=== PATIENT | female | born 1935 | race Caucasian/White ===

== ENCOUNTER → 2016-04-08 | Outpatient (CLI) | payer OTHER ==
[~2016-04-08] MED LIST: ALLO1TAB51 PO; AMLO-110 PO; ATOR-24 PO; CHOLTAB3 PO; FERR325T51 PO; FURO20TA PO; INSDGI SC; LEVO88TA PO; LISI40TA PO; MAGN400T6 PO; METO50TA16 PO; NVLGI SC; PARO1TAB27 PO
[2016-04-08 14:38] LABS: HEMATOCRIT 33.6 % (37-47); MEAN CELL VOLUME 89.1 fL (80-100); MEAN CORPUSCULAR HEMOGLOBIN 29.4 pg (25-34); MEAN PLATELET VOLUME 10.7 fL (7.4-10.4); PLATELET COUNT 228 K/uL (130-400); RED BLOOD COUNT 3.77 M/uL (4.2-5.4); WHITE BLOOD COUNT 8.32 K/uL (4.8-10.8)
[2016-04-08 14:48] LABS: BLOOD UREA NITROGEN 29 mg/dl (7-18); BUN/CREATININE RATIO 14.4 (10-20); CALCIUM 9.1 mg/dl (8.5-10.1); CARBON DIOXIDE 30 mmol/L (21-32); CHLORIDE 105 mmol/L (98-107); GLUCOSE 77 mg/dl (70-99); PHOSPHORUS 3.4 mg/dl (2.5-4.9); POTASSIUM 3.6 mmol/L (3.5-5.1); SODIUM 143 mmol/L (136-145)
[2016-04-08 14:49] LABS: URINE APPEARANCE CLEAR (CLEAR); URINE BILIRUBIN NEG (NEG); URINE COLOR YELLOW; URINE NITRITE NEG (NEG); URINE SPECIFIC GRAVITY 1.007 (1.000-1.030); UROBILINOGEN NEG (NEG)
[2016-04-08 14:50] LABS: MANUAL MICROSCOPIC REQUIRED? NO; REVIEW REQ? NO
[2016-04-08 15:04] LABS: URINE PROTIEN/CREAT RATIO 0.3 (0-0.2); URINE TOTAL PROTEIN 23.3 mg/dl (0-11.9)
== END | disposition home or self-care (01) ==
LOC: C.LAB1850 13:16
PROVIDERS: ATTEND Internal Medicine Nephrology
DX: N25.81 Secondary hyperparathyroidism of renal origin (principal); I10 Essential (primary) hypertension; E55.9 Vitamin D deficiency, unspecified; D64.9 Anemia, unspecified; N18.3 Chronic kidney disease, stage 3 (moderate)

== ENCOUNTER → 2016-10-23 | Outpatient (CLI) | payer OTHER ==
[2016-10-23 12:19] LABS: HEMATOCRIT 34.9 % (37-47); MEAN CELL VOLUME 90.6 fL (80-100); MEAN CORPUSCULAR HEMOGLOBIN 29.6 pg (25-34); MEAN CORPUSCULAR HGB CONC 32.7 g/dl (32-36); MEAN PLATELET VOLUME 10.7 fL (7.4-10.4); PLATELET COUNT 227 K/uL (130-400); RED BLOOD COUNT 3.85 M/uL (4.2-5.4); WHITE BLOOD COUNT 8.83 K/uL (4.8-10.8)
[2016-10-23 12:23] LABS: BLOOD UREA NITROGEN 26 mg/dl (7-18); BUN/CREATININE RATIO 13.9 (10-20); CALCIUM 9.1 mg/dl (8.5-10.1); CARBON DIOXIDE 28 mmol/L (21-32); CHLORIDE 109 mmol/L (98-107); GLUCOSE 86 mg/dl (70-99); PHOSPHORUS 3.1 mg/dl (2.5-4.9); POTASSIUM 3.7 mmol/L (3.5-5.1); SODIUM 142 mmol/L (136-145)
[2016-10-23 12:27] LABS: URINE APPEARANCE CLEAR (CLEAR); URINE BILIRUBIN NEG (NEG); URINE COLOR YELLOW; URINE NITRITE NEG (NEG); URINE PH 5.5 (4.5-7.5); URINE SPECIFIC GRAVITY 1.017 (1.000-1.030); UROBILINOGEN NEG (NEG)
[2016-10-23 12:40] LABS: MANUAL MICROSCOPIC REQUIRED? NO; REVIEW REQ? NO
[2016-10-23 12:53] LABS: URINE PROTIEN/CREAT RATIO 0.3 (0-0.2); URINE TOTAL PROTEIN 40.1 mg/dl (0-11.9)
== END | disposition home or self-care (01) ==
LOC: C.LAB1850 09:40
PROVIDERS: ATTEND Internal Medicine Nephrology
DX: N18.3 Chronic kidney disease, stage 3 (moderate) (principal); N25.81 Secondary hyperparathyroidism of renal origin; D64.9 Anemia, unspecified; I12.9 Hypertensive chronic kidney disease with stage 1 through stage 4 chronic kidney disease, or unspecified chronic kidney disease; E55.9 Vitamin D deficiency, unspecified

== ENCOUNTER → 2017-04-24 | Outpatient (CLI) | payer OTHER ==
[2017-04-24 16:57] LABS: HEMATOCRIT 31.6 % (37-47); HEMOGLOBIN 10.2 g/dL (12.0-16.0); MEAN CELL VOLUME 91.1 fL (80-100); MEAN CORPUSCULAR HEMOGLOBIN 29.4 pg (25-34); MEAN CORPUSCULAR HGB CONC 32.3 g/dl (32-36); MEAN PLATELET VOLUME 10.4 fL (7.4-10.4); PLATELET COUNT 238 K/uL (130-400); RED CELL DISTRIBUTION WIDTH CV 15.4 % (11.5-14.5); RED CELL DISTRIBUTION WIDTH SD 50.5 fL (36.4-46.3); WHITE BLOOD COUNT 9.25 K/uL (4.8-10.8)
[2017-04-24 17:29] LABS: ALBUMIN 3.4 gm/dl (3.4-5.0); BLOOD UREA NITROGEN 25 mg/dl (7-18); CALCIUM 8.1 mg/dl (8.5-10.1); CARBON DIOXIDE 29 mmol/L (21-32); CREATININE 1.74 mg/dl (0.60-1.20); GLUCOSE 94 mg/dl (70-99); PHOSPHORUS 2.9 mg/dl (2.5-4.9); SODIUM 142 mmol/L (136-145)
== END | disposition home or self-care (01) ==
LOC: C.LABPBG 10:52
PROVIDERS: ATTEND Internal Medicine Nephrology
DX: N25.81 Secondary hyperparathyroidism of renal origin (principal); I10 Essential (primary) hypertension; D64.9 Anemia, unspecified; E55.9 Vitamin D deficiency, unspecified; N18.3 Chronic kidney disease, stage 3 (moderate)

== ENCOUNTER 2017-05-31 19:34 | Emergency (ER) | payer OTHER ==
[~2017-05-31] VITALS: Ht 162.6 cm; Wt 83.3 kg
[2017-05-31 19:36] VITALS: TEMP 37; Ht 162.6 cm; Wt 83.3 kg
[2017-05-31 20:18] LABS: BASO % 0.4 %; BASO ABS # 0.04 K/uL (0-0.2); EOS % 4.9 %; HEMATOCRIT 32.6 % (37-47); IG# 0.02 K/uL (0.00-0.02); LYMPH % 23.1 %; LYMPH ABS # 2.35 K/uL (1.2-3.4); MEAN CELL VOLUME 89.1 fL (80-100); MEAN CORPUSCULAR HEMOGLOBIN 30.1 pg (25-34); MEAN CORPUSCULAR HGB CONC 33.7 g/dl (32-36); MEAN PLATELET VOLUME 10.1 fL (7.4-10.4); MONO % 6.5 %; MONO ABS # 0.66 K/uL (0.11-0.59); NEUT % 64.9 %; NEUT ABS # 6.62 K/uL (1.4-6.5); PLATELET COUNT 191 K/uL (130-400); RED CELL DISTRIBUTION WIDTH SD 48.5 fL (36.4-46.3); WHITE BLOOD COUNT 10.19 K/uL (4.8-10.8)
--- NOTE | 2017-05-31 20:23 | DIAGNOSTIC IMAGING REPORT ---
HEAD WITHOUT CONTRAST (CT) CLINICAL HISTORY: 81 years-old Female presenting with LEIGH, high BP. TECHNIQUE: Multidetector CT imaging of the head was performed without the use of intravenous contrast. IV contrast: None. A dose lowering technique was used consistent with the principles of ALARA (as low as reasonably achievable). COMPARISON: 06/23/2015. CT DOSE (mGy.cm): The estimated cumulative dose is 601.98 mGy.cm. 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 Proportional ventricular and sulcal prominence, likely age-related parenchymal volume loss. Periventricular and subcortical white matter hypoattenuation, nonspecific but likely indicative of chronic small vessel ischemic change. No mass effect or midline shift. No hemorrhage or acute territorial infarct. No extra-axial fluid collection. Paranasal sinuses and mastoid air cells clear. Calvarium intact. IMPRESSION: 1. Chronic small vessel ischemic change. No acute intracranial abnormality. Electronically signed by: Alok Kong M.D. 05/31/2017 8:21 PM Dictated Date/Time: 05/31/2017 8:19 PM
[2017-05-31 20:38] LABS: CALCIUM 8.8 mg/dl (8.5-10.1); CREATININE 2.12 mg/dl (0.60-1.20)
[2017-05-31] MEDS ORDERED: NVLGI/PEN SQ (20:40)
[2017-05-31] MEDS ORDERED: INSU3INJ3 SQ (20:40)
[2017-05-31] MEDS ORDERED: CHOL100027 PO (20:40)
[2017-05-31] MEDS ORDERED: FERR1TAB62 PO (20:40)
[2017-05-31] MEDS ORDERED: ALLO100T PO (20:40)
[2017-05-31 21:47] VITALS: BP 158/82; PULSE 61; O2SAT 95
--- NOTE | 2017-05-31 21:51 | EMERGENCY ROOM VISIT NOTE ---
History Report prepared by Angel: Elise Wheat Under the Supervision of: Dr. Jose D Russell D.O. First contact with patient: 19:42 Chief Complaint: HYPERTENSION Stated Complaint: BLOOD PRESSURE RUNNING HIGH History of Present Illness The patient is an 81 year old female who presents to the Emergency Room with complaints of persistent hypertension starting earlier today. The patient has a history of hypertensive encephalopathy. She has been taking her blood pressure once a week. It has been somewhat elevated recently. Today she found that it was in the 200s so she came to the ED. She has had brief headaches over the past month. She describes the headache as a "thump" in her head and it occurs when she stands back up after bending over. Pain is a 1 out of 10 in her head. It comes and goes intermittently as stated with bending over. Located in the front of her head. She denies any change in vision, chest pain, SOB, abdominal pain, nausea, vomiting, or diarrhea. She has taken all of her medications today. She has a history of kidney disease. Source of History: patient Onset: earlier today Position: other (blood pressure) Symptom Intensity: 200s Quality: other (high) Timing: other (persistent) Associated Symptoms: + headache, No chest pain, No SOB, No nausea, No vomiting, No abdominal pain, No diarrhea Review of Systems See HPI for pertinent positives & negatives. A total of 10 systems reviewed and were otherwise negative. Past Medical & Surgical Medical Problems: (1) Anemia (2) CKD (chronic kidney disease), stage IV (3) DM type 2 (diabetes mellitus, type 2) (4) Dyslipidemia (5) Encephalopathy (6) Gout (7) HTN (hypertension) (8) Hypertensive emergency (9) Hypothyroidism (10) Urinary tract infection Surgical Problems: (1) History of carpal tunnel surgery of left wrist (2) Hx of surgical amputation of finger (3) Hx of tonsillectomy Family History FHx: cancer FHx: diabetes mellitus FHx: gallbladder disease FHx: heart disease FHx: hypertension FHx: lung disease Social History Smoking Status: Never Smoker Alcohol Use: none Drug Use: none Marital Status: Housing Status: lives with family Occupation Status: employed Current/Historical Medications Scheduled Allopurinol (Zyloprim), 100 MG PO BID Amlodipine (Norvasc), 5 MG PO QAM Atorvastatin (Lipitor), 40 MG PO QPM Cholecalciferol (Vitamin D 1000 Unit), 1,000 INTER.UNIT PO DAILY Ferrous Sulfate (Ferrous Sulfate), 325 MG PO BID Furosemide (Lasix), 20 MG PO QAM Insulin Detemir (Levemir Flextouch), 18 UNITS SQ HS Levothyroxine Sodium (Synthroid), 1 TAB PO QAM Lisinopril (Zestril), 40 MG PO QAM Magnesium Oxide (Mag-Ox), 400 MG PO BID Metoprolol Tartrate (Lopressor) (Lopressor), 50 MG PO BID Paroxetine (Paxil), 20 MG PO QAM Scheduled PRN Insulin Aspart (Novolog Flexpen), 1-15 UNITS SQ DAILY PRN for PRN Allergies Coded Allergies: Hydrocodone (Verified Allergy, Intermediate, RASH, 09/05/15) Iodinated Diagnostic Agents (Verified Allergy, Intermediate, HIVES, ) Penicillins (Verified Allergy, Intermediate, ANAPHLACTIC SHOCK, 09/05/15) Phenylephrine (Verified Allergy, Intermediate, RASH, 09/05/15) Trolamine (Verified Allergy, Intermediate, RASH, 08/28/15) Acetaminophen (Verified Allergy, Mild, BRIGHT RED RASH-PT DENIES, 08/28/15) Ketorolac (Verified Allergy, Mild, PT. DOSEN'T REMEMBER REACTION, 08/28/15) Oxycodone (Verified Allergy, Mild, BRIGHT RED RASH, 08/28/15) Tramadol (Verified Allergy, Mild, BRIGHT RED RASH, 08/28/15) Physical Exam Vital Signs Date Time Temp Pulse Resp B/P (MAP) Pulse Ox O2 Delivery O2 Flow Rate FiO2 05/31/17 21:47 61 17 158/82 95 05/31/17 20:56 61 17 165/80 95 Room Air 05/31/17 20:17 66 05/31/17 20:02 66 15 165/84 05/31/17 19:36 37.0 71 18 173/87 96 Room Air Physical Exam GENERAL: Sitting up in bed, alert, well appearing, well nourished, no distress, non-toxic EYE EXAM: normal conjunctiva. PERRL and EOM's grossly intact. OROPHARYNX: no exudate, no erythema, lips, buccal mucosa, and tongue normal and mucous membranes are moist NECK: supple, no nuchal rigidity, no adenopathy, non-tender LUNGS: Clear to auscultation. Normal chest wall mechanics HEART: no murmurs, S1 normal and S2 normal ABDOMEN: abdomen soft, non-tender, normo-active bowel sounds, no masses, no rebound or guarding. BACK: Back is symmetrical on inspection and there is no deformity, no midline tenderness, no CVA tenderness. SKIN: no rashes and no bruising UPPER EXTREMITIES: upper extremities are grossly normal. LOWER EXTREMITIES: No pitting edema. NEURO EXAM: Normal sensorium, cranial nerves II-XII grossly intact, normal speech, no gross weakness of arms, no gross weakness of legs. Medical Decision & Procedures ER Provider Diagnostic Interpretation: Radiology results as stated below per my review and the radiologist's interpretation: HEAD WITHOUT CONTRAST (CT) CLINICAL HISTORY: 81 years-old Female presenting with LEIGH, high BP. TECHNIQUE: Multidetector CT imaging of the head was performed without the use of intravenous contrast. IV contrast: None. A dose lowering technique was used consistent with the principles of ALARA (as low as reasonably achievable). COMPARISON: 06/23/2015. CT DOSE (mGy.cm): The estimated cumulative dose is 601.98 mGy.cm. FINDINGS: [employer] topogram: Unremarkable. Proportional ventricular and sulcal prominence, likely age-related parenchymal volume loss. Periventricular and subcortical white matter hypoattenuation, nonspecific but likely indicative of chronic small vessel ischemic change. No mass effect or midline shift. No hemorrhage or acute territorial infarct. No extra-axial fluid collection. Paranasal sinuses and mastoid air cells clear. Calvarium intact. IMPRESSION: 1. Chronic small vessel ischemic change. No acute intracranial abnormality. Electronically signed by: Alok Kong M.D. 05/31/2017 8:21 PM Dictated Date/Time: 05/31/2017 8:19 PM Laboratory Results 05/31/17 19:55 Red Blood Count 3.66, Mean Corpuscular Volume 89.1, Mean Corpuscular Hemoglobin 30.1, Mean Corpuscular Hemoglobin Concent 33.7, Mean Platelet Volume 10.1, Neutrophils (%) (Auto) 64.9, Lymphocytes (%) (Auto) 23.1, Monocytes (%) (Auto) 6.5, Eosinophils (%) (Auto) 4.9, Basophils (%) (Auto) 0.4, Neutrophils # (Auto) 6.62, Lymphocytes # (Auto) 2.35, Monocytes # (Auto) 0.66, Eosinophils # (Auto) 0.50, Basophils # (Auto) 0.04 05/31/17 19:55 05/31/17 20:48 Test 05/31/17 19:55 White Blood Count 10.19 K/uL (4.8-10.8) Red Blood Count 3.66 M/uL (4.2-5.4) Hemoglobin 11.0 g/dL (12.0-16.0) Hematocrit 32.6 % (37-47) Mean Corpuscular Volume 89.1 fL (80-100) Mean Corpuscular Hemoglobin 30.1 pg (25-34) Mean Corpuscular Hemoglobin Concent 33.7 g/dl (32-36) Platelet Count 191 K/uL (130-400) Mean Platelet Volume 10.1 fL (7.4-10.4) Neutrophils (%) (Auto) 64.9 % Lymphocytes (%) (Auto) 23.1 % Monocytes (%) (Auto) 6.5 % Eosinophils (%) (Auto) 4.9 % Basophils (%) (Auto) 0.4 % Neutrophils # (Auto) 6.62 K/uL (1.4-6.5) Lymphocytes # (Auto) 2.35 K/uL (1.2-3.4) Monocytes # (Auto) 0.66 K/uL (0.11-0.59) Eosinophils # (Auto) 0.50 K/uL (0-0.5) Basophils # (Auto) 0.04 K/uL (0-0.2) RDW Standard Deviation 48.5 fL (36.4-46.3) RDW Coefficient of Variation 15.0 % (11.5-14.5) Immature Granulocyte % (Auto) 0.2 % Immature Granulocyte # (Auto) 0.02 K/uL (0.00-0.02) Anion Gap 7.0 mmol/L (3-11) Est Creatinine Clear Calc Drug Dose 22.1 ml/min Estimated GFR () 24.8 Estimated GFR (Non- 21.4 BUN/Creatinine Ratio 13.5 (10-20) Calcium Level 8.8 mg/dl (8.5-10.1) Laboratory results per my review. ECG Per My Interpretation Indication: other (high blood pressure) Rate (beats per minute): 66 Rhythm: sinus rhythm Findings: RBBB, left axis deviation, no ectopy Comparison ECG Date: 25-Jun-2015 Change: no significant change ED Course ED COURSE: Vital signs were reviewed and showed hypertension. The patients medical record was reviewed The above diagnostic studies were performed and reviewed. ED treatments and interventions as stated above. 3: The patient was evaluated in room C7. A complete history and physical examination was performed. 2129: Upon reevaluation, the patient is resting comfortably. I discussed my findings with the patient and she understands and agrees with the treatment plan. Based on the patients age, coexisting illnesses, exam and lab findings the decision to treat as an outpatient was made. The patient remained stable while under my care. The patient appeared well at the time of discharge. Medical Decision Differential Diagnosis includes but is not limited to headache, tension headache , cluster headache, migraine, subarachnoid hemorrhage, meningitis, mass, central venous thrombus, concussion, trauma and epidural/subdural hemorrhage. Patient is an 81-year-old female who presents the ER for hypertension. She notes she was checking her blood pressure at home and it was in the 200s. She has no other complaints at this time with the exception of mild faint right frontal headache. CBC was unremarkable. BMP with a creatinine of 2. Baseline appears to be 1.7-1.8. EKG was unchanged. CT head was negative. Patient was completely asymptomatic. Blood pressures trended down to the 140s without intervention. She was updated at bedside. She was discharged follow-up with PCP as an outpatient. Discussed with Pt concerning signs and symptoms to watch out for. Pt was instructed to follow up with their PCP and discussed with the patient their option to return to the ED at anytime for persistent or worsening symptoms. The appropriate anticipatory guidance and out-patient management, including indications for return to the emergency department, were explained at length to the patient and understood. Medication Reconcilliation Current Medication List: was personally reviewed by me Blood Pressure Screening Patient's blood pressure: Elevated blood pressure Blood pressure disposition: Referred to PCP Impression Primary Impression: HTN (hypertension) Additional Impression: LEIGH (headache) Scribe Attestation The scribe's documentation has been prepared under my direction and personally reviewed by me in its entirety. I confirm that the note above accurately reflects all work, treatment, procedures, and medical decision making performed by me. Departure Information Dispostion Home / Self-Care Referrals Cooper Merida M.D. (PCP) Forms HOME CARE DOCUMENTATION FORM, IMPORTANT VISIT INFORMATION, WORK / SCHOOL INSTRUCTIONS Patient Instructions Headache Pain, Hypertension Control, My [facility] Additional Instructions Please follow up with your primary care doctor with in the next 24 hours. Any worsening of your symptoms, please return to the ED immediately. This includes any fevers greater than 100.4, worsening pain, chest pain, shortness breath, persistent nausea, vomiting, unable to eat or drink, or any other concerning signs or symptoms from your standpoint. You were found to have a blood pressure greater than 120 systolic over 90 diastolic. Due to the new Medicare guidelines, we are now recommending that you follow up with your primary care doctor in regards to this elevated blood pressure. Problem Qualifiers Primary Impression: HTN (hypertension) Hypertension type: unspecified Qualified Codes: I10 - Essential (primary) hypertension Additional Impression: LEIGH (headache) Headache type: unspecified Headache chronicity pattern: acute headache Intractability: not intractable Qualified Codes: R51 - Headache
== END 2017-05-31 21:48 | disposition home or self-care (01) ==
LOC: C.EDB 19:35 → C.EDC 21:48
DX: I12.9 Hypertensive chronic kidney disease with stage 1 through stage 4 chronic kidney disease, or unspecified chronic kidney disease (principal); R51 Headache; E11.22 Type 2 diabetes mellitus with diabetic chronic kidney disease; Z79.4 Long term (current) use of insulin; N18.4 Chronic kidney disease, stage 4 (severe); M10.9 Gout, unspecified; E78.5 Hyperlipidemia, unspecified; D64.9 Anemia, unspecified; E03.9 Hypothyroidism, unspecified; Z88.6 Allergy status to analgesic agent; Z91.041 Radiographic dye allergy status; Z88.0 Allergy status to penicillin; Z88.8 Allergy status to other drugs, medicaments and biological substances; Z88.5 Allergy status to narcotic agent

== ENCOUNTER → 2017-06-04 | Outpatient (CLI) | payer OTHER ==
[~2017-06-04] MED LIST changes: +ALLO100T PO; -ALLO1TAB51 PO; +CHOL100027 PO; -CHOLTAB3 PO; +FERR1TAB62 PO; -FERR325T51 PO; -INSDGI SC; +INSU3INJ3 SQ; -NVLGI SC; +NVLGI/PEN SQ
[2017-06-04 17:34] LABS: ALBUMIN 3.8 gm/dl (3.4-5.0); BLOOD UREA NITROGEN 31 mg/dl (7-18); CALCIUM 9.5 mg/dl (8.5-10.1); CARBON DIOXIDE 31 mmol/L (21-32); CREATININE 2.02 mg/dl (0.60-1.20); GLUCOSE 87 mg/dl (70-99); PHOSPHORUS 4.2 mg/dl (2.5-4.9); POTASSIUM 3.5 mmol/L (3.5-5.1); SODIUM 138 mmol/L (136-145)
== END | disposition home or self-care (01) ==
LOC: C.LABPBG 12:16
PROVIDERS: ATTEND Internal Medicine Nephrology
DX: N25.81 Secondary hyperparathyroidism of renal origin (principal); I10 Essential (primary) hypertension; E55.9 Vitamin D deficiency, unspecified; D64.9 Anemia, unspecified

== ENCOUNTER → 2017-06-25 | Outpatient (CLI) | payer OTHER ==
[2017-06-25 16:55] LABS: ALBUMIN 3.4 gm/dl (3.4-5.0); BLOOD UREA NITROGEN 62 mg/dl (7-18); CALCIUM 8.4 mg/dl (8.5-10.1); CARBON DIOXIDE 25 mmol/L (21-32); CREATININE 2.58 mg/dl (0.60-1.20); GLUCOSE 99 mg/dl (70-99); PHOSPHORUS 3.1 mg/dl (2.5-4.9); POTASSIUM 3.1 mmol/L (3.5-5.1); SODIUM 143 mmol/L (136-145)
== END | disposition home or self-care (01) ==
LOC: C.LABPBG 13:33
PROVIDERS: ATTEND Internal Medicine Nephrology
DX: E55.9 Vitamin D deficiency, unspecified (principal)

== ENCOUNTER 2020-02-24 16:03 | Inpatient (IN) ==
--- NOTE | 2020-02-24 16:20 | Emergency Department Note ---
Impression & Plan Acute on chronic diastolic CHF (congestive heart failure), Hypoxia, Acute hypokalemia ED Provider Note NAME: PATRICA SARGENT AGE: 84 SEX: F : 1935 ARRIVES VIA: Ambulance INFORMANT: Patient ED PROVIDER(S): Jose D Russell DO CHIEF COMPLAINT: shortness of breath HPI: Patient is an 84-year-old female who presents to the ER for shortness of breath. This has been getting worse for the past 2 weeks to 1 month. She does admit to a cough and runny nose over the past 2 weeks. Denies any belly pain nausea, vomiting or diarrhea. No dysuria, urgency or frequency. Patient was seen at [facility] and referred in as she was found to be hypoxic at 75% on room air. She was placed on 3 L. Brought in by EMS. ROS: See above HPI for pertinent positives & negatives. A total of 10 systems reviewed and were otherwise negative. PAST MEDICAL HISTORY:See Below PAST SURGICAL HISTORY:See Below FAMILY HISTORY:See Below SOCIAL HISTORY:See Below HOME MEDICATIONS:See Below ALLERGIES:See Below VITALS:See Below PHYSICAL EXAMINATION: GENERAL: Sitting up in bed, alert, ill-appearing, mild distress EYE EXAM: normal conjunctiva. OROPHARYNX: Mask in place NECK: supple, no nuchal rigidity, no adenopathy, non-tender LUNGS: diminished bilaterally. Normal chest wall mechanics HEART: no murmurs, S1 normal and S2 normal ABDOMEN: abdomen soft, non-tender, normo-active bowel sounds, no masses, no rebound or guarding. UPPER EXTREMITIES: upper extremities are grossly normal. LOWER EXTREMITIES: Mild pitting edema. Calves are equal bilateral NEURO EXAM: Normal sensorium, cranial nerves II-XII grossly intact, normal speech, no gross weakness of arms, no gross weakness of legs. MEDICAL DECISION MAKING: Patient is an 84-year-old female who presents the ER short of breath. She is found to be hypoxic and placed on nasal cannula. She was referred in by [facility]. She remained on 2 L throughout her entire stay in the ER. IV was established blood work was obtained. Labs show leukocytosis of 11,000. Mild anemia at 9.7 consistent with previous. INR was unremarkable. D-dimer was elevated but with the elevated creatinine at 1.9 fairly consistent with previous unable to CT [facility]. Mild hypokalemia. LFTs bilirubin were unremarkable. proBNP was slightly elevated at 9300. Lipase was normal. Covid was negative. Patient was given IV Lasix. Updated bedside. Discussed with the hospitalist admitted for further work-up. Triage Nursing notes reviewed. Prior medical records reviewed Vital Signs: reviewed and remarkable for hypoxia Differential diagnosis: Differential diagnoses includes but is not limited to pneumonia, bronchitis, COPD/Asthma exacerbation, pneumothorax, pulmonary embolism, congestive heart failure, acute coronary syndrome ER treatment provided: See below Diagnostics interpreted by me: ECG: Sinus rhythm rate of 54 PACs Left axis Right bundle branch block T wave inversion septal and anterior leads QTC 504 Cardiac Monitoring: An order was placed for continuous cardiac monitoring. The monitor shows a rate of 50 with sinus rhythm. Laboratory studies: As stated above and show below. Imaging studies: Audible AP upright 1 view of the chest shows vascular congestion left worse than right Consultation(s): Regi with the hospitalist for further evaluation ED COURSE: Procedures: none Critical Care: I have personally spent 32 minutes of critical care time in the direct management of this patient. This includes bedside care, interpretation of diagnostic studies, and testing, discussion with consultants, patient, and family members, and other required patient management activities. This 32 minutes is in excess of all separately billable procedures. Past Med/Surg History Medical History Anemia Chronic diastolic CHF (congestive heart failure) CKD (chronic kidney disease), stage IV DM type 2 (diabetes mellitus, type 2) Dyslipidemia Gout HTN (hypertension) Hypothyroidism Vitamin D deficiency Surgical History History of carpal tunnel surgery of left wrist Hx of surgical amputation of finger Hx of tonsillectomy Family History Mother Colorectal cancer Diabetes Heart disease Hypertension Social History Smoking Status: Never smoker Hx Alcohol Use: No Hx Substance Use: No Preferred Language: Tamazight Communication Ability: Effective Manager Operational Required: No Beliefs That Will Affect Care: None Current Living Situation: Alone Current Living Situation Comment: alone with 2 dogs Feels Safe at Home: Yes Safety Concerns: Feels Safe At This Time Assistive Devices Comment: partial Allergies Allergies Allergy/AdvReac Type Severity Reaction Status Date / Time hydrocodone Allergy Intermediate RASH Verified 02/24/20 18:30 Iodinated Contrast Media Allergy Intermediate HIVES Verified 02/24/20 18:30 Penicillins Allergy Intermediate ANAPHLACTIC Verified 02/24/20 18:30 SHOCK phenylephrine Allergy Intermediate Rash, Verified 02/24/20 18:30 insomnia trolamine salicylate Allergy Intermediate RASH Verified 02/24/20 18:30 acetaminophen Allergy Mild BRIGHT RED Verified 02/24/20 18:30 RASH-PT DENIES ketorolac Allergy Mild Unknown Verified 02/24/20 18:30 oxycodone Allergy Mild BRIGHT RED Verified 02/24/20 18:30 RASH tramadol Allergy Mild BRIGHT RED Verified 02/24/20 18:30 RASH prednisone AdvReac Unknown Became Verified 02/24/20 18:30 manic Home Meds Home Medications Medication Instructions Recorded Confirmed atorvastatin 40 mg tablet 40 mg PO DAILY tab 11/11/18 02/24/20 ferrous sulfate 325 mg (65 mg 325 mg PO BID #60 tab 11/11/18 02/24/20 iron) tablet insulin aspart U-100 100 unit/mL See Rx Instructions .ROUTE 11/11/18 02/24/20 subcutaneous solution .COMPLEX ml MDD 15 UNITS/DAY insulin detemir U-100 100 unit/mL 10 units SUBCUT HS ml 11/11/18 02/24/20 subcutaneous solution lisinopril 40 mg tablet 40 mg PO DAILY #90 tab 11/11/18 02/24/20 magnesium oxide 400 mg (241.3 mg 400 mg PO BID #60 tab 11/11/18 02/24/20 magnesium) tablet paroxetine HCl 20 mg tablet 20 mg PO QAM tab 11/11/18 02/24/20 levothyroxine 100 mcg capsule 100 mcg PO DAILY 01/05/19 02/24/20 metoprolol tartrate 50 mg tablet 50 mg PO BID #180 tab 03/11/19 02/24/20 allopurinol 200 mg PO QAM 02/24/20 02/24/20 amlodipine 10 mg PO QAM 02/24/20 02/24/20 cholecalciferol (vitamin D3) 20 mcg PO DAILY 02/24/20 02/24/20 [Vitamin D3] dicyclomine 10 mg PO TID PRN 02/24/20 02/24/20 furosemide 20 mg PO DAILY PRN 02/24/20 02/24/20 lactobacillus combination no.4 0 mmu cells PO DAILY 02/24/20 02/24/20 [Probiotic] Results & Data (ED) Vital Signs Vital Signs - 24 hr 02/24/20 16:17 02/24/20 16:39 02/24/20 17:01 Temperature 36.7 C Temperature Source Oral Pulse Rate 55 L 57 L 56 L Pulse Rate from SpO2 Sensor 63 56 L Pulse Rhythm Regular Pulse Strength Normal Respiratory Rate 22 21 21 Respiratory Effort / Characteristics Non-Labored Spontaneous Respiratory Depth Normal Respiratory Pattern Regular Blood Pressure 170/70 H 170/70 H 151/73 H Blood Pressure Mean 103 104 103 Blood Pressure Position Lying Pulse Oximetry 79 L 91 92 Oxygen Delivery Method Nasal Cannula Nasal Cannula Nasal Cannula Oxygen Flow Rate 0 2 2 Sepsis Recent Fever Within 48 Hours No Sepsis New/Unexplained Change in Mental Status N/A Sepsis Action Taken by Nursing No Action Required Oxygen Flow Rate - Titration 2 Pulse Oximetry Post Tiitration 95 02/24/20 17:31 02/24/20 18:01 Temperature Temperature Source Pulse Rate 59 L 57 L Pulse Rate from SpO2 Sensor 60 59 L Pulse Rhythm Pulse Strength Respiratory Rate 16 17 Respiratory Effort / Characteristics Respiratory Depth Respiratory Pattern Blood Pressure 145/74 H 147/86 H Blood Pressure Mean 104 110 Blood Pressure Position Pulse Oximetry 92 92 Oxygen Delivery Method Nasal Cannula Nasal Cannula Oxygen Flow Rate 2 2 Sepsis Recent Fever Within 48 Hours Sepsis New/Unexplained Change in Mental Status Sepsis Action Taken by Nursing Oxygen Flow Rate - Titration Pulse Oximetry Post Tiitration Laboratory Data Result diagrams: 02/24/20 16:49 02/24/20 16:49 Lab Results 02/24/20 02/24/20 02/24/20 Range/Units 16:37 16:37 16:49 WBC 11.24 H (4.8-10.8) K/uL RBC 3.36 L (4.2-5.4) M/uL Hgb 9.7 L (12.0-16.0) g/dL Hct 30.6 L (37-47) % MCV 91.1 (80-100) fL MCH 28.9 (25-34) pg MCHC 31.7 L (32-36) g/dL RDW Std Deviation 53.6 H (36.4-46.3) fL RDW Coeff of Mague 16.2 H (11.5-14.5) % Plt Count 311 (130-400) K/uL MPV 10.3 (7.4-10.4) fL Immature Gran % (Auto) 0.4 % Neut % (Auto) 83.2 % Lymph % (Auto) 9.4 % [place] % (Auto) 4.7 % Eos % (Auto) 2.0 % Baso % (Auto) 0.3 % Neut # (Auto) 9.36 H (1.4-6.5) K/uL Lymph # (Auto) 1.06 L (1.2-3.4) K/uL [place] # (Auto) 0.53 (0.11-0.59) K/uL Eos # (Auto) 0.22 (0-0.5) K/uL Baso # (Auto) 0.03 (0-0.2) K/uL Immature Gran # (Auto) 0.04 H (0.00-0.02) K/uL PT (9.0-12.0) Seconds INR (0.9-1.1) APTT (21.0-31.0) Seconds PTT Ratio D-Dimer (0-500) ug/L FEU Sodium (136-145) mmol/L Potassium (3.5-5.1) mmol/L Chloride (98-107) mmol/L Carbon Dioxide (21-32) mmol/L Anion Gap (3-11) BUN (7-18) mg/dl Creatinine (0.6-1.2) mg/dl Est Cr Clr Drug Dosing Est GFR ( Amer) Est GFR (Non-Af Amer) BUN/Creatinine Ratio (10-20) Glucose (70-99) mg/dl Calcium (8.5-10.1) mg/dl Magnesium (1.8-2.4) mg/dl Total Bilirubin (0.2-1) mg/dl AST (15-37) U/L ALT (12-78) U/L Alkaline Phosphatase (45-117) U/L Troponin I (0-0.045) ng/ml NT-Pro-B Natriuret Pep (0-1800) pg/ml Total Protein (6.4-8.2) gm/dl Albumin (3.4-5.0) gm/dl Globulin (2.5-4.0) gm/dl Albumin/Globulin Ratio (0.9-2) Lipase (73-393) U/L COVID-19 [facility] SARS-CoV-2, RNA, NAAT NEGATIVE (NEGATIVE) 02/24/20 02/24/20 02/24/20 Range/Units 16:49 16:49 16:49 WBC (4.8-10.8) K/uL RBC (4.2-5.4) M/uL Hgb (12.0-16.0) g/dL Hct (37-47) % MCV (80-100) fL MCH (25-34) pg MCHC (32-36) g/dL RDW Std Deviation (36.4-46.3) fL RDW Coeff of Mague (11.5-14.5) % Plt Count (130-400) K/uL MPV (7.4-10.4) fL Immature Gran % (Auto) % Neut % (Auto) % Lymph % (Auto) % [place] % (Auto) % Eos % (Auto) % Baso % (Auto) % Neut # (Auto) (1.4-6.5) K/uL Lymph # (Auto) (1.2-3.4) K/uL [place] # (Auto) (0.11-0.59) K/uL Eos # (Auto) (0-0.5) K/uL Baso # (Auto) (0-0.2) K/uL Immature Gran # (Auto) (0.00-0.02) K/uL PT 12.0 (9.0-12.0) Seconds INR 1.1 (0.9-1.1) APTT 24.8 (21.0-31.0) Seconds PTT Ratio 0.9 D-Dimer 1930 H* (0-500) ug/L FEU Sodium 143 (136-145) mmol/L Potassium 3.4 L (3.5-5.1) mmol/L Chloride 111 H (98-107) mmol/L Carbon Dioxide 25 (21-32) mmol/L Anion Gap 7.0 (3-11) BUN 23 H (7-18) mg/dl Creatinine 1.96 H (0.6-1.2) mg/dl Est Cr Clr Drug Dosing Not Reportable Est GFR ( Amer) 26.7 Est GFR (Non-Af Amer) 23.1 BUN/Creatinine Ratio 11.7 (10-20) Glucose 99 (70-99) mg/dl Calcium 8.5 (8.5-10.1) mg/dl Magnesium 1.3 L Cancelled (1.8-2.4) mg/dl Total Bilirubin 0.9 (0.2-1) mg/dl AST 25 (15-37) U/L ALT 17 (12-78) U/L Alkaline Phosphatase 87 (45-117) U/L Troponin I 0.044 (0-0.045) ng/ml NT-Pro-B Natriuret Pep 9314 H Cancelled (0-1800) pg/ml Total Protein 7.7 (6.4-8.2) gm/dl Albumin 3.3 L (3.4-5.0) gm/dl Globulin 4.4 H (2.5-4.0) gm/dl Albumin/Globulin Ratio 0.7 L (0.9-2) Lipase 83 (73-393) U/L COVID-19 Eval Order SARS-CoV-2, RNA, NAAT (NEGATIVE) Administered Medications Heparin Sodium (Porcine) (Heparin Sod 5,000 Unit/0.5 Ml Vial) 5,000 units SQ Q8 [facility] Stop: 03/25/20 21:59 Last Admin: 02/24/20 21:28 Dose: 5,000 units Documented by: [id number] Magnesium Sulfate/Dextrose (Magnesium Sulfate / D5w) 1 gm in 100 mls @ 50 mls/hr IV Q2H [facility] Stop: 02/25/20 00:29 Last Admin: 02/24/20 21:28 Dose: 50 mls/hr Documented by: [id number] Insulin Aspart (Insulin Aspart 100 Units/Ml 3 Ml Pen) 0 units SC ACHS [facility] Stop: 03/25/20 20:59 Last Admin: 02/24/20 21:40 Dose: Not Given Documented by: [id number] Cosigned by: [id number] Insulin Detemir (Insulin Detemir Flexpen/Flex Touch 100 Units/Ml 3ml) 10 units SC HS [facility] Stop: 03/25/20 20:59 Last Admin: 02/24/20 21:40 Dose: 10 units Documented by: [id number] Cosigned by: [id number] Metoprolol Tartrate (Metoprolol Tartrate 25 Mg Tab) 25 mg PO BID [facility] Stop: 03/25/20 20:59 Last Admin: 02/24/20 21:30 Dose: 25 mg Documented by: [id number] Discontinued Medications Furosemide (Furosemide 40 Mg/4 Ml Vial) 40 mg IV NOW STA Stop: 02/24/20 17:36 Last Admin: 02/24/20 19:38 Dose: 40 mg Documented by: [id number] Sodium Chloride (Nss 1000ml) 1,000 mls @ 999 mls/hr IV .Q1H1M [facility]HA[facility] Stop: 02/24/20 17:30 Last Admin: 02/24/20 18:04 Dose: Not Given Documented by: [id number] Magnesium Sulfate/Dextrose (Magnesium Sulfate / D5w) 1 gm in 100 mls @ 100 mls/hr IV NOW STA Stop: 02/24/20 18:35 Last Infusion: 02/24/20 20:47 Dose: 0 mls/hr Documented by: [id number] Admin: 02/24/20 19:38 Dose: 100 mls/hr Documented by: [id number] Potassium Chloride (Potassium Chloride Crtab 20 Meq Tabcr) 40 meq PO NOW STA Stop: 02/24/20 17:36 Last Admin: 02/24/20 19:38 Dose: 40 meq Documented by: [id number] Discharge Plan Visit Data Chief Complaint: Shortness of Breath/Dyspnea ED Provider: Jose D Russell Discharge Problem: Acute on chronic diastolic CHF (congestive heart failure), Hypoxia, Acute hypokalemia Patient Disposition: Admitted As Inpatient Discharge Instructions Interventions: ED Discharge Assessment Last Done: 02/24/20 19:49
[2020-02-24] MEDS ORDERED: SODIUM CHLORIDE 0.9% 1000ML 1,000 ML IV SCH (16:30)
--- NOTE | 2020-02-24 17:09 | XRay Report ---
XR chest 1V portable CLINICAL HISTORY: Atypical chest pain COMPARISON STUDY: 06/23/2015 FINDINGS: The heart is enlarged. There are trace bilateral pleural effusions. There is diffuse elevat ion of interstitium consistent with a pulmonary edema pattern. Diagnostic considerations include card iogenic pulmonary edema versus an interstitial infectious/inflammatory process.[ IMPRESSION: 1. Cardiomegaly and pulmonary edema pattern with small bilateral pleural effusions. Diagnostic consid erations include cardiogenic pulmonary edema versus interstitial infectious/inflammatory process. Cli nical and radiographic follow-up are recommended. ACT 112: Negative or not required by law. Electronically signed by: Jose De Jesus Byrd M.D. 02/24/2020 5:08 PM
[2020-02-24 17:11] LABS: Basophils # (auto) 0.03 K/uL (0-0.2); Basophils % (auto) 0.3 %; Eosinophils # (auto) 0.22 K/uL (0-0.5); Hematocrit (blood only) 30.6 % (37-47); Hemoglobin 9.7 g/dL (12.0-16.0); Immature Granulocytes # (auto) 0.04 K/uL (0.00-0.02); Immature Granulocytes % (auto) 0.4 %; Lymphocytes # (auto) 1.06 K/uL (1.2-3.4); Lymphocytes % (auto) 9.4 %; Mean Corpuscular Hemoglobin 28.9 pg (25-34); Mean Corpuscular Hgb Conc 31.7 g/dL (32-36); Mean Corpuscular Volume 91.1 fL (80-100); Mean Platelet Volume 10.3 fL (7.4-10.4); Monocytes # (auto) 0.53 K/uL (0.11-0.59); Monocytes % (auto) 4.7 %; Neutrophils # (auto) 9.36 K/uL (1.4-6.5); Neutrophils % (auto) 83.2 %; Platelet Count 311 K/uL (130-400); RDW Coefficient of Variation 16.2 % (11.5-14.5); RDW Standard Deviation 53.6 fL (36.4-46.3); Red Blood Count 3.36 M/uL (4.2-5.4); White Blood Count 11.24 K/uL (4.8-10.8)
[2020-02-24 17:23] LABS: INR 1.1 (0.9-1.1); Partial Thromboplastin Ratio 0.9; Partial Thromboplastin Time 24.8 Seconds (21.0-31.0)
[2020-02-24 17:24] LABS: D Dimer 1930 ug/L FEU (0-500)
[2020-02-24 17:29] LABS: Alanine Aminotransferase 17 U/L (12-78); Albumin Level 3.3 gm/dl (3.4-5.0); Aspartate Aminotransferase 25 U/L (15-37); BUN Creatinine Ratio 11.7 (10-20); Blood Urea Nitrogen 23 mg/dl (7-18); Calcium 8.5 mg/dl (8.5-10.1); Carbon Dioxide 25 mmol/L (21-32); Chloride 111 mmol/L (98-107); Est GFR (African American) 26.7; Est GFR (Non-African American) 23.1; Glucose 99 mg/dl (70-99); Lipase 83 U/L (73-393); Potassium 3.4 mmol/L (3.5-5.1); Sodium 143 mmol/L (136-145)
[2020-02-24 17:34] LABS: Albumin Globulin Ratio 0.7 (0.9-2); Alkaline Phosphatase 87 U/L (45-117); Bilirubin,Total 0.9 mg/dl (0.2-1); Globulin 4.4 gm/dl (2.5-4.0); Total Protein 7.7 gm/dl (6.4-8.2); Troponin I 0.044 ng/ml (0-0.045)
[2020-02-24] MEDS ORDERED: POTASSIUM CHLORIDE CRTAB 20 MEQ TABCR PO STA (17:35)
[2020-02-24] MEDS ORDERED: FUROSEMIDE 40 MG/4 ML VIAL IV STA (17:35)
[2020-02-24] MEDS ORDERED: MAGNESIUM SULFATE / D5W 1 GM/100 ML BAG IV STA (17:36)
[2020-02-24 18:03] LABS: Magnesium 1.3 mg/dl (1.8-2.4); NT Pro B Type Natriuretic Pept 9314 pg/ml (0-1800)
--- NOTE | 2020-02-24 19:34 | Ultrasound Report ---
US venous doppler LE BI CLINICAL HISTORY: Chest pain. Positive d-dimer. COMPARISON STUDY: No previous studies for comparison. FINDINGS: Real-time and color flow Doppler imaging were performed. Flow was seen within the femoral, popliteal and calf veins with no intraluminal thrombus demonstrated. The saphenous vein is patent. IMPRESSION: No evidence of lower extremity DVT. ACT 112: Negative or not required by law. Electronically signed by: Jose De Jesus Byrd M.D. 02/24/2020 7:32 PM
--- NOTE | 2020-02-24 20:03 | History & Physical Report ---
Date of Service February 24, 2020 Assessment & Plan (1) Acute on chronic diastolic CHF (congestive heart failure): (2) Acute respiratory failure with hypoxia: -Admit to telemetry -Patient presenting from home with reports of worsening shortness of breath over the past several months -In the ED, 79% on room air, currently saturating well on 2 L of oxygen via nasal cannula, CXR suggestive of CHF and proBNP 9000 -DSE 12/2018-negative for inducible ischemia, EF 60%, mild mitral regurgitation, mild tricuspid regurgitation -Had been managed on Lasix 20 mg daily however that was discontinued 01/2019 by nephrology due to worsening renal function. Has been using Lasix 20 mg daily on as-needed basis. -S/p Lasix 40 mg IV in the ED, continue with Lasix 40 mg IV daily -Strict I's and O's, daily weights, low Na+ diet -Update echo -Cardiology consult, input appreciated -Elevated D-dimer. BL LE Dopplers negative for DVT. Unable to do CTA chest due to CKD, check VQ scan. (3) Bradycardia: -EKG demonstrates rate 54, unchanged bifascicular block and PACs -Reduce metoprolol tartrate to 25 mg twice daily (from 50 mg twice daily) (4) CKD (chronic kidney disease), stage IV: -Baseline creatinine runs in the high 1's - low 2's -Creatinine 1.9 today -Monitor renal functions while aggressively diuresing -Follows with Dr. 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 -Hgb stable at 9.7 (7) HTN (hypertension): -BP controlled, continue amlodipine and lisinopril, reducing metoprolol as above (8) DVT prophylaxis: -SQ heparin History of Present Illness Chief Complaint: Shortness of breath Primary Care Provider: Tiffanie Jameson DO 84-year-old female with PMH DM type II, CKD stage IV, hypothyroidism, chronic diastolic CHF, chronic anemia, and other problems listed below who presents to the ED for evaluation of shortness of breath. Patient reports worsening shortness of breath the past several months. Reports intermittent lower extremity edema for which she has been taking Lasix 20 mg as needed. Last dose was last week. Reports she monitors her weights routinely and they have been stable. No cough or sputum production. Denies chest pain and palpitations. No lightheadedness, dizziness, diaphoresis, syncopal events. Denies abdominal pain, nausea, vomiting, diarrhea. No other recent illnesses, fevers, chills. She denies urinary symptoms. In the ED, patient was hypoxic on room air at 79%. Currently saturating well on 2 L of oxygen via nasal cannula. CXR suggest CHF, proBNP 9000. Elevated D-dimer, lower extremity Dopplers negative for DVT. Also found to have mild hypokalemia and hypomagnesemia. She was given potassium and magnesium replacements. She also received Lasix 40 mg IV. Allergies Allergy/AdvReac Type Severity Reaction Status Date / Time hydrocodone Allergy Intermediate RASH Verified 02/24/20 18:30 Iodinated Contrast Media Allergy Intermediate HIVES Verified 02/24/20 18:30 Penicillins Allergy Intermediate ANAPHLACTIC Verified 02/24/20 18:30 SHOCK phenylephrine Allergy Intermediate Rash, Verified 02/24/20 18:30 insomnia trolamine salicylate Allergy Intermediate RASH Verified 02/24/20 18:30 acetaminophen Allergy Mild BRIGHT RED Verified 02/24/20 18:30 RASH-PT DENIES ketorolac Allergy Mild Unknown Verified 02/24/20 18:30 oxycodone Allergy Mild BRIGHT RED Verified 02/24/20 18:30 RASH tramadol Allergy Mild BRIGHT RED Verified 02/24/20 18:30 RASH prednisone AdvReac Unknown Became Verified 02/24/20 18:30 manic Home Medications Medication Instructions Recorded Confirmed Type atorvastatin 40 mg tablet 40 mg PO DAILY tab 11/11/18 02/24/20 History ferrous sulfate 325 mg (65 mg 325 mg PO BID #60 tab 11/11/18 02/24/20 History iron) tablet insulin aspart U-100 100 unit/mL See Rx Instructions .ROUTE 11/11/18 02/24/20 History subcutaneous solution .COMPLEX ml MDD 15 UNITS/DAY insulin detemir U-100 100 unit/mL 10 units SUBCUT HS ml 11/11/18 02/24/20 History subcutaneous solution lisinopril 40 mg tablet 40 mg PO DAILY #90 tab 11/11/18 02/24/20 History magnesium oxide 400 mg (241.3 mg 400 mg PO BID #60 tab 11/11/18 02/24/20 History magnesium) tablet paroxetine HCl 20 mg tablet 20 mg PO QAM tab 11/11/18 02/24/20 History levothyroxine 100 mcg capsule 100 mcg PO DAILY 01/05/19 02/24/20 History metoprolol tartrate 50 mg tablet 50 mg PO BID #180 tab 03/11/19 02/24/20 History allopurinol 200 mg PO QAM 02/24/20 02/24/20 History amlodipine 10 mg PO QAM 02/24/20 02/24/20 History cholecalciferol (vitamin D3) 20 mcg PO DAILY 02/24/20 02/24/20 History [Vitamin D3] dicyclomine 10 mg PO TID PRN 02/24/20 02/24/20 History furosemide 20 mg PO DAILY PRN 02/24/20 02/24/20 History lactobacillus combination no.4 0 mmu cells PO DAILY 02/24/20 02/24/20 History [Probiotic] Past Med/Surg History Medical History Anemia Chronic diastolic CHF (congestive heart failure) CKD (chronic kidney disease), stage IV DM type 2 (diabetes mellitus, type 2) Dyslipidemia Gout HTN (hypertension) Hypothyroidism Vitamin D deficiency Surgical History History of carpal tunnel surgery of left wrist Hx of surgical amputation of finger Hx of tonsillectomy Family History Mother Colorectal cancer Diabetes Heart disease Hypertension Social History Smoking Status: Never smoker Hx Alcohol Use: No Hx Substance Use: No Preferred Language: Kyrgyz Communication Ability: Effective Adobe Maker Required: No Beliefs That Will Affect Care: None Current Living Situation: Alone Current Living Situation Comment: alone with 2 dogs Feels Safe at Home: Yes Safety Concerns: Feels Safe At This Time Assistive Devices: Denture - Upper and Oxygen - Continuous Assistive Devices Comment: partial Review of Systems Review of Systems: ROS per HPI, all other systems reviewed and negative Physical Exam Constitutional: WD/WN, vitals as above Eyes: PERRL, conjunctivae normal, anicteric sclerae ENMT: external ear and nose normal, oropharynx normal Respiratory: normal respiratory effort Auscultation: + diminished lung sounds and + crackles (Bilateral bases) Cardiovascular: Rate/Rhythm: regular rhythm and + bradycardic Vessels: normal peripheral pulses Extremities: + edema (+1-2 edema BLE) Gastrointestinal (Abdomen): normal bowel sounds, soft, nontender, no hepatosplenomegaly Musculoskeletal: no cyanosis or clubbing, extremities motor strength 5/5 Skin: no rashes, warm and dry Neurologic: PERRL, EOMI, accommodation nl, no face palsy, no dysarthria Psychiatric: A+Ox3, euthymic affect Results & Data Results & Data ([facility]) Vital Signs (Past 12 Hours) Vital Signs Temp Pulse Resp BP Pulse Ox 02/24/20 19:34 60 19 148/68 H 95 02/24/20 18:30 58 L 22 163/68 H 92 02/24/20 18:01 57 L 17 147/86 H 92 02/24/20 17:31 59 L 16 145/74 H 92 02/24/20 17:01 56 L 21 151/73 H 92 02/24/20 16:39 57 L 21 170/70 H 91 02/24/20 16:17 36.7 C 55 L 22 170/70 H 79 L Laboratory Results Short CBC 02/24/20 Range/Units 16:49 WBC 11.24 H (4.8-10.8) K/uL Hgb 9.7 L (12.0-16.0) g/dL Hct 30.6 L (37-47) % Plt Count 311 (130-400) K/uL BMP 02/24/20 16:49 Sodium 143 Potassium 3.4 L Chloride 111 H Carbon Dioxide 25 BUN 23 H Creatinine 1.96 H Glucose 99 Calcium 8.5 Cardiac Enzymes 02/24/20 Range/Units 16:49 Troponin I 0.044 (0-0.045) ng/ml Liver Function 02/24/20 Range/Units 16:49 Total Bilirubin 0.9 (0.2-1) mg/dl AST 25 (15-37) U/L ALT 17 (12-78) U/L Alkaline Phosphatase 87 (45-117) U/L Albumin 3.3 L (3.4-5.0) gm/dl Diagnostic Findings CXR IMPRESSION: 1. Cardiomegaly and pulmonary edema pattern with small bilateral pleural effusions. Diagnostic considerations include cardiogenic pulmonary edema versus interstitial infectious/inflammatory process. Clinical and radiographic follow- up are recommended. VENOUS DOPPLER BLE IMPRESSION: No evidence of lower extremity DVT. Code Status & VTE Plan Code Status Patient is a full code as per my discussion with her. VTE Prophylaxis Plan VTE Prophylaxis will be ordered: Yes Supervising Physician Co-Signing Physician Notes I saw this patient with the Nurse Practitioner, I participated in the history, physical, review of systems, and physical exam. I reviewed the medications with the patient and the Nurse Practitioner and helped reconcile the medications. I helped take a detailed family and social history as well. I formulated the assessment and plan personally with the Nurse Practitioner went over it with the patient. ROS-No Headache, No Visual Changes, No Nausea, No Vomiting, No Fever, No Chills, No Neck Pain or Stiffness, No Chest Pain, No Palpitations, + SOB, + [place], + Cough, No Sputum, No Wheezing, No Abdominal Pain, No Diarrhea, No Hematemesis, No Hemoptysis, No Unexpected Weight Loss, No Flank pain, No Melena, No Hematoch ezia, No Frequency, No Urgency, No Burning, No Hematuria, No Rashes, No Diaphoresis. Appetite is Normal, Weakness and Fatigue Physical Exam Gen-AAO x 3, NAD, Afebrile Head-NCAT, EOMI, PERRLA, Anicteric Sclera, No Posterior Pharyngeal Erythema Neck-Supple, No JVD, No Thyromegaly, No Masses, No LAD, No Bruits Lungs-B/L Rales, No Rhonchi, No Wheezing, No Crepitus Chest-No S4, +S1, +S2, No S3, No Murmurs, No Rubs, No Gallops, No Ectopy Abdomen-Soft, Bowel Sounds Present, Non Tender, Non Distended, No Hepatomegaly, No Splenomegaly, No Palpable Masses, No Rebound, No Rigidity, No Guarding Musculoskeletal-Full Range of Motion Bilaterally, No CVAT Extremities-No Cyanosis, No Clubbing, +Edema Nuero-Cranial Nerves II-XII grossly intact, Motor WNL, DTRs WNL, Strength WNL, N on Focal Psych-Normal Mood
[2020-02-24] MEDS ORDERED: DEXTROSE 50% 50 ML SYRINGE IV PRN (20:07)
[2020-02-24] MEDS ORDERED: ACETAMINOPHEN 325 MG TAB PO PRN (20:07)
[2020-02-24] MEDS ORDERED: GLUCOSE 40% GEL 15 GM TUBE PO PRN (20:07)
[2020-02-24] MEDS ORDERED: GLUCOSE 10 TABS/TUBE PO PRN (20:07)
[2020-02-24] MEDS ORDERED: GLUCAGON FOR INJ 1 MG VIAL SQ PRN (20:07)
[2020-02-24] MEDS ORDERED: INSULIN DETEMIR FLEXPEN/FLEX TOUCH 100 UNITS/ML 3ML SC SCH (21:00)
[2020-02-24] MEDS: MAGNESIUM SULFATE / D5W 1 GM/100 ML BAG IV SCH ×2 (21:28→22:28)
[2020-02-24] MEDS: HEPARIN SOD 5,000 UNIT/0.5 ML VIAL SQ SCH (21:28)
[2020-02-24] MEDS: METOPROLOL TARTRATE 25 MG TAB PO SCH (21:30)
[2020-02-24] MEDS: INSULIN ASPART 100 UNITS/ML 3 ML PEN SC SCH (21:40)
[2020-02-25] MEDS: CARBOHYDRATES FOR HYPOGLYCEMIA PO PRN ×2 (03:10→03:26)
[2020-02-25] MEDS: LEVOTHYROXINE SODIUM 100 MCG TABLET PO SCH (06:16)
[2020-02-25] MEDS: HEPARIN SOD 5,000 UNIT/0.5 ML VIAL SQ SCH ×3 (06:16→20:49)
[2020-02-25 08:12] LABS: Hematocrit (blood only) 29.6 % (37-47); Hemoglobin 9.3 g/dL (12.0-16.0); Mean Corpuscular Hemoglobin 28.9 pg (25-34); Mean Corpuscular Hgb Conc 31.4 g/dL (32-36); Mean Corpuscular Volume 91.9 fL (80-100); Mean Platelet Volume 9.1 fL (7.4-10.4); Platelet Count 256 K/uL (130-400); RDW Coefficient of Variation 16.3 % (11.5-14.5); RDW Standard Deviation 54.5 fL (36.4-46.3); Red Blood Count 3.22 M/uL (4.2-5.4); White Blood Count 8.79 K/uL (4.8-10.8)
[2020-02-25] MEDS: INSULIN ASPART 100 UNITS/ML 3 ML PEN SC SCH ×4 (08:13→20:23)
[2020-02-25 08:39] LABS: BUN Creatinine Ratio 12.3 (10-20); Calcium 8.7 mg/dl (8.5-10.1); Creatinine Clr Calc Pharmacy 22.3 ml/min; Est GFR (African American) 27.8; Magnesium 1.8 mg/dl (1.8-2.4); Potassium 3.2 mmol/L (3.5-5.1)
[2020-02-25] MEDS ORDERED: FUROSEMIDE 40 MG/4 ML VIAL IV SCH (09:00)
[2020-02-25] MEDS ORDERED: FUROSEMIDE 40 MG in SYRINGE 0 ML IV SCH (09:00)
[2020-02-25 09:31] LABS: Estimated Average Glucose 100 mg/dl; Hemoglobin A1C 5.1 % (4.5-5.6)
--- NOTE | 2020-02-25 09:32 | Hospitalist Progress Note ---
Date of Service February 25, 2020 Assessment & Plan (1) Acute on chronic diastolic CHF (congestive heart failure): (2) Acute respiratory failure with hypoxia: -Patient presenting from home with reports of worsening shortness of breath over the past several months -In the ED, 79% on room air, currently saturating well on 2 L of oxygen via nasal cannula, CXR suggestive of CHF and proBNP 9000 -DSE 12/2018-negative for inducible ischemia, EF 60%, mild mitral regurgitation, mild tricuspid regurgitation -Had been managed on Lasix 20 mg daily however that was discontinued 01/2019 by nephrology due to worsening renal function. Has been using Lasix 20 mg daily on as-needed basis. -S/p Lasix 40 mg IV in the ED, continue with Lasix 40 mg IV daily -Strict I's and O's, daily weights, low Na+ diet -Update echo -Cardiology consult, input appreciated -Elevated D-dimer. BL LE Dopplers negative for DVT. Unable to do CTA chest due to CKD, check VQ scan. (3) Bradycardia: -EKG demonstrates rate 54, unchanged bifascicular block and PACs -Reduce metoprolol tartrate to 25 mg twice daily (from 50 mg twice daily) (4) CKD (chronic kidney disease), stage IV: -Baseline creatinine runs in the high 1's - low 2's -Creatinine 1.9 today -Monitor renal functions while aggressively diuresing -Follows with Dr. 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 -Hgb stable at 9.7 (7) HTN (hypertension): -BP controlled, continue amlodipine and lisinopril, reducing metoprolol as above (8) DVT prophylaxis: -SQ heparin -Labs checked ROS-No Headache, No Visual Changes, No Nausea, No Vomiting, No Fever, No Chills, No Neck Pain or Stiffness, No Chest Pain, No Palpitations, less SOB, No CAMARGO, No Cough, No Sputum, No Wheezing, No Abdominal Pain, No Diarrhea, No Hematemesis, No Hemoptysis, No Unexpected Weight Loss, No Flank pain, No Melena, No Hematochezia, No Frequency, No Urgency, No Burning, No Hematuria, No Rashes, No Diaphoresis. Appetite is Normal Physical Exam Gen-AAO x 3, NAD, Afebrile Head-NCAT, EOMI, PERRLA, Anicteric Sclera, No Posterior Pharyngeal Erythema Neck-Supple, No JVD, No Thyromegaly, No Masses, No LAD, No Bruits Lungs-+Rales, but improved, No Rhonchi, No Wheezing, No Crepitus Chest-No S4, +S1, +S2, No S3, No Murmurs, No Rubs, No Gallops, No Ectopy Abdomen-Soft, Bowel Sounds Present, Non Tender, Non Distended, No Hepatomegaly, No Splenomegaly, No Palpable Masses, No Rebound, No Rigidity, No Guarding Musculoskeletal-Full Range of Motion Bilaterally, No CVAT Extremities-No Cyanosis, No Clubbing, No Edema Nuero-Cranial Nerves II-XII grossly intact, Motor WNL, DTRs WNL, Strength WNL, Non Focal Psych-Normal Mood Admission and Anticipated Discharge Date Admission Date: February 24, 2020 Results & Data Results & Data ([facility]) Vital Signs (Past 12 Hours) Vital Signs Temp Pulse Resp BP BP Pulse Ox 02/25/20 07:22 37.1 C 57 L 16 150/62 H 92 02/25/20 03:54 36.5 C 57 L 18 168/81 H 96 02/24/20 23:03 37.1 C 61 18 140/73 91
--- NOTE | 2020-02-25 10:37 | Nuclear Medicine Report ---
NM pul perfusion HISTORY: 84 years-old Female hypoxia acute hypoxia COMPARISON: Chest radiograph 02/24/2020 TECHNIQUE: Lung perfusion scan was obtained along the intravenous administration of 5.3 mCi technetiu m 99 MAA administered via the left M knee. Ventilation portion of the study was not conducted seconda ry to ongoing pandemic droplet protocols. FINDINGS: Chest radiograph obtained same day demonstrates cardiomegaly with pulmonary opacities and small pleur al effusions. No large segmental perfusion defects identified. IMPRESSION: Low probability for pulmonary embolus. ACT 112: Negative or not required by law. The above report was generated using voice recognition software. It may contain grammatical, syntax o r spelling errors. Electronically signed by: Logan Perez M.D. 02/25/2020 10:35 AM
--- NOTE | 2020-02-25 10:38 | Cardiology Consultation ---
Date of Consultation February 25, 2020 Assessment & Plan (1) Acute on chronic diastolic CHF (congestive heart failure): (2) CKD (chronic kidney disease), stage IV: (3) DM type 2 (diabetes mellitus, type 2): (4) Bradycardia: (5) HTN (hypertension): (6) Hypokalemia: (7) Mitral regurgitation and mitral stenosis: (8) Pulmonary hypertension: It was my pleasure to see Mrs. Kirby in consultation today. Her clinical presentation is consistent with acute on chronic diastolic heart failure as is her physical exam. She is significantly volume overloaded. She does carry history of stage IV chronic kidney disease and her diuretics were previously held by her tobacco curer. At this point, I will continue to diurese and change her Lasix to Bumex 2 mg IV twice daily. Her electrolytes are being followed and repleted by the primary team and I will also add magnesium oxide. She is relatively bradycardic on metoprolol tartrate and I believe in the long- term she will benefit from evidence-based beta-morales so, the Toprol tartrate will be held at this time and I will initiate metoprolol succinate in the a.m. 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 Strict I's and O's. Continue to monitor on telemetry. Should her renal function start to decline consideration should be given to consulting her primary tobacco curer, Dr. Merida History of Present Illness Reason for Consultation: acute diastolic heart failure Requesting Physician: Dr. Segundo Attending Physician: Michael Segundo, History of Present Illness It was my pleasure to see Mrs. Kirby in consultation today February 25, 2020. She is a very pleasant 84-year-old woman who does not routinely follow with a commercial technician. She presented to [facility] on 02/24/2020 with complaints of shortness of breath. She states that this has been going on for quite some time now likely over a year now. She states that she started noticing she was getting short of breath with exertion and this is slowly progressed over the last 12 months. She states that she initially became winded walking up the steps but now is to the point where she is unable to walk her 2 little dogs without getting winded. She also has to carry her [place] up steps but is no longer able to do this. She denies any chest pain, palpitations, lightheadedness, dizziness or syncope. She has been taking her medications as directed without issue. Upon presentation emergency department she was found to be volume overloaded and given IV Lasix. She states that she does not notice much of a difference since admission and her breathing but states that she is otherwise comfortable. Allergies Allergy/AdvReac Type Severity Reaction Status Date / Time hydrocodone Allergy Intermediate RASH Verified 02/24/20 18:30 Iodinated Contrast Media Allergy Intermediate HIVES Verified 02/24/20 18:30 Penicillins Allergy Intermediate ANAPHLACTIC Verified 02/24/20 18:30 SHOCK phenylephrine Allergy Intermediate Rash, Verified 02/24/20 18:30 insomnia trolamine salicylate Allergy Intermediate RASH Verified 02/24/20 18:30 acetaminophen Allergy Mild BRIGHT RED Verified 02/24/20 18:30 RASH-PT DENIES ketorolac Allergy Mild Unknown Verified 02/24/20 18:30 oxycodone Allergy Mild BRIGHT RED Verified 02/24/20 18:30 RASH tramadol Allergy Mild BRIGHT RED Verified 02/24/20 18:30 RASH prednisone AdvReac Unknown Became Verified 02/24/20 18:30 manic Home Medications Medication Instructions Recorded Confirmed Type atorvastatin 40 mg tablet 40 mg PO DAILY tab 11/11/18 02/24/20 History ferrous sulfate 325 mg (65 mg 325 mg PO BID #60 tab 11/11/18 02/24/20 History iron) tablet insulin aspart U-100 100 unit/mL See Rx Instructions .ROUTE 11/11/18 02/24/20 History subcutaneous solution .COMPLEX ml MDD 15 UNITS/DAY insulin detemir U-100 100 unit/mL 10 units SUBCUT HS ml 11/11/18 02/24/20 History subcutaneous solution lisinopril 40 mg tablet 40 mg PO DAILY #90 tab 11/11/18 02/24/20 History magnesium oxide 400 mg (241.3 mg 400 mg PO BID #60 tab 11/11/18 02/24/20 History magnesium) tablet paroxetine HCl 20 mg tablet 20 mg PO QAM tab 11/11/18 02/24/20 History levothyroxine 100 mcg capsule 100 mcg PO DAILY 01/05/19 02/24/20 History metoprolol tartrate 50 mg tablet 50 mg PO BID #180 tab 03/11/19 02/24/20 History allopurinol 200 mg PO QAM 02/24/20 02/24/20 History amlodipine 10 mg PO QAM 02/24/20 02/24/20 History cholecalciferol (vitamin D3) 20 mcg PO DAILY 02/24/20 02/24/20 History [Vitamin D3] dicyclomine 10 mg PO TID PRN 02/24/20 02/24/20 History furosemide 20 mg PO DAILY PRN 02/24/20 02/24/20 History lactobacillus combination no.4 0 mmu cells PO DAILY 02/24/20 02/24/20 History [Probiotic] Patient History Medical History Anemia Chronic diastolic CHF (congestive heart failure) CKD (chronic kidney disease), stage IV DM type 2 (diabetes mellitus, type 2) Dyslipidemia Gout HTN (hypertension) Hypothyroidism Vitamin D deficiency Surgical History History of carpal tunnel surgery of left wrist Hx of surgical amputation of finger Hx of tonsillectomy Family History Mother Colorectal cancer Diabetes Heart disease Hypertension Social History Smoking Status: Never smoker Hx Alcohol Use: No Hx Substance Use: No Preferred Language: Greenlandic Communication Ability: Effective 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 No acute distress. HEENT: Normocephalic, atraumatic. Pupils equal, round and reactive to light and accommodation. Extraocular muscles are intact. Anicteric sclera. Moist mucous membranes. Neck: No JVD. No bruit. Cardiovascular: Regular. Positive S-4. Normal S-1 and S-2. No S-3. 3/6 holosystolic ejection murmur, left sternal border, mid-clavicular line with radiation to the axilla. No rubs. Pulmonary: Clear to auscultation bilaterally. No rales, rhonchi, or wheezing. Abdomen: Bowel sounds x 4, soft. No rebound, guarding or tenderness. No organomegaly. Extremities: No clubbing, cyanosis or edema. +2 pedal pulses bilaterally. Skin: Warm and dry. Results & Data ([facility]) Vital Signs (Past 12 Hours) Vital Signs Temp Pulse Resp BP BP Pulse Ox 02/25/20 07:22 37.1 C 57 L 16 150/62 H 92 02/25/20 03:54 36.5 C 57 L 18 168/81 H 96 02/24/20 23:03 37.1 C 61 18 140/73 91 Laboratory Results Laboratory Results - last 24 hr 02/24/20 02/24/20 02/24/20 16:37 16:37 16:49 WBC 11.24 H RBC 3.36 L Hgb 9.7 L Hct 30.6 L MCV 91.1 MCH 28.9 MCHC 31.7 L RDW Std Deviation 53.6 H RDW Coeff of Mague 16.2 H Plt Count 311 MPV 10.3 Immature Gran % (Auto) 0.4 Neut % (Auto) 83.2 Lymph % (Auto) 9.4 [place] % (Auto) 4.7 Eos % (Auto) 2.0 Baso % (Auto) 0.3 Neut # (Auto) 9.36 H Lymph # (Auto) 1.06 L [place] # (Auto) 0.53 Eos # (Auto) 0.22 Baso # (Auto) 0.03 Immature Gran # (Auto) 0.04 H PT INR APTT PTT Ratio D-Dimer Sodium Potassium Chloride Carbon Dioxide Anion Gap BUN Creatinine Est Cr Clr Drug Dosing Est GFR ( Amer) Est GFR (Non-Af Amer) BUN/Creatinine Ratio Glucose POC Glucose Estimat Average Glucose Hemoglobin A1c Calcium Magnesium Total Bilirubin AST ALT Alkaline Phosphatase Troponin I NT-Pro-B Natriuret Pep Total Protein Albumin Globulin Albumin/Globulin Ratio Lipase COVID-19 Eval [facility] SARS-CoV-2, RNA, NAAT NEGATIVE 02/24/20 02/24/20 02/24/20 16:49 16:49 16:49 WBC RBC Hgb Hct MCV MCH MCHC RDW Std Deviation RDW Coeff of Mague Plt Count MPV Immature Gran % (Auto) Neut % (Auto) Lymph % (Auto) [place] % (Auto) Eos % (Auto) Baso % (Auto) Neut # (Auto) Lymph # (Auto) [place] # (Auto) Eos # (Auto) Baso # (Auto) Immature Gran # (Auto) PT 12.0 INR 1.1 APTT 24.8 PTT Ratio 0.9 D-Dimer 1930 H* Sodium 143 Potassium 3.4 L Chloride 111 H Carbon Dioxide 25 Anion Gap 7.0 BUN 23 H Creatinine 1.96 H Est Cr Clr Drug Dosing Not Reportable Est GFR ( Amer) 26.7 Est GFR (Non-Af Amer) 23.1 BUN/Creatinine Ratio 11.7 Glucose 99 POC Glucose Estimat Average Glucose Hemoglobin A1c Calcium 8.5 Magnesium 1.3 L Cancelled Total Bilirubin 0.9 AST 25 ALT 17 Alkaline Phosphatase 87 Troponin I 0.044 NT-Pro-B Natriuret Pep 9314 H Cancelled Total Protein 7.7 Albumin 3.3 L Globulin 4.4 H Albumin/Globulin Ratio 0.7 L Lipase 83 COVID-19 Eval Order SARS-CoV-2, RNA, NAAT 02/24/20 02/25/20 02/25/20 20:32 03:10 03:26 WBC RBC Hgb Hct MCV MCH MCHC RDW Std Deviation RDW Coeff of Mague Plt Count MPV Immature Gran % (Auto) Neut % (Auto) Lymph % (Auto) [place] % (Auto) Eos % (Auto) Baso % (Auto) Neut # (Auto) Lymph # (Auto) [place] # (Auto) Eos # (Auto) Baso # (Auto) Immature Gran # (Auto) PT INR APTT PTT Ratio D-Dimer Sodium Potassium Chloride Carbon Dioxide Anion Gap BUN Creatinine Est Cr Clr Drug Dosing Est GFR ( Amer) Est GFR (Non-Af Amer) BUN/Creatinine Ratio Glucose POC Glucose 111 H 45 L* 56 L* Estimat Average Glucose Hemoglobin A1c Calcium Magnesium Total Bilirubin AST ALT Alkaline Phosphatase Troponin I NT-Pro-B Natriuret Pep Total Protein Albumin Globulin Albumin/Globulin Ratio Lipase COVID-19 Eval Order SARS-CoV-2, RNA, NAAT 02/25/20 02/25/20 02/25/20 03:40 03:57 07:36 WBC RBC Hgb Hct MCV MCH MCHC RDW Std Deviation RDW Coeff of Mague Plt Count MPV Immature Gran % (Auto) Neut % (Auto) Lymph % (Auto) [place] % (Auto) Eos % (Auto) Baso % (Auto) Neut # (Auto) Lymph # (Auto) [place] # (Auto) Eos # (Auto) Baso # (Auto) Immature Gran # (Auto) PT INR APTT PTT Ratio D-Dimer Sodium Potassium Chloride Carbon Dioxide Anion Gap BUN Creatinine Est Cr Clr Drug Dosing Est GFR ( Amer) Est GFR (Non-Af Amer) BUN/Creatinine Ratio Glucose POC Glucose 65 L* 76 80 Estimat Average Glucose Hemoglobin A1c Calcium Magnesium Total Bilirubin AST ALT Alkaline Phosphatase Troponin I NT-Pro-B Natriuret Pep Total Protein Albumin Globulin Albumin/Globulin Ratio Lipase COVID-19 Eval Order SARS-CoV-2, RNA, NAAT 02/25/20 02/25/20 02/25/20 08:00 08:00 08:00 WBC 8.79 RBC 3.22 L Hgb 9.3 L Hct 29.6 L MCV 91.9 MCH 28.9 MCHC 31.4 L RDW Std Deviation 54.5 H RDW Coeff of Mague 16.3 H Plt Count 256 MPV 9.1 Immature Gran % (Auto) Neut % (Auto) Lymph % (Auto) [place] % (Auto) Eos % (Auto) Baso % (Auto) Neut # (Auto) Lymph # (Auto) [place] # (Auto) Eos # (Auto) Baso # (Auto) Immature Gran # (Auto) PT INR APTT PTT Ratio D-Dimer Sodium 143 Potassium 3.2 L Chloride 110 H Carbon Dioxide 25 Anion Gap 8.0 BUN 23 H Creatinine 1.90 H Est Cr Clr Drug Dosing 22.3 Est GFR ( Amer) 27.8 Est GFR (Non-Af Amer) 24.0 BUN/Creatinine Ratio 12.3 Glucose 86 POC Glucose Estimat Average Glucose 100 Hemoglobin A1c 5.1 Calcium 8.7 Magnesium 1.8 Total Bilirubin AST ALT Alkaline Phosphatase Troponin I NT-Pro-B Natriuret Pep Total Protein Albumin Globulin Albumin/Globulin Ratio Lipase COVID-19 Eval Order SARS-CoV-2, RNA, NAAT Diagnostic Findings Dobutamine stress echocardiogram from December 2018: The dobutamine stress echocardiographic examination is normal without resting left ventricular wall motion abnormalities or inducible ischemia. The stress EKG response showed no evidence of ischemia. No symptoms were noted. The LV wall thickness is mildly increased (concentric). The left ventricular systolic function is normal. Qualitative LV ejection Fraction = 60%. Mild mitral regurgitation is present. Mild tricuspid regurgitation is present. Mild aortic valve sclerosis is present. Medications Administered Current Inpatient Medications Acetaminophen (Acetaminophen 325 Mg Tab) 650 mg PO Q4H PRN PRN Reason: Pain or Fever Stop: 03/25/20 20:06 Allopurinol (Allopurinol 100 Mg Tab) 200 mg PO QAM MICHAEL Stop: 03/26/20 08:59 Amlodipine Besylate (Amlodipine Besylate 5 Mg Tab) 10 mg PO QAM MICHAEL Stop: 03/26/20 08:59 Atorvastatin Calcium (Atorvastatin 40 Mg Tab) 40 mg PO DAILY MICHAEL Stop: 03/26/20 08:59 Dextrose (Dextrose 50% 50 Ml Syringe) 25 - 50 ml IV UD PRN; Protocol PRN Reason: Hypoglycemia Protocol Stop: 03/25/20 20:06 Ferrous Sulfate (Ferrous Sulfate 325 Mg Tab) 325 mg PO BIDM MICHAEL Stop: 03/26/20 07:59 Glucagon (Glucagon For Inj 1 Mg Vial) 1 mg SQ UD PRN; Protocol PRN Reason: Hypoglycemia Protocol Stop: 03/25/20 20:06 Glucose (Glucose 10 Tabs/Tube) 4 - 8 tabs PO UD PRN; Protocol PRN Reason: Hypoglycemia Protocol Stop: 03/25/20 20:06 Glucose (Glucose 40% Gel 15 Gm Tube) 15 - 30 gm PO UD PRN; Protocol PRN Reason: Hypoglycemia Protocol Stop: 03/25/20 20:06 Heparin Sodium (Porcine) (Heparin Sod 5,000 Unit/0.5 Ml Vial) 5,000 units SQ Q8 MICHAEL Stop: 03/25/20 21:59 Last Admin: 02/25/20 06:16 Dose: 5,000 units Documented by: Furosemide 40 mg/ Syringe 4 mls @ 4 mls/min IV DAILY MICHAEL Stop: 03/26/20 08:59 Insulin Aspart (Insulin Aspart 100 Units/Ml 3 Ml Pen) 0 units SC ACHS MICHAEL Stop: 03/25/20 20:59 Last Admin: 02/25/20 08:13 Dose: Not Given Documented by: Insulin Detemir (Insulin Detemir Flexpen/Flex Touch 100 Units/Ml 3ml) 10 units SC HS [facility] Stop: 03/25/20 20:59 Last Admin: 02/24/20 21:40 Dose: 10 units Documented by: Levothyroxine Sodium (Levothyroxine Sodium 100 Mcg Tablet) 100 mcg PO DAILYBB MICHAEL Stop: 03/26/20 06:29 Last Admin: 02/25/20 06:16 Dose: 100 mcg Documented by: Lisinopril (Lisinopril 40 Mg Tab) 40 mg PO DAILY MICHAEL Stop: 03/26/20 08:59 Metoprolol Tartrate (Metoprolol Tartrate 25 Mg Tab) 25 mg PO BID MICHAEL Stop: 03/25/20 20:59 Last Admin: 02/24/20 21:30 Dose: 25 mg Documented by: Miscellaneous (Carbohydrates For Hypoglycemia ) 15 - 30 gm PO UD PRN PRN Reason: Hypoglycemia Protocol Stop: 03/25/20 20:06 Last Admin: 02/25/20 03:26 Dose: 22 gm Documented by: Paroxetine HCl (Paroxetine Hcl 20 Mg Tab) 20 mg PO QAM MICHAEL Stop: 03/26/20 08:59 Potassium Chloride (Potassium Chloride Crtab 20 Meq Tabcr) 20 meq PO TID MICHAEL Stop: 03/26/20 13:59 Vitamin D (Cholecalciferol 400 Units 10 Mcg Tab) 800 units PO DAILY [facility] Stop: 03/26/20 08:59
--- NOTE | 2020-02-25 11:05 | Electrocardiogram Report ---
Test Reason : Blood Pressure : / mmHG Vent. Rate : 054 BPM Atrial Rate : 054 BPM P-R Int : 150 ms QRS Dur : 148 ms QT Int : 532 ms P-R-T Axes : 073 -54 005 degrees QTc Int : 504 ms Sinus bradycardia with Premature supraventricular complexes Right bundle branch block Left anterior fascicular block Bifascicular block T wave abnormality, consider lateral ischemia Abnormal ECG When compared with ECG of 31-MAY-2017 19:53, Premature supraventricular complexes are now Present Confirmed by Patrick Enrique ([id number]) on 02/25/2020 11:05:35 AM Referred By: REFERRED SELF Confirmed By:Ozzie Enrique
[2020-02-25] MEDS: allopurinoL 100 MG TAB PO SCH (11:19)
[2020-02-25] MEDS: lisinopril 40 MG TAB PO SCH (11:19)
[2020-02-25] MEDS: ATORVASTATIN 40 MG TAB PO SCH (11:19)
[2020-02-25] MEDS: CHOLECALCIFEROL 400 UNITS 10 MCG TAB PO SCH (11:19)
[2020-02-25] MEDS: FERROUS SULFATE 325 MG TAB PO SCH ×2 (11:19→18:17)
[2020-02-25] MEDS: PARoxetine HCL 20 MG TAB PO SCH (11:20)
[2020-02-25] MEDS: amLODIPine BESYLATE 5 MG TAB PO SCH (11:20)
[2020-02-25] MEDS: METOPROLOL TARTRATE 25 MG TAB PO SCH (11:21)
[2020-02-25] MEDS ORDERED: SPIRONOLACTONE 12.5 MG TAB PO ONE (12:28)
[2020-02-25] MEDS: MAGNESIUM OXIDE 400 MG TAB PO SCH ×2 (14:05→20:49)
[2020-02-25] MEDS: POTASSIUM CHLORIDE CRTAB 20 MEQ TABCR PO SCH ×2 (14:06→20:49)
[2020-02-25] MEDS ORDERED: BUMETANIDE 1 MG TAB PO SCH (17:00)
[2020-02-25] MEDS: BUMETANIDE 1 MG TAB PO SCH (18:17)
[2020-02-26] MEDS: HEPARIN SOD 5,000 UNIT/0.5 ML VIAL SQ SCH ×3 (06:06→22:00)
[2020-02-26] MEDS: LEVOTHYROXINE SODIUM 100 MCG TABLET PO SCH (06:06)
[2020-02-26] MEDS: INSULIN ASPART 100 UNITS/ML 3 ML PEN SC SCH ×4 (08:24→20:31)
[2020-02-26] MEDS: allopurinoL 100 MG TAB PO SCH (08:26)
[2020-02-26] MEDS: lisinopril 40 MG TAB PO SCH (08:26)
[2020-02-26] MEDS: CHOLECALCIFEROL 400 UNITS 10 MCG TAB PO SCH (08:27)
[2020-02-26] MEDS: BUMETANIDE 1 MG TAB PO SCH ×2 (08:27→18:37)
[2020-02-26] MEDS: SPIRONOLACTONE 12.5 MG TAB PO SCH (08:27)
[2020-02-26] MEDS: POTASSIUM CHLORIDE CRTAB 20 MEQ TABCR PO SCH ×2 (08:27→18:37)
[2020-02-26] MEDS: amLODIPine BESYLATE 5 MG TAB PO SCH (08:27)
[2020-02-26] MEDS: FERROUS SULFATE 325 MG TAB PO SCH ×2 (08:27→18:37)
[2020-02-26] MEDS: MAGNESIUM OXIDE 400 MG TAB PO SCH ×2 (08:27→20:27)
[2020-02-26] MEDS: METOPROLOL SUCC 25MG EXT REL TAB PO SCH (08:27)
[2020-02-26] MEDS: ATORVASTATIN 40 MG TAB PO SCH (08:27)
[2020-02-26] MEDS: PARoxetine HCL 20 MG TAB PO SCH (08:27)
[2020-02-26 08:34] LABS: Hematocrit (blood only) 26.2 % (37-47); Hemoglobin 8.4 g/dL (12.0-16.0); Mean Corpuscular Hemoglobin 29.3 pg (25-34); Mean Corpuscular Hgb Conc 32.1 g/dL (32-36); Mean Corpuscular Volume 91.3 fL (80-100); Mean Platelet Volume 9.7 fL (7.4-10.4); Platelet Count 233 K/uL (130-400); RDW Coefficient of Variation 16.1 % (11.5-14.5); RDW Standard Deviation 53.5 fL (36.4-46.3); Red Blood Count 2.87 M/uL (4.2-5.4); White Blood Count 4.53 K/uL (4.8-10.8)
[2020-02-26 08:48] LABS: Albumin Level 2.7 gm/dl (3.4-5.0); BUN Creatinine Ratio 14.3 (10-20); Calcium 9.2 mg/dl (8.5-10.1); Creatinine Clr Calc Pharmacy 21.6 ml/min; Est GFR (African American) 26.9; Est GFR (Non-African American) 23.2; Potassium 3.5 mmol/L (3.5-5.1)
[2020-02-26 09:04] LABS: Albumin Globulin Ratio 0.7 (0.9-2); Bilirubin,Total 2.3 mg/dl (0.2-1); Total Protein 6.7 gm/dl (6.4-8.2)
--- NOTE | 2020-02-26 09:30 | Hospitalist Progress Note ---
Date of Service February 26, 2020 Assessment & Plan (1) Acute on chronic diastolic CHF (congestive heart failure): (2) Acute respiratory failure with hypoxia: -Patient presenting from home with reports of worsening shortness of breath over the past several months -In the ED, 79% on room air, currently saturating well on 2 L of oxygen via nasal cannula, CXR suggestive of CHF and proBNP 9000 -DSE 12/2018-negative for inducible ischemia, EF 60%, mild mitral regurgitation, mild tricuspid regurgitation -Had been managed on Lasix 20 mg daily however that was discontinued 01/2019 by nephrology due to worsening renal function. Has been using Lasix 20 mg daily on as-needed basis. -s/p Lasix 40 mg IV in the ED, Cards chenged her to Bumex -Strict I's and O's, daily weights, low Na+ diet -Echo noted -Cardiology on case -Elevated D-dimer. BL LE Dopplers negative for DVT. Unable to do CTA chest due to CKD, VQ Scan-Low Probability for PE (3) Bradycardia: -EKG demonstrates rate 54, unchanged bifascicular block and PACs -Metoprolol Succinate and Aldactone per Cards (4) CKD (chronic kidney disease), stage IV: -Baseline creatinine runs in the high 1's - low 2's -Monitor renal functions while aggressively diuresing -Follows with Dr. Mreida (5) DM type 2 (diabetes mellitus, type 2): -Hgb A1c 5.4 08/2019 -Lantus and NovoLog (6) Anemia: -Chronic anemia due to CKD (7) HTN (hypertension): -Continue Amlodipine and Lisinopril, Metoprolol Succinate 25 qam, Aldactone 12.5 q12 (8) DVT prophylaxis: -SQ heparin -Labs checked ROS-No Headache, No Visual Changes, No Nausea, No Vomiting, No Fever, No Chills, No Neck Pain or Stiffness, No Chest Pain, No Palpitations, less SOB, No CAMARGO, No Cough, No Sputum, No Wheezing, No Abdominal Pain, No Diarrhea, No Hematemesis, No Hemoptysis, No Unexpected Weight Loss, No Flank pain, No Melena, No Hematochezia, No Frequency, No Urgency, No Burning, No Hematuria, No Rashes, No Diaphoresis. Appetite is Normal Physical Exam Gen-AAO x 3, NAD, Afebrile Head-NCAT, EOMI, PERRLA, Anicteric Sclera, No Posterior Pharyngeal Erythema Neck-Supple, No JVD, No Thyromegaly, No Masses, No LAD, No Bruits Lungs-+Rales, but improved, No Rhonchi, No Wheezing, No Crepitus Chest-No S4, +S1, +S2, No S3, No Murmurs, No Rubs, No Gallops, No Ectopy Abdomen-Soft, Bowel Sounds Present, Non Tender, Non Distended, No Hepatomegaly, No Splenomegaly, No Palpable Masses, No Rebound, No Rigidity, No Guarding Musculoskeletal-Full Range of Motion Bilaterally, No CVAT Extremities-No Cyanosis, No Clubbing, No Edema Nuero-Cranial Nerves II-XII grossly intact, Motor WNL, DTRs WNL, Strength WNL, Non Focal Psych-Normal Mood Admission and Anticipated Discharge Date Admission Date: February 24, 2020 Results & Data Results & Data ([facility]) Vital Signs (Past 12 Hours) Vital Signs Temp Pulse Pulse Resp BP BP Pulse Ox 02/26/20 08:00 66 142/65 H 99 02/26/20 07:22 36.7 C 59 L 20 151/76 H 95 02/26/20 07:15 62 02/26/20 02:51 37.1 C 67 18 135/64 94 02/26/20 00:14 66 02/25/20 23:02 37.5 C 97 H 18 141/61 H 97
[2020-02-26] MEDS ORDERED: POTASSIUM CHLORIDE CRTAB 20 MEQ TABCR PO STA (10:29)
[2020-02-26 11:40] LABS: INR 1.1 (0.9-1.1)
[2020-02-26 11:56] LABS: Albumin Level 2.9 gm/dl (3.4-5.0); Bilirubin Direct 1.8 mg/dl (0-0.2); Bilirubin,Total 2.5 mg/dl (0.2-1)
--- NOTE | 2020-02-26 12:41 | Cardiology Progress Note ---
Date of Service February 26, 2020 Assessment & Plan (1) Acute on chronic diastolic CHF (congestive heart failure): (2) CKD (chronic kidney disease), stage IV: (3) DM type 2 (diabetes mellitus, type 2): (4) Bradycardia: (5) HTN (hypertension): (6) Hypokalemia: (7) Mitral regurgitation and mitral stenosis: (8) Pulmonary hypertension: Her clinical presentation is consistent with acute on chronic diastolic heart failure as is her physical exam. She is significantly volume overloaded. Some improvement with diuretics. I's and O's not being recorded. She does carry history of stage IV chronic kidney disease and her diuretics were previously held by her biopsychologist. We will continue to diurese with Bumex 2 mg IV twice daily along with the addition of oral spironolactone. Tolerating switch to evidence-based beta-morales without further bradycardia. Continue to follow and replete electrolytes as necessary. Strict I's and O's. Continue to monitor on telemetry. Should her renal function start to decline consideration should be given to consulting her primary biopsychologist, Dr. Merida Admission and Anticipated Discharge Date Admission Date: February 24, 2020 Subjective Patient seen and examined. Chart reviewed. States that she is feeling okay today. Notes significant diuresis overnight. Breathing somewhat improved from admission but not back to baseline. Continues to deny chest pain, palpitations or lightheadedness. Telemetry reviewed: Normal sinus rhythm with occasional PACs Review of Systems Review of Systems: All systems reviewed & are unremarkable except as noted in HPI & below Physical Exam Physical Exam: General: Awake, alert and oriented x 3. No acute distress. HEENT: Normocephalic, atraumatic. Pupils equal, round and reactive to light and accommodation. Extraocular muscles are intact. Anicteric sclera. Moist mucous membranes. Neck: No JVD. No bruit. Cardiovascular: Regular. Positive S-4. Normal S-1 and S-2. No S-3. 3/6 holosystolic ejection murmur, left sternal border, mid-clavicular line with radiation to the axilla. No rubs. Pulmonary: Clear to auscultation bilaterally. No rales, rhonchi, or wheezing. Abdomen: Bowel sounds x 4, soft. No rebound, guarding or tenderness. No organomegaly. Extremities: No clubbing, cyanosis or edema. +2 pedal pulses bilaterally. Skin: Warm and dry. Results & Data ([facility]) Vital Signs (Past 12 Hours) Vital Signs Temp Pulse Pulse Resp BP BP Pulse Ox 02/26/20 10:58 37.1 C 70 18 139/73 93 02/26/20 08:00 66 142/65 H 99 02/26/20 07:22 36.7 C 59 L 20 151/76 H 95 02/26/20 07:15 62 02/26/20 02:51 37.1 C 67 18 135/64 94
[2020-02-26 13:28] LABS: Hepatitis B Surface Antigen Neg (Neg)
[2020-02-26 13:56] LABS: Hepatitis C IgG 13Yrs+Old_Rflx Neg (Neg)
--- NOTE | 2020-02-26 13:56 | Gastrointestinal Consultation ---
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 The differential diagnosis would include acute viral hepatitis, Tylenol overdose, toxic ingestion or trauma, however, the history fits best with Congestive hepatopathy. I would recommend a RUQ US for further evaluation at this time I would recommend treatment of her diastolic heart failure, as per the primary team I would recommend continuation of supportive care History of Present Illness Reason for Consultation: Elevated LFT's Attending Physician: Michael Segundo, DO History of Present Illness Janel Kirby is an 84 yo CF with an extensive PMHx including acute on chronic heart failure and CKD, who presented to the ER on 02/23 with complaints of fatigue, SOB and dyspnea on exertion. She underwent lab testing which revealed anemia, CKD, and elevation of her BNP. An echocardiogram was performed which showed normal LVEF. She was subsequently admitted for an acute exacerbation of chronic diastolic heart failure. On initial evaluation in the ER, she was noted to have a normal liver panel, however, repeat lab studies this AM showed a predominant elevation in her AST and ALT in the 1000's. At the time I saw the patient, she denied any RUQ abdominal pain, fevers, chills, jaundice, acholic stools, dark urine or pruritus. She denies any recent sick contacts, and states that she only takes 2 extra strength Tylenol tablets per day, and no other pain medications that contain tylenol. She has never been told that she has any liver abnormalities. She does not drink alcohol. She denies any further complaints. Allergies Allergy/AdvReac Type Severity Reaction Status Date / Time hydrocodone Allergy Intermediate RASH Verified 02/24/20 18:30 Iodinated Contrast Media Allergy Intermediate HIVES Verified 02/24/20 18:30 Penicillins Allergy Intermediate ANAPHLACTIC Verified 02/24/20 18:30 SHOCK phenylephrine Allergy Intermediate Rash, Verified 02/24/20 18:30 insomnia trolamine salicylate Allergy Intermediate RASH Verified 02/24/20 18:30 acetaminophen Allergy Mild BRIGHT RED Verified 02/24/20 18:30 RASH-PT DENIES ketorolac Allergy Mild Unknown Verified 02/24/20 18:30 oxycodone Allergy Mild BRIGHT RED Verified 02/24/20 18:30 RASH tramadol Allergy Mild BRIGHT RED Verified 02/24/20 18:30 RASH prednisone AdvReac Unknown Became Verified 02/24/20 18:30 manic Home Medications Medication Instructions Recorded Confirmed Type atorvastatin 40 mg tablet 40 mg PO DAILY tab 11/11/18 02/24/20 History ferrous sulfate 325 mg (65 mg 325 mg PO BID #60 tab 11/11/18 02/24/20 History iron) tablet insulin aspart U-100 100 unit/mL See Rx Instructions .ROUTE 11/11/18 02/24/20 History subcutaneous solution .COMPLEX ml MDD 15 UNITS/DAY insulin detemir U-100 100 unit/mL 10 units SUBCUT HS ml 11/11/18 02/24/20 History subcutaneous solution lisinopril 40 mg tablet 40 mg PO DAILY #90 tab 11/11/18 02/24/20 History magnesium oxide 400 mg (241.3 mg 400 mg PO BID #60 tab 11/11/18 02/24/20 History magnesium) tablet paroxetine HCl 20 mg tablet 20 mg PO QAM tab 11/11/18 02/24/20 History levothyroxine 100 mcg capsule 100 mcg PO DAILY 01/05/19 02/24/20 History metoprolol tartrate 50 mg tablet 50 mg PO BID #180 tab 03/11/19 02/24/20 History allopurinol 200 mg PO QAM 02/24/20 02/24/20 History amlodipine 10 mg PO QAM 02/24/20 02/24/20 History cholecalciferol (vitamin D3) 20 mcg PO DAILY 02/24/20 02/24/20 History [Vitamin D3] dicyclomine 10 mg PO TID PRN 02/24/20 02/24/20 History furosemide 20 mg PO DAILY PRN 02/24/20 02/24/20 History lactobacillus combination no.4 0 mmu cells PO DAILY 02/24/20 02/24/20 History [Probiotic] Patient History Medical History Anemia Chronic diastolic CHF (congestive heart failure) CKD (chronic kidney disease), stage IV DM type 2 (diabetes mellitus, type 2) Dyslipidemia Gout HTN (hypertension) Hypothyroidism Vitamin D deficiency Surgical History History of carpal tunnel surgery of left wrist Hx of surgical amputation of finger Hx of tonsillectomy Family History Mother Colorectal cancer Diabetes Heart disease Hypertension Social History Smoking Status: Never smoker Hx Alcohol Use: No Hx Substance Use: No Preferred Language: Macanese Communication Ability: Effective Systems Administrator Required: No Beliefs That Will Affect Care: None Current Living Situation: Alone Current Living Situation Comment: alone with 2 dogs Feels Safe at Home: Yes Safety Concerns: Feels Safe At This Time Assistive Devices: Denture - Upper, Denture - Lower and Oxygen - Continuous Assistive Devices Comment: partial Review of Systems Review of Systems: All systems reviewed & are unremarkable except as noted in HPI & below Physical Exam Constitutional: WD/WN, vitals as above no acute distress Eyes: + anicteric sclerae ENMT: external ear and nose normal, oropharynx normal Neck: trachea midline, no thyromegaly Respiratory: normal respiratory effort; no respiratory distress and no labored breathing Auscultation: + diminished lung sounds (bilateral bases) Cardiovascular: RRR, no murmur, no edema Gastrointestinal (Abdomen): normal bowel sounds, soft, nontender, no hepatosplenomegaly Skin: no rashes, warm and dry Psychiatric: A+Ox3, euthymic affect Results & Data ([facility]) Vital Signs (Past 12 Hours) Vital Signs Temp Pulse Pulse Resp BP BP Pulse Ox 02/26/20 10:58 37.1 C 70 18 139/73 93 02/26/20 08:00 66 142/65 H 99 02/26/20 07:22 36.7 C 59 L 20 151/76 H 95 02/26/20 07:15 62 02/26/20 02:51 37.1 C 67 18 135/64 94 Laboratory Results 02/24/20 16:49 Troponin I 0.044 02/26/20 08:07 02/26/20 08:07 INR 1.1 (0.9-1.1) 02/26/20 11:16 PG Care Time/CCT Total # of Minutes Spent Total Time Spent with Patient: Total time spent is greater than 50% in co ordination of care (as documented) at patient's floor/unit and/or counseling patient: Coding Level of Care Code 04879 Initial Inpt Care Lvl 3 Diagnoses Acute respiratory failure with hypoxia J96.01 Acute on chronic diastolic CHF (congestive heart failure) I50.33 Transaminitis R74.01
--- NOTE | 2020-02-26 18:36 | Ultrasound Report ---
BILIARY ULTRASOUND CLINICAL HISTORY: Elevated LFTs COMPARISON STUDY: CT scan dated 06/24/2015 FINDINGS: The pancreas appears normal as visualized. There is a sludge-filled gallbladder with border line wall thickening measuring 3 mm. The technologist reports a negative sonographic Roland sign. Inc idental note is made of a right pleural effusion. No focal hepatic masses are visualized. Common bile duct is mildly dilated measuring 9 mm. There is no right-sided hydronephrosis. IMPRESSION: 1. Sludge-filled gallbladder. No shadowing calculi identified 2. Borderline gallbladder wall thickening 3. Mild common bile duct dilatation. ACT 112: Negative or not required by law. Electronically signed by: Jose De Jesus Byrd M.D. 02/26/2020 6:34 PM
[2020-02-27] MEDS: HEPARIN SOD 5,000 UNIT/0.5 ML VIAL SQ SCH ×3 (06:13→21:17)
[2020-02-27] MEDS: LEVOTHYROXINE SODIUM 100 MCG TABLET PO SCH (06:14)
[2020-02-27] MEDS: INSULIN ASPART 100 UNITS/ML 3 ML PEN SC SCH ×4 (07:36→21:08)
[2020-02-27 08:01] LABS: Hematocrit (blood only) 29.3 % (37-47); Hemoglobin 9.2 g/dL (12.0-16.0); Mean Corpuscular Hemoglobin 29.1 pg (25-34); Mean Corpuscular Hgb Conc 31.4 g/dL (32-36); Mean Corpuscular Volume 92.7 fL (80-100); Mean Platelet Volume 9.6 fL (7.4-10.4); Platelet Count 246 K/uL (130-400); RDW Coefficient of Variation 16.1 % (11.5-14.5); RDW Standard Deviation 54.2 fL (36.4-46.3); Red Blood Count 3.16 M/uL (4.2-5.4); White Blood Count 6.85 K/uL (4.8-10.8)
[2020-02-27 08:11] LABS: INR 1.2 (0.9-1.1); Prothrombin Time 12.6 Seconds (9.0-12.0)
[2020-02-27 08:35] LABS: Albumin Level 2.9 gm/dl (3.4-5.0); BUN Creatinine Ratio 14.4 (10-20); Calcium 9.6 mg/dl (8.5-10.1); Creatinine Clr Calc Pharmacy 22.4 ml/min; Est GFR (African American) 28.7; Est GFR (Non-African American) 24.7; Potassium 4.9 mmol/L (3.5-5.1)
[2020-02-27 08:38] LABS: Albumin Globulin Ratio 0.7 (0.9-2); Bilirubin,Total 1.2 mg/dl (0.2-1); Globulin 4.1 gm/dl (2.5-4.0)
[2020-02-27] MEDS: allopurinoL 100 MG TAB PO SCH (08:38)
[2020-02-27] MEDS: CHOLECALCIFEROL 400 UNITS 10 MCG TAB PO SCH (08:38)
[2020-02-27] MEDS: lisinopril 40 MG TAB PO SCH (08:38)
[2020-02-27] MEDS: amLODIPine BESYLATE 5 MG TAB PO SCH (08:39)
[2020-02-27] MEDS: FERROUS SULFATE 325 MG TAB PO SCH ×2 (08:39→17:05)
[2020-02-27] MEDS: MAGNESIUM OXIDE 400 MG TAB PO SCH ×2 (08:39→20:49)
[2020-02-27] MEDS: PARoxetine HCL 20 MG TAB PO SCH (08:39)
[2020-02-27] MEDS: SPIRONOLACTONE 12.5 MG TAB PO SCH (08:39)
[2020-02-27] MEDS: ATORVASTATIN 40 MG TAB PO SCH (08:39)
[2020-02-27] MEDS: METOPROLOL SUCC 25MG EXT REL TAB PO SCH (08:39)
[2020-02-27] MEDS: BUMETANIDE 1 MG TAB PO SCH ×2 (08:39→17:05)
--- NOTE | 2020-02-27 08:54 | Hospitalist Progress Note ---
Date of Service February 27, 2020 Assessment & Plan (1) Acute on chronic diastolic CHF (congestive heart failure): (2) Acute respiratory failure with hypoxia: -Patient presenting from home with reports of worsening shortness of breath over the past several months -In the ED, 79% on room air, currently saturating well on 2 L of oxygen via nasal cannula, CXR suggestive of CHF and proBNP 9000 -DSE 12/2018-negative for inducible ischemia, EF 60%, mild mitral regurgitation, mild tricuspid regurgitation -Had been managed on Lasix 20 mg daily however that was discontinued 01/2019 by nephrology due to worsening renal function. Has been using Lasix 20 mg daily on as-needed basis. -s/p Lasix 40 mg IV in the ED, Cards chenged her to Bumex -Strict I's and O's, daily weights, low Na+ diet -Echo noted -Cardiology on case -Elevated D-dimer. BL LE Dopplers negative for DVT. Unable to do CTA chest due to CKD, VQ Scan-Low Probability for PE (3) Bradycardia: -EKG demonstrates rate 54, unchanged bifascicular block and PACs -Metoprolol Succinate and Aldactone per Cards (4) CKD (chronic kidney disease), stage IV: -Baseline creatinine runs in the high 1's - low 2's -Monitor renal functions while aggressively diuresing -Follows with Dr. 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 (7) HTN (hypertension): -Continue Amlodipine and Lisinopril, Metoprolol Succinate 25 qam, Aldactone 12.5 q12 (8) DVT prophylaxis: -SQ heparin Elevated LFts-GI on case, likely CHF Hepatopathy, will trend LFTs -Labs checked ROS-No Headache, No Visual Changes, No Nausea, No Vomiting, No Fever, No Chills, No Neck Pain or Stiffness, No Chest Pain, No Palpitations, less SOB, No [place], No Cough, No Sputum, No Wheezing, No Abdominal Pain, No Diarrhea, No Hematemesis, No Hemoptysis, No Unexpected Weight Loss, No Flank pain, No Melena, No Hematochezia, No Frequency, No Urgency, No Burning, No Hematuria, No Rashes, No Diaphoresis. Appetite is Normal Physical Exam Gen-AAO x 3, NAD, Afebrile Head-NCAT, EOMI, PERRLA, Anicteric Sclera, No Posterior Pharyngeal Erythema Neck-Supple, No JVD, No Thyromegaly, No Masses, No LAD, No Bruits Lungs-Less Rales, improved, No Rhonchi, No Wheezing, No Crepitus Chest-No S4, +S1, +S2, No S3, No Murmurs, No Rubs, No Gallops, No Ectopy Abdomen-Soft, Bowel Sounds Present, Non Tender, Non Distended, No Hepatomegaly, No Splenomegaly, No Palpable Masses, No Rebound, No Rigidity, No Guarding Musculoskeletal-Full Range of Motion Bilaterally, No CVAT Extremities-No Cyanosis, No Clubbing, No Edema Nuero-Cranial Nerves II-XII grossly intact, Motor WNL, DTRs WNL, Strength WNL, Non Focal Psych-Normal Mood Admission and Anticipated Discharge Date Admission Date: February 24, 2020 Results & Data Results & Data ([facility]) Vital Signs (Past 12 Hours) Vital Signs Temp Pulse Pulse Resp BP Pulse Ox 02/27/20 08:11 36.8 C 57 L 18 151/70 H 98 02/27/20 06:54 63 02/27/20 03:00 36.6 C 65 18 157/79 H 95 02/26/20 23:50 68 02/26/20 23:00 36.8 C 67 18 139/68 98
[2020-02-27] MEDS: POTASSIUM CHLORIDE CRTAB 20 MEQ TABCR PO SCH (09:24)
--- NOTE | 2020-02-27 09:35 | Gastroenterology Progress Note ---
Date of Service February 27, 2020 Assessment & Plan (1) Transaminitis: (2) Abnormal ultrasound of liver: -Continue to trend LFTs -Obtain MRCP -Further recommendations pending results of testing Admission and Anticipated Discharge Date Admission Date: February 24, 2020 Supervising Physician Co-Signing Physician Notes Agree with EKTA Diop Abd: Soft, NT, ND, +BS Continue supportive care LFT's improving MRCP today Subjective Patient is an 84 yo female with abnormal LFTs. LFTs are trending down today with an AST of 833 and ALT 545. Alk phos 410, T Bili 1.2. A liver ultrasound indicated a sludge-filled gallbladder with borderline gallbladder wall thickening with a question of mild common bile duct dilatation. The patient denies abdominal pain. She reports no changes to her bowel habits beyond her baseline. She denies further complaints from a GI perspective. Review of Systems Constitutional: no fever and no chills Respiratory: no cough and no dyspnea Cardiovascular: no chest pain Gastrointestinal: no abdominal pain, no nausea, no vomiting, no change in bowel habits and no blood in stools Integumentary: no yellowing of the skin Physical Exam Constitutional: well developed Neck: normal visual inspection Respiratory: normal respiratory effort Gastrointestinal (Abdomen): Inspection/Auscultation: abdomen normal to inspection and normal bowel sounds Percussion/Palpation: abdomen soft; abdomen nontender Musculoskeletal: Head/Neck/Chest: normocephalic Skin: no rashes, warm and dry Psychiatric: A+Ox3, euthymic affect Results & Data Results & Data ([facility]) Vital Signs (Past 12 Hours) Vital Signs Temp Pulse Pulse Resp BP Pulse Ox 02/27/20 08:11 36.8 C 57 L 18 151/70 H 98 02/27/20 06:54 63 02/27/20 03:00 36.6 C 65 18 157/79 H 95 02/26/20 23:50 68 02/26/20 23:00 36.8 C 67 18 139/68 98 PG Care Time/CCT Total # of Minutes Spent Total Time Spent with Patient: Total time spent is greater than 50% in coordination of care (as documented) at patient's floor/unit and/or counseling patient: Coding Level of Care Code 17461 Subseq Hosp Care Lvl 3 Diagnoses Transaminitis R74.01 Abnormal ultrasound of liver R93.2
--- NOTE | 2020-02-27 12:31 | Magnetic Resonance Report ---
MR MRCP CLINICAL HISTORY: abnormal US, elevated LFTs COMPARISON STUDY: Biliary ultrasound dated 02/26/2020 FINDINGS: A breath-hold MRCP was performed. MIP images were acquired. There is a trace left pleural effusion and small right pleural effusion. There is a small pericardial effusion. The spleen is normal in size. There are multiple bilateral renal cysts. There is no pancreatic ductal dilatation. The common bile duct is mildly dilated measuring 8 mm. Equivocal punctate filling defects within the cystic duct, are likely artifactual. There is borderline gallbladder wall thickening. There is diffus e decreased signal within the gallbladder, consistent with the reported sludge on ultrasound. Multipl e tiny calculi could appear similar. IMPRESSION: 1. Diffuse decreased signal within the gallbladder consistent with sludge versus sand-like calculi 2. Borderline gallbladder wall thickening 3. 8 mm common bile duct 4. No ductal calculi identified. 5. No evidence of para-aortic ductal dilatation ACT 112: Negative or not required by law. Electronically signed by: Jose De Jesus Byrd M.D. 02/27/2020 12:29 PM
--- NOTE | 2020-02-27 13:38 | Cardiology Progress Note ---
Date of Service February 27, 2020 Assessment & Plan (1) Acute on chronic diastolic CHF (congestive heart failure): (2) CKD (chronic kidney disease), stage IV: (3) DM type 2 (diabetes mellitus, type 2): (4) Bradycardia: (5) HTN (hypertension): (6) Hypokalemia: (7) Mitral regurgitation and mitral stenosis: (8) Pulmonary hypertension: Her clinical presentation is consistent with acute on chronic diastolic heart failure as is her physical exam. Diuresing well with over 2 L out overnight Luckily, her renal function is slightly improved despite diuresis. I would like to ambulate her today to see how she does. We will continue IV Bumex today and reevaluate volume status clinically in the a.m. with possible DC at that time. Admission and Anticipated Discharge Date Admission Date: February 24, 2020 Subjective Patient seen and examined, chart reviewed. States that she feels well today. Notes that her breathing has improved at rest and she is not had any dyspnea with walking back and forth to the bathroom. She has been diuresing well overnight and over 2 L negative in the last 24 hours. She denies chest pain, palpitations, lightheadedness or dizziness. Telemetry reviewed: Normal sinus rhythm without arrhythmia. Review of Systems Review of Systems: All systems reviewed & are unremarkable except as noted in HPI & below Physical Exam Physical Exam: General: Awake, alert and oriented x 3. No acute distress. HEENT: Normocephalic, atraumatic. Pupils equal, round and reactive to light and accommodation. Extraocular muscles are intact. Anicteric sclera. Moist mucous membranes. Neck: No JVD. No bruit. Cardiovascular: Regular. Positive S-4. Normal S-1 and S-2. No S-3. 3/6 holosystolic ejection murmur, left sternal border, mid-clavicular line with radiation to the axilla. No rubs. Pulmonary: Clear to auscultation bilaterally. No rales, rhonchi, or wheezing. Abdomen: Bowel sounds x 4, soft. No rebound, guarding or tenderness. No organomegaly. Extremities: No clubbing, cyanosis or edema. +2 pedal pulses bilaterally. Skin: Warm and dry. Results & Data ([facility]) Vital Signs (Past 12 Hours) Vital Signs Temp Pulse Pulse Resp BP Pulse Ox 02/27/20 08:11 36.8 C 57 L 18 151/70 H 98 02/27/20 06:54 63 02/27/20 03:00 36.6 C 65 18 157/79 H 95
[2020-02-28 04:53] LABS: Hepatitis A Antibody IgM NON-REACTIVE (NON-REACTIVE); Hepatitis B Core Antibody IgM NON-REACTIVE (NON-REACTIVE)
[2020-02-28] MEDS: LEVOTHYROXINE SODIUM 100 MCG TABLET PO SCH (06:42)
[2020-02-28] MEDS: HEPARIN SOD 5,000 UNIT/0.5 ML VIAL SQ SCH (06:43)
[2020-02-28 07:18] LABS: Hematocrit (blood only) 30.3 % (37-47); Hemoglobin 9.5 g/dL (12.0-16.0); Mean Corpuscular Hemoglobin 29.2 pg (25-34); Mean Corpuscular Hgb Conc 31.4 g/dL (32-36); Mean Corpuscular Volume 93.2 fL (80-100); Mean Platelet Volume 10.4 fL (7.4-10.4); Platelet Count 269 K/uL (130-400); RDW Coefficient of Variation 16.1 % (11.5-14.5); RDW Standard Deviation 54.3 fL (36.4-46.3); Red Blood Count 3.25 M/uL (4.2-5.4); White Blood Count 8.27 K/uL (4.8-10.8)
[2020-02-28 07:55] LABS: BUN Creatinine Ratio 16.3 (10-20); Calcium 9.6 mg/dl (8.5-10.1); Creatinine Clr Calc Pharmacy 15.3 ml/min; Est GFR (African American) 18.7; Est GFR (Non-African American) 16.1; Potassium 4.3 mmol/L (3.5-5.1)
[2020-02-28 08:04] LABS: Albumin Globulin Ratio 0.7 (0.9-2); Bilirubin,Total 0.7 mg/dl (0.2-1); Globulin 4.3 gm/dl (2.5-4.0); Total Protein 7.3 gm/dl (6.4-8.2)
[2020-02-28] MEDS: INSULIN ASPART 100 UNITS/ML 3 ML PEN SC SCH ×2 (08:40→12:20)
[2020-02-28] MEDS: lisinopril 40 MG TAB PO SCH (08:45)
[2020-02-28] MEDS: allopurinoL 100 MG TAB PO SCH (08:45)
[2020-02-28] MEDS: PARoxetine HCL 20 MG TAB PO SCH (08:45)
[2020-02-28] MEDS: METOPROLOL SUCC 25MG EXT REL TAB PO SCH (08:45)
[2020-02-28] MEDS: MAGNESIUM OXIDE 400 MG TAB PO SCH (08:45)
[2020-02-28] MEDS: CHOLECALCIFEROL 400 UNITS 10 MCG TAB PO SCH (08:45)
[2020-02-28] MEDS: amLODIPine BESYLATE 5 MG TAB PO SCH (08:45)
[2020-02-28] MEDS: SPIRONOLACTONE 12.5 MG TAB PO SCH (08:46)
[2020-02-28] MEDS: BUMETANIDE 1 MG TAB PO SCH (08:46)
[2020-02-28] MEDS: ATORVASTATIN 40 MG TAB PO SCH (08:46)
[2020-02-28] MEDS: FERROUS SULFATE 325 MG TAB PO SCH (08:46)
--- NOTE | 2020-02-28 12:07 | Discharge Summary ---
Date of Service February 28, 2020 Admission HPI Per Admitting Provider 84-year-old female with PMH DM type II, CKD stage IV, hypothyroidism, chronic diastolic CHF, chronic anemia, and other problems listed below who presents to the ED for evaluation of shortness of breath. Patient reports worsening shortness of breath the past several months. Reports intermittent lower extremity edema for which she has been taking Lasix 20 mg as needed. Last dose was last week. Reports she monitors her weights routinely and they have been stable. No cough or sputum production. Denies chest pain and palpitations. No lightheadedness, dizziness, diaphoresis, syncopal events. Denies abdominal pain, nausea, vomiting, diarrhea. No other recent illnesses, fevers, chills. She denies urinary symptoms. In the ED, patient was hypoxic on room air at 79%. Currently saturating well on 2 L of oxygen via nasal cannula. CXR suggest CHF, proBNP 9000. Elevated D-dimer, lower extremity Dopplers negative for DVT. Also found to have mild hypokalemia and hypomagnesemia. She was given potassium and magnesium replacements. She also received Lasix 40 mg IV. Admission Exam Per Admitting Provider Constitutional: WD/WN, vitals as above Eyes: PERRL, conjunctivae normal, anicteric sclerae ENMT: external ear and nose normal, oropharynx normal Respiratory: normal respiratory effort Auscultation: + diminished lung sounds and + crackles (Bilateral bases) Cardiovascular: Rate/Rhythm: regular rhythm and + bradycardic Vessels: normal peripheral pulses Extremities: + edema (+1-2 edema BLE) Gastrointestinal (Abdomen): normal bowel sounds, soft, nontender, no hepatosplenomegaly Musculoskeletal: no cyanosis or clubbing, extremities motor strength 5/5 Skin: no rashes, warm and dry Neurologic: PERRL, EOMI, accommodation nl, no face palsy, no dysarthria Psychiatric: A+Ox3, euthymic affect Principal Diagnosis (1) Acute on chronic diastolic CHF (congestive heart failure): (2) Acute respiratory failure with hypoxia: (3) Bradycardia: (4) CKD (chronic kidney disease), stage IV: (5) DM type 2 (diabetes mellitus, type 2): (6) Anemia: (7) HTN (hypertension): Discharge Exam See below Discharge Data Allergies Allergy/AdvReac Type Severity Reaction Status Date / Time hydrocodone Allergy Intermediate RASH Verified 02/24/20 18:30 Iodinated Contrast Media Allergy Intermediate HIVES Verified 02/24/20 18:30 Penicillins Allergy Intermediate ANAPHLACTIC Verified 02/24/20 18:30 SHOCK phenylephrine Allergy Intermediate Rash, Verified 02/24/20 18:30 insomnia trolamine salicylate Allergy Intermediate RASH Verified 02/24/20 18:30 acetaminophen Allergy Mild BRIGHT RED Verified 02/24/20 18:30 RASH-PT DENIES ketorolac Allergy Mild Unknown Verified 02/24/20 18:30 oxycodone Allergy Mild BRIGHT RED Verified 02/24/20 18:30 RASH tramadol Allergy Mild BRIGHT RED Verified 02/24/20 18:30 RASH prednisone AdvReac Unknown Became Verified 02/24/20 18:30 manic Consultations 02/24/20 17:51 ED Decision to Admit Stat 02/24/20 20:07 Consult Cardiology Routine 02/26/20 12:06 Consult Gastroenterology Routine Ordered Studies 02/24/20 17:45 US venous doppler LE BI Stat 02/26/20 13:18 US liver Stat 02/27/20 09:53 MR MRCP Routine Current Diagnoses Anemia, unspecified (02/24/20) Type 2 diabetes mellitus without complications (02/24/20) Hypokalemia (02/24/20) Rheumatic mitral stenosis with insufficiency (02/24/20) Essential (primary) hypertension (02/24/20) Pulmonary hypertension, unspecified (02/24/20) Acute on chronic diastolic (congestive) heart failure (02/24/20) Acute respiratory failure with hypoxia (02/24/20) Chronic kidney disease, stage 4 (severe) (02/24/20) Bradycardia, unspecified (02/24/20) Elevation of levels of liver transaminase levels (02/24/20) Abnormal findings on diagnostic imaging of liver and biliary tract (02/24/20) Encounter for prophylactic measures, unspecified (02/24/20) Allergies hydrocodone Allergy (Intermediate, Verified 02/24/20 18:30) RASH Iodinated Contrast Media Allergy (Intermediate, Verified 02/24/20 18:30) HIVES Penicillins Allergy (Intermediate, Verified 02/24/20 18:30) ANAPHLACTIC SHOCK phenylephrine Allergy (Intermediate, Verified 02/24/20 18:30) Rash, insomnia trolamine salicylate Allergy (Intermediate, Verified 02/24/20 18:30) RASH acetaminophen Allergy (Mild, Verified 02/24/20 18:30) BRIGHT RED RASH-PT DENIES ketorolac Allergy (Mild, Verified 02/24/20 18:30) Unknown oxycodone Allergy (Mild, Verified 02/24/20 18:30) BRIGHT RED RASH tramadol Allergy (Mild, Verified 02/24/20 18:30) BRIGHT RED RASH prednisone Adverse Reaction (Unknown, Verified 02/24/20 18:30) Became manic Height/Weight/Isolation Height 5 ft 4 in Weight 68.3 kg Isolation Type Removed Precautions Chemistry 02/27/20 02/28/20 07:13 06:43 Sodium 140 139 Potassium 4.9 D 4.3 Chloride 104 100 Carbon Dioxide 32 34 H Anion Gap 4.0 5.0 BUN 27 H 43 H D Creatinine 1.85 H 2.64 H D Glucose 75 83 Hospital Course (1) Acute on chronic diastolic CHF (congestive heart failure): (2) Acute respiratory failure with hypoxia: -Patient presenting from home with reports of worsening shortness of breath over the past several months -In the ED, 79% on room air, currently saturating well on 2 L of oxygen via nasa l cannula, CXR suggestive of CHF and proBNP 9000 -DSE 12/2018-negative for inducible ischemia, EF 60%, mild mitral regurgitation, mild tricuspid regurgitation -Had been managed on Lasix 20 mg daily however that was discontinued 01/2019 by nephrology due to worsening renal function. Has been using Lasix 20 mg daily on as-needed basis. -s/p Lasix 40 mg IV in the ED, Cards chenged her to Bumex -Strict I's and O's, daily weights, low Na+ diet -Echo noted -Cardiology on case -Elevated D-dimer. BL LE Dopplers negative for DVT. Unable to do CTA chest due to CKD, VQ Scan-Low Probability for PE (3) Bradycardia: -EKG demonstrates rate 54, unchanged bifascicular block and PACs -Metoprolol Succinate and Aldactone (4) CKD (chronic kidney disease), stage IV: -Baseline creatinine runs in the high 1's - low 2's -Monitor renal functions while aggressively diuresing -Follows with Dr. 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 (7) HTN (hypertension): -Continue Amlodipine and Lisinopril, Metoprolol Succinate 25 qam, Aldactone 12.5 q12 (8) DVT prophylaxis: -SQ heparin Elevated LFts-GI feels CHF Hepatopathy -Labs checked ROS-No Headache, No Visual Changes, No Nausea, No Vomiting, No Fever, No Chills, No Neck Pain or Stiffness, No Chest Pain, No Palpitations, less SOB, No [place], No Cough, No Sputum, No Wheezing, No Abdominal Pain, No Diarrhea, No Hematemesis, No Hemoptysis, No Unexpected Weight Loss, No Flank pain, No Melena, No Hematochezia, No Frequency, No Urgency, No Burning, No Hematuria, No Rashes, No Diaphoresis. Appetite is Normal Physical Exam Gen-AAO x 3, NAD, Afebrile Head-NCAT, EOMI, PERRLA, Anicteric Sclera, No Posterior Pharyngeal Erythema Neck-Supple, No JVD, No Thyromegaly, No Masses, No LAD, No Bruits Lungs-Less Rales, improved, No Rhonchi, No Wheezing, No Crepitus Chest-No S4, +S1, +S2, No S3, No Murmurs, No Rubs, No Gallops, No Ectopy Abdomen-Soft, Bowel Sounds Present, Non Tender, Non Distended, No Hepatomegaly, No Splenomegaly, No Palpable Masses, No Rebound, No Rigidity, No Guarding Musculoskeletal-Full Range of Motion Bilaterally, No CVAT Extremities-No Cyanosis, No Clubbing, No Edema Nuero-Cranial Nerves II-XII grossly intact, Motor WNL, DTRs WNL, Strength WNL, Non Focal Psych-Normal Mood Total Time Total Time Spent Total Time Spent (In Minutes): 45 mins Total Time Includes: Examination of the Patient, Discharge Planning, Medication Reconciliation and Communication With Other Providers Discharge Plan Discharge Items Patient Disposition: Home - Self-Care Reason For Visit: CHF Discharge Diagnosis: (1) Acute on chronic diastolic CHF (congestive heart failure): (2) Acute respiratory failure with hypoxia: (3) Bradycardia: (4) CKD (chronic kidney disease), stage IV: (5) DM type 2 (diabetes mellitus, type 2): (6) Anemia: (7) HTN (hypertension): Condition on Discharge: Good Activity: Resume your previous activity Lifting: Gradually increase as tolerated Bathing: No limitations Sexual Activity: When tolerated Exercise/Sports: Gradually increase as tolerated Driving/Machine Use: No limitations Weightbearing: Full weightbearing Non-emergency contact: Primary Care Provider Call non-emergency contact if: you have any medication questions Follow-up/Referrals: Tiffanie Jameson DO [Outside Practitioners] - (Date & Time 03/06/2020 11:10 AM Provider Tiffanie Jameson DO Department Internal Medicine [facility] ) Diet: Carb Consistent or DM2 and Heart Healthy Addtl Attending Provider Instructions: None Pending Studies at Discharge: No Stand-Alone Forms: My [employer] Staffing, Smoking Cessation Medications and DC Order Prescriptions: New spironolactone 25 mg Tablet 12.5 mg PO DAILY Qty: 30 RF: 0 potassium chloride [Klor-Con M20] 20 mEq Tablet,Er Particles/Crystals 40 meq PO BID17 Qty: 20 RF: 0 magnesium oxide 400 mg (241.3 mg magnesium) Tablet 400 mg PO BID Qty: 20 RF: 0 bumetanide 1 mg Tablet 2 mg PO BID17 Qty: 60 RF: 0 metoprolol succinate 25 mg Tablet Extended Release 24 Hr 25 mg PO QAM Qty: 30 RF: 0 Continued ferrous sulfate 325 mg (65 mg iron) tablet 325 mg PO BID Qty: 60 RF: 0 Levemir U-100 Insulin 100 unit/mL solution 10 units subcut HS RF: 0 atorvastatin 40 mg tablet 40 mg PO DAILY RF: 0 lisinopril 40 mg tablet 40 mg PO DAILY Qty: 90 RF: 0 magnesium oxide 400 mg (241.3 mg magnesium) tablet 400 mg PO BID Qty: 60 RF: 0 Novolog U-100 Insulin aspart 100 unit/mL solution See Rx Instructions .ROUTE .COMPLEX MDD 15 UNITS/DAY RF: 0 paroxetine HCl 20 mg tablet 20 mg PO QAM RF: 0 levothyroxine 100 mcg capsule 100 mcg PO DAILY RF: 0 amlodipine 10 mg tablet 10 mg PO QAM RF: 0 allopurinol 100 mg tablet 200 mg PO QAM RF: 0 cholecalciferol (vitamin D3) [Vitamin D3] 10 mcg (400 unit) Capsule 20 mcg PO DAILY RF: 0 dicyclomine 10 mg Capsule 10 mg PO TID PRN (Reason: Abdominal Pain//Diarrhea) RF: 0 Probiotic 3 billion cell Capsule 0 mmu cells PO DAILY RF: 0 Discontinued metoprolol tartrate 50 mg tablet 50 mg PO BID Qty: 180 RF: 0 furosemide 20 mg tablet 20 mg PO DAILY PRN (Reason: Edema) RF: 0 Discharge Orders: Discharge Order (Routine); Ordered 02/28/20 Ordered By: Michael Segundo Admission Data Admit Date/Time: 02/24/20 18:04 Attending Provider: Michael Segundo Admit Provider: Michael Segundo Primary Care Provider: PCP,NO Other Providers: Michael Segundo ; Kelvin Soriano ; Dickson Wilson.
--- NOTE | 2020-02-28 12:17 | Cardiology Progress Note ---
Date of Service February 28, 2020 Assessment & Plan (1) Acute on chronic diastolic CHF (congestive heart failure): (2) CKD (chronic kidney disease), stage IV: (3) DM type 2 (diabetes mellitus, type 2): (4) Bradycardia: (5) HTN (hypertension): (6) Hypokalemia: (7) Mitral regurgitation and mitral stenosis: (8) Pulmonary hypertension: Her clinical presentation is consistent with acute on chronic diastolic heart failure as is her physical exam. Diuresing well creat bump today, likely euvolemic at this point d/c home on bumex 1mg po daily and spironolactone 12.5mg daily Also continue current doses of metoprolol succinate, lisinopril and amlodipine. bmp in 1 week and follow up with nephrology at that time f/u with me in 2 weeks, my office will call to arrange Admission and Anticipated Discharge Date Admission Date: February 24, 2020 Subjective Patient seen and examined, chart reviewed. States that she is feeling well today. Ambulated in the halls without any dyspnea yesterday and feels back to baseline. Telemetry reviewed: Sinus rhythm with frequent PACs. Review of Systems Review of Systems: All systems reviewed & are unremarkable except as noted in HPI & below Physical Exam Physical Exam: General: Awake, alert and oriented x 3. No acute distress. HEENT: Normocephalic, atraumatic. Pupils equal, round and reactive to light and accommodation. Extraocular muscles are intact. Anicteric sclera. Moist mucous membranes. Neck: No JVD. No bruit. Cardiovascular: Regular. Positive S-4. Normal S-1 and S-2. No S-3. 3/6 holosystolic ejection murmur, left sternal border, mid-clavicular line with radiation to the axilla. No rubs. Pulmonary: Clear to auscultation bilaterally. No rales, rhonchi, or wheezing. Abdomen: Bowel sounds x 4, soft. No rebound, guarding or tenderness. No organomegaly. Extremities: No clubbing, cyanosis or edema. +2 pedal pulses bilaterally. Skin: Warm and dry. Results & Data ([facility]) Vital Signs (Past 12 Hours) Vital Signs Temp Pulse Resp BP Pulse Ox Pulse Ox Pulse Ox 02/28/20 12:13 36.9 C 68 18 127/66 95 02/28/20 11:29 96 96 02/28/20 07:30 36.9 C 68 18 127/66 95 02/28/20 03:06 36.7 C 73 17 131/74 95
== END 2020-02-28 14:13 | disposition home or self-care (01) | DRG 291 ==
LOC: ED 16:03 → 2S 18:04

== ENCOUNTER 2021-03-25 09:40 | Inpatient (IN) ==
[2021-03-25] MEDS ORDERED: MoRPHine SULFATE 4 MG/ML 1 ML CARP\\VIAL IV PRN ×2 (10:17→19:42)
[2021-03-25] MEDS ORDERED: MoRPHine SULFATE 2 MG/ML CARP IV PRN (10:17)
[2021-03-25] MEDS ORDERED: ACETAMINOPHEN 1,000 MG/100 ML VIAL IV STA (10:17)
[2021-03-25] MEDS ORDERED: SODIUM CHLORIDE 0.9% 1000ML 1,000 ML IV SCH (10:30)
[2021-03-25 10:51] LABS: Basophils # (auto) 0.02 K/uL (0-0.2); Basophils % (auto) 0.2 %; Eosinophils # (auto) 0.15 K/uL (0-0.5); Eosinophils % (auto) 1.2 %; Hematocrit (blood only) 29.6 % (37-47); Hemoglobin 9.3 g/dL (12.0-16.0); Immature Granulocytes # (auto) 0.02 K/uL (0.00-0.02); Immature Granulocytes % (auto) 0.2 %; Lymphocytes # (auto) 0.95 K/uL (1.2-3.4); Lymphocytes % (auto) 7.4 %; Mean Corpuscular Hemoglobin 28.4 pg (25-34); Mean Corpuscular Hgb Conc 31.4 g/dL (32-36); Mean Corpuscular Volume 90.2 fL (80-100); Monocytes # (auto) 0.93 K/uL (0.11-0.59); Monocytes % (auto) 7.3 %; Neutrophils # (auto) 10.69 K/uL (1.4-6.5); Neutrophils % (auto) 83.7 %; Platelet Count 290 K/uL (130-400); RDW Coefficient of Variation 15.6 % (11.5-14.5); RDW Standard Deviation 51.7 fL (36.4-46.3); Red Blood Count 3.28 M/uL (4.2-5.4); White Blood Count 12.76 K/uL (4.8-10.8)
[2021-03-25 11:10] LABS: Albumin Globulin Ratio 1.1 (0.9-2); BUN Creatinine Ratio 15.9 (10-20); Bilirubin,Total 0.8 mg/dl (0.2-1.0); Calcium 9.1 mg/dl (8.5-10.1); Creatinine Clr Calc Pharmacy 20.1 ml/min; Est GFR (African American) 24.9 ml/min; Est GFR (Non-African American) 21.4 ml/min; Globulin 3.6 gm/dl (2.5-4.0); Potassium 3.1 mmol/L (3.5-5.1); Total Protein 7.6 gm/dl (6.0-8.3)
--- NOTE | 2021-03-25 11:16 | XRay Report ---
XR shoulder RT min 2V routine CLINICAL HISTORY: Status post fall with right shoulder pain. COMPARISON STUDY: No previous studies for comparison. TECHNIQUE: 3 right shoulder views FINDINGS: Bones: The bones are osteopenic. There is no evidence for an acute fracture or dislocation. There is no lytic or blastic lesion. Joints: Moderate degenerative changes are seen at the acromioclavicular joint. The glenohumeral joint is maintained. The bones are in anatomic alignment. Soft tissues: There is no focal soft tissue abnormality. There is no radiopaque foreign body. IMPRESSION: No acute osseous pathology. Osteopenia and mild osteoarthritis ACT 112: Negative or not required by law. Electronically signed by: Rashad Quevedo M.D. 03/25/2021 11:15 AM
[2021-03-25 11:18] LABS: INR 1.1 (0.9-1.1); Partial Thromboplastin Ratio 1.1; Partial Thromboplastin Time 28.8 Seconds (21.0-31.0); Prothrombin Time 10.9 Seconds (9.0-12.0)
--- NOTE | 2021-03-25 11:35 | CT Scan Report ---
HEAD CT NONCONTRAST CT DOSE: 1344.07 mGy.cm HISTORY: Right-sided head pain fall TECHNIQUE: Multiaxial CT images of the head were performed without the use of intravenous contrast. A utomated exposure control was utilized for this study. A dose lowering technique was utilized adheri ng to the principles of ALARA. Comparison: Head CT 05/31/2017. Findings: The paranasal sinuses and mastoid air cells are clear. The calvarium and skull base are int act. There is no mass, hematoma, midline shift, acute infarct. White matter hypodensity is nonspecifi c but suggestive of microvascular ischemic change. The ventricles and sulci demonstrate mild age-rela girish involutional changes. Impression: No significant change compared to the prior study. No acute intracranial abnormality. ACT 112: Negative or not required by law. Electronically signed by: Vick Kim M.D. 03/25/2021 11:34 AM
--- NOTE | 2021-03-25 11:37 | XRay Report ---
XR chest 1V not portable HISTORY: right shoulder pain fall COMPARISON: Chest 02/24/2020. FINDINGS: The cardiac silhouette remains mildly enlarged. Diffuse interstitial thickening. This may r epresent mild central pulmonary vascular congestion without overt edema. No pneumothorax. No new foca l lung consolidations to suggest pneumonia. Old, healed left-sided rib fractures. No acute fractures identified within the chest. Suspect a trace left pleural effusion, unchanged. IMPRESSION: 1. Stable cardiomegaly. 2. Mild central pulmonary vascular congestion without overt edema. ACT 112: Negative or not required by law. Electronically signed by: Vick Kim M.D. 03/25/2021 11:36 AM
--- NOTE | 2021-03-25 11:42 | XRay Report ---
XR hip RT 2V w pelvis CLINICAL HISTORY: Fall. Right hip pain. COMPARISON STUDY: None. FINDINGS: The bones are osteopenic. Subtle nondisplaced fracture at the base of the right greater tro chanter. This is better appreciated on the same day abdomen and pelvis CT. No dislocation. The pelvic bones appear intact. Mild osteoarthritis within the bilateral hips. Soft tissues are unremarkable. IMPRESSION: Subtle nondisplaced fracture at the base of the right greater trochanter. This is better appreciated on the same day abdomen and pelvis CT. ACT 112: Negative or not required by law. Electronically signed by: Vick Kim M.D. 03/25/2021 11:40 AM
--- NOTE | 2021-03-25 11:48 | CT Scan Report ---
ABDOMEN AND PELVIS CT WITHOUT CONTRAST CT DOSE: HISTORY: right back/hip pain fall TECHNIQUE: Multiaxial CT images of the abdomen and pelvis were performed without contrast. A dose lo wering technique was utilized adhering to the principles of ALARA. COMPARISON STUDY: Abdomen and pelvis CT 06/24/2015. FINDINGS: Chronic interstitial thickening noted at the lung bases. The heart is mildly enlarged. Ther e is a tiny hiatus hernia, unchanged. Nondisplaced fracture at the base the right greater trochanter. This does not appear to extend to the lesser trochanter. No additional fractures identified within t he abdomen or pelvis. Degenerative changes noted within the lumbar spine. There is mild body wall rodriguez ma. The unenhanced liver, gallbladder, spleen, adrenal glands, and pancreas unremarkable. There is a punctate stone within the left kidney. No ureteral stones. No hydronephrosis. Hypodense lesions withi n the left kidney favor cysts. No retroperitoneal lymphadenopathy or hematoma. Normal caliber abdomin al aorta. No pelvic free fluid. The bladder, uterus, bilateral adnexa are unremarkable. Suboptimal ev aluation for bowel pathology due to the lack of intravenous and oral contrast. However, there is no d efinite bowel wall thickening or obstruction. Colonic diverticulosis. No evidence for acute diverticu litis. IMPRESSION: 1. An acute nondisplaced fracture within the right greater trochanter. 2. Stable cardiomegaly. 3. Colonic diverticulosis. No evidence for acute diverticulitis. 4. Mild body wall edema. 5. Left-sided nephrolithiasis. No hydronephrosis. ACT 112: Negative or not required by law. Electronically signed by: Vick Kim M.D. 03/25/2021 11:46 AM
[2021-03-25 12:24] LABS: Appearance Urine Clear (Clear); Bacteria Urine Automated Negative (Negative); Bilirubin Urine Negative (Negative); Blood Urine Negative (Negative); Color Urine Yellow; Glucose Urine UA Negative (Negative); Ketones Urine Negative (Negative); Leukocyte Esterase Urine Negative (Negative); Nitrite Urine Negative (Negative); Protein Urine 2+ (Negative); RBC Urine Automated 0-4 /hpf (0-4); Specific Gravity Urine 1.016 (1.000-1.030); Urobilinogen Urine Negative (Negative)
--- NOTE | 2021-03-25 12:50 | History & Physical Report ---
Date of Service March 25, 2021 Assessment & Plan (1) Fracture of greater trochanter of right femur: Plan: - Admit to med surg with tele - Will consult orthopedics, Dr. Malloy for possible surgical intervention -X-ray of hip and abdomen pelvis reviewed showing right greater trochanter fracture, nondisplaced. Likely needs MRI for further assessment-discussed with orthopedics -Continue n.p.o. unless no surgery indicated then will allow with diet -Hypokalemic with potassium of 3.1, replace with p.o. meds -We will give IV Bumex 1 mg now, Garcia catheter in place, appears to be slightly hypervolemic in legs, takes p.o. Bumex 1 mg 2-3 times per week with weight gain with diastolic heart failure -We will consult cardiology for optimization in anticipation of surgical procedure -PT/OT -Fall precautions -Pain control on board, bowel regimen, last BM was yesterday (2) HTN (hypertension): Plan: -BP well controlled, missed morning medications, monitor (3) Chronic diastolic CHF (congestive heart failure): Plan: - Cardiology consulted as above - Last echo was one year ago showing valvular dysfunction, murmur on exam, cxr with mild pulm edema (4) Pulmonary hypertension: Plan: - As above (5) DM type 2 (diabetes mellitus, type 2): Plan: - ISS with accuchecks achs - Cont levemir, reduce dose in half to 5 U HS while npo - she takes at home when her nighttime glucose is > 150, so some nights does not use this at baseline. - Last A1C = 5.3 in August 2020, will repeat with am labs (6) Hypokalemia: Plan: - Replace with PO, 3.1 on admission, follow with am labs, monitor with iv diuretic administration (7) CKD (chronic kidney disease), stage IV: Plan: - Creatinine is currently at baseline, 2.02 on admission, appears to have baseline of 2.1 - IV bumex daily for now with slight hypervolemia, monitor (8) Hypothyroidism: Plan: -Continue levothyroxine (9) Vitamin D deficiency: Plan: -Continue vitamin D supplementation DVT PPx: - teds, scds, no chemical anticoagulation in anticipation of possible surgical procedure CODE: Full code Dispo: From home, likely to remain in the hospital x 1-2 days CM to assist with dc planning, lives at home alone, may need SNF vs acute rehab stay History of Present Illness Chief Complaint: Fall and hip pain Primary Care Provider: Tiffanie Jameson DO This is an 85-year-old female with PMHx of HTN, diastolic CHF, CKD stage III, anemia, DM type II, hypothyroidism, who presents after sustaining a fall last evening where she slipped on ice. She denies hitting her head or loss of consciousness, but states that she did not want to come to the hospital last night because she had dogs at home to take care of. She talked with her brother and her [id number] on the phone last night and reported that her pain was minimal so stayed home and did not feel she needed checked on. She called her brother again this morning who then came over to check on her, and brought her to the ER. Currently she reports her pain is minimal, and only hurts whenever she moves the leg. Pt tolerated a dose of morphine IV in the ER. We discussed her previous allergy to morphine of rash and she reports that she received this medication so long ago, she can neither deny or confirm it. Patient tolerated morphine without any difficulty in the ER so we will continue it for pain management. The patient did hit her right shoulder last evening during the fall, which is slightly sore however not bruised and no open lacerations. She was wearing a large heavy winter coat which padded her fall. She was able to push herself up to use the toilet and to get on her couch. Otherwise she moved around by crawling on all fours in her home. Patient has not eaten anything today and did not take her morning medications as she slept on a recliner on the bottom floor of her split-level home, and medications were in her kitchen which she could not get to. Pt lives at home by herself and has been independent. Denies any other acute complaints. She is found to have an acute nondisplaced right greater trochanter fracture. Potassium is low at 3.1. She appears to be slightly hyerpervolemic, but takes Bumex 1 mg PO at home maybe 2-3 times per week for weight gain with CHF. She hasn't taken it in at least 3 days. Allergies Allergy/AdvReac Type Severity Reaction Status Date / Time hydrocodone Allergy Intermediate RASH Verified 03/25/21 11:42 Iodinated Contrast Media Allergy Intermediate HIVES Verified 03/25/21 11:42 Penicillins Allergy Intermediate ANAPHLACTIC Verified 03/25/21 11:42 SHOCK phenylephrine Allergy Intermediate Rash, Verified 03/25/21 11:42 insomnia trolamine salicylate Allergy Intermediate RASH Verified 03/25/21 11:42 acetaminophen Allergy Mild BRIGHT RED Verified 03/25/21 11:42 RASH-PT DENIES ketorolac Allergy Mild Unknown Verified 03/25/21 11:42 oxycodone Allergy Mild BRIGHT RED Verified 03/25/21 11:42 RASH tramadol Allergy Mild BRIGHT RED Verified 03/25/21 11:42 RASH prednisone AdvReac Unknown Became Verified 03/25/21 11:42 manic Home Medications Medication Instructions Recorded Confirmed Type atorvastatin 40 mg tablet 40 mg PO DAILY tab 11/11/18 03/25/21 History insulin detemir U-100 100 unit/mL 10 units SUBCUT HS ml 11/11/18 03/25/21 History subcutaneous solution lisinopril 40 mg tablet 40 mg PO DAILY #90 tab 11/11/18 03/25/21 History paroxetine HCl 20 mg tablet 20 mg PO QAM tab 11/11/18 03/25/21 History levothyroxine 100 mcg capsule 100 mcg PO DAILY 01/05/19 03/25/21 History allopurinol 100 mg tablet 100 mg PO BID 02/24/20 03/25/21 History amlodipine 10 mg tablet 10 mg PO QAM 02/24/20 03/25/21 History cholecalciferol (vitamin D3) 10 20 mcg PO DAILY 02/24/20 03/25/21 History mcg (400 unit) capsule (Vitamin D3) magnesium oxide 400 mg (241.3 mg 400 mg PO BID #20 tab 02/28/20 03/25/21 Rx magnesium) tablet metoprolol succinate 25 mg 25 mg PO QAM #30 tab 02/28/20 03/25/21 Rx tablet,extended release 24 hr bumetanide 1 mg tablet 1 mg PO DAILY PRN #90 tab 04/06/20 03/25/21 Rx ferrous sulfate 325 mg (65 mg 325 mg PO BID #60 tab 12/31/20 03/25/21 History iron) tablet latanoprost 0.005 % eye drops 1 drp OPB HS 03/25/21 03/25/21 History Past Med/Surg History Medical History Anemia Chronic diastolic CHF (congestive heart failure) CKD (chronic kidney disease), stage IV DM type 2 (diabetes mellitus, type 2) Dyslipidemia Gout HTN (hypertension) Hypothyroidism Vitamin D deficiency Surgical History History of carpal tunnel surgery of left wrist Hx of surgical amputation of finger Hx of tonsillectomy Family History Mother Colorectal cancer Diabetes Heart disease Hypertension Social History Smoking Status: Never smoker Hx Alcohol Use: No Hx Substance Use: No Preferred Language: Latvian Communication Ability: Effective Steam Pipe 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 Required: No Beliefs That Will Affect Care: None Current Living Situation: Alone Current Living Situation Comment: alone with 2 dogs Feels Safe at Home: Yes Assistive Devices: None Review of Systems Review of Systems: Constitutional: No fever, sweats or chills Eyes: No diplopia, no worsening or blurred vision ENT: normal hearing, no trouble swallowing Respiratory: No cough, sputum, dyspnea at rest or on exertion Cardiovascular: No chest pain, tightness or palpitations Abdomen: No pain, nausea, vomiting, diarrhea or constipation : no urinary complaints Musculoskeletal: Minimal Right hip joint pain, calf pain, + calf and foot swelling Neurologic: No weakness, numbness/tingling, or balance problems Psychiatric: No anxiety or depression Skin: No rash or itch Physical Exam Physical Exam: General: awake, alert, no apparent distress Head: Normocephalic, atraumatic ENT: PERRL, EOMI, no pharyngeal exudate, mucous membranes moist Chest: Clear to auscultation, on 2 L via NC, no adventitious breath sounds Cardiac: Regular rate and rhythm, + systolic ejection murmur, no JVD as she is lying flat due to hip fracture, normal peripheral pulses, good capillary refill Abdominal: NABS x 4 quadrants, soft, nondistended, nontender to palpation, no rebound or guarding : garcia catheter draining clear yellow urine Extremities: Normal inspection, 1+ peripheral edema bilaterally, no erythema, calfs nontender to palpation Psych: Normal mood and affect Neuro: AAO x 3, strength intact bilaterally and rated 5/5, pt cannot move R hip without pain so not tested for strength, no obvious motor deficits, speech is clear, no peripheral sensory deficits Results & Data Results & Data ([facility]) Vital Signs (Past 12 Hours) Vital Signs Temp Pulse Resp BP Pulse Ox 03/25/21 12:00 64 21 149/67 H 95 03/25/21 11:30 64 18 141/69 H 92 03/25/21 11:19 65 15 142/65 H 94 03/25/21 10:33 66 17 150/77 H 91 03/25/21 09:44 36.8 C 76 18 162/74 H 95 Laboratory Results 03/25/21 03/25/21 03/25/21 12:03 10:38 10:37 WBC RBC Hgb Hct MCV MCH MCHC RDW Std Deviation RDW Coeff of Mague Plt Count MPV Immature Gran % (Auto) Neut % (Auto) Lymph % (Auto) Alfalfa % (Auto) Eos % (Auto) Baso % (Auto) Neut # (Auto) Lymph # (Auto) Alfalfa # (Auto) Eos # (Auto) Baso # (Auto) Immature Gran # (Auto) PT INR APTT PTT Ratio Sodium 141 Potassium 3.1 L Chloride 105 Carbon Dioxide 26 Anion Gap 10 BUN 33 H Creatinine 2.07 H Est Cr Clr Drug Dosing 20.1 Est GFR ( Amer) 24.9 Est GFR (Non-Af Amer) 21.4 BUN/Creatinine Ratio 15.9 Glucose 99 Calcium 9.1 Total Bilirubin 0.8 AST 15 ALT 10 Alkaline Phosphatase 63 Total Protein 7.6 Albumin 4.0 Globulin 3.6 Albumin/Globulin Ratio 1.1 Urine Color Yellow Urine Appearance Clear Urine pH 5.0 Ur Specific [place] 1.016 Urine Protein 2+ H Urine Glucose (UA) Negative Urine Ketones Negative Urine Blood Negative Urine Nitrite Negative Urine Bilirubin Negative Urine Urobilinogen Negative Ur Leukocyte Esterase Negative Urine WBC (Auto) 1-5 Urine RBC (Auto) 0-4 U Hyaline Cast (Auto) 5-10 H U Epithel Cells (Auto) 10-20 H Urine Bacteria (Auto) Negative SARS-CoV-2, RNA, NAAT NEGATIVE 03/25/21 03/25/21 10:37 10:37 WBC 12.76 H RBC 3.28 L Hgb 9.3 L Hct 29.6 L MCV 90.2 MCH 28.4 MCHC 31.4 L RDW Std Deviation 51.7 H RDW Coeff of [place]ague 15.6 H Plt Count 290 MPV 10.0 Immature Gran % (Auto) 0.2 Neut % (Auto) 83.7 Lymph % (Auto) 7.4 Alfalfa % (Auto) 7.3 Eos % (Auto) 1.2 Baso % (Auto) 0.2 Neut # (Auto) 10.69 H Lymph # (Auto) 0.95 L Alfalfa # (Auto) 0.93 H Eos # (Auto) 0.15 Baso # (Auto) 0.02 Immature Gran # (Auto) 0.02 PT 10.9 INR 1.1 APTT 28.8 PTT Ratio 1.1 Sodium Potassium Chloride Carbon Dioxide Anion Gap BUN Creatinine Est Cr Clr Drug Dosing Est GFR ( Amer) Est GFR (Non-Af Amer) BUN/Creatinine Ratio Glucose Calcium Total Bilirubin AST ALT Alkaline Phosphatase Total Protein Albumin Globulin Albumin/Globulin Ratio Urine Color Urine Appearance Urine pH Ur Specific [place] Urine Protein Urine Glucose (UA) Urine Ketones Urine Blood Urine Nitrite Urine Bilirubin Urine Urobilinogen Ur Leukocyte Esterase Urine WBC (Auto) Urine RBC (Auto) U Hyaline Cast (Auto) U Epithel Cells (Auto) Urine Bacteria (Auto) SARS-CoV-2, RNA, NAAT Diagnostic Findings Abdomen/Pelvis CT 03/25/21 10:[address] WITHOUT CONTRAST CT DOSE: HISTORY: right back/hip pain fall TECHNIQUE: Multiaxial CT images of the abdomen and pelvis were performed without contrast. A dose lowering technique was utilized adhering to the principles of ALARA. COMPARISON STUDY: Abdomen and pelvis CT 06/24/2015. FINDINGS: Chronic interstitial thickening noted at the lung bases. The heart is mildly enlarged. There is a tiny hiatus hernia, unchanged. Nondisplaced fracture at the base the right greater trochanter. This does not appear to extend to the lesser trochanter. No additional fractures identified within the abdomen or pelvis. Degenerative changes noted within the lumbar spine. There is mild body wall edema. The unenhanced liver, gallbladder, spleen, adrenal glands, and pancreas unremarkable. There is a punctate stone within the left kidney. No ureteral stones. No hydronephrosis. Hypodense lesions within the left kidney favor cysts. No retroperitoneal lymphadenopathy or hematoma. Normal caliber abdominal aorta. No pelvic free fluid. The bladder, uterus, bilateral adnexa are unremarkable. Suboptimal evaluation for bowel pathology due to the lack of intravenous and oral contrast. However, there is no definite bowel wall thickening or obstruction. Colonic diverticulosis. No evidence for acute diverticulitis. IMPRESSION: 1. An acute nondisplaced fracture within the right greater trochanter. 2. Stable cardiomegaly. 3. Colonic diverticulosis. No evidence for acute diverticulitis. 4. Mild body wall edema. 5. Left-sided nephrolithiasis. No hydronephrosis. ACT 112: Negative or not required by law. Electronically signed by: Vick Kim M.D. 03/25/2021 11:46 AM Hip/Pelvis X-Ray 03/25/21 10:17 XR hip RT 2V w pelvis CLINICAL HISTORY: Fall. Right hip pain. COMPARISON STUDY: None. FINDINGS: The bones are osteopenic. Subtle nondisplaced fracture at the base of the right greater trochanter. This is better appreciated on the same day abdomen and pelvis CT. No dislocation. The pelvic bones appear intact. Mild osteoarthritis within the bilateral hips. Soft tissues are unremarkable. IMPRESSION: Subtle nondisplaced fracture at the base of the right greater trochanter. This is better appreciated on the same day abdomen and pelvis CT. ACT 112: Negative or not required by law. Electronically signed by: Vick Kim M.D. 03/25/2021 11:40 AM Shoulder X-Ray 03/25/21 10:17 XR shoulder RT min 2V routine CLINICAL HISTORY: Status post fall with right shoulder pain. COMPARISON STUDY: No previous studies for comparison. TECHNIQUE: 3 right shoulder views FINDINGS: Bones: The bones are osteopenic. There is no evidence for an acute fracture or dislocation. There is no lytic or blastic lesion. Joints: Moderate degenerative changes are seen at the acromioclavicular joint. The glenohumeral joint is maintained. The bones are in anatomic alignment. Soft tissues: There is no focal soft tissue abnormality. There is no radiopaque foreign body. IMPRESSION: No acute osseous pathology. Osteopenia and mild osteoarthritis ACT 112: Negative or not required by law. Electronically signed by: Rashad Quevedo M.D. 03/25/2021 11:15 AM Chest X-Ray 03/25/21 10:19 XR chest 1V not portable HISTORY: right shoulder pain fall COMPARISON: Chest 02/24/2020. FINDINGS: The cardiac silhouette remains mildly enlarged. Diffuse interstitial thickening. This may represent mild central pulmonary vascular congestion without overt edema. No pneumothorax. No new focal lung consolidations to suggest pneumonia. Old, healed left-sided rib fractures. No acute fractures identified within the chest. Suspect a trace left pleural effusion, unchanged. IMPRESSION: 1. Stable cardiomegaly. 2. Mild central pulmonary vascular congestion without overt edema. ACT 112: Negative or not required by law. Electronically signed by: Vick Kim M.D. 03/25/2021 11:[address] 03/25/21 10:[address] DOSE: 1344.07 mGy.cm HISTORY: Right-sided head pain fall TECHNIQUE: Multiaxial CT images of the head were performed without the use of intravenous contrast. Automated exposure control was utilized for this study. A dose lowering technique was utilized adhering to the principles of ALARA. Comparison: Head CT 05/31/2017. Findings: The paranasal sinuses and mastoid air cells are clear. The calvarium and skull base are intact. There is no mass, hematoma, midline shift, acute infarct. White matter hypodensity is nonspecific but suggestive of microvascular ischemic change. The ventricles and sulci demonstrate mild age-related involutional changes. Impression: No significant change compared to the prior study. No acute intracranial abnormality. ACT 112: Negative or not required by law. Electronically signed by: Vick Kim M.D. 03/25/2021 11:34 AM ECG Additional Comments: 25-MAR-2021 10:25:53 [facility]-EDSTAT ROUTINE RETRIEVAL Normal sinus rhythm Right bundle branch block Left anterior fascicular block Bifascicular block Abnormal ECG When compared with ECG of 24-FEB-2020 16:35, Premature supraventricular complexes are no longer Present 25mm/s 10mm/mV 150Hz 9.0.9 12SL 241 DANISH: 13 Referred by: REFERRED SELF Unconfirmed Vent. rate 65 BPM MI interval 186 ms QRS duration 162 ms QT/QTc 480/499 ms Code Status & VTE Plan Code Status Full code Supervising Physician Co-Signing Physician Notes Patient was seen and examined independently. Chart was reviewed. Case was discussed with MARIO. Patient here with right hip fracture after a mechanical fall. She appears mildly volume overloaded, mild acute on chronic diastolic CHF -At home takes bumex 1mg PO PRN for weight gain or leg swelling -will place on bumex 1mg IV daily for now. Will need potassium repletion before and during diuresis. With her valvular heart disease, acute on chronic diastolic CHF, pulmonary hypertension, CKD stage 4, she is at least a moderate risk for surgery. Will ask for Cardiology evaluation prior to OR. Will need optimization prior to OR. With that being said, prior to her hip fracture patient is ambulatory and enjoys a good quality of life. Regardless of her cardiac risk, patient has made it clear she will want to proceed with surgery. Remaining Plan as above
[2021-03-25] MEDS ORDERED: NALOXONE HCL 0.4 MG/1 ML VIAL/CARP IV PRN (12:52)
[2021-03-25] MEDS ORDERED: MAGNESIUM HYDROXIDE SUSP 30 ML UDC PO PRN (12:52)
[2021-03-25] MEDS ORDERED: BUMETANIDE 1 MG TAB PO PRN (12:52)
[2021-03-25] MEDS ORDERED: bisacodyL 10 MG SUPP PR PRN (12:52)
[2021-03-25] MEDS ORDERED: POTASSIUM CHLORIDE CRTAB 20 MEQ TABCR PO STA (13:35)
--- NOTE | 2021-03-25 13:52 | Communication Note ---
Date of Service: March 25, 2021 Patient was seen and examined independently. Chart was reviewed. Case was discussed with MARIO. Patient here with right hip fracture after a mechanical fall. She appears mildly volume overloaded, mild acute on chronic diastolic CHF -At home takes bumex 1mg PO PRN for weight gain or leg swelling -will place on bumex 1mg IV daily for now. Will need potassium repletion before and during diuresis. With her valvular heart disease, acute on chronic diastolic CHF, pulmonary hypertension, CKD stage 4, she is at least a moderate risk for surgery. Will ask for Cardiology evaluation prior to OR. Will need optimization prior to OR. With that being said, prior to her hip fracture patient is ambulatory and enjoys a good quality of life. Regardless of her cardiac risk, patient has made it clear she will want to proceed with surgery.
[2021-03-25] MEDS: BUMETANIDE 1 MG in SYRINGE 0 ML IV SCH (14:07)
--- NOTE | 2021-03-25 15:05 | Orthopedic Consultation ---
Date of Consultation March 25, 2021 Assessment & Plan (1) Fracture of greater trochanter of right femur: X-rays reviewed. Greater trochanter fracture noted on plain films and CT of the pelvis. With the patient's increased pain with ambulation/weightbearing and decreased ability to ambulate, we will order an MRI of the right hip to rule out any possibility of an intertrochanteric hip fracture not seen on the other films. Patient should be nonweightbearing at this time until MRI is reviewed. She should be n.p.o. after midnight just in case a fracture is present across the intertrochanteric region. If so she will require a trochanteric femoral nail. Case has been discussed with Dr. Malloy who is on-call today. We will wait to see the MRI for further plans. History of Present Illness Reason for Consultation: Right greater trochanter fracture History of Present Illness Patient is an 85-year-old female with PMHx of HTN, diastolic CHF, CKD stage III, anemia, DM type II, hypothyroidism,who came to the emergency room this morning after falling on her deck. Patient states that she went out into her garage to check how much gasoline she had in her car. She thought the gas tank was arevalo than it really was. As she was coming back into her house, she walked up the steps and was walking across her deck when she slipped and fell. She states that she had a little twinge of pain in her right hip but really did not think anything of it. As she attempted to get up and ambulate, she began having increased pain with ambulation. She states that the pain seemed to be in the anterior portion of her hip. It was difficult for her to ambulate and she decided to come in to be seen. X-rays were taken and noted a small nondisplaced fracture of the right greater trochanter which was also seen better on a CT of her abdomen and pelvis. We have now been asked to see her for this fracture. Allergies Allergy/AdvReac Type Severity Reaction Status Date / Time hydrocodone Allergy Intermediate RASH Verified 03/25/21 11:42 Iodinated Contrast Media Allergy Intermediate HIVES Verified 03/25/21 11:42 Penicillins Allergy Intermediate ANAPHLACTIC Verified 03/25/21 11:42 SHOCK phenylephrine Allergy Intermediate Rash, Verified 03/25/21 11:42 insomnia trolamine salicylate Allergy Intermediate RASH Verified 03/25/21 11:42 acetaminophen Allergy Mild BRIGHT RED Verified 03/25/21 11:42 RASH-PT DENIES ketorolac Allergy Mild Unknown Verified 03/25/21 11:42 oxycodone Allergy Mild BRIGHT RED Verified 03/25/21 11:42 RASH tramadol Allergy Mild BRIGHT RED Verified 03/25/21 11:42 RASH prednisone AdvReac Unknown Became Verified 03/25/21 11:42 manic Home Medications Medication Instructions Recorded Confirmed Type atorvastatin 40 mg tablet 40 mg PO DAILY tab 11/11/18 03/25/21 History insulin detemir U-100 100 unit/mL 10 units SUBCUT HS ml 11/11/18 03/25/21 History subcutaneous solution lisinopril 40 mg tablet 40 mg PO DAILY #90 tab 11/11/18 03/25/21 History paroxetine HCl 20 mg tablet 20 mg PO QAM tab 11/11/18 03/25/21 History levothyroxine 100 mcg capsule 100 mcg PO DAILY 01/05/19 03/25/21 History allopurinol 100 mg tablet 100 mg PO BID 02/24/20 03/25/21 History amlodipine 10 mg tablet 10 mg PO QAM 02/24/20 03/25/21 History cholecalciferol (vitamin D3) 10 20 mcg PO DAILY 02/24/20 03/25/21 History mcg (400 unit) capsule (Vitamin D3) magnesium oxide 400 mg (241.3 mg 400 mg PO BID #20 tab 02/28/20 03/25/21 Rx magnesium) tablet metoprolol succinate 25 mg 25 mg PO QAM #30 tab 02/28/20 03/25/21 Rx tablet,extended release 24 hr bumetanide 1 mg tablet 1 mg PO DAILY PRN #90 tab 04/06/20 03/25/21 Rx ferrous sulfate 325 mg (65 mg 325 mg PO BID #60 tab 12/31/20 03/25/21 History iron) tablet latanoprost 0.005 % eye drops 1 drp OPB HS 03/25/21 03/25/21 History Patient History Medical History Anemia Chronic diastolic CHF (congestive heart failure) CKD (chronic kidney disease), stage IV DM type 2 (diabetes mellitus, type 2) Dyslipidemia Gout HTN (hypertension) Hypothyroidism Vitamin D deficiency Surgical History History of carpal tunnel surgery of left wrist Hx of surgical amputation of finger Hx of tonsillectomy Family History Mother Colorectal cancer Diabetes Heart disease Hypertension Social History Smoking Status: Never smoker Do You Dip or Chew Tobacco: No; Hx Alcohol Use: No Hx Substance Use: No Preferred Language: Austrian Communication Ability: Effective 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 She is alert and oriented x3. No acute distress. Pleasant cooperative. On examination of her right lower extremity, palpation of the lateral hip does not elicit a painful response however palpation closer to the anterior portion of the proximal hip and femur does cause her some discomfort. She states that is mild. I am able to take her through gentle passive range of motion at this point. Internal and external rotation causes her some mild discomfort in the right hip. I am able to take her through gentle flexion which does not seem to bother her too much at this time. Extension is pain-free. Abduction and adduction does elicit a painful response. She has some mild pain on axial lo ading of the right hip. She has no overt bruising or swelling compared to the left. She has good range of motion of her right knee and ankle. Left lower extremity is unaffected and range of motion is within normal limits. Upper extremities shows some mild tenderness in the right shoulder. No overt bruising or swelling is noted. I am able to take her through full range of motion of the right shoulder without difficulty and she states she is fairly nontender through the whole process. Right elbow and right wrist are nontender and range of motion is within normal limits. Left upper extremity is unaffected and range of motion is within normal limits. Distal pulses are equal bilaterally of the upper and lower extremities. There is no gross motor or sensory loss seen at this time. Results & Data ([facility]) Vital Signs (Past 12 Hours) Vital Signs Temp Pulse Pulse Resp BP BP Pulse Ox 03/25/21 14:08 68 12 149/61 H 100 03/25/21 13:00 59 L 15 132/57 L 98 03/25/21 12:31 62 18 96 03/25/21 12:30 65 16 140/64 89 L 03/25/21 12:00 64 21 149/67 H 95 03/25/21 11:30 64 18 141/69 H 92 03/25/21 11:19 65 15 142/65 H 94 03/25/21 10:33 66 17 150/77 H 91 03/25/21 09:44 36.8 C 76 18 162/74 H 95 Laboratory Results Laboratory Results WBC 12.76 K/uL (4.8-10.8) H 03/25/21 10:37 RBC 3.28 M/uL (4.2-5.4) L 03/25/21 10:37 Hgb 9.3 g/dL (12.0-16.0) L 03/25/21 10:37 Hct 29.6 % (37-47) L 03/25/21 10:37 MCV 90.2 fL (80-100) 03/25/21 10:37 MCH 28.4 pg (25-34) 03/25/21 10:37 MCHC 31.4 g/dL (32-36) L 03/25/21 10:37 RDW Std Deviation 51.7 fL (36.4-46.3) H 03/25/21 10:37 RDW Coeff of Mague 15.6 % (11.5-14.5) H 03/25/21 10:37 Plt Count 290 K/uL (130-400) 03/25/21 10:37 MPV 10.0 fL (7.4-10.4) 03/25/21 10:37 Immature Gran % (Auto) 0.2 % 03/25/21 10:37 Neut % (Auto) 83.7 % 03/25/21 10:37 Lymph % (Auto) 7.4 % 03/25/21 10:37 Mathews % (Auto) 7.3 % 03/25/21 10:37 Eos % (Auto) 1.2 % 03/25/21 10:37 Baso % (Auto) 0.2 % 03/25/21 10:37 Neut # (Auto) 10.69 K/uL (1.4-6.5) H 03/25/21 10:37 Lymph # (Auto) 0.95 K/uL (1.2-3.4) L 03/25/21 10:37 Mathews # (Auto) 0.93 K/uL (0.11-0.59) H 03/25/21 10:37 Eos # (Auto) 0.15 K/uL (0-0.5) 03/25/21 10:37 Baso # (Auto) 0.02 K/uL (0-0.2) 03/25/21 10:37 Immature Gran # (Auto) 0.02 K/uL (0.00-0.02) 03/25/21 10:37 PT 10.9 Seconds (9.0-12.0) 03/25/21 10:37 INR 1.1 (0.9-1.1) 03/25/21 10:37 APTT 28.8 Seconds (21.0-31.0) 03/25/21 10:37 PTT Ratio 1.1 03/25/21 10:37 Sodium 141 mmol/L (136-145) 03/25/21 10:37 Potassium 3.1 mmol/L (3.5-5.1) L 03/25/21 10:37 Chloride 105 mmol/L (98-107) 03/25/21 10:37 Carbon Dioxide 26 mmol/L (21-32) 03/25/21 10:37 Anion Gap 10 (3-11) 03/25/21 10:37 BUN 33 mg/dl (6-23) H 03/25/21 10:37 Creatinine 2.07 mg/dl (0.6-1.2) H 03/25/21 10:37 Est Cr Clr Drug Dosing 20.1 ml/min 03/25/21 10:37 Est GFR ( Amer) 24.9 ml/min 03/25/21 10:37 Est GFR (Non-Af Amer) 21.4 ml/min 03/25/21 10:37 BUN/Creatinine Ratio 15.9 (10-20) 03/25/21 10:37 Glucose 99 mg/dl (70-99(Fasting)) 03/25/21 10:37 Calcium 9.1 mg/dl (8.5-10.1) 03/25/21 10:37 Total Bilirubin 0.8 mg/dl (0.2-1.0) 03/25/21 10:37 AST 15 U/L (13-39) 03/25/21 10:37 ALT 10 U/L (7-52) 03/25/21 10:37 Alkaline Phosphatase 63 U/L (34-104) 03/25/21 10:37 Total Protein 7.6 gm/dl (6.0-8.3) 03/25/21 10:37 Albumin 4.0 gm/dl (3.4-5.0) 03/25/21 10:37 Globulin 3.6 gm/dl (2.5-4.0) 03/25/21 10:37 Albumin/Globulin Ratio 1.1 (0.9-2) 03/25/21 10:37 Urine Color Yellow 03/25/21 12:03 Urine Appearance Clear (Clear) 03/25/21 12:03 Urine pH 5.0 (4.5-7.5) 03/25/21 12:03 Ur Specific [place] 1.016 (1.000-1.030) 03/25/21 12:03 Urine Protein 2+ (Negative) H 03/25/21 12:03 Urine Glucose (UA) Negative (Negative) 03/25/21 12:03 Urine Ketones Negative (Negative) 03/25/21 12:03 Urine Blood Negative (Negative) 03/25/21 12:03 Urine Nitrite Negative (Negative) 03/25/21 12:03 Urine Bilirubin Negative (Negative) 03/25/21 12:03 Urine Urobilinogen Negative (Negative) 03/25/21 12:03 Ur Leukocyte Esterase Negative (Negative) 03/25/21 12:03 Urine WBC (Auto) 1-5 /hpf (0-5) 03/25/21 12:03 Urine RBC (Auto) 0-4 /hpf (0-4) 03/25/21 12:03 U Hyaline Cast (Auto) 5-10 /lpf (0-5) H 03/25/21 12:03 U Epithel Cells (Auto) 10-20 /lpf (0-5) H 03/25/21 12:03 Urine Bacteria (Auto) Negative (Negative) 03/25/21 12:03 SARS-CoV-2, RNA, NAAT NEGATIVE (NEGATIVE) 03/25/21 10:38 Impressions Abdomen/Pelvis CT 03/25/21 10:[address] WITHOUT CONTRAST CT DOSE: HISTORY: right back/hip pain fall TECHNIQUE: Multiaxial CT images of the abdomen and pelvis were performed without contrast. A dose lowering technique was utilized adhering to the principles of ALARA. COMPARISON STUDY: Abdomen and pelvis CT 06/24/2015. FINDINGS: Chronic interstitial thickening noted at the lung bases. The heart is mildly enlarged. There is a tiny hiatus hernia, unchanged. Nondisplaced fracture at the base the right greater trochanter. This does not appear to extend to the lesser trochanter. No additional fractures identified within the abdomen or pelvis. Degenerative changes noted within the lumbar spine. There is mild body wall edema. The unenhanced liver, gallbladder, spleen, adrenal glands, and pancreas unremarkable. There is a punctate stone within the left kidney. No ureteral stones. No hydronephrosis. Hypodense lesions within the left kidney favor cysts. No retroperitoneal lymphadenopathy or hematoma. Normal caliber abdominal aorta. No pelvic free fluid. The bladder, uterus, bilateral adnexa are unremarkable. Suboptimal evaluation for bowel pathology due to the lack of intravenous and oral contrast. However, there is no definite bowel wall thickening or obstruction. Colonic diverticulosis. No evidence for acute diverticulitis. IMPRESSION: 1. An acute nondisplaced fracture within the right greater trochanter. 2. Stable cardiomegaly. 3. Colonic diverticulosis. No evidence for acute diverticulitis. 4. Mild body wall edema. 5. Left-sided nephrolithiasis. No hydronephrosis. ACT 112: Negative or not required by law. Electronically signed by: Vick Kim M.D. 03/25/2021 11:46 AM Hip/Pelvis X-Ray 03/25/21 10:17 XR hip RT 2V w pelvis CLINICAL HISTORY: Fall. Right hip pain. COMPARISON STUDY: None. FINDINGS: The bones are osteopenic. Subtle nondisplaced fracture at the base of the right greater trochanter. This is better appreciated on the same day abdomen and pelvis CT. No dislocation. The pelvic bones appear intact. Mild osteoarthritis within the bilateral hips. Soft tissues are unremarkable. IMPRESSION: Subtle nondisplaced fracture at the base of the right greater trochanter. This is better appreciated on the same day abdomen and pelvis CT. ACT 112: Negative or not required by law. Electronically signed by: Vick Kim M.D. 03/25/2021 11:40 AM Shoulder X-Ray 03/25/21 10:17 XR shoulder RT min 2V routine CLINICAL HISTORY: Status post fall with right shoulder pain. COMPARISON STUDY: No previous studies for comparison. TECHNIQUE: 3 right shoulder views FINDINGS: Bones: The bones are osteopenic. There is no evidence for an acute fracture or dislocation. There is no lytic or blastic lesion. Joints: Moderate degenerative changes are seen at the acromioclavicular joint. The glenohumeral joint is maintained. The bones are in anatomic alignment. Soft tissues: There is no focal soft tissue abnormality. There is no radiopaque foreign body. IMPRESSION: No acute osseous pathology. Osteopenia and mild osteoarthritis ACT 112: Negative or not required by law. Electronically signed by: Rashad Quevedo M.D. 03/25/2021 11:15 AM
[2021-03-25] MEDS ORDERED: GLUCOSE 40% GEL 15 GM TUBE PO PRN (17:47)
[2021-03-25] MEDS ORDERED: GLUCOSE 10 TABS/TUBE PO PRN (17:47)
[2021-03-25] MEDS ORDERED: DEXTROSE 50% 50 ML SYRINGE IV PRN (17:47)
[2021-03-25] MEDS ORDERED: CARBOHYDRATES FOR HYPOGLYCEMIA PO PRN (17:47)
[2021-03-25] MEDS ORDERED: GLUCAGON FOR INJ 1 MG VIAL SQ PRN (17:47)
[2021-03-25] MEDS: FERROUS SULFATE 325 MG TAB PO SCH (18:00)
[2021-03-25] MEDS ORDERED: LORazepam 1 MG TAB PO STA (18:45)
--- NOTE | 2021-03-25 19:15 | Emergency Department Note ---
Impression & Plan Fracture of greater trochanter of right femur, CKD (chronic kidney disease), stage IV, Hypokalemia, Fall due to ice or snow ED Provider Note NAME: PATRICA SARGENT AGE: 85 SEX: F ARRIVES VIA: Ambulance INFORMANT: Patient ED PROVIDER(S): aRmiro Downs MD CHIEF COMPLAINT: Fall, right hip pain. PLAN: Disposition: Admit MEDICAL DECISION MAKING: The patient is a pleasant 85-year-old woman with a past medical history of CKD, pulmonary hypertension, CHF, hypothyroidism who presents emergency department for evaluation of right hip pain after suffering a fall when she slipped on ice on her deck yesterday around 2 PM. Patient reports that she was unable to get up at the time but was able to slide herself to the door to go inside where she continued to slide herself around the house and eventually downstairs where there was a place where she could sleep until morning when finally she contacted family who came to assist her and called for an ambulance. Patient denies hitting her head or losing consciousness. She reports some soreness of her right lower back and right shoulder but reports the majority of her pain relates to her right hip which she cannot flex secondary to pain. Prior to her fall yesterday she denies any recent illness including denies fevers, chills, cough, congestion, GI or symptoms. On arrival patient is uncomfortable but no acute distress, afebrile stable vital signs. She appears clinically dry. She has tenderness in her right inguinal area. She has limited range of motion secondary to pain. Distal PMS is intact. She has mild discomfort of her right lumbar region without bony crepitus. She has full range of motion of the right shoulder with mild discomfort to palpation of the posterior shoulder. EKG without overt acute ischemia. Chest x-ray without acute traumatic findings. Question of vascular congestion however the patient denies respiratory symptoms. WBC 12.7K,. H/H similar to prior. Platelets within normal limits. Chemistry without metabolic acidosis. Creatinine 2.07, within prior range of values. Potassium 3.1, otherwise, electrolytes and LFTs unremarkable. UA without convincing evidence of infection. Covid-19 RNA, NAAT negative.CT of the head negative for acute process. Plain film of the hip and pelvis demonstrates nondisplaced fracture within the right greater trochanter which is further characterized on CT imaging. No additional traumatic injuries were identified. X-ray of the right shoulder was negative for fracture or dislocation. Patient agrees with plan for admission. Case was discussed with Gloria No PAC, with Dr. Melyssa Castro hospitalist who will evaluate the patient for admission. Admitting team will consult orthopedics. Triage Nursing notes reviewed and agree them. Prior medical records reviewed Vital Signs: reviewed and remarkable for no significant abnormalities Differential diagnosis: Fracture, subluxation, dislocation, contusion, ligamentous injury, neurovascular, compartment syndrome, rhabdomyolysis, as well as other pathologies. ER treatment provided: See below. Diagnostics interpreted by me: ECG: Normal sinus rhythm, 65 bpm, right bundle branch block, left anterior fascicular block, no overt ST elevation, QTC 499, QRS 162. Cardiac Monitoring: An order for continuous cardiac monitoring was placed and demonstrated normal sinus rhythm, 65 bpm, no ectopy. Laboratory studies: See below Imaging studies: See below Consultation(s): Gloria No, with Dr. Melyssa Castro hospitalist who will evaluate the patient for admission. HPI: The patient is a pleasant 85-year-old woman with a past medical history of CKD, pulmonary hypertension, CHF, hypothyroidism who presents emergency department for evaluation of right hip pain after suffering a fall when she slipped on ice on her deck yesterday around 2 PM. Patient reports that she was unable to get up at the time but was able to slide herself to the door to go inside where she continued to slide herself around the house and eventually downstairs where there was a place where she could sleep until morning when finally she contacted family who came to assist her and called for an ambulance. Patient denies hitting her head or losing consciousness. She reports some soreness of her right lower back and right shoulder but reports the majority of her pain relates to her right hip which she cannot flex secondary to pain. Prior to her fall yesterday she denies any recent illness including denies fevers, chills, cough, congestion, GI or symptoms. ROS: See above HPI for pertinent positives & negatives. A total of 10 systems reviewed and were otherwise negative. PAST MEDICAL HISTORY:See Below PAST SURGICAL HISTORY:See Below FAMILY HISTORY:See Below SOCIAL HISTORY:See Below HOME MEDICATIONS:See Below ALLERGIES:See Below VITALS:See Below PHYSICAL EXAMINATION: GENERAL: Awake, alert, uncomfortable-appearing, in no distress HENT: Normocephalic, atraumatic. Oropharynx with dry mucous membranes and otherwise unremarkable. EYES: Normal conjunctiva. Sclera non-icteric. NECK: Supple. No nuchal rigidity. FROM. No JVD. RESPIRATORY: Clear to auscultation. CARDIAC: Regular rate, normal rhythm. Extremities warm and well perfused. Pulses equal. ABDOMEN: Soft, non-distended. No tenderness to palpation. No rebound or guar ding. No masses. RECTAL: Deferred. MUSCULOSKELETAL: Tenderness of the right inguinal area. Limited ROM of the right hip secondary to pain. Distal PMS is intact. Mild discomfort of her right lumbar region without bony crepitus. FROM the right shoulder with mild discomfort to palpation of the posterior shoulder. LOWER EXTREMITIES: Calves are equal size bilaterally and non-tender. No edema. No discoloration. NEURO: Normal sensorium. No sensory or motor deficits noted. SKIN: No rash or jaundice noted. Ramiro Downs MD Past Med/Surg History Medical History Anemia Chronic diastolic CHF (congestive heart failure) CKD (chronic kidney disease), stage IV DM type 2 (diabetes mellitus, type 2) Dyslipidemia Gout HTN (hypertension) Hypothyroidism Vitamin D deficiency Surgical History History of carpal tunnel surgery of left wrist Hx of surgical amputation of finger Hx of tonsillectomy Family History Mother Colorectal cancer Diabetes Heart disease Hypertension Social History Smoking Status: Never smoker Hx Alcohol Use: No Hx Substance Use: No Preferred Language: Latvian Communication Ability: Effective Biology Tutor Required: No Beliefs That Will Affect Care: None Current Living Situation: Alone Current Living Situation Comment: alone with 2 dogs Feels Safe at Home: Yes Assistive Devices: None Allergies Allergies Allergy/AdvReac Type Severity Reaction Status Date / Time hydrocodone Allergy Intermediate RASH Verified 03/25/21 11:42 Iodinated Contrast Media Allergy Intermediate HIVES Verified 03/25/21 11:42 Penicillins Allergy Intermediate ANAPHLACTIC Verified 03/25/21 11:42 SHOCK phenylephrine Allergy Intermediate Rash, Verified 03/25/21 11:42 insomnia trolamine salicylate Allergy Intermediate RASH Verified 03/25/21 11:42 acetaminophen Allergy Mild BRIGHT RED Verified 03/25/21 11:42 RASH-PT DENIES ketorolac Allergy Mild Unknown Verified 03/25/21 11:42 oxycodone Allergy Mild BRIGHT RED Verified 03/25/21 11:42 RASH tramadol Allergy Mild BRIGHT RED Verified 03/25/21 11:42 RASH prednisone AdvReac Unknown Became Verified 03/25/21 11:42 manic Home Meds Home Medications Medication Instructions Recorded Confirmed atorvastatin 40 mg tablet 40 mg PO DAILY tab 11/11/18 03/25/21 insulin detemir U-100 100 unit/mL 10 units SUBCUT HS ml 11/11/18 03/25/21 subcutaneous solution lisinopril 40 mg tablet 40 mg PO DAILY #90 tab 11/11/18 03/25/21 paroxetine HCl 20 mg tablet 20 mg PO QAM tab 11/11/18 03/25/21 levothyroxine 100 mcg capsule 100 mcg PO DAILY 01/05/19 03/25/21 allopurinol 100 mg tablet 100 mg PO BID 02/24/20 03/25/21 amlodipine 10 mg tablet 10 mg PO QAM 02/24/20 03/25/21 cholecalciferol (vitamin D3) 10 20 mcg PO DAILY 02/24/20 03/25/21 mcg (400 unit) capsule (Vitamin D3) ferrous sulfate 325 mg (65 mg 325 mg PO BID #60 tab 12/31/20 03/25/21 iron) tablet latanoprost 0.005 % eye drops 1 drp OPB HS 03/25/21 03/25/21 Previous Rx's Medication Instructions Recorded magnesium oxide 400 mg (241.3 mg 400 mg PO BID #20 tab 02/28/20 magnesium) tablet metoprolol succinate 25 mg 25 mg PO QAM #30 tab 02/28/20 tablet,extended release 24 hr bumetanide 1 mg tablet 1 mg PO DAILY PRN #90 tab 04/06/20 Results & Data (ED) Vital Signs Vital Signs - 24 hr 03/25/21 09:44 03/25/21 10:33 03/25/21 11:19 Temperature 36.8 C Temperature Source Oral Pulse Rate 76 66 65 Pulse Rate from SpO2 Sensor 65 65 Pulse Rhythm Regular Pulse Strength Normal Respiratory Rate 18 17 15 Respiratory Effort / Characteristics Non-Labored Respiratory Depth Normal Respiratory Pattern Regular Blood Pressure 162/74 H 150/77 H 142/65 H Blood Pressure Mean 103 101 90 Blood Pressure Position Lying Pulse Oximetry 95 91 94 Oxygen Delivery Method Room Air Room Air Room Air Oxygen Flow Rate Sepsis Recent Fever Within 48 Hours No Sepsis New/Unexplained Change in Mental Status No Sepsis Action Taken by Nursing No Action Required 03/25/21 11:30 03/25/21 12:00 03/25/21 12:30 Temperature Temperature Source Pulse Rate 64 64 65 Pulse Rate from SpO2 Sensor 64 64 65 Pulse Rhythm Pulse Strength Respiratory Rate 18 21 16 Respiratory Effort / Characteristics Respiratory Depth Respiratory Pattern Blood Pressure 141/69 H 149/67 H 140/64 Blood Pressure Mean 93 94 89 Blood Pressure Position Pulse Oximetry 92 95 89 L Oxygen Delivery Method Room Air Room Air Room Air Oxygen Flow Rate Sepsis Recent Fever Within 48 Hours Sepsis New/Unexplained Change in Mental Status Sepsis Action Taken by Nursing 03/25/21 12:31 Temperature Temperature Source Pulse Rate 62 Pulse Rate from SpO2 Sensor Pulse Rhythm Pulse Strength Respiratory Rate 18 Respiratory Effort / Characteristics Respiratory Depth Respiratory Pattern Blood Pressure Blood Pressure Mean Blood Pressure Position Pulse Oximetry 96 Oxygen Delivery Method Nasal Cannula Oxygen Flow Rate 2 Sepsis Recent Fever Within 48 Hours Sepsis New/Unexplained Change in Mental Status Sepsis Action Taken by Nursing Laboratory Data Attestation: I reviewed the patient's lab results. Result diagrams: 03/25/21 10:37 03/25/21 10:37 Lab Results 03/25/21 03/25/21 03/25/21 Range/Units 10:37 10:37 10:37 WBC 12.76 H (4.8-10.8) K/uL RBC 3.28 L (4.2-5.4) M/uL Hgb 9.3 L (12.0-16.0) g/dL Hct 29.6 L (37-47) % MCV 90.2 (80-100) fL MCH 28.4 (25-34) pg MCHC 31.4 L (32-36) g/dL RDW Std Deviation 51.7 H (36.4-46.3) fL RDW Coeff of Mague 15.6 H (11.5-14.5) % Plt Count 290 (130-400) K/uL MPV 10.0 (7.4-10.4) fL Immature Gran % (Auto) 0.2 % Neut % (Auto) 83.7 % Lymph % (Auto) 7.4 % [place] % (Auto) 7.3 % Eos % (Auto) 1.2 % Baso % (Auto) 0.2 % Neut # (Auto) 10.69 H (1.4-6.5) K/uL Lymph # (Auto) 0.95 L (1.2-3.4) K/uL [place] # (Auto) 0.93 H (0.11-0.59) K/uL Eos # (Auto) 0.15 (0-0.5) K/uL Baso # (Auto) 0.02 (0-0.2) K/uL Immature Gran # (Auto) 0.02 (0.00-0.02) K/uL PT 10.9 (9.0-12.0) Seconds INR 1.1 (0.9-1.1) APTT 28.8 (21.0-31.0) Seconds PTT Ratio 1.1 Sodium 141 (136-145) mmol/L Potassium 3.1 L (3.5-5.1) mmol/L Chloride 105 (98-107) mmol/L Carbon Dioxide 26 (21-32) mmol/L Anion Gap 10 (3-11) BUN 33 H (6-23) mg/dl Creatinine 2.07 H (0.6-1.2) mg/dl Est Cr Clr Drug Dosing 20.1 ml/min Est GFR ( Amer) 24.9 ml/min Est GFR (Non-Af Amer) 21.4 ml/min BUN/Creatinine Ratio 15.9 (10-20) Glucose 99 (70-99(Fasting)) mg/dl Calcium 9.1 (8.5-10.1) mg/dl Total Bilirubin 0.8 (0.2-1.0) mg/dl AST 15 (13-39) U/L ALT 10 (7-52) U/L Alkaline Phosphatase 63 (34-104) U/L Total Protein 7.6 (6.0-8.3) gm/dl Albumin 4.0 (3.4-5.0) gm/dl Globulin 3.6 (2.5-4.0) gm/dl Albumin/Globulin Ratio 1.1 (0.9-2) Urine Color Urine Appearance (Clear) Urine pH (4.5-7.5) Ur Specific [place] (1.000-1.030) Urine Protein (Negative) Urine Glucose (UA) (Negative) Urine Ketones (Negative) Urine Blood (Negative) Urine Nitrite (Negative) Urine Bilirubin (Negative) Urine Urobilinogen (Negative) Ur Leukocyte Esterase (Negative) Urine WBC (Auto) (0-5) /hpf Urine RBC (Auto) (0-4) /hpf U Hyaline Cast (Auto) (0-5) /lpf U Epithel Cells (Auto) (0-5) /lpf Urine Bacteria (Auto) (Negative) SARS-CoV-2, RNA, NAAT (NEGATIVE) 03/25/21 03/25/21 Range/Units 10:38 12:03 WBC (4.8-10.8) K/uL RBC (4.2-5.4) M/uL Hgb (12.0-16.0) g/dL Hct (37-47) % MCV (80-100) fL MCH (25-34) pg MCHC (32-36) g/dL RDW Std Deviation (36.4-46.3) fL RDW Coeff of [place]ague (11.5-14.5) % Plt Count (130-400) K/uL MPV (7.4-10.4) fL Immature Gran % (Auto) % Neut % (Auto) % Lymph % (Auto) % [place] % (Auto) % Eos % (Auto) % Baso % (Auto) % Neut # (Auto) (1.4-6.5) K/uL Lymph # (Auto) (1.2-3.4) K/uL [place] # (Auto) (0.11-0.59) K/uL Eos # (Auto) (0-0.5) K/uL Baso # (Auto) (0-0.2) K/uL Immature Gran # (Auto) (0.00-0.02) K/uL PT (9.0-12.0) Seconds INR (0.9-1.1) APTT (21.0-31.0) Seconds PTT Ratio Sodium (136-145) mmol/L Potassium (3.5-5.1) mmol/L Chloride (98-107) mmol/L Carbon Dioxide (21-32) mmol/L Anion Gap (3-11) BUN (6-23) mg/dl Creatinine (0.6-1.2) mg/dl Est Cr Clr Drug Dosing ml/min Est GFR ( Amer) ml/min Est GFR (Non-Af Amer) ml/min BUN/Creatinine Ratio (10-20) Glucose (70-99(Fasting)) mg/dl Calcium (8.5-10.1) mg/dl Total Bilirubin (0.2-1.0) mg/dl AST (13-39) U/L ALT (7-52) U/L Alkaline Phosphatase (34-104) U/L Total Protein (6.0-8.3) gm/dl Albumin (3.4-5.0) gm/dl Globulin (2.5-4.0) gm/dl Albumin/Globulin Ratio (0.9-2) Urine Color Yellow Urine Appearance Clear (Clear) Urine pH 5.0 (4.5-7.5) Ur Specific [place] 1.016 (1.000-1.030) Urine Protein 2+ H (Negative) Urine Glucose (UA) Negative (Negative) Urine Ketones Negative (Negative) Urine Blood Negative (Negative) Urine Nitrite Negative (Negative) Urine Bilirubin Negative (Negative) Urine Urobilinogen Negative (Negative) Ur Leukocyte Esterase Negative (Negative) Urine WBC (Auto) 1-5 (0-5) /hpf Urine RBC (Auto) 0-4 (0-4) /hpf U Hyaline Cast (Auto) 5-10 H (0-5) /lpf U Epithel Cells (Auto) 10-20 H (0-5) /lpf Urine Bacteria (Auto) Negative (Negative) SARS-CoV-2, RNA, NAAT NEGATIVE (NEGATIVE) Administered Medications Acetaminophen (Acetaminophen 500 Mg Tab) 1,000 mg PO Q8H MICHAEL Stop: 04/24/21 19:59 Last Admin: 03/25/21 21:01 Dose: Not Given Documented by: [id number] Allopurinol (Allopurinol 100 Mg Tab) 100 mg PO BID MICHAEL Stop: 04/24/21 20:59 Last Admin: 03/25/21 20:59 Dose: 100 mg Documented by: [id number] Ferrous Sulfate (Ferrous Sulfate 325 Mg Tab) 325 mg PO BIDM [facility] Stop: 04/24/21 16:59 Last Admin: 03/25/21 18:00 Dose: 325 mg Documented by: [id number] Sodium Chloride (Nss 1000ml) 1,000 mls @ 75 mls/hr IV .[id number] MICHAEL Stop: 03/25/21 23:49 Last Admin: 03/25/21 11:15 Dose: 75 mls/hr Documented by: [id number] Bumetanide 1 mg/ Syringe 4 mls @ 4 mls/min IV QAM MICHAEL Stop: 04/24/21 13:44 Last Admin: 03/25/21 14:07 Dose: 4 mls/min Documented by: [id number] Magnesium Oxide (Magnesium Oxide 400 Mg Tab) 400 mg PO BID [facility] Stop: 04/24/21 20:59 Last Admin: 03/25/21 20:58 Dose: 400 mg Documented by: [id number] Morphine Sulfate (Morphine Sulfate 2 Mg/Ml Carp) 2 mg IV Q2H PRN PRN Reason: Pain Stop: 04/08/21 19:41 Last Admin: 03/25/21 19:53 Dose: 2 mg Documented by: [id number] Senna/Docusate Sodium (Docusate Sodium/Senna 50/8.6mg Tab) 2 tab PO HS [facility] Stop: 04/24/21 20:59 Last Admin: 03/25/21 20:59 Dose: 2 tab Documented by: [id number] Discontinued Medications Acetaminophen (Ofirmev) 1,000 mg in 100 mls @ 400 mls/hr IV NOW STA Stop: 03/25/21 10:31 Last Infusion: 03/25/21 11:29 Dose: 0 mls/hr Documented by: [id number] Admin: 03/25/21 11:14 Dose: 400 mls/hr Documented by: [id number] Lorazepam (Lorazepam 1 Mg Tab) 1 mg PO NOW STA Stop: 03/25/21 18:46 Last Admin: 03/25/21 19:08 Dose: 1 mg Documented by: [id number] Morphine Sulfate (Morphine Sulfate 2 Mg/Ml Carp) 0.5 mg IV Q1H PRN PRN Reason: Moderate Pain (Rating 3,4,5,6) Stop: 04/08/21 10:16 Last Admin: 03/25/21 11:15 Dose: 0.5 mg Documented by: [id number] Potassium Chloride (Potassium Chloride Crtab 20 Meq Tabcr) 40 meq PO NOW STA Stop: 03/25/21 13:36 Last Admin: 03/25/21 14:07 Dose: 40 meq Documented by: [id number] Potassium Chloride (Potassium Chloride Crtab 20 Meq Tabcr) 40 meq PO ONE ONE Stop: 03/25/21 20:01 Last Admin: 03/25/21 20:58 Dose: 40 meq Documented by: [id number] Imaging Data Radiologist's Impression: Abdomen/Pelvis CT 03/25/21 10:[address] WITHOUT CONTRAST CT DOSE: HISTORY: right back/hip pain fall TECHNIQUE: Multiaxial CT images of the abdomen and pelvis were performed without contrast. A dose lowering technique was utilized adhering to the principles of ALARA. COMPARISON STUDY: Abdomen and pelvis CT 06/24/2015. FINDINGS: Chronic interstitial thickening noted at the lung bases. The heart is mildly enlarged. There is a tiny hiatus hernia, unchanged. Nondisplaced fracture at the base the right greater trochanter. This does not appear to extend to the lesser trochanter. No additional fractures identified within the abdomen or pelvis. Degenerative changes noted within the lumbar spine. There is mild body wall edema. The unenhanced liver, gallbladder, spleen, adrenal glands, and pancreas unremarkable. There is a punctate stone within the left kidney. No ureteral stones. No hydronephrosis. Hypodense lesions within the left kidney fav or cysts. No retroperitoneal lymphadenopathy or hematoma. Normal caliber abdominal aorta. No pelvic free fluid. The bladder, uterus, bilateral adnexa are unremarkable. Suboptimal evaluation for bowel pathology due to the lack of intravenous and oral contrast. However, there is no definite bowel wall thickening or obstruction. Colonic diverticulosis. No evidence for acute diverticulitis. IMPRESSION: 1. An acute nondisplaced fracture within the right greater trochanter. 2. Stable cardiomegaly. 3. Colonic diverticulosis. No evidence for acute diverticulitis. 4. Mild body wall edema. 5. Left-sided nephrolithiasis. No hydronephrosis. ACT 112: Negative or not required by law. Electronically signed by: Vick Kim M.D. 03/25/2021 11:46 AM Hip/Pelvis X-Ray 03/25/21 10:17 XR hip RT 2V w pelvis CLINICAL HISTORY: Fall. Right hip pain. COMPARISON STUDY: None. FINDINGS: The bones are osteopenic. Subtle nondisplaced fracture at the base of the right greater trochanter. This is better appreciated on the same day abdomen and pelvis CT. No dislocation. The pelvic bones appear intact. Mild osteoarthritis within the bilateral hips. Soft tissues are unremarkable. IMPRESSION: Subtle nondisplaced fracture at the base of the right greater trochanter. This is better appreciated on the same day abdomen and pelvis CT. ACT 112: Negative or not required by law. Electronically signed by: Vick Kim M.D. 03/25/2021 11:40 AM Shoulder X-Ray 03/25/21 10:17 XR shoulder RT min 2V routine CLINICAL HISTORY: Status post fall with right shoulder pain. COMPARISON STUDY: No previous studies for comparison. TECHNIQUE: 3 right shoulder views FINDINGS: Bones: The bones are osteopenic. There is no evidence for an acute fracture or dislocation. There is no lytic or blastic lesion. Joints: Moderate degenerative changes are seen at the acromioclavicular joint. The glenohumeral joint is maintained. The bones are in anatomic alignment. Soft tissues: There is no focal soft tissue abnormality. There is no radiopaque foreign body. IMPRESSION: No acute osseous pathology. Osteopenia and mild osteoarthritis ACT 112: Negative or not required by law. Electronically signed by: Rashad Quevedo M.D. 03/25/2021 11:15 AM Chest X-Ray 03/25/21 10:19 XR chest 1V not portable HISTORY: right shoulder pain fall COMPARISON: Chest 02/24/2020. FINDINGS: The cardiac silhouette remains mildly enlarged. Diffuse interstitial thickening. This may represent mild central pulmonary vascular congestion without overt edema. No pneumothorax. No new focal lung consolidations to suggest pneumonia. Old, healed left-sided rib fractures. No acute fractures identified within the chest. Suspect a trace left pleural effusion, unchanged. IMPRESSION: 1. Stable cardiomegaly. 2. Mild central pulmonary vascular congestion without overt edema. ACT 112: Negative or not required by law. Electronically signed by: Vick Kim M.D. 03/25/2021 11:[address] 03/25/21 10:[address] DOSE: 1344.07 mGy.cm HISTORY: Right-sided head pain fall TECHNIQUE: Multiaxial CT images of the head were performed without the use of intravenous contrast. Automated exposure control was utilized for this study. A dose lowering technique was utilized adhering to the principles of ALARA. Comparison: Head CT 05/31/2017. Findings: The paranasal sinuses and mastoid air cells are clear. The calvarium and skull base are intact. There is no mass, hematoma, midline shift, acute infarct. White matter hypodensity is nonspecific but suggestive of microvascular ischemic change. The ventricles and sulci demonstrate mild age-related involutional changes. Impression: No significant change compared to the prior study. No acute intracranial abnormality. ACT 112: Negative or not required by law. Electronically signed by: Vick Kim M.D. 03/25/2021 11:34 AM Discharge Plan Visit Data Chief Complaint: Hip Pain ED Provider: Ramiro Downs Discharge Problem: Fracture of greater trochanter of right femur, CKD (chronic kidney disease), stage IV, Hypokalemia, Fall due to ice or snow Patient Disposition: Admitted As Inpatient Discharge Instructions Interventions: ED Discharge Assessment Last Done: 03/25/21 21:28 Discharge Problem: Fracture of greater trochanter of right femur Qualifiers: Encounter type: initial encounter Fracture type: closed Fracture alignment: no ndisplaced Qualified Code(s): S72.114A - Nondisplaced fracture of greater t rochanter of right femur, initial encounter for closed fracture Fall due to ice or snow Qualifiers: Encounter type: initial encounter Qualified Code(s): W00.9XXA - Unspecified fall due to ice and snow, initial encounter
[2021-03-25] MEDS: MoRPHine SULFATE 2 MG/ML CARP IV PRN (19:53)
[2021-03-25] MEDS ORDERED: POTASSIUM CHLORIDE CRTAB 20 MEQ TABCR PO ONE (20:00)
[2021-03-25] MEDS: MAGNESIUM OXIDE 400 MG TAB PO SCH (20:58)
[2021-03-25] MEDS: DOCUSATE SODIUM/SENNA 50/8.6MG TAB PO SCH (20:59)
[2021-03-25] MEDS: allopurinoL 100 MG TAB PO SCH (20:59)
[2021-03-25] MEDS ORDERED: INSULIN DETEMIR FLEXPEN/FLEX TOUCH 100 UNITS/ML 3ML SC SCH (21:00)
[2021-03-25] MEDS: ACETAMINOPHEN 500 MG TAB PO SCH (21:01)
[2021-03-25] MEDS: INSULIN ASPART PER UNIT SC SCH ×2 (22:20→23:55)
[2021-03-25] MEDS: INSULIN DETEMIR FLEXPEN/FLEX TOUCH 100 UNITS/ML 3ML SC SCH ×2 (22:22→22:25)
[2021-03-25] MEDS: LATANOPROST 0.005% OP SOLN 2.5 ML BTL OPB SCH (22:26)
[2021-03-26] MEDS: ACETAMINOPHEN 500 MG TAB PO SCH ×3 (04:28→20:10)
[2021-03-26] MEDS ORDERED: TRANEXAMIC ACID / 0.7% NACL 1,000 MG/100 ML BAG IV SCH ×2 (06:00→06:30)
[2021-03-26] MEDS ORDERED: CLINDAMYCIN 900 MG in DEXTROSE 5% 50 ML IV SCH (06:00)
[2021-03-26] MEDS: LEVOTHYROXINE SODIUM 100 MCG TABLET PO SCH (06:02)
--- NOTE | 2021-03-26 06:28 | Electrocardiogram Report ---
Test Reason : Blood Pressure : / mmHG Vent. Rate : 065 BPM Atrial Rate : 065 BPM P-R Int : 186 ms QRS Dur : 162 ms QT Int : 480 ms P-R-T Axes : 082 -66 021 degrees QTc Int : 499 ms Normal sinus rhythm Right bundle branch block Left anterior fascicular block Bifascicular block Abnormal ECG When compared with ECG of 24-FEB-2020 16:35, Premature supraventricular complexes are no longer Present Confirmed by Evaristo Maldonado ([id number]) on 03/26/2021 6:28:37 AM Referred By: REFERRED SELF Confirmed By:Evaristo Maldonado
[2021-03-26 06:46] LABS: Hematocrit (blood only) 25.7 % (37-47); Hemoglobin 8.2 g/dL (12.0-16.0); Mean Corpuscular Hgb Conc 31.9 g/dL (32-36); Mean Corpuscular Volume 90.8 fL (80-100); Mean Platelet Volume 10.6 fL (7.4-10.4); Platelet Count 244 K/uL (130-400); RDW Coefficient of Variation 15.5 % (11.5-14.5); RDW Standard Deviation 52.3 fL (36.4-46.3); Red Blood Count 2.83 M/uL (4.2-5.4); White Blood Count 9.93 K/uL (4.8-10.8)
[2021-03-26 07:24] LABS: Albumin Globulin Ratio 1.1 (0.9-2); Albumin Level 3.3 gm/dl (3.4-5.0); Bilirubin,Total 0.8 mg/dl (0.2-1.0); Calcium 8.3 mg/dl (8.5-10.1); Creatinine Clr Calc Pharmacy 22.6 ml/min; Est GFR (African American) 32.2 ml/min; Est GFR (Non-African American) 27.8 ml/min; Potassium 3.8 mmol/L (3.5-5.1); Total Protein 6.3 gm/dl (6.0-8.3)
--- NOTE | 2021-03-26 08:21 | Cardiology Consultation ---
Date of Consultation March 26, 2021 Assessment & Plan (1) Fall due to ice or snow: (2) Fracture of greater trochanter of right femur: Femur fracture d/t mechanical fall on ice. Being evaluated by ortho. Possible surgical intervention pending MRI results. In terms of preop: Patient was independent and active leading up to this fall. Patient appears to be optimally medically managed at this time and should proceed with surgery if necessary. She would be placed at at least moderate risk for surgery due to her history of valvular heart disease, acute on chronic diastolic CHF, pulmonary hypertension, and CKD stage 4. (3) Chronic diastolic CHF (congestive heart failure): Valvular heart disease with Moderate MR noted on echo. Patient appears euvolemic on exam. 1. Continue diuretic dosing as ordered. 2. Trend renal function and electrolytes, replace as necessary. 3. 2g sodium restriction 4. Daily weights and strict I&O (4) HTN, goal below 140/80: Controlled. (5) CKD (chronic kidney disease), stage IV: Renal function at baseline, scr of aprox 2.[address] Quigley- patient clinically stable. Supervising Physician Co-Signing Physician Notes I have seen and examined the patient. I reviewed the medical record and discussed the case with the ROADS SUPERINTENDENT. Utilizing the geriatric risk assessment tool the patient's risk for this surgery is 1.5%. Therefore, she should proceed without further testing and with optimal medical management. History of Present Illness Reason for Consultation: CHF, possible preop [facility] Attending Physician: Adam Ragsdale MD History of Present Illness 85 year old female. Normally follows with Dr. Ambrosio and Ms. Holly in outpatient cardio at . Last seen 10/2020. Cardiac history including hypertension, HFpEF, pulmonary HTN, DM2, anemia, and CKD stage 4. Presented to ED yesterday after sustaining a fall from slipping on ice. No loss of consciousness, no syncope. She normally lives at home alone and independently. She was found to have an acute nondisplaced right greater trochanter fracture. Potassium was low at 3.1 (replaced). She also was hypervolemic and was placed on 1 mg IV Bumex daily. She normally take Bumex 1 mg PO 2-3 times per week, her last dose was last Thursday. Saw by Ortho, plans to have an MRI done- should fracture be present, plans for surgical intervention. Upon entrance into the room patient was resting comfortably in bed. She just finished getting cleaned up with the assistance of nursing. She is currently on bedrest awaiting further instruction from ortho. She notes overall she has been feeling well. She has minimal pain. She denies chest pain, shortness of breath, palpitations, dizziness, syncope or near syncope. No orthopnea, PND, or increased lower extremity edema. She does have an old bump on her right cain from an old fracture. Tele:SR 70s. Weight: 72.2kg>> 67.5 kg I&O: +306mL Lab summary: Hgb 9.3>> 8.2 (03/26) Scr 2.07>> 1.67 (03/26) Potassium 3.1 (replaced)>> 3.8 (03/26) Problem List: HFpEF, NYHA class 2 Grade 2 diastolic dysfunction HTN, at times situational HLD, LDL goal below 70 CKD stage 4 DM2 Pulm HTN Negative DSE 2019 Allergies Allergy/AdvReac Type Severity Reaction Status Date / Time hydrocodone Allergy Intermediate RASH Verified 03/25/21 11:42 Iodinated Contrast Media Allergy Intermediate HIVES Verified 03/25/21 11:42 Penicillins Allergy Intermediate ANAPHLACTIC Verified 03/25/21 11:42 SHOCK phenylephrine Allergy Intermediate Rash, Verified 03/25/21 11:42 insomnia trolamine salicylate Allergy Intermediate RASH Verified 03/25/21 11:42 acetaminophen Allergy Mild BRIGHT RED Verified 03/25/21 11:42 RASH-PT DENIES ketorolac Allergy Mild Unknown Verified 03/25/21 11:42 oxycodone Allergy Mild BRIGHT RED Verified 03/25/21 11:42 RASH tramadol Allergy Mild BRIGHT RED Verified 03/25/21 11:42 RASH prednisone AdvReac Unknown Became Verified 03/25/21 11:42 manic Home Medications Medication Instructions Recorded Confirmed Type atorvastatin 40 mg tablet 40 mg PO DAILY tab 11/11/18 03/25/21 History insulin detemir U-100 100 unit/mL 10 units SUBCUT HS ml 11/11/18 03/25/21 History subcutaneous solution lisinopril 40 mg tablet 40 mg PO DAILY #90 tab 11/11/18 03/25/21 History paroxetine HCl 20 mg tablet 20 mg PO QAM tab 11/11/18 03/25/21 History levothyroxine 100 mcg capsule 100 mcg PO DAILY 01/05/19 03/25/21 History allopurinol 100 mg tablet 100 mg PO BID 02/24/20 03/25/21 History amlodipine 10 mg tablet 10 mg PO QAM 02/24/20 03/25/21 History cholecalciferol (vitamin D3) 10 20 mcg PO DAILY 02/24/20 03/25/21 History mcg (400 unit) capsule (Vitamin D3) magnesium oxide 400 mg (241.3 mg 400 mg PO BID #20 tab 02/28/20 03/25/21 Rx magnesium) tablet metoprolol succinate 25 mg 25 mg PO QAM #30 tab 02/28/20 03/25/21 Rx tablet,extended release 24 hr bumetanide 1 mg tablet 1 mg PO DAILY PRN #90 tab 04/06/20 03/25/21 Rx ferrous sulfate 325 mg (65 mg 325 mg PO BID #60 tab 12/31/20 03/25/21 History iron) tablet latanoprost 0.005 % eye drops 1 drp OPB HS 03/25/21 03/25/21 History Patient History Medical History Anemia Chronic diastolic CHF (congestive heart failure) CKD (chronic kidney disease), stage IV DM type 2 (diabetes mellitus, type 2) Dyslipidemia Gout HTN (hypertension) Hypothyroidism Vitamin D deficiency Surgical History History of carpal tunnel surgery of left wrist Hx of surgical amputation of finger Hx of tonsillectomy Family History Mother Colorectal cancer Diabetes Heart disease Hypertension Social History Smoking Status: Never smoker Do You Dip or Chew Tobacco: No; Hx Alcohol Use: No Hx Substance Use: No Preferred Language: [place] Communication Ability: Effective Combination 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 A+Ox3. HEENT: Normocephalic. Atraumatic. Conjunctiva and sclera clear. NECK: No carotid bruits. No JVD. Carotid upstrokes are brisk. Heart: RRR. S1 and S2 noted. +faint systolic murmur. Lungs: Clear to auscultation. No wheezes, rhonchi, rales. Abdomen: Normal bowel sounds. Soft. Nontender. No masses or organomegaly. No abdominal bruits. Extremities: No edema. Lump noted on right cain. No clubbing or cyanosis. Pulses: radial=2/4, posterior tibial=2/4, dorsalis pedis = 2/4. NEURO: No focal deficits. PSYCH: Normal. Results & Data ([facility]) Vital Signs (Past 12 Hours) Vital Signs Temp Pulse Pulse Resp BP BP Pulse Ox 03/26/21 07:00 36.6 C 73 18 133/71 98 03/26/21 03:17 37.1 C 71 18 140/63 97 03/26/21 00:32 37.4 C 78 20 153/78 H 96 03/25/21 22:44 37.4 C 74 16 142/78 H 03/25/21 22:30 75 Laboratory Results 03/26/21 03/26/21 03/26/21 Range/Units 07:32 05:55 05:55 WBC 9.93 (4.8-10.8) K/uL RBC 2.83 L (4.2-5.4) M/uL Hgb 8.2 L (12.0-16.0) g/dL Hct 25.7 L (37-47) % MCV 90.8 (80-100) fL MCH 29.0 (25-34) pg MCHC 31.9 L (32-36) g/dL RDW Std Deviation 52.3 H (36.4-46.3) fL RDW Coeff of Mague 15.5 H (11.5-14.5) % Plt Count 244 (130-400) K/uL MPV 10.6 H (7.4-10.4) fL Immature Gran % (Auto) % Neut % (Auto) % Lymph % (Auto) % Starke % (Auto) % Eos % (Auto) % Baso % (Auto) % Neut # (Auto) (1.4-6.5) K/uL Lymph # (Auto) (1.2-3.4) K/uL Starke # (Auto) (0.11-0.59) K/uL Eos # (Auto) (0-0.5) K/uL Baso # (Auto) (0-0.2) K/uL Immature Gran # (Auto) (0.00-0.02) K/uL PT (9.0-12.0) Seconds INR (0.9-1.1) APTT (21.0-31.0) Seconds PTT Ratio Sodium 141 (136-145) mmol/L Potassium 3.8 D (3.5-5.1) mmol/L Chloride 108 H (98-107) mmol/L Carbon Dioxide 27 (21-32) mmol/L Anion Gap 6 (3-11) BUN 30 H (6-23) mg/dl Creatinine 1.67 H D (0.6-1.2) mg/dl Est Cr Clr Drug Dosing 22.6 ml/min Est GFR ( Amer) 32.2 ml/min Est GFR (Non-Af Amer) 27.8 ml/min BUN/Creatinine Ratio 18.0 (10-20) Glucose 85 (70-99(Fasting)) mg/dl POC Glucose 99 (70-99) mg/dl Estimat Average Glucose Hemoglobin A1c Calcium 8.3 L (8.5-10.1) mg/dl Total Bilirubin 0.8 (0.2-1.0) mg/dl AST 11 L (13-39) U/L ALT 7 (7-52) U/L Alkaline Phosphatase 54 (34-104) U/L Total Protein 6.3 (6.0-8.3) gm/dl Albumin 3.3 L (3.4-5.0) gm/dl Globulin 3.0 (2.5-4.0) gm/dl Albumin/Globulin Ratio 1.1 (0.9-2) Urine Color Urine Appearance (Clear) Urine pH (4.5-7.5) Ur Specific [place] (1.000-1.030) Urine Protein (Negative) Urine Glucose (UA) (Negative) Urine Ketones (Negative) Urine Blood (Negative) Urine Nitrite (Negative) Urine Bilirubin (Negative) Urine Urobilinogen (Negative) Ur Leukocyte Esterase (Negative) Urine WBC (Auto) (0-5) /hpf Urine RBC (Auto) (0-4) /hpf U Hyaline Cast (Auto) (0-5) /lpf U Epithel Cells (Auto) (0-5) /lpf Urine Bacteria (Auto) (Negative) SARS-CoV-2, RNA, NAAT (NEGATIVE) Blood Type Antibody Screen Antibody Identification Antibody ID Comment Antigen Identification 03/26/21 03/25/21 03/25/21 Range/Units 05:55 22:01 13:00 WBC (4.8-10.8) K/uL RBC (4.2-5.4) M/uL Hgb (12.0-16.0) g/dL Hct (37-47) % MCV (80-100) fL MCH (25-34) pg MCHC (32-36) g/dL RDW Std Deviation (36.4-46.3) fL RDW Coeff of Mague (11.5-14.5) % Plt Count (130-400) K/uL MPV (7.4-10.4) fL Immature Gran % (Auto) % Neut % (Auto) % Lymph % (Auto) % Starke % (Auto) % Eos % (Auto) % Baso % (Auto) % Neut # (Auto) (1.4-6.5) K/uL Lymph # (Auto) (1.2-3.4) K/uL Starke # (Auto) (0.11-0.59) K/uL Eos # (Auto) (0-0.5) K/uL Baso # (Auto) (0-0.2) K/uL Immature Gran # (Auto) (0.00-0.02) K/uL PT (9.0-12.0) Seconds INR (0.9-1.1) APTT (21.0-31.0) Seconds PTT Ratio Sodium (136-145) mmol/L Potassium (3.5-5.1) mmol/L Chloride (98-107) mmol/L Carbon Dioxide (21-32) mmol/L Anion Gap (3-11) BUN (6-23) mg/dl Creatinine (0.6-1.2) mg/dl Est Cr Clr Drug Dosing ml/min Est GFR ( Amer) ml/min Est GFR (Non-Af Amer) ml/min BUN/Creatinine Ratio (10-20) Glucose (70-99(Fasting)) mg/dl POC Glucose 114 H (70-99) mg/dl Estimat Average Glucose Pending Hemoglobin A1c Pending Calcium (8.5-10.1) mg/dl Total Bilirubin (0.2-1.0) mg/dl AST (13-39) U/L ALT (7-52) U/L Alkaline Phosphatase (34-104) U/L Total Protein (6.0-8.3) gm/dl Albumin (3.4-5.0) gm/dl Globulin (2.5-4.0) gm/dl Albumin/Globulin Ratio (0.9-2) Urine Color Urine Appearance (Clear) Urine pH (4.5-7.5) Ur Specific [place] (1.000-1.030) Urine Protein (Negative) Urine Glucose (UA) (Negative) Urine Ketones (Negative) Urine Blood (Negative) Urine Nitrite (Negative) Urine Bilirubin (Negative) Urine Urobilinogen (Negative) Ur Leukocyte Esterase (Negative) Urine WBC (Auto) (0-5) /hpf Urine RBC (Auto) (0-4) /hpf U Hyaline Cast (Auto) (0-5) /lpf U Epithel Cells (Auto) (0-5) /lpf Urine Bacteria (Auto) (Negative) SARS-CoV-2, RNA, NAAT (NEGATIVE) Blood Type O Positive Antibody Screen POSITIVE A Antibody Identification Anti-M Antibody ID Comment Pending Antigen Identification M Antigen - NEGATIVE 03/25/21 03/25/21 03/25/21 Range/Units 12:03 10:38 10:37 WBC (4.8-10.8) K/uL RBC (4.2-5.4) M/uL Hgb (12.0-16.0) g/dL Hct (37-47) % MCV (80-100) fL MCH (25-34) pg MCHC (32-36) g/dL RDW Std Deviation (36.4-46.3) fL RDW Coeff of Mague (11.5-14.5) % Plt Count (130-400) K/uL MPV (7.4-10.4) fL Immature Gran % (Auto) % Neut % (Auto) % Lymph % (Auto) % Starke % (Auto) % Eos % (Auto) % Baso % (Auto) % Neut # (Auto) (1.4-6.5) K/uL Lymph # (Auto) (1.2-3.4) K/uL Starke # (Auto) (0.11-0.59) K/uL Eos # (Auto) (0-0.5) K/uL Baso # (Auto) (0-0.2) K/uL Immature Gran # (Auto) (0.00-0.02) K/uL PT (9.0-12.0) Seconds INR (0.9-1.1) APTT (21.0-31.0) Seconds PTT Ratio Sodium 141 (136-145) mmol/L Potassium 3.1 L (3.5-5.1) mmol/L Chloride 105 (98-107) mmol/L Carbon Dioxide 26 (21-32) mmol/L Anion Gap 10 (3-11) BUN 33 H (6-23) mg/dl Creatinine 2.07 H (0.6-1.2) mg/dl Est Cr Clr Drug Dosing 20.1 ml/min Est GFR ( Amer) 24.9 ml/min Est GFR (Non-Af Amer) 21.4 ml/min BUN/Creatinine Ratio 15.9 (10-20) Glucose 99 (70-99(Fasting)) mg/dl POC Glucose (70-99) mg/dl Estimat Average Glucose Hemoglobin A1c Calcium 9.1 (8.5-10.1) mg/dl Total Bilirubin 0.8 (0.2-1.0) mg/dl AST 15 (13-39) U/L ALT 10 (7-52) U/L Alkaline Phosphatase 63 (34-104) U/L Total Protein 7.6 (6.0-8.3) gm/dl Albumin 4.0 (3.4-5.0) gm/dl Globulin 3.6 (2.5-4.0) gm/dl Albumin/Globulin Ratio 1.1 (0.9-2) Urine Color Yellow Urine Appearance Clear (Clear) Urine pH 5.0 (4.5-7.5) Ur Specific [place] 1.016 (1.000-1.030) Urine Protein 2+ H (Negative) Urine Glucose (UA) Negative (Negative) Urine Ketones Negative (Negative) Urine Blood Negative (Negative) Urine Nitrite Negative (Negative) Urine Bilirubin Negative (Negative) Urine Urobilinogen Negative (Negative) Ur Leukocyte Esterase Negative (Negative) Urine WBC (Auto) 1-5 (0-5) /hpf Urine RBC (Auto) 0-4 (0-4) /hpf U Hyaline Cast (Auto) 5-10 H (0-5) /lpf U Epithel Cells (Auto) 10-20 H (0-5) /lpf Urine Bacteria (Auto) Negative (Negative) SARS-CoV-2, RNA, NAAT NEGATIVE (NEGATIVE) Blood Type Antibody Screen Antibody Identification Antibody ID Comment Antigen Identification 03/25/21 03/25/21 Range/Units 10:37 10:37 WBC 12.76 H (4.8-10.8) K/uL RBC 3.28 L (4.2-5.4) M/uL Hgb 9.3 L (12.0-16.0) g/dL Hct 29.6 L (37-47) % MCV 90.2 (80-100) fL MCH 28.4 (25-34) pg MCHC 31.4 L (32-36) g/dL RDW Std Deviation 51.7 H (36.4-46.3) fL RDW Coeff of Mague 15.6 H (11.5-14.5) % Plt Count 290 (130-400) K/uL MPV 10.0 (7.4-10.4) fL Immature Gran % (Auto) 0.2 % Neut % (Auto) 83.7 % Lymph % (Auto) 7.4 % Starke % (Auto) 7.3 % Eos % (Auto) 1.2 % Baso % (Auto) 0.2 % Neut # (Auto) 10.69 H (1.4-6.5) K/uL Lymph # (Auto) 0.95 L (1.2-3.4) K/uL Starke # (Auto) 0.93 H (0.11-0.59) K/uL Eos # (Auto) 0.15 (0-0.5) K/uL Baso # (Auto) 0.02 (0-0.2) K/uL Immature Gran # (Auto) 0.02 (0.00-0.02) K/uL PT 10.9 (9.0-12.0) Seconds INR 1.1 (0.9-1.1) APTT 28.8 (21.0-31.0) Seconds PTT Ratio 1.1 Sodium (136-145) mmol/L Potassium (3.5-5.1) mmol/L Chloride (98-107) mmol/L Carbon Dioxide (21-32) mmol/L Anion Gap (3-11) BUN (6-23) mg/dl Creatinine (0.6-1.2) mg/dl Est Cr Clr Drug Dosing ml/min Est GFR ( Amer) ml/min Est GFR (Non-Af Amer) ml/min BUN/Creatinine Ratio (10-20) Glucose (70-99(Fasting)) mg/dl POC Glucose (70-99) mg/dl Estimat Average Glucose Hemoglobin A1c Calcium (8.5-10.1) mg/dl Total Bilirubin (0.2-1.0) mg/dl AST (13-39) U/L ALT (7-52) U/L Alkaline Phosphatase (34-104) U/L Total Protein (6.0-8.3) gm/dl Albumin (3.4-5.0) gm/dl Globulin (2.5-4.0) gm/dl Albumin/Globulin Ratio (0.9-2) Urine Color Urine Appearance (Clear) Urine pH (4.5-7.5) Ur Specific [place] (1.000-1.030) Urine Protein (Negative) Urine Glucose (UA) (Negative) Urine Ketones (Negative) Urine Blood (Negative) Urine Nitrite (Negative) Urine Bilirubin (Negative) Urine Urobilinogen (Negative) Ur Leukocyte Esterase (Negative) Urine WBC (Auto) (0-5) /hpf Urine RBC (Auto) (0-4) /hpf U Hyaline Cast (Auto) (0-5) /lpf U Epithel Cells (Auto) (0-5) /lpf Urine Bacteria (Auto) (Negative) SARS-CoV-2, RNA, NAAT (NEGATIVE) Blood Type Antibody Screen Antibody Identification Antibody ID Comment Antigen Identification Diagnostic Findings Echo at [facility] 02/2020 LVEF 60-65% with mild LVH Grade 2 diastolic dysfunction Aortic sclerosis without stenosis Moderate MR Pulm HTN with PASP of 41 mmhg DSE 12/2018 The dobutamine stress echocardiographic examination is normal without resting left ventricular wall motion abnormalities or inducible ischemia. The stress EKG response showed no evidence of ischemia. No symptoms were noted. The LV wall thickness is mildly increased (concentric). The left ventricular systolic function is normal. Qualitative LV ejection Fraction = 60%. Mild mitral regurgitation is present. Mild tricuspid regurgitation is present. Mild aortic valve sclerosis is present. (1) Fracture of greater trochanter of right femur Encounter type: initial encounter Fracture alignment: nondisplaced Fracture type: closed Qualified Code(s): S72.114A - Nondisplaced fracture of greater trochanter of right femur, initial encounter for closed fracture (2) Fall due to ice or snow Encounter type: initial encounter Qualified Code(s): W00.9XXA - Unspecified fall due to ice and snow, initial encounter
[2021-03-26 08:32] LABS: Estimated Average Glucose 105 mg/dl; Hemoglobin A1C 5.3 % (4.5-5.6)
[2021-03-26] MEDS: METOPROLOL SUCC 25MG EXT REL TAB PO SCH (08:50)
[2021-03-26] MEDS: INSULIN ASPART PER UNIT SC SCH ×4 (08:57→20:12)
[2021-03-26] MEDS ORDERED: MAGNESIUM OXIDE 400 MG TAB PO SCH (09:00)
--- NOTE | 2021-03-26 09:01 | Magnetic Resonance Report ---
MR hip RT wo con HISTORY: Right hip pain. Fall. Right femoral fracture. r/o right intertrochanteric hip fx TECHNIQUE: Multiplanar multisequence MRI of the pelvis and right hip were performed without contrast according to standard departmental protocol. COMPARISON STUDY: Abdomen and pelvis CT 03/25/2021. FINDINGS: Soft tissue edema lateral to the right hip. There is a superior labral tear with a 1.5 cm p aralabral cyst. There is also a small cyst extending inferiorly from the right hip joint which may re present an additional. Labral cyst or ganglion cyst. This measures approximately 13 mm. Mild cartilag e space narrowing within the bilateral hips consistent with degenerative change. No acute fractures i dentified within the pelvis or left hip. The sacrum appears intact. Nondisplaced intertrochanteric fr acture within the proximal right femur. This best seen on the axial T1 sequences images 15 through 23 . No dislocation. There is a Del Toro catheter within the bladder. Multiple colonic diverticula are note d. IMPRESSION: 1. Nondisplaced intertrochanteric fracture within the proximal right femur. Surgical consultation rec ommended for internal fixation. 2. Superior labral tear of the right hip with an associated paralabral cyst. ACT 112: Negative or not required by law. Electronically signed by: Vick Kim M.D. 03/26/2021 8:59 AM
--- NOTE | 2021-03-26 09:44 | Anesthesiology Consultation ---
Date of Service March 26, 2021 Assessment & Plan (1) Encounter for pre-operative examination: Chart Review Chart Review: Acceptable Risk for Surgery History Surgery Operation Date: 03/26/21 11:25 Proposed Procedures p Right Trochanteric Nail Angelique Rolle DO Height/Weight Height: 5 ft 5 in Weight: 67.5 kg Allergies Allergy/AdvReac Type Severity Reaction Status Date / Time hydrocodone Allergy Intermediate RASH Verified 03/25/21 11:42 Iodinated Contrast Media Allergy Intermediate HIVES Verified 03/25/21 11:42 Penicillins Allergy Intermediate ANAPHLACTIC Verified 03/25/21 11:42 SHOCK phenylephrine Allergy Intermediate Rash, Verified 03/25/21 11:42 insomnia trolamine salicylate Allergy Intermediate RASH Verified 03/25/21 11:42 acetaminophen Allergy Mild BRIGHT RED Verified 03/25/21 11:42 RASH-PT DENIES ketorolac Allergy Mild Unknown Verified 03/25/21 11:42 oxycodone Allergy Mild BRIGHT RED Verified 03/25/21 11:42 RASH tramadol Allergy Mild BRIGHT RED Verified 03/25/21 11:42 RASH prednisone AdvReac Unknown Became Verified 03/25/21 11:42 manic Medications Home Medications Medication Instructions Recorded Confirmed Last Taken atorvastatin 40 mg tablet 40 mg PO DAILY tab 11/11/18 03/25/21 02/24/20 insulin detemir U-100 100 unit/mL 10 units SUBCUT HS ml 11/11/18 03/25/21 02/23/20 subcutaneous solution lisinopril 40 mg tablet 40 mg PO DAILY #90 tab 11/11/18 03/25/21 02/24/20 paroxetine HCl 20 mg tablet 20 mg PO QAM tab 11/11/18 03/25/21 02/24/20 levothyroxine 100 mcg capsule 100 mcg PO DAILY 01/05/19 03/25/21 02/24/20 allopurinol 100 mg tablet 100 mg PO BID 02/24/20 03/25/21 02/24/20 amlodipine 10 mg tablet 10 mg PO QAM 02/24/20 03/25/21 02/24/20 cholecalciferol (vitamin D3) 10 20 mcg PO DAILY 02/24/20 03/25/21 02/24/20 mcg (400 unit) capsule (Vitamin D3) magnesium oxide 400 mg (241.3 mg 400 mg PO BID #20 tab 02/28/20 03/25/21 Unknown magnesium) tablet metoprolol succinate 25 mg 25 mg PO QAM #30 tab 02/28/20 03/25/21 Unknown tablet,extended release 24 hr bumetanide 1 mg tablet 1 mg PO DAILY PRN #90 tab 04/06/20 03/25/21 Unknown ferrous sulfate 325 mg (65 mg 325 mg PO BID #60 tab 12/31/20 03/25/21 Unknown iron) tablet latanoprost 0.005 % eye drops 1 drp OPB HS 03/25/21 03/25/21 Unknown Active Medications Generic Name Dose Route Start Last Admin Trade Name Freq PRN Reason Stop Dose Admin Acetaminophen 1,000 mg 03/25/21 20:00 03/26/21 04:28 Acetaminophen 500 Mg Tab PO 04/24/21 19:59 1,000 mg Q8H MICHAEL Administration Allopurinol 100 mg 03/25/21 21:00 03/25/21 20:59 Allopurinol 100 Mg Tab PO 04/24/21 20:59 100 mg BID MICHAEL Administration Ferrous Sulfate 325 mg 03/25/21 17:00 03/25/21 18:00 Ferrous Sulfate 325 Mg Tab PO 04/24/21 16:59 325 mg BIDM MICHAEL Administration Clindamycin Phosphate 900 mg/ 56 mls @ 112 mls/hr 03/26/21 06:00 03/26/21 06:36 Dextrose IV 03/27/21 05:59 Infused PREOP [facility] Infusion Bumetanide 1 mg/ Syringe 4 mls @ 4 mls/min 03/25/21 13:45 03/25/21 14:07 IV 04/24/21 13:44 4 [facility] Insulin Aspart 0 units 03/25/21 17:47 03/26/21 08:57 Insulin Aspart Per Unit SC 04/24/21 17:46 Not Given ACHS [facility] Insulin Detemir 5 units 03/25/21 21:00 03/25/21 22:25 Insulin Detemir Flexpen/Flex Touch 100 Units/Ml 3ml SC 04/24/21 20:59 Not Given HS [facility] Latanoprost 1 drops 03/25/21 21:00 03/25/21 22:26 Latanoprost 0.005% Op Soln 2.5 Ml Btl OPB 04/24/21 20:59 1 drops HS MICHAEL Administration Levothyroxine Sodium 100 mcg 03/26/21 06:30 03/26/21 06:02 Levothyroxine Sodium 100 Mcg Tablet PO 04/25/21 06:29 100 mcg DAILYBB MICHAEL Administration Magnesium Oxide 400 mg 03/25/21 21:00 03/25/21 20:58 Magnesium Oxide 400 Mg Tab PO 04/24/21 20:59 400 mg BID MICHAEL Administration Metoprolol Succinate 25 mg 03/26/21 09:00 03/26/21 08:50 Metoprolol Succ 25mg Ext Rel Tab PO 04/25/21 08:59 25 mg QAM MICHAEL Administration Morphine Sulfate 2 mg 03/25/21 19:42 03/25/21 19:53 Morphine Sulfate 2 Mg/Ml Carp IV 04/08/21 19:41 2 mg Q2H PRN Administration Pain Senna/Docusate Sodium 2 tab 03/25/21 21:00 03/25/21 20:59 Docusate Sodium/Senna 50/8.6mg Tab PO 04/24/21 20:59 2 tab HS MICHAEL Administration Past Medical History Medical History Anemia Chronic diastolic CHF (congestive heart failure) CKD (chronic kidney disease), stage IV DM type 2 (diabetes mellitus, type 2) Dyslipidemia Gout HTN (hypertension) Hypothyroidism Vitamin D deficiency Past Family History Family History Mother Colorectal cancer Diabetes Heart disease Hypertension Past Surgical History Surgical History History of carpal tunnel surgery of left wrist Hx of surgical amputation of finger Hx of tonsillectomy Social History Smoking Status: Never smoker Do You Dip or Chew Tobacco: No Hx Alcohol Use: No Hx Substance Use: No Physical Exam Vital Signs Last Vital Signs Temp 36.6 C 03/26/21 07:00 Pulse 73 03/26/21 07:00 Resp 18 03/26/21 07:00 BP 133/71 03/26/21 07:00 Pulse Ox 98 03/26/21 07:00 Testing Laboratory Results 03/26/21 05:55 03/26/21 05:55 PT 10.9 Seconds (9.0-12.0) 03/25/21 10:37 INR 1.1 (0.9-1.1) 03/25/21 10:37 APTT 28.8 Seconds (21.0-31.0) 03/25/21 10:37 Hemoglobin A1c 5.3 % (4.5-5.6) 03/26/21 05:55 Urine Color Yellow 03/25/21 12:03 Urine Appearance Clear (Clear) 03/25/21 12:03 Urine pH 5.0 (4.5-7.5) 03/25/21 12:03 Ur Specific [place] 1.016 (1.000-1.030) 03/25/21 12:03 Urine Protein 2+ (Negative) H 03/25/21 12:03 Urine Glucose (UA) Negative (Negative) 03/25/21 12:03 Urine Ketones Negative (Negative) 03/25/21 12:03 Urine Nitrite Negative (Negative) 03/25/21 12:03 Ur Leukocyte Esterase Negative (Negative) 03/25/21 12:03 Urine WBC (Auto) 1-5 /hpf (0-5) 03/25/21 12:03 Urine RBC (Auto) 0-4 /hpf (0-4) 03/25/21 12:03 U Hyaline Cast (Auto) 5-10 /lpf (0-5) H 03/25/21 12:03 U Epithel Cells (Auto) 10-20 /lpf (0-5) H 03/25/21 12:03 Urine Bacteria (Auto) Negative (Negative) 03/25/21 12:03 Blood Type O Positive 03/25/21 13:00 Antibody Screen POSITIVE A 03/25/21 13:00 03/26/21 03/25/21 07:32 22:01 POC Glucose 99 114 H Electrocardiogram Date: 03/25/21 Findings: + NSR @ (65) and + RBBB (and LAFB) Chest X-Ray Findings: + cardiomegaly (mild) and + pulmonary vascular congestion (mild central congestion without pulmonary edema) Echocardiogram Date: 02/25/20 EF: 60-65% LV Function: normal Other Findings: + LVH (mild) and + diastolic dysfunction Valvular Disease: + MS (mild) and + MR (moderate) pulmonary htn (systolic 41mmHg)
[2021-03-26] MEDS: MAGNESIUM SULFATE / D5W 1 GM/100 ML BAG IV SCH ×3 (11:17→20:08)
[2021-03-26] MEDS ORDERED: ONDANSETRON INJ 2 MG/ML 2 ML VIAL IV PRN (11:34)
[2021-03-26] MEDS ORDERED: fentaNYL citrate 100 MCG/2 ML VIAL IV PRN (11:34)
[2021-03-26] MEDS ORDERED: ATROPINE SULFATE 0.1 MG/ML 10ML SYR IV PRN (11:34)
[2021-03-26] MEDS ORDERED: ePHEDrine sulfate 50 MG/ML AMP IV PRN (11:34)
[2021-03-26] MEDS ORDERED: fentaNYL citrate 100 MCG/2 ML VIAL ONE (12:19)
--- NOTE | 2021-03-26 12:25 | History & Physical Bridge Note ---
Date of Service March 26, 2021 History & Physical Bridge Note I have examined the patient, reviewed the History & Physical and in the interval since the performance of the History & Physical I have noted the following changes of clinical significance: no changes noted Supervising Physician Co-Signing Physician Notes I have seen and examined the patient. I reviewed the medical record and discussed the case with the EXPORT CLERK. Utilizing the geriatric risk assessment tool the patient's risk for this surgery is 1.5%. Therefore, she should proceed without further testing and with optimal medical management.
[2021-03-26] MEDS ORDERED: PROPOFOL IV EMULSION 10 MG/ML 20 ML VIAL IV ONE ×2 (13:24→16:09)
[2021-03-26] MEDS ORDERED: LIDOCAINE 2% 2 ML VIAL/AMP(20MG/ML) INFIL ONE ×2 (13:24→16:09)
[2021-03-26] MEDS ORDERED: ONDANSETRON INJ 2 MG/ML 2 ML VIAL ONE ×2 (13:24→16:09)
[2021-03-26] MEDS ORDERED: DEXAMETHASONE SOD INJ 4 MG/ML VIAL ONE (13:24)
[2021-03-26] MEDS ORDERED: BUPIVACAINE 0.5 % 5 MG/1 ML MPF 30ML VIAL ONE (14:18)
--- NOTE | 2021-03-26 15:37 | Operative Report ---
Post Operative Report Pre & Post Diagnosis Operation Date: 03/26/21 11:25 Pre-Op Diagnosis: Fracture of greater trochanter of right femur. Post-Op Diagnosis: Fracture of greater trochanter of right femur. I identified the patient and participated in the time-out.: Yes Procedure Operation Date: 03/26/21 11:25 Actual Procedures p Right short troch nail(Right) size 10 x 170 with a 30 mm locking screw 85 mm spiral helical blade Mauricio Rolle DO Surgeon Mauricio Rolle DO Business Analyst Consultant None Estimated Blood Loss 20 Findings Consistent with Post-Op Diagnosis Patient presents with a intertrochanteric fracture nondisplaced right hip status post fall for reduction internal fixation Specimens None Drains None Anesthesia Type General Complications none Disposition Accompanied Patient To Recovery: No Disposition: Recovery Room Indications Patient presents with a nondisplaced right intertrochanteric hip fracture status post fall for reduction internal fixation Description of Procedure Initiation of general anesthesia the right hip after having been placed on the fracture table was prepped and draped no traction was necessary due to the fracture being in anatomic position all bony prominences were well-padded and protected socially the left hip region was prepped and draped under fluoroscopic guidance a 4 cm incision made over the region of the proximal tip of the greater trochanter and intramedullary guidewire was placed into the center of the trochanter on both AP and lateral planes and was advanced subsequently the proximal portion of the femur was socially overreamed with a standard reamer the 10 mm x 170 mm troponin was placed under direct visualization checked under flu oroscopic guidance with AP and lateral planes and 85 mm helical oil blade was then placed into the femoral head neck and central position both AP and lateral views socially the distal interlocking screw was placed was degree 38 mm wounds irrigated with copious muscle sterile saline solution operative matter region removed the deep fascia closed with #1 Vicryl subcu was closed with 2-0 Vicryl skin was closed with skin clips 3 cc 1% plain Marcaine Marcaine was injected into the wound region that postsurgically sterile compressive dressings placed patient taken recovery stable condition patient procedure well operative report dictated by Aquilino. I attest to the content of the Intraoperative Record and any orders documented therein. Any exceptions are noted below. Supervising Physician Co-Signing Physician Notes I have seen and examined the patient. I reviewed the medical record and discussed the case with the PROCESSING ANALYST. Utilizing the geriatric risk assessment tool the patient's risk for this surgery is 1.5%. Therefore, she should proceed without further testing and with optimal medical management.
--- NOTE | 2021-03-26 15:38 | Fluoroscopy Report ---
FL hip RT 2-3V CLINICAL HISTORY: RT TROCH NAIL COMPARISON STUDY: CT of the abdomen and pelvis and right hip radiograph March 25, 2021. MRI of the right hip March 25, 2021. FLUOROSCOPY TIME: 1 minute and 35 seconds. FLUOROSCOPIC IMAGES: 4 FINDINGS: Fluoroscopy was provided during internal fixation of the intertrochanteric fracture of the right femur with trochanteric nail. Hardware is intact. There is a distal screw. There are no unexpec girish radiopaque foreign bodies. IMPRESSION: Fluoroscopy provided during internal fixation of the intertrochanteric fracture of the r ight femur. ACT 112: Negative or not required by law. Electronically signed by: Bradley Loera M.D. 03/26/2021 3:37 PM
[2021-03-26] MEDS: FERROUS SULFATE 325 MG TAB PO SCH ×2 (15:49→17:04)
[2021-03-26] MEDS: allopurinoL 100 MG TAB PO SCH ×2 (15:49→20:08)
[2021-03-26] MEDS: amLODIPine BESYLATE 5 MG TAB PO SCH (15:49)
[2021-03-26] MEDS: POTASSIUM CHLORIDE CRTAB 20 MEQ TABCR PO SCH (15:50)
[2021-03-26] MEDS: lisinopril 40 MG TAB PO SCH (15:50)
[2021-03-26] MEDS: PARoxetine HCL 20 MG TAB PO SCH (15:50)
[2021-03-26] MEDS: CHOLECALCIFEROL 400 UNITS 10 MCG TAB PO SCH (15:50)
[2021-03-26] MEDS: ATORVASTATIN 40 MG TAB PO SCH (15:50)
[2021-03-26] MEDS: MAGNESIUM OXIDE 400 MG TAB PO SCH ×2 (15:50→20:09)
--- NOTE | 2021-03-26 16:20 | Anesthesiology Progress Note ---
Date of Service March 26, 2021 Anesthesia Post Procedure Vital Signs Vital Signs: Temp Pulse Pulse Pulse Resp BP BP 03/26/21 16:15 36.6 C 55 L 14 03/26/21 16:05 57 L 13 03/26/21 15:55 58 L 13 03/26/21 15:45 58 L 14 03/26/21 15:35 36.7 C 63 12 03/26/21 11:00 36.9 C 100 H 20 146/72 H 03/26/21 07:00 36.6 C 67 73 18 133/71 03/26/21 03:17 37.1 C 71 18 03/26/21 00:32 37.4 C 78 20 03/25/21 22:44 37.4 C 74 16 03/25/21 22:30 75 03/25/21 19:00 70 14 144/69 H 03/25/21 18:30 70 14 157/72 H 03/25/21 18:00 71 74 18 163/82 H 03/25/21 17:30 71 18 156/80 H 03/25/21 17:00 66 15 162/72 H 03/25/21 16:30 71 19 145/68 H BP Pulse Ox 03/26/21 16:15 143/58 H 98 03/26/21 16:05 148/66 H 98 03/26/21 15:55 142/60 H 100 03/26/21 15:45 143/61 H 100 03/26/21 15:35 148/75 H 99 03/26/21 11:00 146/72 H 100 03/26/21 07:00 98 03/26/21 03:17 140/63 97 03/26/21 00:32 153/78 H 96 03/25/21 22:44 142/78 H 03/25/21 22:30 03/25/21 19:00 96 03/25/21 18:30 96 03/25/21 18:00 163/82 H 95 03/25/21 17:30 100 03/25/21 17:00 100 03/25/21 16:30 100 Pain Intensity Right Hip: Pain Intensity: 1 Transfer of Care Handoff Completed per policy Notes Mental Status: alert / awake / arousable and participated in evaluation Patient Amnestic to Procedure: Yes Nausea / Vomiting: adequately controlled Pain: adequately controlled Airway Patency, RR, SpO2: stable & adequate BP & HR: stable & adequate Hydration State: stable & adequate Anesthetic Complications: no major complications apparent and Pt Satisfied with anesthetic care
--- NOTE | 2021-03-26 16:24 | Hospitalist Progress Note ---
Date of Service March 26, 2021 Assessment & Plan (1) Fracture of greater trochanter of right femur: Plan: Surgical Management per Ortho. Plan for OR today Cardiology consulted for optimization, risk stratification. Appreciate input (2) HTN (hypertension): Plan: -BP reasonably well controlled, continue home medications--add hold parameters (3) Pulmonary hypertension: Plan: -Patient would benefit from outpatient sleep study to evaluate for underlying ANEL (4) DM type 2 (diabetes mellitus, type 2): Plan: - ISS with accuchecks achs - Cont levemir, reduce dose in half to 5 U HS while npo - she takes at home when her nighttime glucose is > 150, so some nights does not use this at baseline. - Last A1C = 5.3 in August 2020, repeat HA1c pending (5) Hypokalemia: Plan: Hypomagnesemia -repleted -MagOx BID and potassium 20mEQ daily while on diuretics (6) CKD (chronic kidney disease), stage IV: Plan: - currently Bumex 1mg IV daily -Cr improved with diuresis -will continue to monitor (7) Hypothyroidism: Plan: -Continue levothyroxine (8) Vitamin D deficiency: Plan: -Continue vitamin D supplementation DVT PPx: - teds, scds, start SQ heparin when cleared by Ortho CODE: Full code CM to assist with dc planning, lives at home alone, may need SNF vs acute rehab stay Plan: Acute on chronic diastolic CHF -at home is on Bumex 1mg PRN (for leg swelling or symptoms). Patient reports needing it several times a week -will reassess tomorrow and if remains euvolemic--> would switch to PO bumex Admission and Anticipated Discharge Date Admission Date: March 25, 2021 Subjective Patient feels well. Denies chest pain, shortness of breath. leg swelling is much improved Physical Exam Physical Exam: appears younger than stated age, no acute distress, pleasant Respiratory: breathing comfortably, no wheezing/rhonchi, diminished at bases Cardiovascular: regular rate and rhythm, no murmurs/rubs/gallops Gastrointestinal (Abdomen): soft, non tender Musculoskeletal: no edema, right hip mildly tender to touch Neurologic: awake, alert Results & Data Results & Data ([facility]) Vital Signs (Past 12 Hours) Vital Signs Temp Pulse Pulse Pulse Resp BP BP 03/26/21 16:15 36.6 C 55 L 14 143/58 H 03/26/21 16:05 57 L 13 148/66 H 03/26/21 15:55 58 L 13 142/60 H 03/26/21 15:45 58 L 14 143/61 H 03/26/21 15:35 36.7 C 63 12 148/75 H 03/26/21 11:00 36.9 C 100 H 20 146/72 H 146/72 H 03/26/21 07:00 36.6 C 67 73 18 133/71 Pulse Ox 03/26/21 16:15 98 03/26/21 16:05 98 03/26/21 15:55 100 03/26/21 15:45 100 03/26/21 15:35 99 03/26/21 11:00 100 03/26/21 07:00 98 Laboratory Results Short CBC 03/26/21 Range/Units 05:55 WBC 9.93 (4.8-10.8) K/uL Hgb 8.2 L (12.0-16.0) g/dL Hct 25.7 L (37-47) % Plt Count 244 (130-400) K/uL BMP 03/26/21 05:55 Sodium 141 Potassium 3.8 D Chloride 108 H Carbon Dioxide 27 BUN 30 H Creatinine 1.67 H D Glucose 85 Calcium 8.3 L Liver Function 03/26/21 Range/Units 05:55 Total Bilirubin 0.8 (0.2-1.0) mg/dl AST 11 L (13-39) U/L ALT 7 (7-52) U/L Alkaline Phosphatase 54 (34-104) U/L Albumin 3.3 L (3.4-5.0) gm/dl (1) Fracture of greater trochanter of right femur Encounter type: initial encounter Fracture alignment: nondisplaced Fracture type: closed Qualified Code(s): S72.114A - Nondisplaced fracture of greater trochanter of right femur, initial encounter for closed fracture
[2021-03-26] MEDS: SODIUM CHLORIDE 0.9% 1000ML 1,000 ML IV SCH (17:35)
[2021-03-26] MEDS: BUMETANIDE 1 MG in SYRINGE 0 ML IV SCH (17:35)
--- NOTE | 2021-03-26 17:43 | Anesthesiology Progress Note ---
Date of Service March 26, 2021 Anesthesia Post Procedure Vital Signs Vital Signs: Temp Pulse Pulse Pulse Resp BP BP 03/26/21 17:05 36.9 C 65 18 03/26/21 16:50 36.5 C 63 18 03/26/21 16:36 36.7 C 58 L 16 153/71 H 03/26/21 16:26 36.7 C 63 16 157/74 H 03/26/21 16:15 36.6 C 55 L 14 03/26/21 16:05 57 L 13 03/26/21 15:55 58 L 13 03/26/21 15:45 58 L 14 03/26/21 15:35 36.7 C 63 12 03/26/21 11:00 36.9 C 100 H 20 146/72 H 03/26/21 07:00 36.6 C 67 73 18 133/71 03/26/21 03:17 37.1 C 71 18 03/26/21 00:32 37.4 C 78 20 03/25/21 22:44 37.4 C 74 16 03/25/21 22:30 75 03/25/21 19:00 70 14 144/69 H 03/25/21 18:30 70 14 157/72 H 03/25/21 18:00 71 74 18 163/82 H BP Pulse Ox 03/26/21 17:05 150/93 H 95 03/26/21 16:50 149/74 H 96 03/26/21 16:36 100 03/26/21 16:26 86 L 03/26/21 16:15 143/58 H 98 03/26/21 16:05 148/66 H 98 03/26/21 15:55 142/60 H 100 03/26/21 15:45 143/61 H 100 03/26/21 15:35 148/75 H 99 03/26/21 11:00 146/72 H 100 03/26/21 07:00 98 03/26/21 03:17 140/63 97 03/26/21 00:32 153/78 H 96 03/25/21 22:44 142/78 H 03/25/21 22:30 03/25/21 19:00 96 03/25/21 18:30 96 03/25/21 18:00 163/82 H 95 Pain Intensity Right Hip: Pain Intensity: 1 Transfer of Care Handoff Completed per policy Notes Mental Status: alert / awake / arousable Patient Amnestic to Procedure: Yes Nausea / Vomiting: adequately controlled Pain: adequately controlled Airway Patency, RR, SpO2: stable & adequate BP & HR: stable & adequate Hydration State: stable & adequate Anesthetic Complications: no major complications apparent
[2021-03-26] MEDS: LATANOPROST 0.005% OP SOLN 2.5 ML BTL OPB SCH (20:12)
[2021-03-26] MEDS: INSULIN DETEMIR FLEXPEN/FLEX TOUCH 100 UNITS/ML 3ML SC SCH (20:29)
[2021-03-26] MEDS: DOCUSATE SODIUM/SENNA 50/8.6MG TAB PO SCH (20:29)
[2021-03-27] MEDS: MoRPHine SULFATE 2 MG/ML CARP IV PRN ×2 (02:06→20:53)
[2021-03-27] MEDS: ACETAMINOPHEN 500 MG TAB PO SCH ×3 (05:54→20:53)
[2021-03-27] MEDS: LEVOTHYROXINE SODIUM 100 MCG TABLET PO SCH (05:54)
[2021-03-27] MEDS: SODIUM CHLORIDE 0.9% 1000ML 1,000 ML IV SCH (05:55)
[2021-03-27 07:04] LABS: Basophils # (auto) 0.01 K/uL (0-0.2); Basophils % (auto) 0.1 %; Eosinophils % (auto) 6.8 %; Hematocrit (blood only) 23.1 % (37-47); Hemoglobin 7.4 g/dL (12.0-16.0); Immature Granulocytes # (auto) 0.04 K/uL (0.00-0.02); Immature Granulocytes % (auto) 0.4 %; Lymphocytes # (auto) 0.92 K/uL (1.2-3.4); Lymphocytes % (auto) 8.9 %; Mean Corpuscular Hemoglobin 29.4 pg (25-34); Mean Corpuscular Volume 91.7 fL (80-100); Mean Platelet Volume 10.2 fL (7.4-10.4); Monocytes % (auto) 12.6 %; Neutrophils # (auto) 7.36 K/uL (1.4-6.5); Neutrophils % (auto) 71.2 %; Platelet Count 220 K/uL (130-400); RDW Coefficient of Variation 15.6 % (11.5-14.5); RDW Standard Deviation 52.2 fL (36.4-46.3); Red Blood Count 2.52 M/uL (4.2-5.4); White Blood Count 10.33 K/uL (4.8-10.8)
[2021-03-27 07:28] LABS: Albumin Level 2.9 gm/dl (3.4-5.0); BUN Creatinine Ratio 17.6 (10-20); Bilirubin,Total 0.6 mg/dl (0.2-1.0); Calcium 8.1 mg/dl (8.5-10.1); Creatinine Clr Calc Pharmacy 23.7 ml/min; Est GFR (African American) 34.2 ml/min; Est GFR (Non-African American) 29.5 ml/min; Globulin 2.9 gm/dl (2.5-4.0); Magnesium 1.7 mg/dl (1.7-2.4); Potassium 4.2 mmol/L (3.5-5.1); Total Protein 5.8 gm/dl (6.0-8.3)
[2021-03-27 07:31] LABS: RBC Morphology Unremarkable
--- NOTE | 2021-03-27 07:35 | Cardiology Progress Note ---
Date of Service March 27, 2021 Assessment & Plan (1) Fall due to ice or snow: (2) Fracture of greater trochanter of right femur: Plan: Femur fracture d/t mechanical fall on ice. S/p Repair 03/26. (3) Chronic diastolic CHF (congestive heart failure): Plan: Valvular heart disease with Moderate MR noted on echo. Patient appears euvolemic on exam. 1. Diuretics currently on hold- patient IVF, recommend cautious rehydration due to HFpEF. She will likely need Bumex a few days per week at discharge. 2. Trend renal function and electrolytes, replace as necessary. 3. 2g sodium restriction 4. Daily weights and strict I&O (4) HTN, goal below 140/80: Plan: Controlled. (5) CKD (chronic kidney disease), stage IV: Plan: Renal function at baseline (2). Currently 1.59 Plan: Case discussed with Dr. Quigley- patient clinically stable. Admission and Anticipated Discharge Date Admission Date: March 25, 2021 Supervising Physician Co-Signing Physician Notes I have seen and examined the patient. Reviewed the medical record and discussed the case with the DRILL INSTRUCTOR. I agree with the plan as outlined above. I would be careful with the IV fluids especially since the patient is eating. Subjective 85 year old female. Cardiac history including hypertension, HFpEF, pulmonary HTN, DM2, anemia, and CKD stage 4. Presented to ED yesterday after sustaining a fall from slipping on ice. She was found to have an acute nondisplaced right greater trochanter fracture. Underwent surgical repair on 03/[address] Rolle. Upon entrance into the room patient was resting comfortably in bed. States that her pain is generally well controlled. Has not been out of bed yet. She denies chest pain, shortness of breath, palpitations, dizziness, syncope or near syncope. No orthopnea, PND, or increased lower extremity edema. She is currently getting IVF. Tele:SR 60-70s. Weight: 72.2kg>> 67.5 kg >> 67.5 kg (03/27) I&O: +1L Lab summary: Hgb 9.3>>8.2>> 7.4 (03/27) Scr 2.07>>1.67 >> 1.59 (03/27) Potassium 3.1 (replaced)>>3.8>> 4.2 (03/27) Mag 1.2>> 1.7 (2/) Review of Systems Review of Systems: All systems reviewed & are unremarkable except as noted in HPI & below Physical Exam Physical Exam: General: No acute distress. A+Ox3. HEENT: Normocephalic. Atraumatic. Conjunctiva and sclera clear. NECK: No carotid bruits. No JVD. Carotid upstrokes are brisk. Heart: RRR. S1 and S2 noted. +faint systolic murmur. Lungs: Clear to auscultation. No wheezes, rhonchi, rales. Abdomen: Normal bowel sounds. Soft. Nontender. No masses or organomegaly. No abdominal bruits. Extremities: No edema. Lump noted on right cain. No clubbing or cyanosis. Pulses: radial=2/4, posterior tibial=2/4, dorsalis pedis = 2/4. NEURO: No focal deficits. PSYCH: Normal. Results & Data ([facility]) Vital Signs (Past 12 Hours) Vital Signs Temp Pulse Pulse Resp BP Pulse Ox 03/27/21 06:57 37.4 C 64 18 144/68 H 94 03/27/21 04:27 37.0 C 66 18 158/66 H 94 03/27/21 00:00 70 03/26/21 22:25 37.1 C 71 18 145/71 H 95 03/26/21 21:19 37.4 C 67 18 139/74 97 03/26/21 20:08 37.2 C 70 18 153/74 H 93 (1) Fracture of greater trochanter of right femur Encounter type: initial encounter Fracture alignment: nondisplaced Fracture type: closed Qualified Code(s): S72.114A - Nondisplaced fracture of greater trochanter of right femur, initial encounter for closed fracture (2) Fall due to ice or snow Encounter type: initial encounter Qualified Code(s): W00.9XXA - Unspecified fall due to ice and snow, initial encounter
[2021-03-27] MEDS: METOPROLOL SUCC 25MG EXT REL TAB PO SCH (08:07)
[2021-03-27] MEDS: ATORVASTATIN 40 MG TAB PO SCH (08:07)
[2021-03-27] MEDS: INSULIN ASPART PER UNIT SC SCH ×4 (08:07→20:49)
[2021-03-27] MEDS: POTASSIUM CHLORIDE CRTAB 20 MEQ TABCR PO SCH (08:08)
[2021-03-27] MEDS: PARoxetine HCL 20 MG TAB PO SCH (08:08)
[2021-03-27] MEDS: lisinopril 40 MG TAB PO SCH (08:08)
[2021-03-27] MEDS: FERROUS SULFATE 325 MG TAB PO SCH ×2 (08:08→16:53)
[2021-03-27] MEDS: CHOLECALCIFEROL 400 UNITS 10 MCG TAB PO SCH (08:08)
[2021-03-27] MEDS: MAGNESIUM OXIDE 400 MG TAB PO SCH ×2 (08:08→20:47)
[2021-03-27] MEDS: amLODIPine BESYLATE 5 MG TAB PO SCH (08:09)
[2021-03-27] MEDS: allopurinoL 100 MG TAB PO SCH ×2 (08:09→20:47)
[2021-03-27] MEDS: BUMETANIDE 1 MG in SYRINGE 0 ML IV SCH (08:10)
[2021-03-27] MEDS: ENOXAPARIN INJ 30 MG/0.3 ML SYR SQ SCH (08:35)
--- NOTE | 2021-03-27 09:31 | Orthopedic Progress Note ---
Date of Service March 27, 2021 Assessment & Plan (1) Intertrochanteric fracture of right hip: Plan: POD 1 s/p Right TFN PT/OT protocol. WBAT DVT prophylaxis - Lovenox daily x 2-4 weeks pending Pain management as written. Acute Blood Loss Anemia - Hgb down to 7.4 today. Transfuse as per Med service. Admission and Anticipated Discharge Date Admission Date: March 25, 2021 Subjective POD 1 Pt sitting up in bed. Awake, alert. Answering questions appropriately. Pain controlled. No complaints. Denies SOB,CP, LH. Physical Exam Physical Exam: Dressings C/D/I. Thight soft, NT. Calves soft, NT. NV intact. Toes mobile. Results [facility] Vital Signs (Past 12 Hours) Vital Signs Temp Pulse Pulse Resp BP Pulse Ox 03/27/21 09:08 64 03/27/21 06:57 37.4 C 64 18 144/68 H 94 03/27/21 04:27 37.0 C 66 18 158/66 H 94 03/27/21 00:00 70 03/26/21 22:25 37.1 C 71 18 145/71 H 95 Laboratory Results Laboratory Results WBC 10.33 K/uL (4.8-10.8) 03/27/21 06:15 RBC 2.52 M/uL (4.2-5.4) L 03/27/21 06:15 Hgb 7.4 g/dL (12.0-16.0) L 03/27/21 06:15 Hct 23.1 % (37-47) L 03/27/21 06:15 MCV 91.7 fL (80-100) 03/27/21 06:15 MCH 29.4 pg (25-34) 03/27/21 06:15 MCHC 32.0 g/dL (32-36) 03/27/21 06:15 RDW Std Deviation 52.2 fL (36.4-46.3) H 03/27/21 06:15 RDW Coeff of Mague 15.6 % (11.5-14.5) H 03/27/21 06:15 Plt Count 220 K/uL (130-400) 03/27/21 06:15 MPV 10.2 fL (7.4-10.4) 03/27/21 06:15 Immature Gran % (Auto) 0.4 % 03/27/21 06:15 Neut % (Auto) 71.2 % 03/27/21 06:15 Lymph % (Auto) 8.9 % 03/27/21 06:15 [place] % (Auto) 12.6 % 03/27/21 06:15 Eos % (Auto) 6.8 % 03/27/21 06:15 Baso % (Auto) 0.1 % 03/27/21 06:15 Neut # (Auto) 7.36 K/uL (1.4-6.5) H 03/27/21 06:15 Lymph # (Auto) 0.92 K/uL (1.2-3.4) L 03/27/21 06:15 [place] # (Auto) 1.30 K/uL (0.11-0.59) H 03/27/21 06:15 Eos # (Auto) 0.70 K/uL (0-0.5) H 03/27/21 06:15 Baso # (Auto) 0.01 K/uL (0-0.2) 03/27/21 06:15 Immature Gran # (Auto) 0.04 K/uL (0.00-0.02) H 03/27/21 06:15 RBC Morphology Unremarkable 03/27/21 06:15 PT 10.9 Seconds (9.0-12.0) 03/25/21 10:37 INR 1.1 (0.9-1.1) 03/25/21 10:37 APTT 28.8 Seconds (21.0-31.0) 03/25/21 10:37 PTT Ratio 1.1 03/25/21 10:37 Sodium 138 mmol/L (136-145) 03/27/21 06:15 Potassium 4.2 mmol/L (3.5-5.1) 03/27/21 06:15 Chloride 106 mmol/L (98-107) 03/27/21 06:15 Carbon Dioxide 25 mmol/L (21-32) 03/27/21 06:15 Anion Gap 7 (3-11) 03/27/21 06:15 BUN 28 mg/dl (6-23) H 03/27/21 06:15 Creatinine 1.59 mg/dl (0.6-1.2) H 03/27/21 06:15 Est Cr Clr Drug Dosing 23.7 ml/min 03/27/21 06:15 Est GFR ( Amer) 34.2 ml/min 03/27/21 06:15 Est GFR (Non-Af Amer) 29.5 ml/min 03/27/21 06:15 BUN/Creatinine Ratio 17.6 (10-20) 03/27/21 06:15 Glucose 103 mg/dl (70-99(Fasting)) H 03/27/21 06:15 POC Glucose 98 mg/dl (70-99) 03/27/21 07:14 Estimat Average Glucose 105 mg/dl 03/26/21 05:55 Hemoglobin A1c 5.3 % (4.5-5.6) 03/26/21 05:55 Calcium 8.1 mg/dl (8.5-10.1) L 03/27/21 06:15 Magnesium 1.7 mg/dl (1.7-2.4) 03/27/21 06:15 Total Bilirubin 0.6 mg/dl (0.2-1.0) 03/27/21 06:15 AST 13 U/L (13-39) 03/27/21 06:15 ALT 8 U/L (7-52) 03/27/21 06:15 Alkaline Phosphatase 50 U/L (34-104) 03/27/21 06:15 Total Protein 5.8 gm/dl (6.0-8.3) L 03/27/21 06:15 Albumin 2.9 gm/dl (3.4-5.0) L 03/27/21 06:15 Globulin 2.9 gm/dl (2.5-4.0) 03/27/21 06:15 Albumin/Globulin Ratio 1.0 (0.9-2) 03/27/21 06:15 25-OH Vitamin D Total 25.4 ng/ml (30-100) L 03/27/21 06:15 Urine Color Yellow 03/25/21 12:03 Urine Appearance Clear (Clear) 03/25/21 12:03 Urine pH 5.0 (4.5-7.5) 03/25/21 12:03 Ur Specific [place] 1.016 (1.000-1.030) 03/25/21 12:03 Urine Protein 2+ (Negative) H 03/25/21 12:03 Urine Glucose (UA) Negative (Negative) 03/25/21 12:03 Urine Ketones Negative (Negative) 03/25/21 12:03 Urine Blood Negative (Negative) 03/25/21 12:03 Urine Nitrite Negative (Negative) 03/25/21 12:03 Urine Bilirubin Negative (Negative) 03/25/21 12:03 Urine Urobilinogen Negative (Negative) 03/25/21 12:03 Ur Leukocyte Esterase Negative (Negative) 03/25/21 12:03 Urine WBC (Auto) 1-5 /hpf (0-5) 03/25/21 12:03 Urine RBC (Auto) 0-4 /hpf (0-4) 03/25/21 12:03 U Hyaline Cast (Auto) 5-10 /lpf (0-5) H 03/25/21 12:03 U Epithel Cells (Auto) 10-20 /lpf (0-5) H 03/25/21 12:03 Urine Bacteria (Auto) Negative (Negative) 03/25/21 12:03 SARS-CoV-2, RNA, NAAT NEGATIVE (NEGATIVE) 03/25/21 10:38 Blood Type O Positive 03/25/21 13:00 Antibody Screen POSITIVE A 03/25/21 13:00 Antibody Identification Anti-M 03/25/21 13:00 Antibody ID Comment 03/25/21 13:00 Antigen Identification M Antigen - NEGATIVE 03/25/21 13:00 Impressions Abdomen/Pelvis CT 03/25/21 10:[address] WITHOUT CONTRAST CT DOSE: HISTORY: right back/hip pain fall TECHNIQUE: Multiaxial CT images of the abdomen and pelvis were performed without contrast. A dose lowering technique was utilized adhering to the principles of ALARA. COMPARISON STUDY: Abdomen and pelvis CT 06/24/2015. FINDINGS: Chronic interstitial thickening noted at the lung bases. The heart is mildly enlarged. There is a tiny hiatus hernia, unchanged. Nondisplaced fracture at the base the right greater trochanter. This does not appear to extend to the lesser trochanter. No additional fractures identified within the abdomen or pelvis. Degenerative changes noted within the lumbar spine. There is mild body wall edema. The unenhanced liver, gallbladder, spleen, adrenal glands, and panc reas unremarkable. There is a punctate stone within the left kidney. No ureteral stones. No hydronephrosis. Hypodense lesions within the left kidney favor cysts. No retroperitoneal lymphadenopathy or hematoma. Normal caliber abdominal aorta. No pelvic free fluid. The bladder, uterus, bilateral adnexa are unremarkable. Suboptimal evaluation for bowel pathology due to the lack of intravenous and ora l contrast. However, there is no definite bowel wall thickening or obstruction. Colonic diverticulosis. No evidence for acute diverticulitis. IMPRESSION: 1. An acute nondisplaced fracture within the right greater trochanter. 2. Stable cardiomegaly. 3. Colonic diverticulosis. No evidence for acute diverticulitis. 4. Mild body wall edema. 5. Left-sided nephrolithiasis. No hydronephrosis. ACT 112: Negative or not required by law. Electronically signed by: Vick Kim M.D. 03/25/2021 11:46 AM Hip/Pelvis X-Ray 03/25/21 10:17 XR hip RT 2V w pelvis CLINICAL HISTORY: Fall. Right hip pain. COMPARISON STUDY: None. FINDINGS: The bones are osteopenic. Subtle nondisplaced fracture at the base of the right greater trochanter. This is better appreciated on the same day abdomen and pelvis CT. No dislocation. The pelvic bones appear intact. Mild osteoarthritis within the bilateral hips. Soft tissues are unremarkable. IMPRESSION: Subtle nondisplaced fracture at the base of the right greater trochanter. This is better appreciated on the same day abdomen and pelvis CT. ACT 112: Negative or not required by law. Electronically signed by: Vick Kim M.D. 03/25/2021 11:40 AM Hip MRI 03/25/21 14:30 MR hip RT wo con HISTORY: Right hip pain. Fall. Right femoral fracture. r/o right intertr ochanteric hip fx TECHNIQUE: Multiplanar multisequence MRI of the pelvis and right hip were performed without contrast according to standard departmental protocol. COMPARISON STUDY: Abdomen and pelvis CT 03/25/2021. FINDINGS: Soft tissue edema lateral to the right hip. There is a superior labral tear with a 1.5 cm paralabral cyst. There is also a small cyst extending inferiorly from the right hip joint which may represent an additional. Labral cyst or ganglion cyst. This measures approximately 13 mm. Mild cartilage space narrowing within the bilateral hips consistent with degenerative change. No acute fractures identified within the pelvis or left hip. The sacrum appears intact. Nondisplaced intertrochanteric fracture within the proximal right femur. This best seen on the axial T1 sequences images 15 through 23. No dislocation. There is a [place] Toro catheter within the bladder. Multiple colonic diverticula are noted. IMPRESSION: 1. Nondisplaced intertrochanteric fracture within the proximal right femur. Surgical consultation recommended for internal fixation. 2. Superior labral tear of the right hip with an associated paralabral cyst. ACT 112: Negative or not required by law. Electronically signed by: Vick Kim M.D. 03/26/2021 8:59 AM Hip X-Ray 03/26/21 10:30 FL hip RT 2-3V CLINICAL HISTORY: RT TROCH NAIL COMPARISON STUDY: CT of the abdomen and pelvis and right hip radiograph March 25, 2021. MRI of the right hip March 25, 2021. FLUOROSCOPY TIME: 1 minute and 35 seconds. FLUOROSCOPIC IMAGES: 4 FINDINGS: Fluoroscopy was provided during internal fixation of the intertrochanteric fracture of the right femur with trochanteric nail. Hardware is intact. There is a distal screw. There are no unexpected radiopaque foreign bodies. IMPRESSION: Fluoroscopy provided during internal fixation of the intertrochanteric fracture of the right femur. ACT 112: Negative or not required by law. Electronically signed by: Bradley Loera M.D. 03/26/2021 3:37 PM
--- NOTE | 2021-03-27 12:34 | Hospitalist Progress Note ---
Date of Service March 27, 2021 Assessment & Plan (1) Fracture of greater trochanter of right femur: Plan: Ortho on case. Hip repaired / s/p Right TFN Cardiology on case (2) HTN (hypertension): Plan: -BP reasonably well controlled, continue home medications--add hold parameters (3) Pulmonary hypertension: Plan: -Patient would benefit from outpatient sleep study to evaluate for underlying ANEL (4) DM type 2 (diabetes mellitus, type 2): Plan: - ISS with accuchecks achs - Cont levemir, reduce dose in half to 5 U HS while npo - she takes at home when her nighttime glucose is > 150, so some nights does not use this at baseline. (5) Hypokalemia: Plan: Hypomagnesemia -repleted -MagOx BID and potassium 20mEQ daily while on diuretics (6) CKD (chronic kidney disease), stage IV: Plan: - currently Bumex 1mg IV daily - Cr improved with diuresis (7) Hypothyroidism: Plan: -Continue levothyroxine (8) Vitamin D deficiency: Plan: -Continue vitamin D supplementation DVT PPx: - teds, scds, start SQ heparin when cleared by Ortho CODE: Full code CM to assist with dc planning (9) Postoperative anemia due to acute blood loss: Plan: Hb 7.4, will monitor Plan: Acute on chronic diastolic CHF -at home is on Bumex 1mg PRN (for leg swelling or symptoms). Patient reports needing it several times a week PO bumex abs checked ROS-No Headache, No Visual Changes, No Nausea, No Vomiting, No Fever, No Chills, No Neck Pain or Stiffness, No Chest Pain, No Palpitations, No SOB, No CAMARGO, No Cough, No Sputum, No Wheezing, No Abdominal Pain, No Diarrhea, No Hematemesis, No Hemoptysis, No Unexpected Weight Loss, No Flank pain, No Melena, No Hematochezia, No Frequency, No Urgency, No Burning, No Hematuria, No Rashes, No Diaphoresis. Appetite is Normal, R Hip Pain improved Physical Exam Gen-AAO x 3, NAD, Afebrile, Obese Head-NCAT, EOMI, PERRLA, Anicteric Sclera, No Posterior Pharyngeal Erythema Neck-Supple, No JVD, No Thyromegaly, No Masses, No LAD, No Bruits Lungs-Clear to Auscultation Bilaterally, No Rales, No Rhonchi, No Wheezing, No Crepitus Chest-No S4, +S1, +S2, No S3, No Murmurs, No Rubs, No Gallops, No Ectopy Abdomen-Soft, Bowel Sounds Present, Non Tender, Non Distended, No Hepatomegaly, No Splenomegaly, No Palpable Masses, No Rebound, No Rigidity, No Guarding Musculoskeletal-Full Range of Motion Bilaterally, No CVAT Extremities-No Cyanosis, No Clubbing, No Edema Nuero-Cranial Nerves II-XII grossly intact, Motor WNL, DTRs WNL, Strength WNL, Non Focal Psych-Normal Mood Admission and Anticipated Discharge Date Admission Date: March 25, 2021 Subjective 85 year old female. Cardiac history including hypertension, HFpEF, pulmonary HTN, DM2, anemia, and CKD stage 4. Presented to ED yesterday after sustaining a fall from slipping on ice. She was found to have an acute nondisplaced right greater trochanter fracture. Underwent surgical repair on 03/[address] Rolle. Patient resting comfortably in bed today, Reports to me that she is weightbearing as tolerated. Results & Data Results & Data ([facility]) Vital Signs (Past 12 Hours) Vital Signs Temp Pulse Pulse Resp BP Pulse Ox 03/27/21 11:32 36.9 C 64 15 124/74 95 03/27/21 09:08 64 03/27/21 06:57 37.4 C 64 18 144/68 H 94 03/27/21 04:27 37.0 C 66 18 158/66 H 94 (1) Fracture of greater trochanter of right femur Encounter type: initial encounter Fracture alignment: nondisplaced Fracture type: closed Qualified Code(s): S72.114A - Nondisplaced fracture of greater trochanter of right femur, initial encounter for closed fracture
[2021-03-27] MEDS ORDERED: BUMETANIDE 1 MG in SYRINGE 0 ML IV SCH (12:40)
[2021-03-27] MEDS: LATANOPROST 0.005% OP SOLN 2.5 ML BTL OPB SCH (20:47)
[2021-03-27] MEDS: DOCUSATE SODIUM/SENNA 50/8.6MG TAB PO SCH (20:48)
[2021-03-27] MEDS: INSULIN DETEMIR FLEXPEN/FLEX TOUCH 100 UNITS/ML 3ML SC SCH (20:50)
[2021-03-28] MEDS: ACETAMINOPHEN 500 MG TAB PO SCH ×2 (04:59→12:10)
[2021-03-28] MEDS: LEVOTHYROXINE SODIUM 100 MCG TABLET PO SCH (06:14)
--- NOTE | 2021-03-28 07:36 | Cardiology Progress Note ---
Date of Service March 28, 2021 Assessment & Plan (1) Fall due to ice or snow: (2) Fracture of greater trochanter of right femur: Plan: Femur fracture d/t mechanical fall on ice. S/p Repair 03/26. (3) Chronic diastolic CHF (congestive heart failure): Plan: Valvular heart disease with Moderate MR noted on echo. Fine crackles in BL bases 1. Agree with restarting Bumex, will likely need bumex a few times per week on discharge (? MWF) 2. Trend renal function and electrolytes, replace as necessary. 3. 2g sodium restriction 4. Daily weights and strict I&O (4) HTN, goal below 140/80: Plan: Borderline control. For now no changes. Will tolerate a higher blood pressure in the acute setting. (5) CKD (chronic kidney disease), stage IV: Plan: Renal function at baseline (2). Currently 1.59 Plan: Case discussed with Dr. Quigley- patient clinically stable. From a cardiac standpoint she is doing well and no further cardiology testing is warranted at this time. Would recommend patient being transitioned off the telemetry floor. Admission and Anticipated Discharge Date Admission Date: March 25, 2021 Supervising Physician Co-Signing Physician Notes I have seen and examined the patient. I have discussed the case with the WRESTLING COACH and reviewed the medical record. I agree with the plan as outlined above. I believe she can be transferred off telemetry. Subjective 85 year old female. Cardiac history including hypertension, HFpEF, pulmonary HTN, DM2, anemia, and CKD stage 4. Presented to ED yesterday after sustaining a fall from slipping on ice. She was found to have an acute nondisplaced right greater trochanter fracture. Underwent surgical repair on 03/[address] Rolle. Upon entrance into the room patient was sitting up resting comfortably in bed. States that her pain is generally well controlled. She denies chest pain, shortness of breath, palpitations, dizziness, syncope or near syncope. No orthopnea, PND, or increased lower extremity edema. Bumex was restarted this am. Tele:SR 60-70s. Weight: 72.2kg>> 67.5 kg >> 67.5 kg>> 73 kg (03/28) I&O: +1L Lab summary: Hgb 9.3>>8.2>>7.4 (03/27) Scr 2.07>>1.67 >>1.59 (03/27) Physical Exam Physical Exam: General: No acute distress. A+Ox3. HEENT: Normocephalic. Atraumatic. Conjunctiva and sclera clear. NECK: No carotid bruits. No JVD. Carotid upstrokes are brisk. Heart: RRR. S1 and S2 noted. +faint systolic murmur. Lungs: Clear to auscultation. Fine crackles in BL bases. Abdomen: Normal bowel sounds. Soft. Nontender. No masses or organomegaly. No abdominal bruits. Extremities: No edema. Lump noted on right cain. No clubbing or cyanosis. Pulses: radial=2/4, posterior tibial=2/4, dorsalis pedis = 2/4. NEURO: No focal deficits. PSYCH: Normal. Results & Data ([facility]) Vital Signs (Past 12 Hours) Vital Signs Temp Pulse Pulse Resp BP Pulse Ox 03/28/21 07:22 62 03/28/21 05:01 37.2 C 56 L 20 152/68 H 95 03/27/21 23:48 37.4 C 71 20 147/61 H 93 03/27/21 22:19 71 (1) Fracture of greater trochanter of right femur Encounter type: initial encounter Fracture alignment: nondisplaced Fracture type: closed Qualified Code(s): S72.114A - Nondisplaced fracture of greater trochanter of right femur, initial encounter for closed fracture (2) Fall due to ice or snow Encounter type: initial encounter Qualified Code(s): W00.9XXA - Unspecified fall due to ice and snow, initial encounter
[2021-03-28 07:40] LABS: Hematocrit (blood only) 24.3 % (37-47); Hemoglobin 7.6 g/dL (12.0-16.0); Mean Corpuscular Hemoglobin 28.8 pg (25-34); Mean Corpuscular Hgb Conc 31.3 g/dL (32-36); Mean Platelet Volume 10.1 fL (7.4-10.4); Platelet Count 218 K/uL (130-400); RDW Coefficient of Variation 15.8 % (11.5-14.5); RDW Standard Deviation 53.9 fL (36.4-46.3); Red Blood Count 2.64 M/uL (4.2-5.4); White Blood Count 12.16 K/uL (4.8-10.8)
[2021-03-28] MEDS: CHOLECALCIFEROL 400 UNITS 10 MCG TAB PO SCH (07:53)
[2021-03-28] MEDS: FERROUS SULFATE 325 MG TAB PO SCH (07:53)
[2021-03-28] MEDS: lisinopril 40 MG TAB PO SCH (07:53)
[2021-03-28] MEDS: amLODIPine BESYLATE 5 MG TAB PO SCH (07:53)
[2021-03-28] MEDS: POTASSIUM CHLORIDE CRTAB 20 MEQ TABCR PO SCH (07:53)
[2021-03-28] MEDS: ENOXAPARIN INJ 30 MG/0.3 ML SYR SQ SCH (07:54)
[2021-03-28] MEDS: METOPROLOL SUCC 25MG EXT REL TAB PO SCH (07:54)
[2021-03-28] MEDS: ATORVASTATIN 40 MG TAB PO SCH (07:54)
[2021-03-28] MEDS: PARoxetine HCL 20 MG TAB PO SCH (07:54)
[2021-03-28] MEDS: MAGNESIUM OXIDE 400 MG TAB PO SCH (07:54)
[2021-03-28] MEDS: allopurinoL 100 MG TAB PO SCH (07:54)
[2021-03-28 08:40] LABS: Albumin Level 2.9 gm/dl (3.4-5.0); BUN Creatinine Ratio 17.7 (10-20); Bilirubin,Total 0.4 mg/dl (0.2-1.0); Calcium 8.2 mg/dl (8.5-10.1); Creatinine Clr Calc Pharmacy 22.5 ml/min; Est GFR (African American) 28.3 ml/min; Est GFR (Non-African American) 24.4 ml/min; Globulin 2.8 gm/dl (2.5-4.0); Magnesium 1.5 mg/dl (1.7-2.4); Potassium 4.9 mmol/L (3.5-5.1); Total Protein 5.7 gm/dl (6.0-8.3)
[2021-03-28] MEDS: INSULIN ASPART PER UNIT SC SCH ×2 (08:54→12:09)
[2021-03-28] MEDS ORDERED: BUMETANIDE 1 MG in SYRINGE 0 ML IV SCH (09:00)
[2021-03-28] MEDS ORDERED: BUMETANIDE 1 MG TAB PO SCH ×2 (09:00)
[2021-03-28] MEDS: MoRPHine SULFATE 2 MG/ML CARP IV PRN (10:11)
--- NOTE | 2021-03-28 12:56 | Hospitalist Progress Note ---
Date of Service March 28, 2021 Assessment & Plan (1) Fracture of greater trochanter of right femur: Plan: Ortho on case. Hip repaired 2/ s/p Right TFN Cardiology on case (2) HTN (hypertension): Plan: -BP reasonably well controlled, continue home medications--add hold parameters (3) Pulmonary hypertension: Plan: -Patient would benefit from outpatient sleep study to evaluate for underlying ANEL (4) DM type 2 (diabetes mellitus, type 2): Plan: - ISS with accuchecks achs - Cont levemir, reduce dose in half to 5 U HS while npo - she takes at home when her nighttime glucose is > 150, so some nights does not use this at baseline. (5) Hypokalemia: Plan: Hypomagnesemia -repleted -MagOx BID and potassium 20mEQ daily while on diuretics (6) CKD (chronic kidney disease), stage IV: Plan: - currently Bumex 1mg IV daily - Cr improved with diuresis (7) Hypothyroidism: Plan: -Continue levothyroxine (8) Vitamin D deficiency: Plan: -Continue vitamin D supplementation DVT PPx: - teds, scds, start SQ heparin when cleared by Ortho CODE: Full code CM to assist with dc planning (9) Postoperative anemia due to acute blood loss: Plan: Hb 7.6, will monitor Plan: Acute on chronic diastolic CHF -at home is on Bumex 1mg PRN (for leg swelling or symptoms). Patient reports needing it several times a week PO bumex labs checked ROS-No Headache, No Visual Changes, No Nausea, No Vomiting, No Fever, No Chills, No Neck Pain or Stiffness, No Chest Pain, No Palpitations, No SOB, No CAMARGO, No Cough, No Sputum, No Wheezing, No Abdominal Pain, No Diarrhea, No Hematemesis, No Hemoptysis, No Unexpected Weight Loss, No Flank pain, No Melena, No Hematochezia, No Frequency, No Urgency, No Burning, No Hematuria, No Rashes, No Diaphoresis. Appetite is Normal, R Hip Pain improved Physical Exam Gen-AAO x 3, NAD, Afebrile, Obese Head-NCAT, EOMI, PERRLA, Anicteric Sclera, No Posterior Pharyngeal Erythema Neck-Supple, No JVD, No Thyromegaly, No Masses, No LAD, No Bruits Lungs-Clear to Auscultation Bilaterally, No Rales, No Rhonchi, No Wheezing, No Crepitus Chest-No S4, +S1, +S2, No S3, No Murmurs, No Rubs, No Gallops, No Ectopy Abdomen-Soft, Bowel Sounds Present, Non Tender, Non Distended, No Hepatomegaly, No Splenomegaly, No Palpable Masses, No Rebound, No Rigidity, No Guarding Musculoskeletal-Full Range of Motion Bilaterally, No CVAT Extremities-No Cyanosis, No Clubbing, No Edema Nuero-Cranial Nerves II-XII grossly intact, Motor WNL, DTRs WNL, Strength WNL, Non Focal Psych-Normal Mood Admission and Anticipated Discharge Date Admission Date: March 25, 2021 Subjective Patient seen and resting comfortably in her bed Results & Data Results & Data ([facility]) Vital Signs (Past 12 Hours) Vital Signs Temp Pulse Pulse Resp BP Pulse Ox 03/28/21 11:00 37 C 72 16 127/69 97 03/28/21 07:44 37.1 C 63 16 151/73 H 95 03/28/21 07:22 62 03/28/21 05:01 37.2 C 56 L 20 152/68 H 95 (1) Fracture of greater trochanter of right femur Encounter type: initial encounter Fracture alignment: nondisplaced Fracture type: closed Qualified Code(s): S72.114A - Nondisplaced fracture of greater trochanter of right femur, initial encounter for closed fracture
--- NOTE | 2021-03-28 13:10 | Orthopedic Progress Note ---
Date of Service March 28, 2021 Assessment & Plan (1) Intertrochanteric fracture of right hip: Plan: POD 1 s/p Right TFN PT/OT protocol. WBAT DVT prophylaxis - Lovenox daily x 2-4 weeks pending Pain management as written. Acute Blood Loss Anemia - Hgb 7.6 today. Transfuse as per Med service. Admission and Anticipated Discharge Date Admission Date: March 25, 2021 Subjective POD 2 Pt sitting in chair at bedside. Feeling a little tired today. Mild pain in the right hip. No other complaints. Physical Exam Physical Exam: Dressings C/D/I. Thigh soft. Calves soft, NT. NV intact. Results & Data ([facility]) Vital Signs (Past 12 Hours) Vital Signs Temp Pulse Pulse Resp BP Pulse Ox 03/28/21 11:00 37 C 72 16 127/69 97 03/28/21 07:44 37.1 C 63 16 151/73 H 95 03/28/21 07:22 62 03/28/21 05:01 37.2 C 56 L 20 152/68 H 95
--- NOTE | 2021-03-28 13:41 | Discharge Summary ---
Date of Service March 28, 2021 Admission HPI Per Admitting Provider This is an 85-year-old female with PMHx of HTN, diastolic CHF, CKD stage III, anemia, DM type II, hypothyroidism, who presents after sustaining a fall last evening where she slipped on ice. She denies hitting her head or loss of consciousness, but states that she did not want to come to the hospital last night because she had dogs at home to take care of. She talked with her brother and her [id number] on the phone last night and reported that her pain was minimal so stayed home and did not feel she needed checked on. She called her brother again this morning who then came over to check on her, and brought her to the ER. Currently she reports her pain is minimal, and only hurts whenever she moves the leg. Pt tolerated a dose of morphine IV in the ER. We discussed her previous allergy to morphine of rash and she reports that she received this medication so long ago, she can neither deny or confirm it. Patient tolerated morphine without any difficulty in the ER so we will continue it for pain management. The patient did hit her right shoulder last evening during the fall, which is slightly sore however not bruised and no open lacerations. She was wearing a large heavy winter coat which padded her fall. She was able to push herself up to use the toilet and to get on her couch. Otherwise she moved around by crawling on all fours in her home. Patient has not eaten anything today and did not take her morning medications as she slept on a recliner on the bottom floor of her split-level home, and medications were in her kitchen which she could not get to. Pt lives at home by herself and has been independent. Denies any other acute complaints. She is found to have an acute nondisplaced right greater trochanter fracture. Potassium is low at 3.1. She appears to be slightly hyerpervolemic, but takes Bumex 1 mg PO at home maybe 2-3 times per week for weight gain with CHF. She hasn't taken it in at least 3 days. Admission Exam Per Admitting Provider General: awake, alert, no apparent distress Head: Normocephalic, atraumatic ENT: PERRL, EOMI, no pharyngeal exudate, mucous membranes moist Chest: Clear to auscultation, on 2 L via NC, no adventitious breath sounds Cardiac: Regular rate and rhythm, + systolic ejection murmur, no JVD as she is lying flat due to hip fracture, normal peripheral pulses, good capillary refill Abdominal: NABS x 4 quadrants, soft, nondistended, nontender to palpation, no rebound or guarding : garcia catheter draining clear yellow urine Extremities: Normal inspection, 1+ peripheral edema bilaterally, no erythema, calfs nontender to palpation Psych: Normal mood and affect Neuro: AAO x 3, strength intact bilaterally and rated 5/5, pt cannot move R hip without pain so not tested for strength, no obvious motor deficits, speech is clear, no peripheral sensory deficits Principal Diagnosis (1) Fracture of greater trochanter of right femur: (2) HTN (hypertension): (3) Pulmonary hypertension: (4) DM type 2 (diabetes mellitus, type 2): (5) Hypokalemia: (6) CKD (chronic kidney disease), stage IV: (7) Hypothyroidism: (8) Vitamin D deficiency: (9) Postoperative anemia due to acute blood loss: (10) Acute on chronic diastolic CHF Discharge Data Allergies Allergy/AdvReac Type Severity Reaction Status Date / Time hydrocodone Allergy Intermediate RASH Verified 03/25/21 11:42 Iodinated Contrast Media Allergy Intermediate HIVES Verified 03/25/21 11:42 Penicillins Allergy Intermediate ANAPHLACTIC Verified 03/25/21 11:42 SHOCK phenylephrine Allergy Intermediate Rash, Verified 03/25/21 11:42 insomnia trolamine salicylate Allergy Intermediate RASH Verified 03/25/21 11:42 acetaminophen Allergy Mild BRIGHT RED Verified 03/25/21 11:42 RASH-PT DENIES ketorolac Allergy Mild Unknown Verified 03/25/21 11:42 oxycodone Allergy Mild BRIGHT RED Verified 03/25/21 11:42 RASH tramadol Allergy Mild BRIGHT RED Verified 03/25/21 11:42 RASH prednisone AdvReac Unknown Became Verified 03/25/21 11:42 manic Consultations 03/25/21 12:40 ED Decision to Admit Stat 03/25/21 12:53 Consult Orthopedic Surgery Routine 03/25/21 17:47 Consult Cardiology Routine Procedures Performed Operation Date: 03/26/21 11:25 Actual Procedures p Right short troch nail(Right) - Mauricio Rolle DO Ordered Studies 03/25/21 10:17 CT abd pelvis wo con Stat 03/25/21 10:20 CT head/brain wo con Stat 03/25/21 14:30 MR hip RT wo con Routine 03/26/21 10:30 FL hip RT 2-3V Routine Hospital Course (1) Fracture of greater trochanter of right femur: Ortho on case. Hip repaired 03/26 s/p Right TFN Cardiology on case (2) HTN (hypertension): -BP reasonably well controlled, continue home medications--add hold parameters (3) Pulmonary hypertension: -Patient would benefit from outpatient sleep study to evaluate for underlying ANEL (4) DM type 2 (diabetes mellitus, type 2): - ISS with accuchecks achs - Cont levemir, reduce dose in half to 5 U HS while npo - she takes at home when her nighttime glucose is > 150, so some nights does not use this at baseline. (5) Hypokalemia: Hypomagnesemia -repleted -MagOx BID and potassium 20mEQ daily while on diuretics (6) CKD (chronic kidney disease), stage IV: - currently Bumex 1mg IV daily - Cr improved with diuresis (7) Hypothyroidism: -Continue levothyroxine (8) Vitamin D deficiency: -Continue vitamin D supplementation DVT PPx: - teds, scds, start SQ heparin when cleared by Ortho CODE: Full code CM to assist with dc planning (9) Postoperative anemia due to acute blood loss: Hb 7.6, will monitor Acute on chronic diastolic CHF -at home is on Bumex 1mg PRN (for leg swelling or symptoms). Patient reports needing it several times a week PO bumex MWF, [facility] Today labs checked ROS-No Headache, No Visual Changes, No Nausea, No Vomiting, No Fever, No Chills, No Neck Pain or Stiffness, No Chest Pain, No Palpitations, No SOB, No CAMARGO, No Cough, No Sputum, No Wheezing, No Abdominal Pain, No Diarrhea, No Hematemesis, No Hemoptysis, No Unexpected Weight Loss, No Flank pain, No Melena, No Hematochezia, No Frequency, No Urgency, No Burning, No Hematuria, No Rashes, No Diaphoresis. Appetite is Normal, R Hip Pain improved Physical Exam Gen-AAO x 3, NAD, Afebrile, Obese Head-NCAT, EOMI, PERRLA, Anicteric Sclera, No Posterior Pharyngeal Erythema Neck-Supple, No JVD, No Thyromegaly, No Masses, No LAD, No Bruits Lungs-Clear to Auscultation Bilaterally, No Rales, No Rhonchi, No Wheezing, No Crepitus Chest-No S4, +S1, +S2, No S3, No Murmurs, No Rubs, No Gallops, No Ectopy Abdomen-Soft, Bowel Sounds Present, Non Tender, Non Distended, No Hepatomegaly, No Splenomegaly, No Palpable Masses, No Rebound, No Rigidity, No Guarding Musculoskeletal-Full Range of Motion Bilaterally, No CVAT Extremities-No Cyanosis, No Clubbing, No Edema Nuero-Cranial Nerves II-XII grossly intact, Motor WNL, DTRs WNL, Strength WNL, Non Focal Psych-Normal Mood Total Time Total Time Spent Total Time Spent (In Minutes): 45 mins Discharge Plan Discharge Items Patient Disposition: Transfer Inpatient Rehab Fac Reason For Visit: R HIP FRACTURE Discharge Diagnosis: (1) Fracture of greater trochanter of right femur: (2) HTN (hypertension): (3) Pulmonary hypertension: (4) DM type 2 (diabetes mellitus, type 2): (5) Hypokalemia: (6) CKD (chronic kidney disease), stage IV: (7) Hypothyroidism: (8) Vitamin D deficiency: (9) Postoperative anemia due to acute blood loss: (10) Acute on chronic diastolic CHF Activity: Per Instructions section Lifting: Gradually increase as tolerated Bathing: No limitations Exercise/Sports: Gradually increase as tolerated Driving/Machine Use: No limitations Weightbearing: Right weightbearing Weightbearing Comment: as tolerated with walker Non-emergency contact: Surgeon Call non-emergency contact if: your pain is not controlled, your temperature is above 101.5, your wound has increased redness and your wound has increased drainage Follow-up/Referrals: Mauricio Rolle DO [Surgeon] - (Follow up in 10-14 days from the day of surgery.) Tiffanie Jameson DO [Primary Care Provider] - Diet: Carb Consistent or DM2 and Heart Healthy Addtl Attending Provider Instructions: None Addtl Hris Administrator Provider Instructions: [facility] DISCHARGE INSTRUCTIONS: HIP FRACTURE SELF CARE INSTRUCTIONS: A. You are to ambulate with a walker or crutches for approximately 6 weeks. B. You are WEIGHT BEARING TOLERATED on your operative lower extremity for at least 6 weeks. C. Wear low heeled shoes with non-slip soles D. Be sure that your floors are free of things that could trip you throw rugs, electrical cords, and small objects. Avoid wet and waxed floors, especially with crutches/walker/cane. E. Try to walk several times a day with rest periods between. F. You may shower 48 hours after surgery and get the incision area wet, but DO NOT soak or submerge incision area in water. (No baths, swimming pools, hot tubs) G. You may have a large, band-aid like dressing over your incision (Aquacel). This will remain on your incision for 7 days, and then can be removed. You CAN shower with this on. If incision is leaking through the dressing, please call the office . H. Do NOT apply soap or any ointment/lotions directly over incision. I. You may use ice as needed to operative site. SPECIAL CARE INSTRUCTIONS: VERY IMPORTANT TO READ AND REVIEW A. You may be at risk for phlebitis or blood clots. a. Wear surgical stockings (DANIELLE hose) for 2 weeks after surgery to improve circulation and reduce swelling. b. Take LOVENOX 30mg SQ Daily for 2- 4 weeks or as directed. This is your blood thinner. B. There are a few signs you need to watch for after you are home. Call [facility] at [phone] if you experience any of the following: a. If you have a temperature of 101 degrees or higher. b. Sudden increase in pain in your hip not relieved by rest or pain medication. c. Any fluid or drainage from the incision; redness of the incision. d. Shortness of breath or chest pain. C. Call your physician if: a. Temperature is greater than 101 degrees (F). b. Pain is not relieved by prescribed pain medications. c. Increase drainage or redness from incision. d. Unanswered questions or concerns. D. Pain Medication: a. You will be prescribed pain medication upon discharge that should last till your first post-operative appointment. b. If you experience nausea and/or skin rash, disco ntinue this medication and contact our office for an alternative medication. c. Caution- narcotic pain medication can cause constipation. FOLLOW UP VISIT: Please call [facility] at [phone] to schedule a follow up appointment 10-14 days from the date of your surgery date. Pending Studies at Discharge: No Stand-Alone Forms: My [facility] Skilled Items Patient informed of condition?: Yes DNR: No Discharge Level of Care: Acute rehab Communicable Disease: No Discharge Prognosis: Improving Lines: None Urinary Catheter: No Medications and DC Order Prescriptions: New enoxaparin [Lovenox] 30 mg/0.3 mL Syringe 30 mg subcut Q24H Qty: 3 RF: 0 acetaminophen [Tylenol Extra Strength] 500 mg Tablet 1,000 mg PO Q8H PRN (Reason: fever or pain) Qty: 30 RF: 0 bumetanide 1 mg Tablet 1 mg PO .mwf Qty: 30 RF: 0 potassium chloride 20 mEq Tablet,Er Particles/Crystals 20 meq PO QAM Qty: 10 RF: 0 bisacodyl 10 mg Suppository 10 mg NH DAILY PRN (Reason: constipation) Qty: 12 RF: 0 sennosides-docusate sodium [Senokot-S] 8.6-50 mg Tablet 2 tab PO HS Qty: 60 RF: 0 Continued insulin detemir U-100 100 unit/mL solution 10 units subcut HS RF: 0 atorvastatin 40 mg tablet 40 mg PO DAILY RF: 0 lisinopril 40 mg tablet 40 mg PO DAILY Qty: 90 RF: 0 paroxetine HCl 20 mg tablet 20 mg PO QAM RF: 0 levothyroxine 100 mcg capsule 100 mcg PO DAILY RF: 0 ferrous sulfate 325 mg (65 mg iron) tablet 325 mg PO BID Qty: 60 RF: 0 amlodipine 10 mg tablet 10 mg PO QAM RF: 0 allopurinol 100 mg tablet 100 mg PO BID RF: 0 cholecalciferol (vitamin D3) [Vitamin D3] 10 mcg (400 unit) Capsule 20 mcg PO DAILY RF: 0 magnesium oxide 400 mg (241.3 mg magnesium) Tablet 400 mg PO BID Qty: 20 RF: 0 metoprolol succinate 25 mg Tablet Extended Release 24 Hr 25 mg PO QAM Qty: 30 RF: 0 latanoprost 0.005 % drops 1 drp OPB HS RF: 0 Discontinued bumetanide 1 mg tablet 1 mg PO DAILY PRN (Reason: weight gain > 150 lbs, fluid retention) Qty: 90 RF: 3 Discharge Orders: Discharge Order (Routine); Ordered 03/28/21 Ordered By: Michael Segundo Admission Data Admit Date/Time: 03/25/21 12:52 Attending Provider: Michael Segundo Admit Provider: Adam Ragsdale Primary Care Provider: Tiffanie Jameson Other Providers: [facility] ; Adam Ragsdale ; Kristopher Malloy ; Jesús Quigley
== END 2021-03-28 16:42 | DRG 480 ==
LOC: ED 09:40 → SUATTDRO 12:52 → EDINP 12:52 → 2N 21:28

== ENCOUNTER 2021-10-29 15:03 | Inpatient (IN) ==
--- NOTE | 2021-10-29 15:12 | ED Triage Note ---
Date of Service October 29, 2021 History of Present Illness This patient was briefly evaluated while in triage. An abbreviated physical exam was performed. This patient is a 86-year-old Female with past medical history of CKD stage 4 who presents to the ED for evaluation of "blood pressure". Pt. reports high blood pressure x1 week. Does take medication for HTN, has been taking meds. States she has headache, "my vision isn't real good", and back pain. Physical Exam VITALS: Vitals are noted on the nurse's note and reviewed by myself. GENERAL: This is an 86 year old white female, in no acute distress, nondiaphoretic, well-developed well-nourished. SKIN: No obvious rashes, edema, erythema HEAD: Normocephalic atraumatic. EYES: Conjunctivae without injection, sclerae without icterus. NECK: No JVD. LUNGS: No retractions or accessory muscle use. MUSCULOSKELETAL: Normal gait. NEURO: Patient was alert and oriented to person place and time. No focal neurological deficits. Initial orders for labs and / or imaging were placed and patient was placed in the waiting area until a bed is available. Please see further documentation for the full ED course.
[2021-10-29 15:38] LABS: Basophils # (auto) 0.02 K/uL (0-0.2); Basophils % (auto) 0.3 %; Eosinophils # (auto) 0.39 K/uL (0-0.50); Eosinophils % (auto) 5.3 %; Hematocrit (blood only) 30.1 % (34.1-44.9); Hemoglobin 9.7 g/dl (12.0-16.0); Immature Granulocytes # (auto) 0.02 K/uL (0.00-0.02); Immature Granulocytes % (auto) 0.3 %; Lymphocytes % (auto) 17.7 %; Mean Corpuscular Hemoglobin 29.7 pg (25.0-34.0); Mean Corpuscular Hgb Conc 32.2 g/dL (32.0-36.0); Mean Platelet Volume 10.8 fL (9.4-12.3); Monocytes # (auto) 0.55 K/uL (0.24-0.82); Monocytes % (auto) 7.5 %; Neutrophils # (auto) 5.07 K/uL (1.4-6.5); Neutrophils % (auto) 68.9 %; Platelet Count 238 K/uL (130-400); RDW Coefficient of Variation 15.4 % (11.5-14.5); RDW Standard Deviation 51.7 fL (36.4-46.3); Red Blood Count 3.27 M/uL (3.93-5.22); White Blood Count 7.35 K/ul (4.8-10.8)
--- NOTE | 2021-10-29 15:44 | XRay Report ---
XR chest 1V portable CLINICAL HISTORY: Atypical chest pain. COMPARISON STUDY: Chest radiograph March 25, 2021. FINDINGS: No pneumothorax or pleural effusion is identified. Moderate cardiomegaly is unchanged. No e vidence for overt pulmonary edema. Old left sixth rib fracture is incidentally noted. No consolidatio n is present. IMPRESSION: No acute cardiopulmonary findings. Stable cardiomegaly. ACT 112: Negative or not required by law. Electronically signed by: Bradley Loera M.D. 10/29/2021 3:43 PM
[2021-10-29 15:51] LABS: INR 1.1 (0.9-1.1); Partial Thromboplastin Time 27.5 Seconds (21.0-31.0); Prothrombin Time 11.4 Seconds (9.0-12.0)
[2021-10-29 15:59] LABS: Albumin Globulin Ratio 1.3 (0.9-2); Albumin Level 4.1 gm/dl (3.4-5.0); BUN Creatinine Ratio 13.9 (10-20); Bilirubin,Total 0.4 mg/dl (0.2-1.0); Est GFR (African American) 24.4 ml/min; Est GFR (Non-African American) 21.1 ml/min; Globulin 3.2 gm/dl (2.5-4.0); Potassium 3.2 mmol/L (3.5-5.1); Total Protein 7.3 gm/dl (6.0-8.3)
[2021-10-29 16:04] LABS: Troponin I High Sensitivity 35.7 pg/ml (0-14)
[2021-10-29] MEDS ORDERED: SODIUM CHLORIDE 0.9% 500 ML IV ONE (16:18)
[2021-10-29] MEDS ORDERED: ACETAMINOPHEN 1,000 MG/100 ML VIAL IV STA (16:53)
[2021-10-29 17:10] LABS: Magnesium 1.5 mg/dl (1.7-2.4); Phosphorus 4.5 mg/dl (2.5-4.9)
[2021-10-29 17:43] LABS: Lyme Ab IgG w/WB Rflx Negative (Negative); Lyme Ab IgM w/WB Rflx Negative (Negative)
--- NOTE | 2021-10-29 18:02 | CT Scan Report ---
CT head/brain wo con CLINICAL HISTORY: Headache Technique: Contiguous axial CT images of the head were acquired from the base of the skull to the ken tiffanie without intravenous contrast administration. Images were viewed [facility] brain, [facility]. Automated dose lowering techniques and/or adjustment according to patient size were utilized for this exam. Comparison: Comparison is made to CT head 03/25/2021 Findings: Areas of decreased attenuation are present in the periventricular and subcortical white matter bilate rally consistent with small vessel ischemic disease. Generalized cerebral atrophy with commensurate e nlargement of the ventricles, sulci, and cisterns is also present. There is no acute intracranial hem orrhage or evidence of acute territorial infarction. No shift of the midline structures, mass effect, or extra-axial abnormalities are shown. Atherosclerotic calcifications are present in the intracran ial segments of the internal carotid arteries. Imaged portions of the paranasal sinuses and mastoid air cells are clear. The orbits appear normal. There are no acute fractures of the calvaria or scalp swelling. Impression: No acute intracranial hemorrhage, no evidence of acute territorial infarction or other acute intracra nial disease process. ACT 112: Negative or not required by law. Electronically signed by: Torsten Gonzales M.D. 10/29/2021 6:00 PM
[2021-10-29 18:09] LABS: Thyroid Stimulating Hormone 11.242 uIu/ml (0.300-4.500)
[2021-10-29 18:46] LABS: T4 Free Thyroxine 0.43 ng/dl (0.61-1.60)
[2021-10-29 18:56] LABS: Appearance Urine Clear (Clear); Bacteria Urine Automated Negative (Negative); Bilirubin Urine Negative (Negative); Blood Urine Negative (Negative); Color Urine Yellow; Glucose Urine UA Negative (Negative); Ketones Urine Negative (Negative); Leukocyte Esterase Urine 1+ (Negative); Nitrite Urine Negative (Negative); Protein Urine 2+ (Negative); RBC Urine Automated 0-4 /hpf (0-4); Specific Gravity Urine 1.016 (1.000-1.030); Urobilinogen Urine Negative (Negative); pH Urine 5.5 (4.5-7.5)
[2021-10-29] MEDS ORDERED: MAGNESIUM SULFATE / D5W 1 GM/100 ML BAG IV STA (18:57)
[2021-10-29] MEDS ORDERED: POTASSIUM CHLORIDE CRTAB 20 MEQ TABCR PO STA (18:57)
--- NOTE | 2021-10-29 20:30 | History & Physical Report ---
Date of Service October 29, 2021 Assessment & Plan (1) Hypertensive urgency: Plan: Blood pressure uncontrolled for the past week, typically reported as 130/80 on lisinopril 40mg daily and norvasc 10mg daily. She has been compliant with these medications and notes no recent changes (denies heavy sodium intake, smoking, EtOH use, OCP medication outside of Tylenol). Notably she has chronic proteinuria (present today) and no evidence of hematuria, worsening kidney function, chest pain, evidence of ACS or heart failure, encephalopathy. She does report ongoing headache and recent stroke like symptoms with persistent vission issues on the left eye. Given hydralazine 5mg IV with no change in BP. Will given another dose of 10mg IV now and need to monitor blood pressure very closely to reduce it for goal MAP 100 or less in next couple of hours. MR brain for rule out stroke. US renal doppler to screen for renal artery stenosis given age and accelerated hypertension without alternative clear cause. Consult nephrology. For now, hold lisinopril despite creatinine at baseline given it is 2.0. She has no clear evidence of ongoing end-organ damage at this time but is borderline (ongoing headache, recent TIA symptoms). Would consider ICU for nicardipine drip if no improvement with parenteral medications or if symptoms of end organ damage such as chest pain, stroke symptoms, or confusion occur overnight. (2) Hypothyroidism: Plan: chronic, stable. Cont levothyroxine per home regimen. (3) Hypomagnesemia: Plan: replacement given in ER and she takes oral supplementation. Repeat level in am. (4) CKD (chronic kidney disease), stage IV: Plan: Chronic, renal function appears to be around baseline with creatinine 2.0. Consult nephrology. (5) Anemia in chronic renal disease: Plan: chronic, stable. No need for transfusion at this time. Cont to monitor. (6) DVT prophylaxis: Plan: Heparin Full Code-confirmed with her on admission Dispo-to PCU Siria Sutton DO [facility] Hospitalist (7) Glaucoma: History of Present Illness Chief Complaint: LEIGH and elevated blood presure Primary Care Provider: Tiffanie Jameson DO 86 yo F presented to the ER with LEIGH reported for one week and elevated blood pressure readings at home. She was seen by PCP office today and referred to the ER. The BP at that time was 182/80. She reported BP at home 200+/100+. Slurr ed speech reported earlier this week. Back pain reported for the past couple of months which has been getting progressively worse. +LEIGH in frontal area, non radiating blurry vision in her left eye usually has no issues issues with slurred speech this week and difficulty with word finding-not currently present denies chest pressure but states "every now and then I might get a couple of flutters for a few seconds and then gone." declines acute SOB denies UTI symptoms reports chronic diarrhea Allergies Allergy/AdvReac Type Severity Reaction Status Date / Time hydrocodone Allergy Intermediate RASH Verified 10/29/21 16:59 Iodinated Contrast Media Allergy Intermediate HIVES Verified 10/29/21 16:59 Penicillins Allergy Intermediate ANAPHLACTIC Verified 10/29/21 16:59 SHOCK phenylephrine Allergy Intermediate Rash, Verified 10/29/21 16:59 insomnia trolamine salicylate Allergy Intermediate RASH Verified 10/29/21 16:59 ketorolac Allergy Mild Unknown Verified 10/29/21 16:59 oxycodone Allergy Mild BRIGHT RED Verified 10/29/21 16:59 RASH tramadol Allergy Mild BRIGHT RED Verified 10/29/21 16:59 RASH prednisone AdvReac Unknown Became Verified 10/29/21 16:59 manic Home Medications Medication Instructions Recorded Confirmed Type atorvastatin 40 mg tablet 40 mg PO DAILY 11/11/18 10/29/21 History lisinopril 40 mg tablet 40 mg PO DAILY #90 tabs 11/11/18 10/29/21 History levothyroxine 100 mcg capsule 100 mcg PO DAILY 01/05/19 10/29/21 History allopurinol 100 mg tablet 100 mg PO BID 02/24/20 10/29/21 History amlodipine 10 mg tablet 10 mg PO QAM 02/24/20 10/29/21 History cholecalciferol (vitamin D3) 10 20 mcg PO DAILY 02/24/20 10/29/21 History mcg (400 unit) capsule (Vitamin D3) magnesium oxide 400 mg (241.3 mg 400 mg PO BID #20 tabs 02/28/20 10/29/21 Rx magnesium) tablet metoprolol succinate 25 mg 25 mg PO QAM #30 tabs 02/28/20 10/29/21 Rx tablet,extended release 24 hr ferrous sulfate 325 mg (65 mg 325 mg PO BID #60 tabs 12/31/20 10/29/21 History iron) tablet latanoprost 0.005 % eye drops 1 drp OPB HS 03/25/21 10/29/21 History acetaminophen 500 mg tablet 1,000 mg PO Q8H PRN fever or pain 03/28/21 10/29/21 Rx (Tylenol Extra Strength) #30 tabs potassium chloride 20 mEq 20 meq PO QAM #10 tabs 03/28/21 10/29/21 Rx tablet,extended release(part/cryst) bumetanide 1 mg tablet 1 mg PO .mwf PRN as directed 06/24/21 10/29/21 History paroxetine HCl 10 mg tablet 10 mg PO DAILY 10/29/21 10/29/21 History Past Med/Surg History Medical History (Updated 10/29/21 @ 21:08 by Siria Sutton DO) Acute on chronic diastolic CHF (congestive heart failure) Anemia Anemia in chronic renal disease Chronic diarrhea Chronic diastolic CHF (congestive heart failure) CKD (chronic kidney disease), stage IV DM type 2 (diabetes mellitus, type 2) Dyslipidemia Glaucoma Gout HTN (hypertension) Hyperparathyroidism, secondary renal Hypertensive nephrosclerosis Hypomagnesemia Hypothyroidism Vitamin D deficiency Surgical History (Updated 10/29/21 @ 20:57 by Siria Sutton DO) History of carpal tunnel surgery of left wrist History of surgery on lower extremity Hx of surgical amputation of finger Hx of tonsillectomy Status post hip surgery R hip nail by Dr. 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 Physical Exam Physical Exam: CONSTITUTIONAL: WNWD, vitals as above, generally well- appearing, NAD EYES: EOMI bilaterally, PERRL, normal conjunctivae, no scleral icterus, no funduscopic abnormality (limited nondilated exam) ENT: external ear and nose normal, oropharynx clear, no TM abnormality, no maxillary or ethmoid sinus tenderness NECK: trachea midline RESPIRATORY: clear to auscultation bilaterally, no crackles, rales or wheezes, normal respiratory effort CARDIOVASCULAR: regular rate and rhythm, S1 and 2 heard without murmurs, gallops or rubs, no JVD, no peripheral edema, no abdominal bruits CHEST: inspection of chest was normal GASTROINTESTINAL: soft, nontender, ND,, no guarding MUSCULOSKELETAL: strength 5/5 throughout, head is normocephalic and atraumatic, SKIN: warm and dry, no rashes NEUROLOGIC: patellar DTRs 2+ bilat. No facial palsy, no dysarthria. Touch, pain and proprioception normal. CN 2-12 grossly intact, no sensory deficit, normal cognition, normal speech, no tremor PSYCHIATRIC: alert cooperative and oriented to person, place and time. Euthymic mood, makes good eye contact, language grossly intact, recent and remote memory grossly intact. Results & Data Results & Data ([facility]) Vital Signs (Past 12 Hours) Vital Signs Temp Pulse Pulse Resp BP BP Pulse Ox 10/29/21 20:00 49 L 20 181/82 H 97 10/29/21 18:00 51 L 16 201/86 H 96 10/29/21 16:33 96 10/29/21 16:33 49 L 21 176/78 H 96 10/29/21 15:09 36.8 C 62 17 197/87 H 95 O2 Del Method 10/29/21 20:00 Room Air 10/29/21 18:00 Room Air 10/29/21 16:33 Room Air 10/29/21 16:33 10/29/21 15:09 Room Air Laboratory Results Short CBC 10/29/21 Range/Units 15:25 WBC 7.35 (4.8-10.8) K/ul Hgb 9.7 L (12.0-16.0) g/dl Hct 30.1 L (34.1-44.9) % Plt Count 238 (130-400) K/uL BMP 10/29/21 15:25 Sodium 140 Potassium 3.2 L Chloride 106 Carbon Dioxide 24 BUN 29 H Creatinine 2.09 H Glucose 142 H Calcium 9.0 Liver Function 10/29/21 Range/Units 15:25 Total Bilirubin 0.4 (0.2-1.0) mg/dl AST 15 (13-39) U/L ALT 9 (7-52) U/L Alkaline Phosphatase 63 (34-104) U/L Albumin 4.1 (3.4-5.0) gm/dl Urine 10/29/21 Range/Units 18:40 Urine Color Yellow Urine Appearance Clear (Clear) Urine pH 5.5 (4.5-7.5) Ur Specific [place] 1.016 (1.000-1.030) Urine Protein 2+ H (Negative) Urine Glucose (UA) Negative (Negative) Diagnostic Findings Chest X-Ray 10/29/21 15:12 XR chest 1V portable CLINICAL HISTORY: Atypical chest pain. COMPARISON STUDY: Chest radiograph March 25, 2021. FINDINGS: No pneumothorax or pleural effusion is identified. Moderate cardiomegaly is unchanged. No evidence for overt pulmonary edema. Old left sixth rib fracture is incidentally noted. No consolidation is present. IMPRESSION: No acute cardiopulmonary findings. Stable cardiomegaly. ACT 112: Negative or not required by law. Electronically signed by: Bradley Loera M.D. 10/29/2021 3:[address] 10/29/21 16:53 CT head/brain wo con CLINICAL HISTORY: Headache Technique: Contiguous axial CT images of the head were acquired from the base of the skull to the vertex without intravenous contrast administration. Images were viewed in brain, subdural and bone windows. Automated dose lowering techniques and/or adjustment according to patient size were utilized for this exam. Comparison: Comparison is made to CT head 03/25/2021 Findings: Areas of decreased attenuation are present in the periventricular and subcortical white matter bilaterally consistent with small vessel ischemic disease. Generalized cerebral atrophy with commensurate enlargement of the ventricles, sulci, and cisterns is also present. There is no acute intracranial hemorrhage or evidence of acute territorial infarction. No shift of the midline structures, mass effect, or extra-axial abnormalities are shown. Atherosclerotic calcifications are present in the intracranial segments of the internal carotid arteries. Imaged portions of the paranasal sinuses and mastoid air cells are clear. The orbits appear normal. There are no acute fractures of the calvaria or scalp swelling. Impression: No acute intracranial hemorrhage, no evidence of acute territorial infarction or other acute intracranial disease process. ACT 112: Negative or not required by law. Electronically signed by: Torsten Gonzales M.D. 10/29/2021 6:00 PM Code Status & VTE Plan VTE Prophylaxis Plan VTE Prophylaxis will be ordered: Yes
[2021-10-29] MEDS ORDERED: hydrALAZINE HCL 20 MG/ML VIAL IV ONE (20:32)
[2021-10-29] MEDS ORDERED: hydrALAZINE HCL 20 MG/ML VIAL IV STA (21:13)
[2021-10-29] MEDS ORDERED: POLYETHYLENE (MIRALAX) 17 GM PACK PO PRN (21:53)
[2021-10-29] MEDS ORDERED: BUMETANIDE 1 MG TAB PO PRN (21:53)
[2021-10-29] MEDS ORDERED: DEXTROSE 50% 50 ML SYRINGE IV PRN (22:31)
[2021-10-29] MEDS ORDERED: GLUCOSE 40% GEL 15 GM TUBE PO PRN (22:31)
[2021-10-29] MEDS ORDERED: GLUCAGON FOR INJ 1 MG VIAL SQ PRN (22:31)
[2021-10-29] MEDS ORDERED: GLUCOSE 10 TAB/TUBE PO PRN (22:31)
[2021-10-29] MEDS ORDERED: CARBOHYDRATES FOR HYPOGLYCEMIA PO PRN (22:31)
--- NOTE | 2021-10-30 00:16 | Emergency Department Note ---
Impression & Plan Hypertensive urgency, Hypomagnesemia, Hypokalemia, Elevated troponin, Headache ED Provider Note NAME: PATRICA SARGENT AGE: 86 SEX: F ARRIVES VIA: Walk-In INFORMANT: Patient, Daughter ED PROVIDER(S): Ramiro Downs MD CHIEF COMPLAINT: Headache, HTN, referred. PLAN: Disposition: Admit MEDICAL DECISION MAKING: The patient is a pleasant 86-year-old woman with a past medical history of hypertension, CKD, diastolic heart failure, diabetes, hypothyroidism who presents emerged department accompanied by her daughter, referred by her PCPs office after being seen today for evaluation of ongoing headache and elevated blood pressure over the past week. She reports associated blurred vision. She denies any lightheadedness, vomiting, diarrhea or urinary symptoms. She denies any cough, congestion or chest pain. She reports she does take her medications as scheduled and denies missing any doses. She reports her blood pressure is typically near normal range. On arrival, the patient is fatigued appearing but in no acute distress, afebrile with blood pressure 190/80s and vital signs otherwise stable. She appears euvolemic to dry. She has no focal neurologic deficits. EKG without overt acute ischemia. CXR negative for acute cardiopulmonary process. WBC and platelets within normal limits. H/H similar to prior. Chemistry without metabolic acidosis. Creatinine 2.09, similar to prior values in setting of CKD. Potassium 3.2 and magnesium 1.5 with repletion provided. LFTs unremarkable. Initial high-sensitivity troponin 35.7 with delta 4-hour high- sensitivity troponin 34.5, essentially unchanged and nonspecific. Lipase within normal limits. TSH is elevated at 11 with free T4 marginally low at 0.43. UA without convincing evidence of infection. Lyme screen is negative. COVID-19 RNA, ZIYAD test was negative. CT of the head without contrast was negative for acute abnormality. Upon reevaluation patient denied any significant change in her headache following IV fluid hydration and APAP. Her blood pressure did remain elevated. Given no altered explanation for the patient's symptoms on the elevated blood pressure we did agree to proceed with admission for further management of hypertensive urgency. Case was discussed with Dr. Sutton, [facility] hospitalist, who will evaluate the patient for admission. IV hydralazine ordered for blood pressure control. Triage Nursing notes reviewed and agree them. Prior medical records reviewed Vital Signs: reviewed and remarkable for hypertension. Differential diagnosis: Migraine headache, meningitis, sinusitis, CO exposure, ICH, SAH, infection, tumor, headache, sinus thrombosis, arterial dissection, as well as other pathologies. ER treatment provided: See below. Diagnostics interpreted by me: ECG: Sinus bradycardia, 54 bpm, no ectopy, right bundle branch block, left anterior fascicular block, no overt ST elevation or depression, QTC 468, QRS 162. Cardiac Monitoring: An order for continuous cardiac monitoring was placed and demonstrated Sinus bradycardia, 54 bpm, no ectopy. Laboratory studies: See below Imaging studies: See below Consultation(s): Dr. Sutton, [facility]ist. HPI: The patient is a pleasant 86-year-old woman with a past medical history of hypertension, CKD, diastolic heart failure, diabetes, hypothyroidism who presents emerged department accompanied by her daughter, referred by her PCPs office after being seen today for evaluation of ongoing headache and elevated blood pressure over the past week. She reports associated blurred vision. She denies any lightheadedness, vomiting, diarrhea or urinary symptoms. She denies any cough, congestion or chest pain. She reports she does take her medications as scheduled and denies missing any doses. She reports her blood pressure is typically near normal range. ROS: See above HPI for pertinent positives & negatives. A total of 10 systems reviewed and were otherwise negative. VITALS:See Below PHYSICAL EXAMINATION: GENERAL: Awake, alert, fatigued-appearing, in no distress HENT: Normocephalic, atraumatic. Oropharynx with dry mucous membranes and otherwise unremarkable. EYES: Normal conjunctiva. Sclera non-icteric. EOMI. No nystamgus. PEARRL. NECK: Supple. No nuchal rigidity. FROM. No JVD. RESPIRATORY: Clear to auscultation. CARDIAC: Regular rate, normal rhythm. Extremities warm and well perfused. Pulses equal. ABDOMEN: Soft, non-distended. No tenderness to palpation. No rebound or guarding. No masses. RECTAL: Deferred. MUSCULOSKELETAL: Chest examination reveals no tenderness. The back is symmetrical on inspection without obvious abnormality. There is no CVA tenderness to palpation. No joint edema. LOWER EXTREMITIES: Calves are equal size bilaterally and non-tender. No edema. No discoloration. NEURO: Normal sensorium. No sensory or motor deficits noted. CN II-XII grossly intact. 5/5 strength and SILT x 4 extremities. Cerebellar function intact including [id number], alternating palms, [id number]. SKIN: No rash or jaundice noted. ED COURSE: Critical Care: I have personally spent greater than 35 minutes of critical care time in the direct management of this patient. This includes bedside care, interpretation of diagnostic studies, and testing, discussion with consultants, patient, and family members, and other required patient management activities. This 35 minutes is in excess of all separately billable procedures. Ramiro Downs MD Past Med/Surg History Medical History Acute on chronic diastolic CHF (congestive heart failure) Anemia Anemia in chronic renal disease Chronic diarrhea Chronic diastolic CHF (congestive heart failure) CKD (chronic kidney disease), stage IV DM type 2 (diabetes mellitus, type 2) Dyslipidemia Glaucoma Gout HTN (hypertension) Hyperparathyroidism, secondary renal Hypertensive nephrosclerosis Hypomagnesemia Hypothyroidism Vitamin D deficiency Surgical History History of carpal tunnel surgery of left wrist History of surgery on lower extremity Hx of surgical amputation of finger Hx of tonsillectomy Status post hip surgery R hip nail by Dr. Rolle 04/09 Family History Mother Colorectal cancer Diabetes Heart disease Hypertension Father Non Hodgkin's lymphoma Sister End stage liver disease Brother ESRD (end stage renal disease) End stage liver disease Social History Smoking Status: Never smoker Hx Alcohol Use: No Hx Substance Use: No Preferred Language: Somali Communication Ability: Effective Appliquer Zigzag Required: No Beliefs That Will Affect Care: None marital status: Unknown Current Living Situation: Alone Current Living Situation Comment: alone with 2 dogs Other Information That Helps Us Care for You: No Feels Safe at Home: Yes Safety Concerns: Feels Safe At This Time Assistive Devices: None Allergies Allergies Allergy/AdvReac Type Severity Reaction Status Date / Time hydrocodone Allergy Intermediate RASH Verified 10/29/21 16:59 Iodinated Contrast Media Allergy Intermediate HIVES Verified 10/29/21 16:59 Penicillins Allergy Intermediate ANAPHLACTIC Verified 10/29/21 16:59 SHOCK phenylephrine Allergy Intermediate Rash, Verified 10/29/21 16:59 insomnia trolamine salicylate Allergy Intermediate RASH Verified 10/29/21 16:59 ketorolac Allergy Mild Unknown Verified 10/29/21 16:59 oxycodone Allergy Mild BRIGHT RED Verified 10/29/21 16:59 RASH tramadol Allergy Mild BRIGHT RED Verified 10/29/21 16:59 RASH prednisone AdvReac Unknown Became Verified 10/29/21 16:59 manic Home Meds Home Medications Medication Instructions Recorded Confirmed atorvastatin 40 mg tablet 40 mg PO DAILY 11/11/18 10/29/21 levothyroxine 100 mcg capsule 100 mcg PO DAILY 01/05/19 10/29/21 allopurinol 100 mg tablet 100 mg PO BID 02/24/20 10/29/21 amlodipine 10 mg tablet 10 mg PO QAM 02/24/20 10/29/21 cholecalciferol (vitamin D3) 10 20 mcg PO DAILY 02/24/20 10/29/21 mcg (400 unit) capsule (Vitamin D3) ferrous sulfate 325 mg (65 mg 325 mg PO BID #60 tabs 12/31/20 10/29/21 iron) tablet latanoprost 0.005 % eye drops 1 drp OPB HS 03/25/21 10/29/21 bumetanide 1 mg tablet 1 mg PO .mwf PRN as directed 06/24/21 10/29/21 lisinopril 40 mg tablet 40 mg PO DAILY 10/29/21 10/29/21 paroxetine HCl 10 mg tablet 10 mg PO DAILY 10/29/21 10/29/21 Previous Rx's Medication Instructions Recorded magnesium oxide 400 mg (241.3 mg 400 mg PO BID #20 tabs 02/28/20 magnesium) tablet metoprolol succinate 25 mg 25 mg PO QAM #30 tabs 02/28/20 tablet,extended release 24 hr acetaminophen 500 mg tablet 1,000 mg PO Q8H PRN fever or pain 03/28/21 (Tylenol Extra Strength) #30 tabs potassium chloride 20 mEq 20 meq PO QAM #10 tabs 03/28/21 tablet,extended release(part/cryst) Results & Data (ED) Vital Signs Vital Signs - 24 hr 10/29/21 15:09 10/29/21 16:33 10/29/21 16:33 Temperature 36.8 C Temperature Source Temporal Artery Scan Pulse Rate 62 Pulse Rate [Apical] 49 L Pulse Rhythm Regular Respiratory Rate 17 21 Respiratory Effort / Characteristics Non-Labored Spontaneous Non-Labored Spontaneous Respiratory Depth Normal Normal Respiratory Pattern Regular Regular Blood Pressure 197/87 H Blood Pressure [Right Arm] 176/78 H Blood Pressure Mean 123 Blood Pressure Mean [Right Arm] 110 Blood Pressure Position Sitting Blood Pressure Position [Right Arm] Pulse Oximetry 95 96 96 Oxygen Delivery Method Room Air Room Air Sepsis Recent Fever Within 48 Hours No Sepsis New/Unexplained Change in Mental Status No Sepsis Action Taken by Nursing No Action Required 10/29/21 18:00 10/29/21 20:00 Temperature Temperature Source Pulse Rate Pulse Rate [Apical] 51 L 49 L Pulse Rhythm Respiratory Rate 16 20 Respiratory Effort / Characteristics Respiratory Depth Respiratory Pattern Blood Pressure Blood Pressure [Right Arm] 201/86 H 181/82 H Blood Pressure Mean Blood Pressure Mean [Right Arm] 124 115 Blood Pressure Position Blood Pressure Position [Right Arm] Sitting Pulse Oximetry 96 97 Oxygen Delivery Method Room Air Room Air Sepsis Recent Fever Within 48 Hours Sepsis New/Unexplained Change in Mental Status Sepsis Action Taken by Nursing Laboratory Data Attestation: I reviewed the patient's lab results. Result diagrams: 10/29/21 15:25 10/29/21 15:25 Lab Results 10/29/21 10/29/21 10/29/21 Range/Units 15:25 15:25 15:25 WBC 7.35 (4.8-10.8) K/ul RBC 3.27 L (3.93-5.22) M/uL Hgb 9.7 L (12.0-16.0) g/dl Hct 30.1 L (34.1-44.9) % MCV 92.0 (80.0-100.0) fL MCH 29.7 (25.0-34.0) pg MCHC 32.2 (32.0-36.0) g/dL RDW Std Deviation 51.7 H (36.4-46.3) fL RDW Coeff of Mague 15.4 H (11.5-14.5) % Plt Count 238 (130-400) K/uL MPV 10.8 (9.4-12.3) fL Immature Gran % (Auto) 0.3 % Neut % (Auto) 68.9 % Lymph % (Auto) 17.7 % [place] % (Auto) 7.5 % Eos % (Auto) 5.3 % Baso % (Auto) 0.3 % Neut # (Auto) 5.07 (1.4-6.5) K/uL Lymph # (Auto) 1.30 (1.2-3.4) K/uL [place] # (Auto) 0.55 (0.24-0.82) K/uL Eos # (Auto) 0.39 (0-0.50) K/uL Baso # (Auto) 0.02 (0-0.2) K/uL Immature Gran # (Auto) 0.02 (0.00-0.02) K/uL PT 11.4 (9.0-12.0) Seconds INR 1.1 (0.9-1.1) APTT 27.5 (21.0-31.0) Seconds PTT Ratio 1.0 Sodium 140 (136-145) mmol/L Potassium 3.2 L (3.5-5.1) mmol/L Chloride 106 (98-107) mmol/L Carbon Dioxide 24 (21-32) mmol/L Anion Gap 10 (3-11) BUN 29 H (6-23) mg/dl Creatinine 2.09 H (0.6-1.2) mg/dl Est Cr Clr Drug Dosing 17.0 ml/min Est GFR ( Amer) 24.4 ml/min Est GFR (Non-Af Amer) 21.1 ml/min BUN/Creatinine Ratio 13.9 (10-20) Glucose 142 H (70-99(Fasting)) mg/dl Calcium 9.0 (8.5-10.1) mg/dl Phosphorus (2.5-4.9) mg/dl Magnesium (1.7-2.4) mg/dl Total Bilirubin 0.4 (0.2-1.0) mg/dl AST 15 (13-39) U/L ALT 9 (7-52) U/L Alkaline Phosphatase 63 (34-104) U/L Troponin I High Sens 35.7 H (0-14) pg/ml Total Protein 7.3 (6.0-8.3) gm/dl Albumin 4.1 (3.4-5.0) gm/dl Globulin 3.2 (2.5-4.0) gm/dl Albumin/Globulin Ratio 1.3 (0.9-2) Lipase 23 (11-82) U/L TSH (0.300-4.500) uIu/ml Free T4 (0.61-1.60) ng/dl Urine Color Urine Appearance (Clear) Urine pH (4.5-7.5) Ur Specific [place] (1.000-1.030) Urine Protein (Negative) Urine Glucose (UA) (Negative) Urine Ketones (Negative) Urine Blood (Negative) Urine Nitrite (Negative) Urine Bilirubin (Negative) Urine Urobilinogen (Negative) Ur Leukocyte Esterase (Negative) Urine WBC (Auto) (0-5) /hpf Urine RBC (Auto) (0-4) /hpf U Hyaline Cast (Auto) (0-5) /lpf U Epithel Cells (Auto) (0-5) /lpf Urine Bacteria (Auto) (Negative) Lyme Disease IgG Ab (Negative) Lyme Disease IgM Ab (Negative) SARS-CoV-2, RNA, NAAT (NEGATIVE) 10/29/21 10/29/21 10/29/21 Range/Units 15:25 15:25 15:25 WBC (4.8-10.8) K/ul RBC (3.93-5.22) M/uL Hgb (12.0-16.0) g/dl Hct (34.1-44.9) % MCV (80.0-100.0) fL MCH (25.0-34.0) pg MCHC (32.0-36.0) g/dL RDW Std Deviation (36.4-46.3) fL RDW Coeff of Mague (11.5-14.5) % Plt Count (130-400) K/uL MPV (9.4-12.3) fL Immature Gran % (Auto) % Neut % (Auto) % Lymph % (Auto) % [place] % (Auto) % Eos % (Auto) % Baso % (Auto) % Neut # (Auto) (1.4-6.5) K/uL Lymph # (Auto) (1.2-3.4) K/uL [place] # (Auto) (0.24-0.82) K/uL Eos # (Auto) (0-0.50) K/uL Baso # (Auto) (0-0.2) K/uL Immature Gran # (Auto) (0.00-0.02) K/uL PT (9.0-12.0) Seconds INR (0.9-1.1) APTT (21.0-31.0) Seconds PTT Ratio Sodium (136-145) mmol/L Potassium (3.5-5.1) mmol/L Chloride (98-107) mmol/L Carbon Dioxide (21-32) mmol/L Anion Gap (3-11) BUN (6-23) mg/dl Creatinine (0.6-1.2) mg/dl Est Cr Clr Drug Dosing ml/min Est GFR ( Amer) ml/min Est GFR (Non-Af Amer) ml/min BUN/Creatinine Ratio (10-20) Glucose (70-99(Fasting)) mg/dl Calcium (8.5-10.1) mg/dl Phosphorus 4.5 (2.5-4.9) mg/dl Magnesium 1.5 L (1.7-2.4) mg/dl Total Bilirubin (0.2-1.0) mg/dl AST (13-39) U/L ALT (7-52) U/L Alkaline Phosphatase (34-104) U/L Troponin I High Sens (0-14) pg/ml Total Protein (6.0-8.3) gm/dl Albumin (3.4-5.0) gm/dl Globulin (2.5-4.0) gm/dl Albumin/Globulin Ratio (0.9-2) Lipase (11-82) U/L TSH 11.242 H (0.300-4.500) uIu/ml Free T4 0.43 L (0.61-1.60) ng/dl Urine Color Urine Appearance (Clear) Urine pH (4.5-7.5) Ur Specific [place] (1.000-1.030) Urine Protein (Negative) Urine Glucose (UA) (Negative) Urine Ketones (Negative) Urine Blood (Negative) Urine Nitrite (Negative) Urine Bilirubin (Negative) Urine Urobilinogen (Negative) Ur Leukocyte Esterase (Negative) Urine WBC (Auto) (0-5) /hpf Urine RBC (Auto) (0-4) /hpf U Hyaline Cast (Auto) (0-5) /lpf U Epithel Cells (Auto) (0-5) /lpf Urine Bacteria (Auto) (Negative) Lyme Disease IgG Ab Negative (Negative) Lyme Disease IgM Ab Negative (Negative) SARS-CoV-2, RNA, NAAT (NEGATIVE) 10/29/21 10/29/21 10/29/21 Range/Units 17:04 18:40 20:04 WBC (4.8-10.8) K/ul RBC (3.93-5.22) M/uL Hgb (12.0-16.0) g/dl Hct (34.1-44.9) % MCV (80.0-100.0) fL MCH (25.0-34.0) pg MCHC (32.0-36.0) g/dL RDW Std Deviation (36.4-46.3) fL RDW Coeff of Mague (11.5-14.5) % Plt Count (130-400) K/uL MPV (9.4-12.3) fL Immature Gran % (Auto) % Neut % (Auto) % Lymph % (Auto) % [place] % (Auto) % Eos % (Auto) % Baso % (Auto) % Neut # (Auto) (1.4-6.5) K/uL Lymph # (Auto) (1.2-3.4) K/uL [place] # (Auto) (0.24-0.82) K/uL Eos # (Auto) (0-0.50) K/uL Baso # (Auto) (0-0.2) K/uL Immature Gran # (Auto) (0.00-0.02) K/uL PT (9.0-12.0) Seconds INR (0.9-1.1) APTT (21.0-31.0) Seconds PTT Ratio Sodium (136-145) mmol/L Potassium (3.5-5.1) mmol/L Chloride (98-107) mmol/L Carbon Dioxide (21-32) mmol/L Anion Gap (3-11) BUN (6-23) mg/dl Creatinine (0.6-1.2) mg/dl Est Cr Clr Drug Dosing ml/min Est GFR ( Amer) ml/min Est GFR (Non-Af Amer) ml/min BUN/Creatinine Ratio (10-20) Glucose (70-99(Fasting)) mg/dl Calcium (8.5-10.1) mg/dl Phosphorus (2.5-4.9) mg/dl Magnesium (1.7-2.4) mg/dl Total Bilirubin (0.2-1.0) mg/dl AST (13-39) U/L ALT (7-52) U/L Alkaline Phosphatase (34-104) U/L Troponin I High Sens 34.5 H (0-14) pg/ml Total Protein (6.0-8.3) gm/dl Albumin (3.4-5.0) gm/dl Globulin (2.5-4.0) gm/dl Albumin/Globulin Ratio (0.9-2) Lipase (11-82) U/L TSH (0.300-4.500) uIu/ml Free T4 (0.61-1.60) ng/dl Urine Color Yellow Urine Appearance Clear (Clear) Urine pH 5.5 (4.5-7.5) Ur Specific [place] 1.016 (1.000-1.030) Urine Protein 2+ H (Negative) Urine Glucose (UA) Negative (Negative) Urine Ketones Negative (Negative) Urine Blood Negative (Negative) Urine Nitrite Negative (Negative) Urine Bilirubin Negative (Negative) Urine Urobilinogen Negative (Negative) Ur Leukocyte Esterase 1+ H (Negative) Urine WBC (Auto) 5-10 H (0-5) /hpf Urine RBC (Auto) 0-4 (0-4) /hpf U Hyaline Cast (Auto) 1-5 (0-5) /lpf U Epithel Cells (Auto) 10-20 H (0-5) /lpf Urine Bacteria (Auto) Negative (Negative) Lyme Disease IgG Ab (Negative) Lyme Disease IgM Ab (Negative) SARS-CoV-2, RNA, NAAT NEGATIVE (NEGATIVE) Administered Medications Insulin Aspart (Insulin Aspart Per Unit) 0 units SC ACHS MICHAEL Stop: 11/28/21 22:34 Last Admin: 10/30/21 00:30 Dose: Not Given Documented By: TASHIA Discontinued Medications Hydralazine HCl (Hydralazine Hcl 20 Mg/Ml Vial) 5 mg IV NOW ONE Stop: 10/29/21 20:33 Last Admin: 10/29/21 20:42 Dose: 5 mg Documented By: GISELLE Hydralazine HCl (Hydralazine Hcl 20 Mg/Ml Vial) 10 mg IV NOW STA Stop: 10/29/21 21:14 Last Admin: 10/29/21 22:01 Dose: 10 mg Documented By: TASHIA Sodium Chloride (Nss) 500 mls @ 999 mls/hr IV .Q31M ONE Stop: 10/29/21 16:48 Last Infusion: 10/29/21 17:05 Dose: 0 mls/hr Documented By: OAMariella Admin: 10/29/21 16:34 Dose: 999 mls/hr Documented By: ARABELLA Acetaminophen (Ofirmev) 1,000 mg in 100 mls @ 400 mls/hr IV NOW STA Stop: 10/29/21 17:07 Last Infusion: 10/29/21 17:38 Dose: 0 mls/hr Documented By: Admin: 10/29/21 16:58 Dose: 400 mls/hr Documented By: ARABELLA Magnesium Sulfate/Dextrose (Magnesium Sulfate / D5w) 1 gm in 100 mls @ 100 mls/hr IV NOW STA Stop: 10/29/21 19:56 Last Infusion: 10/29/21 20:43 Dose: 0 mls/hr Documented By: Admin: 10/29/21 19:37 Dose: 100 mls/hr Documented By: GISELLE Potassium Chloride (Potassium Chloride Crtab 20 Meq Tabcr) 40 meq PO NOW STA Stop: 10/29/21 18:58 Last Admin: 10/29/21 19:36 Dose: 40 meq Documented By: GISELLE Imaging Data Radiologist's Impression: Chest X-Ray 10/29/21 15:12 XR chest 1V portable CLINICAL HISTORY: Atypical chest pain. COMPARISON STUDY: Chest radiograph March 25, 2021. FINDINGS: No pneumothorax or pleural effusion is identified. Moderate cardiomegaly is unchanged. No evidence for overt pulmonary edema. Old left sixth rib fracture is incidentally noted. No consolidation is present. IMPRESSION: No acute cardiopulmonary findings. Stable cardiomegaly. ACT 112: Negative or not required by law. Electronically signed by: Bradley Loera M.D. 10/29/2021 3:[address] 10/29/21 16:53 CT head/brain wo con CLINICAL HISTORY: Headache Technique: Contiguous axial CT images of the head were acquired from the base of the skull to the vertex without intravenous contrast administration. Images were viewed in brain, subdural and bone windows. Automated dose lowering techniques and/or adjustment according to patient size were utilized for this exam. Comparison: Comparison is made to CT head 03/25/2021 Findings: Areas of decreased attenuation are present in the periventricular and subcortical white matter bilaterally consistent with small vessel ischemic disease. Generalized cerebral atrophy with commensurate enlargement of the ventricles, sulci, and cisterns is also present. There is no acute intracranial hemorrhage or evidence of acute territorial infarction. No shift of the midline structures, mass effect, or extra-axial abnormalities are shown. Atherosclerotic calcifications are present in the intracranial segments of the internal carotid arteries. Imaged portions of the paranasal sinuses and mastoid air cells are clear. The orbits appear normal. There are no acute fractures of the calvaria or scalp swelling. Impression: No acute intracranial hemorrhage, no evidence of acute territorial infarction or other acute intracranial disease process. ACT 112: Negative or not required by law. Electronically signed by: Torsten Gonzales M.D. 10/29/2021 6:00 PM Discharge Plan Visit Data Chief Complaint: Referred by Doctor Stated Complaint: REF BY , HIGH BP ED Provider: Ramiro Downs Discharge Problem: Hypertensive urgency, Hypomagnesemia, Hypokalemia, Elevated troponin, Headache Patient Disposition: Admitted As Inpatient Discharge Instructions Interventions: ED Discharge Assessment Last Done: 10/29/21 21:52
[2021-10-30] MEDS: INSULIN ASPART PER UNIT SC SCH ×5 (00:30→19:59)
[2021-10-30 03:03] LABS: Hematocrit (blood only) 27.7 % (34.1-44.9); Hemoglobin 8.9 g/dl (12.0-16.0); Mean Corpuscular Hemoglobin 29.2 pg (25.0-34.0); Mean Corpuscular Hgb Conc 32.1 g/dL (32.0-36.0); Mean Corpuscular Volume 90.8 fL (80.0-100.0); Platelet Count 210 K/uL (130-400); RDW Coefficient of Variation 15.1 % (11.5-14.5); RDW Standard Deviation 50.1 fL (36.4-46.3); Red Blood Count 3.05 M/uL (3.93-5.22); White Blood Count 7.82 K/ul (4.8-10.8)
[2021-10-30 03:32] LABS: BUN Creatinine Ratio 15.9 (10-20); Calcium 8.5 mg/dl (8.5-10.1); Creatinine Clr Calc Pharmacy 21.8 ml/min; Est GFR (African American) 31.3 ml/min; Magnesium 1.6 mg/dl (1.7-2.4); Potassium 3.2 mmol/L (3.5-5.1)
[2021-10-30 03:33] LABS: Troponin I High Sensitivity 34.7 pg/ml (0-14)
[2021-10-30] MEDS: ACETAMINOPHEN 500 MG TAB PO PRN ×2 (05:08→09:19)
[2021-10-30] MEDS: amLODIPine BESYLATE 5 MG TAB PO SCH (05:09)
[2021-10-30] MEDS: LEVOTHYROXINE SODIUM 100 MCG TABLET PO SCH (05:11)
[2021-10-30] MEDS: HEPARIN SOD 5,000 UNIT/0.5 ML VIAL SQ SCH ×3 (05:12→21:00)
[2021-10-30] MEDS: MAGNESIUM OXIDE 400 MG TAB PO SCH ×2 (08:13→19:59)
[2021-10-30] MEDS: CHOLECALCIFEROL 400 UNITS 10 MCG TAB PO SCH (08:13)
[2021-10-30] MEDS: ATORVASTATIN 40 MG TAB PO SCH (08:13)
[2021-10-30] MEDS: POTASSIUM CHLORIDE CRTAB 20 MEQ TABCR PO SCH (08:13)
[2021-10-30] MEDS: allopurinoL 100 MG TAB PO SCH ×2 (08:14→19:59)
[2021-10-30] MEDS ORDERED: POTASSIUM CHLORIDE CRTAB 20 MEQ TABCR PO SCH (09:00)
[2021-10-30] MEDS ORDERED: amLODIPine BESYLATE 5 MG TAB PO SCH (09:00)
--- NOTE | 2021-10-30 09:07 | Ultrasound Report ---
US duplex renal artery CLINICAL HISTORY: concern for secondary hypertension from renal artery stenosis COMPARISON STUDY: Abdomen and pelvis CT 03/25/2021. Duplex renal artery study 06/24/2015. FINDINGS: The right kidney measures 9.5 cm and the left kidney measures 10.0 cm. There is increased c ortical echogenicity bilaterally suggests medical renal disease. There are bilateral renal cysts with the largest on the left measuring 5.7 cm. The bilateral renal veins are patent. Resistive indices of the bilateral renal arcuate arteries measure less than 0.75. Peak systolic velocity within the mid r ight renal artery is 71 cm/s and the distal left renal artery is 51 cm/s. Of note, the proximal right renal artery was obscured from the overlying bowel gas. IMPRESSION: 1. No evidence for renal artery stenosis. 2. Increased cortical echogenicity bilaterally suggesting medical renal disease. 3. Bilateral renal cysts. ACT 112: Negative or not required by law. Electronically signed by: Vick Kim M.D. 10/30/2021 9:06 AM
--- NOTE | 2021-10-30 09:14 | Nephrology Consultation ---
Date of Consultation October 30, 2021 Assessment & Plan (1) Hypertensive urgency: * BP has improved w/ IV hydralazine therapy * Renal artery doppler is negative for NICHOLE * Brain MRI was negative for new ischemic event * Resume lisinopril 40 mg po q AM * Continue amlodipine 10 mg po q am * Stop PRN bumetanide * Suspect patient would benefit from low dose daily diuretic. Will start Chlorthalidone 25 mg po q AM * Monitor BP, PRP (2) CKD (chronic kidney disease) stage 4, GFR 15-29 ml/min: * CKD stage G4/A3 (advanced impairment). Baseline Cr 2.0. Urine sediment - acellular. UPCR 0.8. 10/29/21 renal US revealed mild renal asymmetry. 10/29/21 renal artery doppler was negative for NICHOLE. Renal impairment is due to DKD, hypertensive nephrosclerosis and age (3) Hypokalemia: * Supplementation as per primary service - KCl 40 mEq daily (4) Hypomagnesemia: * Supplementation as per primary service - MagOx 400 mg po BID (5) Anemia in chronic renal disease: * Will order iron studies * Hold SIM at this time due to HTN History of Present Illness Reason for Consultation: Hypertension Attending Physician: Kevin Holliday MD History of Present Illness Ms. Kirby is an 86 year old white female who is seen at the request of the [facility] for evaluation of hypertensive urgency. Medical records in the EMR were reviewed today and are summarized as follows: Ms. Kirby has CKD stage G4/A3 (advanced impairment). Her baseline Cr has been 2.0. Urine sediment has been benign w/ UPCR 0.8. Renal US revealed mild renal asymmetry. Mag-3 flow scan revealed symmetric perfusion. Renal impairment has been attributed to DKD, hypertensive nephrosclerosis and age. Ms. Kirby has longstanding arterial HTN. Previously this has been well controlled. As an outpatient her SBP has been 120 - 150 mm Hg while on amlodipine 10 mg and Ch[place] nopril 40 mg daily. She does have bumetanide 1 mg daily for use as needed for fluid retention or dyspnea but notes that she has not had to take any diuretic over the last 4 weeks. Ms. Kirby reports worsening HTN and LEIGH over the last 7 days. She denies tobacco use, use of cough/cold preparations, alcohol use, excessive salt intake. Ms. Kirby was seen in the EMD 10/29/21 and found to have SBP 200 - 220 mm Hg. She was admitted to the hospitalist service and managed w/ IV hydralazine. Lisinopril was held and renal artery doppler, MRI of the brain ordered. Allergies Allergy/AdvReac Type Severity Reaction Status Date / Time hydrocodone Allergy Intermediate RASH Verified 10/29/21 16:59 Iodinated Contrast Media Allergy Intermediate HIVES Verified 10/29/21 16:59 Penicillins Allergy Intermediate ANAPHLACTIC Verified 10/29/21 16:59 SHOCK phenylephrine Allergy Intermediate Rash, Verified 10/29/21 16:59 insomnia trolamine salicylate Allergy Intermediate RASH Verified 10/29/21 16:59 ketorolac Allergy Mild Unknown Verified 10/29/21 16:59 oxycodone Allergy Mild BRIGHT RED Verified 10/29/21 16:59 RASH tramadol Allergy Mild BRIGHT RED Verified 10/29/21 16:59 RASH prednisone AdvReac Unknown Became Verified 10/29/21 16:59 manic Home Medications Medication Instructions Recorded Confirmed Type atorvastatin 40 mg tablet 40 mg PO DAILY 11/11/18 10/29/21 History levothyroxine 100 mcg capsule 100 mcg PO DAILY 01/05/19 10/29/21 History allopurinol 100 mg tablet 100 mg PO BID 02/24/20 10/29/21 History amlodipine 10 mg tablet 10 mg PO QAM 02/24/20 10/29/21 History cholecalciferol (vitamin D3) 10 20 mcg PO DAILY 02/24/20 10/29/21 History mcg (400 unit) capsule (Vitamin D3) magnesium oxide 400 mg (241.3 mg 400 mg PO BID #20 tabs 02/28/20 10/29/21 Rx magnesium) tablet metoprolol succinate 25 mg 25 mg PO QAM #30 tabs 02/28/20 10/29/21 Rx tablet,extended release 24 hr ferrous sulfate 325 mg (65 mg 325 mg PO BID #60 tabs 12/31/20 10/29/21 History iron) tablet latanoprost 0.005 % eye drops 1 drp OPB HS 03/25/21 10/29/21 History acetaminophen 500 mg tablet 1,000 mg PO Q8H PRN fever or pain 03/28/21 10/29/21 Rx (Tylenol Extra Strength) #30 tabs potassium chloride 20 mEq 20 meq PO QAM #10 tabs 03/28/21 10/29/21 Rx tablet,extended release(part/cryst) bumetanide 1 mg tablet 1 mg PO .mwf PRN as directed 06/24/21 10/29/21 History lisinopril 40 mg tablet 40 mg PO DAILY 10/29/21 10/29/21 History paroxetine HCl 10 mg tablet 10 mg PO DAILY 10/29/21 10/29/21 History Patient History Medical History Acute on chronic diastolic CHF (congestive heart failure) Anemia Anemia in chronic renal disease Chronic diarrhea Chronic diastolic CHF (congestive heart failure) CKD (chronic kidney disease), stage IV DM type 2 (diabetes mellitus, type 2) Dyslipidemia Glaucoma Gout HTN (hypertension) Hyperparathyroidism, secondary renal Hypertensive nephrosclerosis Hypomagnesemia Hypothyroidism Vitamin D deficiency Surgical History History of carpal tunnel surgery of left wrist History of surgery on lower extremity Hx of surgical amputation of finger Hx of tonsillectomy Status post hip surgery R hip nail by Dr. Rolle 04/09 Family History Mother Colorectal cancer Diabetes Heart disease Hypertension Father Non Hodgkin's lymphoma Sister End stage liver disease Brother ESRD (end stage renal disease) End stage liver disease Social History Smoking Status: Never smoker Hx Alcohol Use: No Hx Substance Use: No Preferred Language: Georgian Communication Ability: Effective Camp [employer] Required: No Beliefs That Will Affect Care: None marital status: Unknown Current Living Situation: Alone Current Living Situation Comment: alone with 2 dogs Other Information That Helps Us Care for You: No Feels Safe at Home: Yes Safety Concerns: Feels Safe At This Time Assistive Devices: None Review of Systems Constitutional: no fever Eyes: no problem reported Ear, Nose, Mouth, Throat: no problem reported Respiratory: no dyspnea Cardiovascular: no chest pain Gastrointestinal: no abdominal pain, no vomiting and no diarrhea/loose stools Genitourinary: no dysuria Neurologic: no localized weakness Physical Exam Constitutional: not in distress Eyes: PERRL, conjunctivae normal, anicteric sclerae ENMT: external ear and nose normal, oropharynx normal Neck: trachea midline, no thyromegaly Respiratory: normal respiratory effort, lungs clear to auscultation Cardiovascular: RRR, no murmur, no edema Gastrointestinal (Abdomen): normal bowel sounds, soft, nontender, no hepatosplenomegaly no abdominal bruit auscultated Skin: + turgor decreased Neurologic: nonfocal Results & Data ([facility]) Vital Signs (Past 12 Hours) Vital Signs Temp Pulse Pulse Pulse Resp BP Pulse Ox 10/30/21 08:59 55 L 10/30/21 06:51 36.6 C 55 L 18 193/73 H 98 10/30/21 03:13 36.7 C 50 L 16 184/77 H 94 10/30/21 01:08 51 L 10/30/21 01:01 184/74 H 10/30/21 00:39 36.7 C 48 L 18 227/89 H 97 10/29/21 22:21 46 L O2 Del Method 10/30/21 08:59 10/30/21 06:51 Room Air 10/30/21 03:13 Room Air 10/30/21 01:08 10/30/21 01:01 10/30/21 00:39 Room Air 10/29/21 22:21 Laboratory Results Laboratory Tests 10/29/21 10/30/21 10/30/21 18:40 02:57 02:57 WBC 7.82 Hgb 8.9 L Hct 27.7 L Plt Count 210 Sodium 140 Potassium 3.2 L Chloride 109 H Carbon Dioxide 23 BUN 27 H Creatinine 1.70 H D Glucose 82 Ur Specific Issue 1.016 Urine Protein 2+ H Urine Glucose (UA) Negative Urine Blood Negative Urine WBC (Auto) 5-10 H Urine RBC (Auto) 0-4 Urine Bacteria (Auto) Negative Laboratory Tests 10/30/21 02:57 Magnesium 1.6 L Diagnostic Findings Renal US 10/29/21: R 9.5cm, L 10.0 cm Renal doppler 10/29/21: 1. No evidence for renal artery stenosis. 2. Increased cortical echogenicity bilaterally suggesting medical renal disease. 3. Bilateral renal cysts. 10/29/21 Brain MRI: No acute intracranial abnormality. Patchy areas of T2 hyperintensity seen within the periventricular and subcortical white matter are nonspecific but favor advanced microvascular ischemic change. PG Care Time/CCT Total # of Minutes Spent Total Time Spent with Patient: Total time spent is greater than 50% in coordination of care (as documented) at patient's floor/unit and/or counseling patient: Coding Level of Care Code 96279 Inpt Consult Level 5 Diagnoses Hypertensive urgency I16.0 CKD (chronic kidney disease) stage 4, GFR 15-29 ml/min N18.4 Hypokalemia E87.6 Hypomagnesemia E83.42 Anemia in chronic renal disease N18.9; D63.1
--- NOTE | 2021-10-30 09:33 | XRay Report ---
XR lumbar spine 2-3V CLINICAL HISTORY: Low back pain. COMPARISON STUDY: None. FINDINGS: There is mild dextroscoliosis of the thoracolumbar spine. There is 4 mm of anterolisthesis of L5 on S1. Remaining vertebral bodies are well aligned. No fractures within the lumbar spine. Moder ate to severe facet degenerative changes within the mid to lower lumbar spine. There are severe disc space narrowing at L4-5. There is moderate disc space narrowing at L2-L3, L3-L4, and L5-S1. The visua lized sacrum appears intact. IMPRESSION: 1. No fractures within the lumbar spine. 2. Moderate to severe degenerative changes as described above. 3. Mild dextroscoliosis. ACT 112: Negative or not required by law. Electronically signed by: Vick Kim M.D. 10/30/2021 9:32 AM
--- NOTE | 2021-10-30 10:52 | Magnetic Resonance Report ---
Brain MRI WITHOUT CONTRAST HISTORY: Headache. Hypertension. Slurred speech. Blurred vision. stroke like symptoms TECHNIQUE: Multiplanar multisequence MRI of the brain was performed without the use of contrast. COMPARISON STUDY: Head CT 10/29/2021. FINDINGS: There is no mass, hematoma, midline shift, or acute infarct. The paranasal sinuses are mary r. The mastoid air cells are clear. The ventricles and sulci demonstrate moderate age-related involut ional changes. Patchy areas of T2 hyperintensity seen within the periventricular and subcortical whit e matter are nonspecific but suggestive of advanced microvascular ischemic changes. The major vascula r flow voids at the skull base are well-maintained. Prior bilateral lens replacement. IMPRESSION: No acute intracranial abnormality. Patchy areas of T2 hyperintensity seen within the periventricular and subcortical white matter are nonspecific but favor advanced microvascular ischemic change. ACT 112: Negative or not required by law. Electronically signed by: Vick Kim M.D. 10/30/2021 10:50 AM
[2021-10-30] MEDS: CHLORTHALIDONE 25 MG TAB PO SCH (11:50)
[2021-10-30] MEDS: lisinopril 40 MG TAB PO SCH (11:53)
--- NOTE | 2021-10-30 12:00 | Electrocardiogram Report ---
Test Reason : Blood Pressure : / mmHG Vent. Rate : 054 BPM Atrial Rate : 054 BPM P-R Int : 160 ms QRS Dur : 162 ms QT Int : 494 ms P-R-T Axes : 000 -71 -01 degrees QTc Int : 468 ms Sinus bradycardia Right bundle branch block Left anterior fascicular block Bifascicular block Abnormal ECG When compared with ECG of 25-MAR-2021 10:25, No significant change was found Confirmed by Vic Cano ([id number]) on 10/30/2021 12:00:15 PM Referred By: Confirmed By:Vic Cano
--- NOTE | 2021-10-30 12:27 | Electrocardiogram Report ---
Test Reason : Blood Pressure : / mmHG Vent. Rate : 055 BPM Atrial Rate : 055 BPM P-R Int : 192 ms QRS Dur : 160 ms QT Int : 492 ms P-R-T Axes : 015 -75 -21 degrees QTc Int : 470 ms Sinus bradycardia Right bundle branch block Left anterior fascicular block Bifascicular block Abnormal ECG When compared with ECG of 29-OCT-2021 15:24, (unconfirmed) No significant change was found Confirmed by Vic Cano ([id number]) on 10/30/2021 12:27:21 PM Referred By: Flora Yancey Confirmed By:Vic Cano
[2021-10-30 13:10] LABS: Ferritin 566.1 ng/ml (8-388)
--- NOTE | 2021-10-30 15:41 | Hospitalist Progress Note ---
Date of Service October 30, 2021 Assessment & Plan (1) Hypertensive urgency: Plan: - elevated to >180s/100s on admission with headache - no evidenc of other end organ damage - s/p IV hydralazine in ED - renal doppler US negative for stenosis - MRI brain negative for stroke - restarted on amlodipine, lisinopril - renal consulted - started on chlorthalidone - will monitor response overnight (2) Hypothyroidism: Plan: - chronic, stable. - Cont levothyroxine per home regimen. (3) Hypomagnesemia: Plan: - replacement given in ER and she takes oral supplementation. (4) CKD (chronic kidney disease), stage IV: Plan: - Chronic, renal function appears to be around baseline with creatinine 2.0. - Consult nephrology - continue lisinopril (5) Anemia in chronic renal disease: Plan: - chronic, stable. No need for transfusion at this time. Cont to monitor. (6) Glaucoma: Plan: - continue drops Plan DVT ppx: Heparin SC Code Status: Full Code Dispo: telemetry Kevin Holliday MD [facility] Medicine Admission and Anticipated Discharge Date Admission Date: October 29, 2021 Subjective Patient with HFpEF, CKD, DM2, HLD, HTN, hypothyroidism who presented for headache and found to have elevated BPs on admission. Given IV hydralazine with some improvement. Restarted on amlodipine, lisinopril. Renal consulted, started on chlorthalidone with continued improvement in BP. THe patient reports symptoms have improved today and only has mild headache that responded to tylenol. She denies chest pain, shortness of breath, n/v, cough, blurry vision. Review of Systems Review of Systems: All systems reviewed & are unremarkable except as noted in Subjective All systems were reviewed and negative except as indicated above. Physical Exam Physical Exam: CONSTITUTIONAL: WNWD, vitals as above, generally well- appearing, NAD EYES: EOMI bilaterally, PERRL, normal conjunctivae, no scleral icterus, no funduscopic abnormality (limited nondilated exam) ENT: external ear and nose normal, oropharynx clear, no TM abnormality, no maxillary or ethmoid sinus tenderness NECK: trachea midline RESPIRATORY: clear to auscultation bilaterally, no crackles, rales or wheezes, normal respiratory effort CARDIOVASCULAR: regular rate and rhythm, S1 and 2 heard without murmurs, gallops or rubs, no JVD, no peripheral edema, no abdominal bruits CHEST: inspection of chest was normal GASTROINTESTINAL: soft, nontender, ND,, no guarding MUSCULOSKELETAL: strength 5/5 throughout, head is normocephalic and atraumatic, SKIN: warm and dry, no rashes NEUROLOGIC: patellar DTRs 2+ bilat. No facial palsy, no dysarthria. Touch, pain and proprioception normal. CN 2-12 grossly intact, no sensory deficit, normal cognition, normal speech, no tremor PSYCHIATRIC: alert cooperative and oriented to person, place and time. Euthymic mood, makes good eye contact, language grossly intact, recent and remote memory grossly intact. Results & Data Results & Data ([facility]) Vital Signs (Past 12 Hours) Vital Signs Temp Pulse Pulse Pulse Resp BP Pulse Ox 10/30/21 15:22 36.8 C 59 L 16 162/80 H 95 10/30/21 11:15 37.1 C 57 L 18 112/71 96 10/30/21 09:16 55 L 144/76 H 10/30/21 08:59 55 L 10/30/21 06:51 36.6 C 55 L 18 193/73 H 98 O2 Del Method 10/30/21 15:22 Room Air 10/30/21 11:15 Room Air 10/30/21 09:16 10/30/21 08:59 10/30/21 06:51 Room Air Laboratory Results Short CBC 10/29/21 10/30/21 Range/Units 15:25 02:57 WBC 7.35 7.82 (4.8-10.8) K/ul Hgb 9.7 L 8.9 L (12.0-16.0) g/dl Hct 30.1 L 27.7 L (34.1-44.9) % Plt Count 238 210 (130-400) K/uL BMP 10/29/21 10/30/21 15:25 02:57 Sodium 140 140 Potassium 3.2 L 3.2 L Chloride 106 109 H Carbon Dioxide 24 23 BUN 29 H 27 H Creatinine 2.09 H 1.70 H D Glucose 142 H 82 Calcium 9.0 8.5 Liver Function 10/29/21 Range/Units 15:25 Total Bilirubin 0.4 (0.2-1.0) mg/dl AST 15 (13-39) U/L ALT 9 (7-52) U/L Alkaline Phosphatase 63 (34-104) U/L Albumin 4.1 (3.4-5.0) gm/dl Urine 10/29/21 Range/Units 18:40 Urine Color Yellow Urine Appearance Clear (Clear) Urine pH 5.5 (4.5-7.5) Ur Specific [place] 1.016 (1.000-1.030) Urine Protein 2+ H (Negative) Urine Glucose (UA) Negative (Negative) Diagnostic Findings Brain MRI 10/29/21 21:53 Brain MRI WITHOUT CONTRAST HISTORY: Headache. Hypertension. Slurred speech. Blurred vision. stroke like symptoms TECHNIQUE: Multiplanar multisequence MRI of the brain was performed without the use of contrast. COMPARISON STUDY: Head CT 10/29/2021. FINDINGS: There is no mass, hematoma, midline shift, or acute infarct. The paranasal sinuses are clear. The mastoid air cells are clear. The ventricles and sulci demonstrate moderate age-related involutional changes. Patchy areas of T2 hyperintensity seen within the periventricular and subcortical white matter are nonspecific but suggestive of advanced microvascular ischemic changes. The major vascular flow voids at the skull base are well-maintained. Prior bilateral lens replacement. IMPRESSION: No acute intracranial abnormality. Patchy areas of T2 hyperintensity seen within the periventricular and subcortical white matter are nonspecific but favor advanced microvascular ischemic change. ACT 112: Negative or not required by law. Electronically signed by: Vick Kim M.D. 10/30/2021 10:50 AM Renal Artery Duplex 10/29/21 21:53 US duplex renal artery CLINICAL HISTORY: concern for secondary hypertension from renal artery stenosis COMPARISON STUDY: Abdomen and pelvis CT 03/25/2021. Duplex renal artery study 06/24/2015. FINDINGS: The right kidney measures 9.5 cm and the left kidney measures 10.0 cm. There is increased cortical echogenicity bilaterally suggests medical renal disease. There are bilateral renal cysts with the largest on the left measuring 5.7 cm. The bilateral renal veins are patent. Resistive indices of the bilateral renal arcuate arteries measure less than 0.75. Peak systolic velocity within the mid right renal artery is 71 cm/s and the distal left renal artery is 51 cm/s. Of note, the proximal right renal artery was obscured from the overlying bowel gas. IMPRESSION: 1. No evidence for renal artery stenosis. 2. Increased cortical echogenicity bilaterally suggesting medical renal disease. 3. Bilateral renal cysts. ACT 112: Negative or not required by law. Electronically signed by: Vick Kim M.D. 10/30/2021 9:06 AM Lumbar Spine X-Ray 10/30/21 07:00 XR lumbar spine 2-3V CLINICAL HISTORY: Low back pain. COMPARISON STUDY: None. FINDINGS: There is mild dextroscoliosis of the thoracolumbar spine. There is 4 mm of anterolisthesis of L5 on S1. Remaining vertebral bodies are well aligned. No fractures within the lumbar spine. Moderate to severe facet degenerative changes within the mid to lower lumbar spine. There are severe disc space narrowing at L4-5. There is moderate disc space narrowing at L2-L3, L3-L4, and L5-S1. The visualized sacrum appears intact. IMPRESSION: 1. No fractures within the lumbar spine. 2. Moderate to severe degenerative changes as described above. 3. Mild dextroscoliosis. ACT 112: Negative or not required by law. Electronically signed by: Vick Kim M.D. 10/30/2021 9:32 AM Medications Administered Current Inpatient Medications Acetaminophen (Acetaminophen 500 Mg Tab) 1,000 mg PO Q8H PRN PRN Reason: fever or pain Stop: 11/28/21 21:52 Last Admin: 10/30/21 09:19 Dose: 1,000 mg Allopurinol (Allopurinol 100 Mg Tab) 100 mg PO BID MICHAEL Stop: 11/29/21 08:59 Last Admin: 10/30/21 08:14 Dose: 100 mg Amlodipine Besylate (Amlodipine Besylate 5 Mg Tab) 10 mg PO QAM MICHAEL Stop: 11/29/21 03:39 Last Admin: 10/30/21 05:09 Dose: 10 mg Atorvastatin Calcium (Atorvastatin 40 Mg Tab) 40 mg PO DAILY MICHAEL Stop: 11/29/21 08:59 Last Admin: 10/30/21 08:13 Dose: 40 mg Chlorthalidone (Chlorthalidone 25 Mg Tab) 25 mg PO QAM MICHAEL Stop: 11/29/21 10:14 Last Admin: 10/30/21 11:50 Dose: 25 mg Dextrose (Dextrose 50% 50 Ml Syringe) 25 - 50 ml IV UD PRN; Protocol PRN Reason: Hypoglycemia Protocol Stop: 11/28/21 22:30 Glucagon (Glucagon For Inj 1 Mg Vial) 1 mg SQ UD PRN; Protocol PRN Reason: Hypoglycemia Protocol Stop: 11/28/21 22:30 Glucose (Glucose 40% Gel 15 Gm Tube) 15 - 30 gm PO UD PRN; Protocol PRN Reason: Hypoglycemia Protocol Stop: 11/28/21 22:30 Glucose (Glucose 10 Tab/Tube) 4 - 8 tab PO UD PRN; Protocol PRN Reason: Hypoglycemia Treatment Stop: 11/28/21 22:30 Heparin Sodium (Porcine) (Heparin Sod 5,000 Unit/0.5 Ml Vial) 5,000 units SQ Q8 MICHAEL Stop: 11/29/21 05:59 Last Admin: 10/30/21 05:12 Dose: 5,000 units Insulin Aspart (Insulin Aspart Per Unit) 0 units SC ACHS MICHAEL Stop: 11/28/21 22:34 Last Admin: 10/30/21 13:02 Dose: Not Given Latanoprost (Latanoprost 0.005% Op Soln 2.5 Ml Btl) 1 drops OPB [facility] Stop: 11/29/21 20:59 Levothyroxine Sodium (Levothyroxine Sodium 100 Mcg Tablet) 100 mcg PO DAILYBB MICHAEL Stop: 11/29/21 06:29 Last Admin: 10/30/21 05:11 Dose: 100 mcg Lisinopril (Lisinopril 40 Mg Tab) 40 mg PO QAM MICHAEL Stop: 11/29/21 11:14 Last Admin: 10/30/21 11:53 Dose: 40 mg Magnesium Oxide (Magnesium Oxide 400 Mg Tab) 400 mg PO BID MICHAEL Stop: 11/29/21 08:59 Last Admin: 10/30/21 08:13 Dose: 400 mg Miscellaneous (Carbohydrates For Hypoglycemia ) 15 - 30 gm PO UD PRN PRN Reason: Hypoglycemia Protocol Stop: 11/28/21 22:30 Polyethylene Glycol (Polyethylene (Miralax) 17 Gm Pack) 17 gm PO DAILY PRN PRN Reason: Constipation Stop: 11/28/21 21:52 Potassium Chloride (Potassium Chloride Crtab 20 Meq Tabcr) 40 meq PO QAM MICHAEL Stop: 11/29/21 08:59 Last Admin: 10/30/21 08:13 Dose: 40 meq Vitamin D (Cholecalciferol 400 Units 10 Mcg Tab) 800 units PO DAILY MICHAEL Stop: 11/29/21 08:59 Last Admin: 10/30/21 08:13 Dose: 800 units
[2021-10-30] MEDS: LATANOPROST 0.005% OP SOLN 2.5 ML BTL OPB SCH (19:59)
[2021-10-31] MEDS: HEPARIN SOD 5,000 UNIT/0.5 ML VIAL SQ SCH ×3 (05:35→21:51)
[2021-10-31] MEDS: LEVOTHYROXINE SODIUM 100 MCG TABLET PO SCH (05:36)
[2021-10-31 07:16] LABS: BUN Creatinine Ratio 19.4 (10-20); Calcium 8.8 mg/dl (8.5-10.1); Creatinine Clr Calc Pharmacy 20.6 ml/min; Est GFR (African American) 29.2 ml/min; Est GFR (Non-African American) 25.2 ml/min; Magnesium 1.7 mg/dl (1.7-2.4); Potassium 3.8 mmol/L (3.5-5.1)
[2021-10-31] MEDS: INSULIN ASPART PER UNIT SC SCH ×4 (08:01→20:44)
[2021-10-31] MEDS: lisinopril 40 MG TAB PO SCH (08:02)
[2021-10-31] MEDS: CHLORTHALIDONE 25 MG TAB PO SCH (08:02)
[2021-10-31] MEDS: POTASSIUM CHLORIDE CRTAB 20 MEQ TABCR PO SCH (08:02)
[2021-10-31] MEDS: MAGNESIUM OXIDE 400 MG TAB PO SCH ×2 (08:02→20:02)
[2021-10-31] MEDS: allopurinoL 100 MG TAB PO SCH ×2 (08:02→20:02)
[2021-10-31] MEDS: amLODIPine BESYLATE 5 MG TAB PO SCH (08:03)
[2021-10-31] MEDS: CHOLECALCIFEROL 400 UNITS 10 MCG TAB PO SCH (08:03)
[2021-10-31] MEDS: ATORVASTATIN 40 MG TAB PO SCH (08:03)
--- NOTE | 2021-10-31 08:47 | Nephrology Progress Note ---
Date of Service October 31, 2021 Assessment & Plan (1) Hypertensive urgency: Plan: * BP remains elevated while on TIFFANY, CCB, thiazide * Renal artery doppler is negative for NICHOLE * Brain MRI was negative for new ischemic event * Continue lisinopril 40 mg po q AM * Continue amlodipine 10 mg po q am * Stop chlorthalidone * Start spironolactone/HCTZ 25/25 mg BID * Monitor BP, PRP (2) CKD (chronic kidney disease) stage 4, GFR 15-29 ml/min: Plan: * CKD stage G4/A3 (advanced impairment). Baseline Cr 2.0. Urine sediment - acellular. UPCR 0.8. 10/29/21 renal US revealed mild renal asymmetry. 10/29/21 renal artery doppler was negative for NICHOLE. Renal impairment is due to DKD, hypertensive nephrosclerosis and age (3) Hypokalemia: Plan: * Stop KCl supplement due to use of spironolactone (4) Hypomagnesemia: Plan: * Supplementation as per primary service - MagOx 400 mg po BID (5) Anemia in chronic renal disease: Plan: * Iron studies are acceptable * Hold SIM at this time due to HTN Admission and Anticipated Discharge Date Admission Date: October 29, 2021 Subjective Ms. Kirby was evaluated in her hospital room this morning. SBP was 150 - 180 mm Hg while on TIFFANY, CCB, and thiazide. She denies LEIGH, angina or uremic symptoms Review of Systems Constitutional: no fever Eyes: no problem reported Ear, Nose, Mouth, Throat: no problem reported Respiratory: no dyspnea Cardiovascular: no chest pain Gastrointestinal: no abdominal pain, no vomiting and no diarrhea/loose stools Genitourinary: no dysuria Neurologic: no localized weakness Physical Exam Constitutional: not in distress Eyes: PERRL, conjunctivae normal, anicteric sclerae ENMT: external ear and nose normal, oropharynx normal Neck: trachea midline, no thyromegaly Respiratory: normal respiratory effort, lungs clear to auscultation Cardiovascular: RRR, no murmur, no edema Gastrointestinal (Abdomen): normal bowel sounds, soft, nontender, no hepatosplenomegaly Skin: + turgor decreased Results & Data ([facility]) Vital Signs (Past 12 Hours) Vital Signs Temp Pulse Pulse Resp BP Pulse Ox 10/31/21 07:47 55 L 10/31/21 07:05 36.5 C 61 18 186/80 H 95 10/31/21 03:05 36.6 C 72 20 161/79 H 99 10/31/21 03:56 62 10/30/21 23:16 36.6 C 64 18 172/87 H 96 Laboratory Results Laboratory Tests 10/31/21 06:02 Sodium 139 Potassium 3.8 Chloride 110 H Carbon Dioxide 22 BUN 35 H Creatinine 1.80 H Est GFR (Non-Af Amer) 25.2 Glucose 75 Laboratory Tests 10/30/21 11:30 Transferrin % Sat 23 Ferritin 566.1 H PG Care Time/CCT Total # of Minutes Spent Total Time Spent with Patient: Total time spent is greater than 50% in coordination of care (as documented) at patient's floor/unit and/or counseling patient: Coding Level of Care Code 24231 Subseq Hosp Care Lvl 3 Diagnoses Hypertensive urgency I16.0 CKD (chronic kidney disease) stage 4, GFR 15-29 ml/min N18.4 Hypokalemia E87.6 Hypomagnesemia E83.42 Anemia in chronic renal disease N18.9; D63.1
[2021-10-31] MEDS ORDERED: SPIRONOLACTONE/HCTZ 25-25 PO SCH (09:00)
--- NOTE | 2021-10-31 12:02 | Hospitalist Progress Note ---
Date of Service October 31, 2021 Assessment & Plan (1) Hypertensive urgency: Plan: - elevated to >180s/100s on admission with headache - no evidenc of other end organ damage - s/p IV hydralazine in ED - renal doppler US negative for stenosis - MRI brain negative for stroke - restarted on amlodipine, lisinopril - renal consulted - started on chlorthalidone initially but BP not controlled and switched to spironalactone and HCTZ - monitor electrolytes - will monitor response overnight (2) Hypothyroidism: Plan: - TSH high and Ft4 low without much symptoms - Cont levothyroxine per home regimen. - will arrange outpatient Endo follow up for further management given age and comorbidities (3) Hypomagnesemia: Plan: - replacement given in ER and she takes oral supplementation. (4) CKD (chronic kidney disease), stage IV: Plan: - Chronic, renal function appears to be around baseline with creatinine 2.0. - Consult nephrology - continue lisinopril (5) Anemia in chronic renal disease: Plan: - chronic, stable. No need for transfusion at this time. Cont to monitor. (6) Glaucoma: Plan: - continue drops Plan DVT ppx: Heparin SC Code Status: Full Code Dispo: telemetry Kevin Holliday MD Hospital Medicine Admission and Anticipated Discharge Date Admission Date: October 29, 2021 Subjective Patient with HFpEF, CKD, DM2, HLD, HTN, hypothyroidism who presented for headache and found to have elevated BPs on admission. Given IV hydralazine with some improvement. Restarted on amlodipine, lisinopril. Renal consulted, started on chlorthalidone with continued improvement in BP. The patient still with very mild headache but improving. She denies chest pain, shortness of breath, n/v, cough, blurry vision. Review of Systems Review of Systems: All systems were reviewed and negative except as indicated above. Physical Exam Physical Exam: CONSTITUTIONAL: WNWD, vitals as above, generally well- appearing, NAD EYES: EOMI bilaterally, PERRL, normal conjunctivae, no scleral icterus, no funduscopic abnormality (limited nondilated exam) ENT: external ear and nose normal, oropharynx clear, no TM abnormality, no maxillary or ethmoid sinus tenderness NECK: trachea midline RESPIRATORY: clear to auscultation bilaterally, no crackles, rales or wheezes, normal respiratory effort CARDIOVASCULAR: regular rate and rhythm, S1 and 2 heard without murmurs, g allops or rubs, no JVD, no peripheral edema, no abdominal bruits CHEST: inspection of chest was normal GASTROINTESTINAL: soft, nontender, ND,, no guarding MUSCULOSKELETAL: strength 5/5 throughout, head is normocephalic and atraumatic, SKIN: warm and dry, no rashes NEUROLOGIC: patellar DTRs 2+ bilat. No facial palsy, no dysarthria. Touch, pain and proprioception normal. CN 2-12 grossly intact, no sensory deficit, normal cognition, normal speech, no tremor PSYCHIATRIC: alert cooperative and oriented to person, place and time. Euthymic mood, makes good eye contact, language grossly intact, recent and remote memory grossly intact. Results & Data Results & Data ([facility]) Vital Signs (Past 12 Hours) Vital Signs Temp Pulse Pulse Resp BP Pulse Ox O2 Del Method 10/31/21 11:56 36.7 C 79 18 159/79 H 97 Room Air 10/31/21 07:47 55 L 10/31/21 07:05 36.5 C 61 18 186/80 H 95 10/31/21 03:05 36.6 C 72 20 161/79 H 99 10/31/21 03:56 62 Laboratory Results BMP 10/31/21 06:02 Sodium 139 Potassium 3.8 Chloride 110 H Carbon Dioxide 22 BUN 35 H Creatinine 1.80 H Glucose 75 Calcium 8.8 Diagnostic Findings reviewed Medications Administered Current Inpatient Medications Acetaminophen (Acetaminophen 500 Mg Tab) 1,000 mg PO Q8H PRN PRN Reason: fever or pain Stop: 11/28/21 21:52 Last Admin: 10/30/21 09:19 Dose: 1,000 mg Allopurinol (Allopurinol 100 Mg Tab) 100 mg PO BID MICHAEL Stop: 11/29/21 08:59 Last Admin: 10/31/21 08:02 Dose: 100 mg Amlodipine Besylate (Amlodipine Besylate 5 Mg Tab) 10 mg PO QAM MICHAEL Stop: 11/29/21 03:39 Last Admin: 10/31/21 08:03 Dose: 10 mg Atorvastatin Calcium (Atorvastatin 40 Mg Tab) 40 mg PO DAILY MICHAEL Stop: 11/29/21 08:59 Last Admin: 10/31/21 08:03 Dose: 40 mg Dextrose (Dextrose 50% 50 Ml Syringe) 25 - 50 ml IV UD PRN; Protocol PRN Reason: Hypoglycemia Protocol Stop: 11/28/21 22:30 Glucagon (Glucagon For Inj 1 Mg Vial) 1 mg SQ UD PRN; Protocol PRN Reason: Hypoglycemia Protocol Stop: 11/28/21 22:30 Glucose (Glucose 40% Gel 15 Gm Tube) 15 - 30 gm PO UD PRN; Protocol PRN Reason: Hypoglycemia Protocol Stop: 11/28/21 22:30 Glucose (Glucose 10 Tab/Tube) 4 - 8 tab PO UD PRN; Protocol PRN Reason: Hypoglycemia Treatment Stop: 11/28/21 22:30 HCTZ/Spironolactone (Spironolactone/Hctz 25-25) 1 tab PO BID MICHAEL Stop: 11/30/21 20:59 Heparin Sodium (Porcine) (Heparin Sod 5,000 Unit/0.5 Ml Vial) 5,000 units SQ Q8 MICHAEL Stop: 11/29/21 05:59 Last Admin: 10/31/21 05:35 Dose: 5,000 units Insulin Aspart (Insulin Aspart Per Unit) 0 units SC ACHS MICHAEL Stop: 11/28/21 22:34 Last Admin: 10/31/21 08:01 Dose: Not Given Latanoprost (Latanoprost 0.005% Op Soln 2.5 Ml Btl) 1 drops OPB HS MICHAEL Stop: 11/29/21 20:59 Last Admin: 10/30/21 19:59 Dose: 1 drops Levothyroxine Sodium (Levothyroxine Sodium 100 Mcg Tablet) 100 mcg PO DAILYBB MICHAEL Stop: 11/29/21 06:29 Last Admin: 10/31/21 05:36 Dose: 100 mcg Lisinopril (Lisinopril 40 Mg Tab) 40 mg PO QAM MICHAEL Stop: 11/29/21 11:14 Last Admin: 10/31/21 08:02 Dose: 40 mg Magnesium Oxide (Magnesium Oxide 400 Mg Tab) 400 mg PO BID MICHAEL Stop: 11/29/21 08:59 Last Admin: 10/31/21 08:02 Dose: 400 mg Miscellaneous (Carbohydrates For Hypoglycemia ) 15 - 30 gm PO UD PRN PRN Reason: Hypoglycemia Protocol Stop: 11/28/21 22:30 Polyethylene Glycol (Polyethylene (Miralax) 17 Gm Pack) 17 gm PO DAILY PRN PRN Reason: Constipation Stop: 11/28/21 21:52 Vitamin D (Cholecalciferol 400 Units 10 Mcg Tab) 800 units PO DAILY MICHAEL Stop: 11/29/21 08:59 Last Admin: 10/31/21 08:03 Dose: 800 units
[2021-10-31] MEDS: LATANOPROST 0.005% OP SOLN 2.5 ML BTL OPB SCH (20:01)
[2021-10-31] MEDS: SPIRONOLACTONE/HCTZ 25-25 PO SCH (20:01)
--- NOTE | 2021-10-31 21:53 | Electrocardiogram Report ---
Test Reason : Blood Pressure : / mmHG Vent. Rate : 059 BPM Atrial Rate : 059 BPM P-R Int : 192 ms QRS Dur : 154 ms QT Int : 488 ms P-R-T Axes : 088 -75 -07 degrees QTc Int : 483 ms Sinus bradycardia Right bundle branch block Left anterior fascicular block Bifascicular block Abnormal ECG When compared with ECG of 30-OCT-2021 05:02, No significant change was found Confirmed by Evaristo Maldonado ([id number]) on 10/31/2021 9:52:55 PM Referred By: Flora Yancey Confirmed By:Evaristo Maldonado
[2021-11-01] MEDS: HEPARIN SOD 5,000 UNIT/0.5 ML VIAL SQ SCH ×2 (05:19→16:06)
[2021-11-01] MEDS: LEVOTHYROXINE SODIUM 100 MCG TABLET PO SCH (05:41)
[2021-11-01] MEDS: INSULIN ASPART PER UNIT SC SCH ×2 (07:46→12:18)
[2021-11-01 08:51] LABS: BUN Creatinine Ratio 21.6 (10-20); Est GFR (African American) 28.3 ml/min; Est GFR (Non-African American) 24.4 ml/min; Magnesium 1.7 mg/dl (1.7-2.4); Phosphorus 3.3 mg/dl (2.5-4.9); Potassium 4.4 mmol/L (3.5-5.1)
[2021-11-01] MEDS: allopurinoL 100 MG TAB PO SCH (09:35)
[2021-11-01] MEDS: lisinopril 40 MG TAB PO SCH (09:35)
[2021-11-01] MEDS: ATORVASTATIN 40 MG TAB PO SCH (09:35)
[2021-11-01] MEDS: CHOLECALCIFEROL 400 UNITS 10 MCG TAB PO SCH (09:35)
[2021-11-01] MEDS: MAGNESIUM OXIDE 400 MG TAB PO SCH (09:35)
[2021-11-01] MEDS: amLODIPine BESYLATE 5 MG TAB PO SCH (09:35)
[2021-11-01] MEDS: SPIRONOLACTONE/HCTZ 25-25 PO SCH (09:35)
--- NOTE | 2021-11-01 11:07 | Nephrology Progress Note ---
Date of Service November 01, 2021 Assessment & Plan (1) Hypertensive urgency: Plan: * BP improved following addition of spironolactone/HCTZ 25/25 mg po BID to current medical regimen * Renal artery doppler is negative for NICHOLE * Brain MRI was negative for new ischemic event * Continue lisinopril 40 mg po q AM * Continue amlodipine 10 mg po q am * Continue spironolactone/HCTZ 25/25 mg BID * If discharge is anticipated, please advise patient to keep her Nephrology office visit that was previously scheduled w/ Dr. Merida in November (2) CKD (chronic kidney disease) stage 4, GFR 15-29 ml/min: Plan: * CKD stage G4/A3 (advanced impairment). Baseline Cr 2.0. Urine sediment - acellular. UPCR 0.8. 10/29/21 renal US revealed mild renal asymmetry. 10/29/21 renal artery doppler was negative for NICHOLE. Renal impairment is due to DKD, hypertensive nephrosclerosis and age (3) Hypokalemia: Plan: * Stop KCl supplement due to use of spironolactone (4) Hypomagnesemia: Plan: * Supplementation as per primary service - MagOx 400 mg po BID (5) Anemia in chronic renal disease: Plan: * Iron studies are acceptable * Hold SIM at this time due to HTN Admission and Anticipated Discharge Date Admission Date: October 29, 2021 Subjective Ms. Kirby was evaluated in her hospital room this morning. SBP was 150 - 170 mm Hg last 24 hours. She reports no side effects related to her current antihypertensive regimen Review of Systems Constitutional: no fever Eyes: no problem reported Ear, Nose, Mouth, Throat: no problem reported Respiratory: no dyspnea Cardiovascular: no chest pain Gastrointestinal: no abdominal pain, no vomiting and no diarrhea/loose stools Genitourinary: no dysuria Neurologic: no localized weakness Physical Exam Constitutional: not in distress Eyes: PERRL, conjunctivae normal, anicteric sclerae ENMT: external ear and nose normal, oropharynx normal Neck: trachea midline, no thyromegaly Respiratory: normal respiratory effort, lungs clear to auscultation Cardiovascular: RRR, no murmur, no edema Gastrointestinal (Abdomen): normal bowel sounds, soft, nontender, no hepatosplenomegaly Skin: + turgor decreased Results & Data ([facility]) Vital Signs (Past 12 Hours) Vital Signs Temp Pulse Pulse Resp BP Pulse Ox O2 Del Method 11/01/21 10:26 62 11/01/21 10:26 Room Air 11/01/21 07:07 36.7 C 57 L 16 151/73 H 95 Room Air 11/01/21 03:57 36.9 C 56 L 16 171/72 H 94 Room Air 11/01/21 01:43 60 Laboratory Results Laboratory Tests 10/30/21 11/01/21 02:57 07:22 WBC 7.82 Hgb 8.9 L Hct 27.7 L Plt Count 210 Sodium 138 Potassium 4.4 Chloride 110 H Carbon Dioxide 22 BUN 40 H Creatinine 1.85 H Glucose 77 Calcium 9.0 Phosphorus 3.3 Magnesium 1.7 PG Care Time/CCT Total # of Minutes Spent Total Time Spent with Patient: Total time spent is greater than 50% in coordination of care (as documented) at patient's floor/unit and/or counseling patient: Coding Level of Care Code 04486 Subseq Hosp Care Lvl 3 Diagnoses Hypertensive urgency I16.0 CKD (chronic kidney disease) stage 4, GFR 15-29 ml/min N18.4 Hypokalemia E87.6 Hypomagnesemia E83.42 Anemia in chronic renal disease N18.9; D63.1
--- NOTE | 2021-11-01 14:37 | Discharge Summary ---
Date of Service November 01, 2021 Admission HPI Per Admitting Provider 86 yo F presented to the ER with LEIGH reported for one week and elevated blood pressure readings at home. She was seen by PCP office today and referred to the ER. The BP at that time was 182/80. She reported BP at home 200+/100+. Slurred speech reported earlier this week. Back pain reported for the past couple of months which has been getting progressively worse. +LEIGH in frontal area, non radiating blurry vision in her left eye usually has no issues issues with slurred speech this week and difficulty with word finding-not currently present denies chest pressure but states "every now and then I might get a couple of flutters for a few seconds and then gone." declines acute SOB denies UTI symptoms reports chronic diarrhea Admission Exam Per Admitting Provider CONSTITUTIONAL: WNWD, vitals as above, generally well-appearing, NAD EYES: EOMI bilaterally, PERRL, normal conjunctivae, no scleral icterus, no funduscopic abnormality (limited nondilated exam) ENT: external ear and nose normal, oropharynx clear, no TM abnormality, no maxillary or ethmoid sinus tenderness NECK: trachea midline RESPIRATORY: clear to auscultation bilaterally, no crackles, rales or wheezes, normal respiratory effort CARDIOVASCULAR: regular rate and rhythm, S1 and 2 heard without murmurs, gallops or rubs, no JVD, no peripheral edema, no abdominal bruits CHEST: inspection of chest was normal GASTROINTESTINAL: soft, nontender, ND,, no guarding MUSCULOSKELETAL: strength 5/5 throughout, head is normocephalic and atraumatic, SKIN: warm and dry, no rashes NEUROLOGIC: patellar DTRs 2+ bilat. No facial palsy, no dysarthria. Touch, pain and proprioception normal. CN 2-12 grossly intact, no sensory deficit, normal cognition, normal speech, no tremor PSYCHIATRIC: alert cooperative and oriented to person, place and time. Euthymic mood, makes good eye contact, language grossly intact, recent and remote memory grossly intact. Principal Diagnosis hypertension Discharge Exam CONSTITUTIONAL: WNWD, vitals as above, generally well-appearing, NAD EYES: EOMI bilaterally, PERRL, normal conjunctivae, no scleral icterus, no funduscopic abnormality (limited nondilated exam) ENT: external ear and nose normal, oropharynx clear, no TM abnormality, no maxillary or ethmoid sinus tenderness NECK: trachea midline RESPIRATORY: clear to auscultation bilaterally, no crackles, rales or wheezes, normal respiratory effort CARDIOVASCULAR: regular rate and rhythm, S1 and 2 heard without murmurs, gallops or rubs, no JVD, no peripheral edema, no abdominal bruits CHEST: inspection of chest was normal GASTROINTESTINAL: soft, nontender, ND,, no guarding MUSCULOSKELETAL: strength 5/5 throughout, head is normocephalic and atraumatic, SKIN: warm and dry, no rashes NEUROLOGIC: patellar DTRs 2+ bilat. No facial palsy, no dysarthria. Touch, pain and proprioception normal. CN 2-12 grossly intact, no sensory deficit, normal cognition, normal speech, no tremor PSYCHIATRIC: alert cooperative and oriented to person, place and time. Euthymi c mood, makes good eye contact, language grossly intact, recent and remote memory grossly intact. Discharge Data Allergies Allergy/AdvReac Type Severity Reaction Status Date / Time hydrocodone Allergy Intermediate RASH Verified 10/29/21 16:59 Iodinated Contrast Media Allergy Intermediate HIVES Verified 10/29/21 16:59 Penicillins Allergy Intermediate ANAPHLACTIC Verified 10/29/21 16:59 SHOCK phenylephrine Allergy Intermediate Rash, Verified 10/29/21 16:59 insomnia trolamine salicylate Allergy Intermediate RASH Verified 10/29/21 16:59 ketorolac Allergy Mild Unknown Verified 10/29/21 16:59 oxycodone Allergy Mild BRIGHT RED Verified 10/29/21 16:59 RASH tramadol Allergy Mild BRIGHT RED Verified 10/29/21 16:59 RASH prednisone AdvReac Unknown Became Verified 10/29/21 16:59 manic Consultations 10/29/21 19:49 ED Decision to Admit Stat 10/29/21 21:53 Consult Nephrology Routine Ordered Studies 10/29/21 16:53 CT head/brain wo con Stat 10/29/21 21:53 MR brain wo con Routine US doppler renal [US duplex renal artery] Routine Hospital Course (1) Hypertensive urgency: - elevated to >180s/100s on admission with headache - no evidenc of other end organ damage - s/p IV hydralazine in ED - renal doppler US negative for stenosis - MRI brain negative for stroke - restarted on amlodipine, lisinopril - renal consulted - started on chlorthalidone initially but BP not controlled and switched to spironolactone and HCTZ - monitor electrolytes - patients BP responded well to HCTZ/spironolactone - renal ok with discharge and follow up with brim greaser operator in 11/2021 at previously scheduled appointment (2) Hypothyroidism: - TSH high and Ft4 low without much symptoms - Cont levothyroxine per home regimen. - will arrange outpatient Endo follow up for further management given age and comorbidities (3) Hypomagnesemia: - replacement given in ER and she takes oral supplementation. (4) CKD (chronic kidney disease), stage IV: - Chronic, renal function appears to be around baseline with creatinine 2.0. - Consult nephrology - continue lisinopril (5) Anemia in chronic renal disease: - chronic, stable. No need for transfusion at this time. Cont to monitor. (6) Glaucoma: - continue drops Plan DVT ppx: Heparin SC Code Status: Full Code Dispo: telemetry Kevin Holliday MD [facility] Medicine Total Time Total Time Spent Total Time Spent (In Minutes): 25 Total Time Includes: Examination of the Patient, Discharge Planning, Medication Reconciliation and Communication With Other Providers Discharge Plan Discharge Items Patient Disposition: Home - Self-Care Reason For Visit: HYPERTENSIVE URGENCY Discharge Diagnosis: hypertension Activity: Resume your previous activity Non-emergency contact: Primary Care Provider, Specialist and Motor Overhauler Call non-emergency contact if: you have any medication questions and your symptoms worsen Follow-up/Referrals: Cooper Merida MD [Physician] - 11/04/21 1:30 pm Tiffanie Jameson DO [Primary Care Provider] - (Date & Time 11/07/2021 10:40 AM Provider Flora Yancey PA-C Department Family Medicine [facility] ) Diet: Heart Healthy Addtl Attending Provider Instructions: You were admitted for elevated BP and headache. You were given medications that improved your blood pressure. You were seen by your brim greaser operator, Dr. Merida and you were started on a medication called HCTZ/Spironalacone 2x/day. Your BP improved and you are ok for discharge. Please follow up with Dr. Merida in november at previously scheduled appointment and primary care doctor within 1-2 weeks of discharge. Pending Studies at Discharge: No Stand-Alone Forms: My [facility], Smoking Cessation Medications and DC Order Prescriptions: New spironolacton-hydrochlorothiaz 25-25 mg Tablet 1 tab PO BID Qty: 60 1RF Continued atorvastatin 40 mg tablet 40 mg PO DAILY levothyroxine 100 mcg capsule 100 mcg PO DAILY bumetanide 1 mg tablet 1 mg PO .mwf PRN (Reason: as directed) ferrous sulfate 325 mg (65 mg iron) tablet 325 mg PO BID Qty: 60 Rx Instructions: TAKE THIS MEDICATION WITH FOOD amlodipine 10 mg tablet 10 mg PO QAM allopurinol 100 mg tablet 100 mg PO BID cholecalciferol (vitamin D3) [Vitamin D3] 10 mcg (400 unit) Capsule 20 mcg PO DAILY magnesium oxide 400 mg (241.3 mg magnesium) Tablet 400 mg PO BID Qty: 20 0RF latanoprost 0.005 % drops 1 drp OPB HS acetaminophen [Tylenol Extra Strength] 500 mg Tablet 1,000 mg PO Q8H PRN (Reason: fever or pain) Qty: 30 0RF paroxetine HCl 10 mg tablet 10 mg PO DAILY lisinopril 40 mg tablet 40 mg PO DAILY Discontinued metoprolol succinate 25 mg Tablet Extended Release 24 Hr 25 mg PO QAM Qty: 30 0RF potassium chloride 20 mEq Tablet,Er Particles/Crystals 20 meq PO QAM Qty: 10 0RF Discharge Orders: Discharge Order (Routine); Ordered 11/01/21 Ordered By: Kevin Holliday Admission Data Admit Date/Time: 10/29/21 20:21 Attending Provider: Kevin Holliday Admit Provider: Siria Sutton Primary Care Provider: Tiffanie Jameson Other Providers: Siria Sutton ; Cooper Merida Other Interventions: Discharge Summary Assessment (RN) Last Done: 11/01/21 12:20
== END 2021-11-01 16:00 | disposition home or self-care (01) | DRG 305 ==
LOC: ED 15:03 → 2S 20:21

== ENCOUNTER 2022-01-14 20:37 | Inpatient (IN) ==
--- NOTE | 2022-01-14 20:51 | Emergency Department Note ---
Impression & Plan Fall, Anemia, Non-ST elevation NM (NSTEMI), Confusion, Hyperkalemia, Acute kidney injury superimposed on CKD, Acute UTI, Kidney stone on left side ED Provider Note Provider: Colton Romero MD DATE OF SERVICE: 01/14/2022 CHIEF COMPLAINT: Found on the floor HISTORY OF PRESENT ILLNESS: Patient is a 86-year-old female history of CKD, hypertension, anemia, diabetes, and prior CHF presenting here today via ambulance after neighbors were unable to contact her abrupt on the floor door and found her on the floor. Some clear when she handed up on the floor how she ended up on the floor according to EMS report. Was last seen sometime yesterday. Patient is unable to give me details. Patient denies significant pain at this time. She denies headache, chest pain, abdominal pain, nausea or v omiting. It appears she had been on the floor for some time according to EMS that she had dried feces on her herself on the floor. Reportedly there is been a history of similar events happening in the past Again according to EMS. Patient states she is feeling cold but again denies any other pain complaints or nausea. Dried feces are present in her underwear. Daughter via phone does report that the patient evidently had a little bit of abdominal pain in the last day or 2 and back pain. Otherwise she looks very well when she is up visiting last weekend. REVIEW OF SYSTEMS: A total of 10 review of systems was obtained and negative except as stated above in the HPI. PAST MEDICAL HISTORY: As noted above MEDICATIONS: Reviewed home medication list. SOCIAL HISTORY: Lives by herself. PHYSICAL EXAM: GENERAL: alert intermittently answering some questions in no acute distress on stretcher shivering dried feces in her undergarments. Head: normocephalic and atraumatic EYES: No injection, discharge or icterus. PERRL NECK: Trachea midline. Supple no posterior midline tenderness. ENT: Mucous membranes pink and moist. LUNGS: Airway patent. No retractions. Breath sounds clear with good air entry bilaterally. HEART: Regular rate and rhythm. No chest wall tenderness ABDOMEN: Soft and non-tender, without guarding or rebound. BACK: No midline tenderness, no SI joint tenderness. No bilateral flank tenderness. SKIN: Acyanotic, warm, dry, without rashes EXTREMITIES: Without swelling, tenderness or deformity NEUROLOGICAL: No focal deficits. No aphasia. No facial droop intermittently answering some questions. EK bpm normal sinus rhythm with a right bundle branch block left anterior fascicular block without acute ST segment elevation and a QTC of 495. CONTINUOUS CARDIAC MONITORING: was ordered and showed a heart rate of bpm in sinus rhythm with frequent episodes of PVCs and episodes of GCS 15. 1 view chest x-ray per interpretation. No free air. No pneumothorax. Slight pulmonary edema. No clear consolidation. Patient's laboratory studies and imaging reviewed. Differential includes Fracture, dislocation, contusion, intra-abdominal, pneumothorax, intrathoracic, intracranial, neurologic, compartment syndrome, rhabdomyolysis, as well as other pathologies. IMPRESSION/MEDICAL DECISION MAKING: Patient not the best historian. Unclear if she fell or how she ended up on the ground. CK sent as well as basic labs. CT then cervical spine completed. No significant traumatic injury noted. A grade 1 sacral decubitus ulcer noted likely from her being on the floor as well some dried stool that was cleaned by nursing staff. Basic labs again were completed with EKG. She received a small amount of IV fluid for blood pressure in the 90s for EMS prior to arrival but normotensive here. Patient noted to be borderline febrile. Patient having episodes of V. tach on telemetry. Significant leukocytosis of 27 with anemia of 6.8 on blood work. Potassium is 5.9 with worsening renal function creatinine 3.7 today which has been trending up for some time. Has recently stopped lisinopril and follows with nephrology. CK minimally elevated. Initially plan some IV fluids but will hold additional given the need for transfusion. Do not see a clear infectious source at this time. Given some magnesium. Patient does not seem the best historian. CT of the head and cervical spine as below. Given the low hemoglobin we will complete a CT of the abdomen pelvis without contrast to exclude occult traumatic injury. She does not appear to have any GI bleed with Hemoccult stool. Troponin is elevated. Discussed with daughter via phone CODE STATUS and situation. Consented via phone for transfusion. Hemoccult negative. Discussed antibiotics with pharmacy and given concerns for her ill illness with multiple comorbidities given a dose of ertapenem. Daughter updated via phone and consented for blood transfusion. Daughter is a nurse and understood the risks and benefits. Will monitor for fluid overload. Given some calcium, bicarb, and insulin dextrose for some mild hyperkalemia. With the arrhythmia 1 to be careful with additional beta agonist like albuterol. IV Tylenol given for borderline fever. CT abdomen pelvis does show evidence of an obstructing left UPJ stone. Given this discussed with the urology PA on-call tonight given the renal dysfunction and evidence of infection with the kidney stone and discussed with the hospitalist for further care here. Urology strongly considering stenting given sepsis with kidney stone. DIAGNOSIS: Fall, anemia, NSTEMI, ELISABET on CKD, hyperkalemia, confusion, acute TIA, left-sided kidney stone DISPOSITION: Hospitalist will evaluate. Urology strongly considering stenting and is evaluating in the ER. Critical Care I have personally spent 48 minutes of critical care time in the direct management of this patient. This includes bedside care, interpretation of diagnostic studies, and testing, discussion with consultants, patient, and family members, and other required patient management activities. These 48 minutes is in excess of all separately billable procedures. Preliminary Findings Only See Final Report For Complete Findings CT HEAD: No acute intracranial hemorrhage. No midline shift or mass effect. The territorial ignacio-white matter differentiation is maintained throughout. Age-related cerebral volume loss. Periventricular and subcortical white matter hypoattenuation, consistent with chronic microangiopathy. Radiologist: Butch Quinteros MD Study ready at 21:33 and initial results transmitted at 21:57 Preliminary Findings Only See Final Report For Complete Findings CT C SPINE: FINDINGS: The vertebral body heights are maintained. There is no spondylolisthesis. The craniocervical junction is intact. The atlanto-dens interval is maintained. The dens is intact. Multilevel cervical spondylosis and degenerative disc disease. Straightening of the cervical lordosis. Osteoporosis. The unenhanced neck soft tissues are grossly unremarkable. The visualized lung apices are grossly clear. IMPRESSION: No acute fracture or subluxation of the cervical spine. Radiologist: Butch Quinteros MD Study ready at 21:36 and initial results transmitted at 21:58 Preliminary Findings Only See Final Report For Complete Findings CT ABDOMEN & PELVIS Without Contrast: Atelectasis at the lung bases. Cardiomegaly. Small hiatal hernia. No focal hepatic lesion. Normal gallbladder, spleen, adrenal glands, and pancreas on noncontrast exam. Obstructing 5 mm left UPJ calculus. Mild hydronephrosis of the left kidney. Multiple left-sided renal cysts measuring up to 5.8 cm. Decompressed urinary bladder. Diverticulosis, without acute diverticulitis. No small bowel obstruction. No free intraperitoneal air. Right hip ORIF. Degenerative changes of the spine. IMPRESSION: Obstructing 5 mm left UPJ calculus. Mild hydronephrosis of the left kidney. Multiple left-sided renal cysts measuring up to 5.8 cm. Diverticulosis, without acute diverticulitis. No small bowel obstruction. No free intraperitoneal air. Radiologist: Butch Quinteros MD Study ready at 23:48 and initial results transmitted at 23:53 Past Med/Surg History Medical History Acute on chronic diastolic CHF (congestive heart failure) Anemia Anemia in chronic renal disease Chronic diarrhea Chronic diastolic CHF (congestive heart failure) DM type 2 (diabetes mellitus, type 2) Dyslipidemia Glaucoma Gout Headache HTN (hypertension) Hyperparathyroidism, secondary renal Hypertensive nephrosclerosis Hypertensive urgency Hypomagnesemia Hypothyroidism Vitamin D deficiency Surgical History History of carpal tunnel surgery of left wrist History of surgery on lower extremity Hx of surgical amputation of finger Hx of tonsillectomy Status post hip surgery R hip nail by Dr. 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 Storage Required: No Beliefs That Will Affect Care: None marital status: Single Current Living Situation: Alone Current Living Situation Comment: alone with 2 dogs Feels Safe at Home: Yes Assistive Devices: None Allergies Allergies Allergy/AdvReac Type Severity Reaction Status Date / Time hydrocodone Allergy Intermediate RASH Verified 01/03/22 12:41 Iodinated Contrast Media Allergy Intermediate HIVES Verified 01/03/22 12:41 Penicillins Allergy Intermediate ANAPHLACTIC Verified 01/03/22 12:41 SHOCK phenylephrine Allergy Intermediate Rash, Verified 01/03/22 12:41 insomnia trolamine salicylate Allergy Intermediate RASH Verified 01/03/22 12:41 ketorolac Allergy Mild Unknown Verified 01/03/22 12:41 oxycodone Allergy Mild BRIGHT RED Verified 01/03/22 12:41 RASH tramadol Allergy Mild BRIGHT RED Verified 01/03/22 12:41 RASH prednisone AdvReac Unknown Became Verified 01/03/22 12:41 manic Home Meds Home Medications Medication Instructions Recorded Confirmed atorvastatin 40 mg tablet 40 mg PO QAM 11/11/18 01/15/22 allopurinol 100 mg tablet 200 mg PO QAM 02/24/20 01/15/22 amlodipine 10 mg tablet 10 mg PO QAM 02/24/20 01/15/22 cholecalciferol (vitamin D3) 10 20 mcg PO DAILY 02/24/20 01/03/22 mcg (400 unit) capsule (Vitamin D3) ferrous sulfate 325 mg (65 mg 325 mg PO BID #60 tabs 12/31/20 01/15/22 iron) tablet latanoprost 0.005 % eye drops 1 drp OPB HS 03/25/21 01/15/22 bumetanide 1 mg tablet 1 mg PO .mwf PRN as directed 06/24/21 01/03/22 paroxetine HCl 10 mg tablet 10 mg PO DAILY 10/29/21 01/03/22 acetaminophen 325 mg tablet 650 mg PO HS 01/15/22 01/15/22 (Tylenol) citalopram 10 mg tablet 10 mg PO QAM 01/15/22 01/15/22 levothyroxine 100 mcg tablet 100 mcg PO DAILYBB 01/15/22 01/15/22 lisinopril 40 mg tablet 40 mg PO QAM 01/15/22 01/15/22 Previous Rx's Medication Instructions Recorded magnesium oxide 400 mg (241.3 mg 400 mg PO BID #20 tabs 02/28/20 magnesium) tablet acetaminophen 500 mg tablet 1,000 mg PO Q8H PRN fever or pain 03/28/21 (Tylenol Extra Strength) #30 tabs spironolactone 25 1 tab PO BID #60 tabs 11/01/21 mg-hydrochlorothiazide 25 mg tablet Results & Data (ED) Vital Signs Vital Signs - 24 hr 01/14/22 20:57 01/14/22 20:57 01/14/22 20:57 Temperature 37.9 C H Temperature Source Rectal Pulse Rate 83 83 Pulse Rate from SpO2 Sensor Pulse Rhythm Regular Respiratory Rate 18 20 Blood Pressure 141/49 H Blood Pressure [Left Arm] Blood Pressure Mean 79 Blood Pressure Mean [Left Arm] Pulse Oximetry 93 93 93 Oxygen Delivery Method Room Air Room Air Room Air Oxygen Flow Rate 0 Sepsis Recent Fever Within 48 Hours Yes Sepsis New/Unexplained Change in Mental Status Yes Sepsis Action Taken by Nursing No Action Required 01/14/22 22:33 01/14/22 23:42 01/14/22 23:00 Temperature 37.6 C H Temperature Source Oral Pulse Rate 106 H Pulse Rate from SpO2 Sensor 107 H Pulse Rhythm Respiratory Rate 18 31 H Blood Pressure 175/75 H Blood Pressure [Left Arm] 141/49 H Blood Pressure Mean 108 Blood Pressure Mean [Left Arm] 79 Pulse Oximetry 96 98 Oxygen Delivery Method Nasal Cannula Oxygen Flow Rate 2 Sepsis Recent Fever Within 48 Hours Sepsis New/Unexplained Change in Mental Status Sepsis Action Taken by Nursing 01/14/22 23:37 Temperature Temperature Source Pulse Rate 103 H Pulse Rate from SpO2 Sensor 105 H Pulse Rhythm Respiratory Rate 28 H Blood Pressure 100/56 L Blood Pressure [Left Arm] Blood Pressure Mean 70 Blood Pressure Mean [Left Arm] Pulse Oximetry 97 Oxygen Delivery Method Oxygen Flow Rate Sepsis Recent Fever Within 48 Hours Sepsis New/Unexplained Change in Mental Status Sepsis Action Taken by Nursing Laboratory Data Result diagrams: 01/14/22 21:11 01/14/22 21:11 Lab Results 01/14/22 01/14/22 01/14/22 Range/Units 21:11 21:11 21:11 WBC 27.08 H (4.8-10.8) K/ul RBC 2.34 L (3.93-5.22) M/uL Hgb 6.8 L* (12.0-16.0) g/dl Hct 21.4 L (34.1-44.9) % MCV 91.5 (80.0-100.0) fL MCH 29.1 (25.0-34.0) pg MCHC 31.8 L (32.0-36.0) g/dL RDW Std Deviation 50.1 H (36.4-46.3) fL RDW Coeff of Mague 15.1 H (11.5-14.5) % Plt Count 130 (130-400) K/uL MPV 10.1 (9.4-12.3) fL Immature Gran % (Auto) 5.6 % Neut % (Auto) 89.5 % Lymph % (Auto) 2.0 % Powell % (Auto) 2.7 % Eos % (Auto) 0.1 % Baso % (Auto) 0.1 % Neut # (Auto) 24.25 H (1.4-6.5) K/uL Lymph # (Auto) 0.53 L (1.2-3.4) K/uL Powell # (Auto) 0.72 (0.24-0.82) K/uL Eos # (Auto) 0.02 (0-0.50) K/uL Baso # (Auto) 0.04 (0-0.2) K/uL Immature Gran # (Auto) 1.52 H (0.00-0.02) K/uL Toxic Vacuolation 1+ Dohle Bodies 1+ Ovalocytes 1+ Sodium 138 (136-145) mmol/L Potassium 5.9 H (3.5-5.1) mmol/L Chloride 108 H (98-107) mmol/L Carbon Dioxide 18 L (21-32) mmol/L Anion Gap 12 H (3-11) BUN 60 H (6-23) mg/dl Creatinine 3.71 H (0.6-1.2) mg/dl Est Cr Clr Drug Dosing 9.6 ml/min Est GFR ( Amer) 12.2 ml/min Est GFR (Non-Af Amer) 10.5 ml/min BUN/Creatinine Ratio 16.2 (10-20) Glucose 89 (70-99(Fasting)) mg/dl POC Glucose (70-99) mg/dl Calcium 9.2 (8.5-10.1) mg/dl Magnesium 1.8 (1.7-2.4) mg/dl Total Bilirubin 0.7 (0.2-1.0) mg/dl AST 27 (13-39) U/L ALT 12 (7-52) U/L Alkaline Phosphatase 46 (34-104) U/L Total Creatine Kinase 318 H (26-192) U/L Troponin I High Sens 1025.6 H* D (0-14) pg/ml Total Protein 7.0 (6.0-8.3) gm/dl Albumin 3.6 (3.4-5.0) gm/dl Globulin 3.4 (2.5-4.0) gm/dl Albumin/Globulin Ratio 1.1 (0.9-2) TSH 0.959 (0.300-4.500) uIu/ml Urine Color Urine Appearance (Clear) Urine pH (4.5-7.5) Ur Specific [place] (1.000-1.030) Urine Protein (Negative) Urine Glucose (UA) (Negative) Urine Ketones (Negative) Urine Blood (Negative) Urine Nitrite (Negative) Urine Bilirubin (Negative) Urine Urobilinogen (Negative) Ur Leukocyte Esterase (Negative) Urine WBC (Auto) (0-5) /hpf Urine RBC (Auto) (0-4) /hpf U Hyaline Cast (Auto) (0-5) /lpf U Epithel Cells (Auto) (0-5) /lpf Urine Bacteria (Auto) (Negative) POC Stool Occult Blood (Negative) SARS-CoV-2, RNA, NAAT (NEGATIVE) Crossmatch 01/14/22 01/14/22 01/14/22 Range/Units 21:21 22:25 22:33 WBC (4.8-10.8) K/ul RBC (3.93-5.22) M/uL Hgb (12.0-16.0) g/dl Hct (34.1-44.9) % MCV (80.0-100.0) fL MCH (25.0-34.0) pg MCHC (32.0-36.0) g/dL RDW Std Deviation (36.4-46.3) fL RDW Coeff of Mague (11.5-14.5) % Plt Count (130-400) K/uL MPV (9.4-12.3) fL Immature Gran % (Auto) % Neut % (Auto) % Lymph % (Auto) % Powell % (Auto) % Eos % (Auto) % Baso % (Auto) % Neut # (Auto) (1.4-6.5) K/uL Lymph # (Auto) (1.2-3.4) K/uL Powell # (Auto) (0.24-0.82) K/uL Eos # (Auto) (0-0.50) K/uL Baso # (Auto) (0-0.2) K/uL Immature Gran # (Auto) (0.00-0.02) K/uL Toxic Vacuolation Dohle Bodies Ovalocytes Sodium (136-145) mmol/L Potassium (3.5-5.1) mmol/L Chloride (98-107) mmol/L Carbon Dioxide (21-32) mmol/L Anion Gap (3-11) BUN (6-23) mg/dl Creatinine (0.6-1.2) mg/dl Est Cr Clr Drug Dosing ml/min Est GFR ( Amer) ml/min Est GFR (Non-Af Amer) ml/min BUN/Creatinine Ratio (10-20) Glucose (70-99(Fasting)) mg/dl POC Glucose (70-99) mg/dl Calcium (8.5-10.1) mg/dl Magnesium (1.7-2.4) mg/dl Total Bilirubin (0.2-1.0) mg/dl AST (13-39) U/L ALT (7-52) U/L Alkaline Phosphatase (34-104) U/L Total Creatine Kinase (26-192) U/L Troponin I High Sens (0-14) pg/ml Total Protein (6.0-8.3) gm/dl Albumin (3.4-5.0) gm/dl Globulin (2.5-4.0) gm/dl Albumin/Globulin Ratio (0.9-2) TSH (0.300-4.500) uIu/ml Urine Color Yellow Urine Appearance Cloudy A (Clear) Urine pH 5.0 (4.5-7.5) Ur Specific [place] 1.015 (1.000-1.030) Urine Protein 3+ H (Negative) Urine Glucose (UA) Negative (Negative) Urine Ketones Negative (Negative) Urine Blood 3+ H (Negative) Urine Nitrite Negative (Negative) Urine Bilirubin Negative (Negative) Urine Urobilinogen Negative (Negative) Ur Leukocyte Esterase 2+ H (Negative) Urine WBC (Auto) >30 H (0-5) /hpf Urine RBC (Auto) 5-10 H (0-4) /hpf U Hyaline Cast (Auto) 1-5 (0-5) /lpf U Epithel Cells (Auto) 0-5 (0-5) /lpf Urine Bacteria (Auto) 4+ H (Negative) POC Stool Occult Blood Negative (Negative) SARS-CoV-2, RNA, NAAT NEGATIVE (NEGATIVE) Crossmatch 01/14/22 01/14/22 Range/Units 22:35 23:48 WBC (4.8-10.8) K/ul RBC (3.93-5.22) M/uL Hgb (12.0-16.0) g/dl Hct (34.1-44.9) % MCV (80.0-100.0) fL MCH (25.0-34.0) pg MCHC (32.0-36.0) g/dL RDW Std Deviation (36.4-46.3) fL RDW Coeff of Mague (11.5-14.5) % Plt Count (130-400) K/uL MPV (9.4-12.3) fL Immature Gran % (Auto) % Neut % (Auto) % Lymph % (Auto) % Powell % (Auto) % Eos % (Auto) % Baso % (Auto) % Neut # (Auto) (1.4-6.5) K/uL Lymph # (Auto) (1.2-3.4) K/uL Powell # (Auto) (0.24-0.82) K/uL Eos # (Auto) (0-0.50) K/uL Baso # (Auto) (0-0.2) K/uL Immature Gran # (Auto) (0.00-0.02) K/uL Toxic Vacuolation Dohle Bodies Ovalocytes Sodium (136-145) mmol/L Potassium (3.5-5.1) mmol/L Chloride (98-107) mmol/L Carbon Dioxide (21-32) mmol/L Anion Gap (3-11) BUN (6-23) mg/dl Creatinine (0.6-1.2) mg/dl Est Cr Clr Drug Dosing ml/min Est GFR ( Amer) ml/min Est GFR (Non-Af Amer) ml/min BUN/Creatinine Ratio (10-20) Glucose (70-99(Fasting)) mg/dl POC Glucose 129 H (70-99) mg/dl Calcium (8.5-10.1) mg/dl Magnesium (1.7-2.4) mg/dl Total Bilirubin (0.2-1.0) mg/dl AST (13-39) U/L ALT (7-52) U/L Alkaline Phosphatase (34-104) U/L Total Creatine Kinase (26-192) U/L Troponin I High Sens (0-14) pg/ml Total Protein (6.0-8.3) gm/dl Albumin (3.4-5.0) gm/dl Globulin (2.5-4.0) gm/dl Albumin/Globulin Ratio (0.9-2) TSH (0.300-4.500) uIu/ml Urine Color Urine Appearance (Clear) Urine pH (4.5-7.5) Ur Specific [place] (1.000-1.030) Urine Protein (Negative) Urine Glucose (UA) (Negative) Urine Ketones (Negative) Urine Blood (Negative) Urine Nitrite (Negative) Urine Bilirubin (Negative) Urine Urobilinogen (Negative) Ur Leukocyte Esterase (Negative) Urine WBC (Auto) (0-5) /hpf Urine RBC (Auto) (0-4) /hpf U Hyaline Cast (Auto) (0-5) /lpf U Epithel Cells (Auto) (0-5) /lpf Urine Bacteria (Auto) (Negative) POC Stool Occult Blood (Negative) SARS-CoV-2, RNA, NAAT (NEGATIVE) Crossmatch See Detail Administered Medications Discontinued Medications Dextrose (Dextrose 50% 50 Ml Syringe) 50 ml IV NOW ONE Stop: 01/14/22 22:48 Last Admin: 01/14/22 22:55 Dose: 50 ml Documented By: KENAN Sodium Chloride (Nss) 500 mls @ 999 mls/hr IV .Q31M ONE Stop: 01/14/22 22:24 Last Admin: 01/14/22 22:33 Dose: Not Given Documented By: KT Acetaminophen (Ofirmev) 1,000 mg in 100 mls @ 400 mls/hr IV NOW STA Stop: 01/14/22 22:53 Last Infusion: 01/14/22 23:12 Dose: 0 mls/hr Documented By: Infusion: 01/14/22 23:11 Dose: 0 mls/hr Documented By: Admin: 01/14/22 22:58 Dose: 400 mls/hr Documented By: KT Calcium Gluconate () 1,000 mg in 60 mls @ 240 mls/hr IV NOW STA Stop: 01/14/22 23:00 Last Infusion: 01/14/22 23:45 Dose: 0 mls/hr Documented By: Admin: 01/14/22 22:55 Dose: 240 mls/hr Documented By: KENAN Ertapenem 500 mg/ Syringe 5 mls @ 2 mls/min IV ONCE ONE Stop: 01/14/22 23:22 Last Admin: 01/15/22 00:03 Dose: 2 mls/min Documented By: MADAN Insulin Human Regular (Novolin-R Insulin Per Unit Charge) 8 units IV NOW STA Stop: 01/14/22 22:48 Last Admin: 01/14/22 22:55 Dose: 8 units Documented By: KENAN Co-signed By: JG Sodium Bicarbonate (Sodium Bicarb 8.4% Inj 50 Meq/50 Ml Syr) 50 meq IV NOW STA Stop: 01/14/22 22:47 Last Admin: 01/14/22 22:55 Dose: 50 meq Documented By: KENAN Discharge Plan Visit Data Chief Complaint: Weakness Stated Complaint: LETHARGIC ED Provider: Colton Rmoero Discharge Problem: Fall, Anemia, Non-ST elevation NM (NSTEMI), Confusion, Hyperkalemia, Acute kidney injury superimposed on CKD, Acute UTI, Kidney stone on left side Patient Disposition: Admitted As Inpatient Forms Stand Alone Forms: My [facility] Prescriptions Prescriptions: No Action atorvastatin 40 mg tablet 40 mg PO QAM bumetanide 1 mg tablet 1 mg PO .mwf PRN (Reason: as directed) ferrous sulfate 325 mg (65 mg iron) tablet 325 mg PO BID Qty: 60 Rx Instructions: TAKE THIS MEDICATION WITH FOOD amlodipine 10 mg tablet 10 mg PO QAM allopurinol 100 mg tablet 200 mg PO QAM cholecalciferol (vitamin D3) [Vitamin D3] 10 mcg (400 unit) Capsule 20 mcg PO DAILY magnesium oxide 400 mg (241.3 mg magnesium) Tablet 400 mg PO BID Qty: 20 0RF latanoprost 0.005 % drops 1 drp OPB HS acetaminophen [Tylenol Extra Strength] 500 mg Tablet 1,000 mg PO Q8H PRN (Reason: fever or pain) Qty: 30 0RF paroxetine HCl 10 mg tablet 10 mg PO DAILY spironolacton-hydrochlorothiaz 25-25 mg Tablet 1 tab PO BID Qty: 60 1RF levothyroxine 100 mcg tablet 100 mcg PO DAILYBB acetaminophen [Tylenol] 325 mg Tablet 650 mg PO HS citalopram 10 mg tablet 10 mg PO QAM lisinopril 40 mg tablet 40 mg PO QAM Referrals Referrals: Tiffanie Jameson DO [Primary Care Provider] -
[2022-01-14 21:47] LABS: Albumin Globulin Ratio 1.1 (0.9-2); Albumin Level 3.6 gm/dl (3.4-5.0); BUN Creatinine Ratio 16.2 (10-20); Bilirubin,Total 0.7 mg/dl (0.2-1.0); Calcium 9.2 mg/dl (8.5-10.1); Creatinine Clr Calc Pharmacy 9.6 ml/min; Est GFR (African American) 12.2 ml/min; Est GFR (Non-African American) 10.5 ml/min; Globulin 3.4 gm/dl (2.5-4.0); Magnesium 1.8 mg/dl (1.7-2.4); Potassium 5.9 mmol/L (3.5-5.1)
[2022-01-14 21:52] LABS: Hematocrit (blood only) 21.4 % (34.1-44.9); Hemoglobin 6.8 g/dl (12.0-16.0); Mean Corpuscular Hemoglobin 29.1 pg (25.0-34.0); Mean Corpuscular Hgb Conc 31.8 g/dL (32.0-36.0); Mean Corpuscular Volume 91.5 fL (80.0-100.0); Mean Platelet Volume 10.1 fL (9.4-12.3); Platelet Count 130 K/uL (130-400); RDW Coefficient of Variation 15.1 % (11.5-14.5); RDW Standard Deviation 50.1 fL (36.4-46.3); Red Blood Count 2.34 M/uL (3.93-5.22); White Blood Count 27.08 K/ul (4.8-10.8)
[2022-01-14] MEDS ORDERED: SODIUM CHLORIDE 0.9% 500 ML IV ONE (21:54)
[2022-01-14 22:07] LABS: Troponin I High Sensitivity 1025.6 pg/ml (0-14)
[2022-01-14 22:38] LABS: Basophils # (auto) 0.04 K/uL (0-0.2); Basophils % (auto) 0.1 %; Dohle Bodies 1+; Eosinophils # (auto) 0.02 K/uL (0-0.50); Eosinophils % (auto) 0.1 %; Immature Granulocytes # (auto) 1.52 K/uL (0.00-0.02); Immature Granulocytes % (auto) 5.6 %; Lymphocytes # (auto) 0.53 K/uL (1.2-3.4); Monocytes # (auto) 0.72 K/uL (0.24-0.82); Monocytes % (auto) 2.7 %; Neutrophils # (auto) 24.25 K/uL (1.4-6.5); Neutrophils % (auto) 89.5 %; Ovalocytes 1+; Toxic Vacuolation 1+
[2022-01-14] MEDS ORDERED: SODIUM CHLORIDE 0.9% 250 ML IV PRN (22:39)
[2022-01-14] MEDS ORDERED: ACETAMINOPHEN 1,000 MG/100 ML VIAL IV STA (22:39)
[2022-01-14] MEDS ORDERED: SODIUM BICARB 8.4% INJ 50 MEQ/50 ML SYR IV STA (22:46)
[2022-01-14] MEDS ORDERED: CALCIUM GLUCONATE 1,000 MG/60 ML BAG IV STA (22:46)
[2022-01-14] MEDS ORDERED: NovoLIN-R INSULIN PER UNIT CHARGE IV STA (22:47)
[2022-01-14] MEDS ORDERED: DEXTROSE 50% 50 ML SYRINGE IV ONE (22:47)
[2022-01-14 23:00] LABS: Appearance Urine Cloudy (Clear); Bacteria Urine Automated 4+ (Negative); Bilirubin Urine Negative (Negative); Blood Urine 3+ (Negative); Color Urine Yellow; Epithelial Cell Urine Auto 0-5 /lpf (0-5); Glucose Urine UA Negative (Negative); Ketones Urine Negative (Negative); Leukocyte Esterase Urine 2+ (Negative); Nitrite Urine Negative (Negative); Protein Urine 3+ (Negative); Specific Gravity Urine 1.015 (1.000-1.030); Urobilinogen Urine Negative (Negative); WBC Urine Automated >30 /hpf (0-5)
[2022-01-14] MEDS ORDERED: ERTAPENEM SODIUM 500 MG in SYRINGE 0 ML IV ONE (23:20)
[2022-01-15] MEDS ORDERED: CEFEPIME 2,000 MG/20 ML VIAL IV STA (00:14)
[2022-01-15] MEDS ORDERED: ALBUMIN 25% 100 mL 25 GM/100 ML VIAL IV ONE (00:20)
--- NOTE | 2022-01-15 00:20 | Urology Consultation ---
Date of Consultation January 15, 2022 Assessment & Plan (1) Nephrolithiasis: Due to the patient's clinical presentation she is being admitted to the hospital. From a urology perspective we recommend the following: It appears that the patient is suffering from underlying sepsis from urinary source complicated by an obstructing kidney stone Keep the patient n.p.o. Continue broad-spectrum antibiotics. The patient has received ertapenem in the emergency department Blood and urine cultures have been ordered. These results can be followed with antibiotics tailored based on her clinical response as well as culture results. We will plan on performing a cystoscopy with ureteral stent placement this evening with Dr. Galloway. I have discussed the case with anesthesia due to the patient's numerous medical comorbidities. I suspect the patient will require ICU level care following her procedure and I have discussed with the ICU staff I discussed the above with the admitting hospitalist service Remainder of plan as directed by the primary service I have discussed the above situation with the patient's daughter, Priscilla, who is a emergency room nurse in [place]. Supervising Physician Co-Signing Physician Notes I have discussed Ms. Kirby's case with Ganesh Arvizu PA-C and agree with the above documentation. Laboratory review suggests she has a urinary tract infection, leukocytosis. Her story is overall concerning for sepsis. CT scan demonstrates a calcification near the left renal pelvis, which likely represents a stone. I am concerned that she may have an obstructing stone in the setting of UTI, and requires urgent intervention with cystoscopy and left ureteral stent placement. We will plan on proceeding urgently to the OR for this procedure which will be discussed with her daughter. History of Present Illness Reason for Consultation: Sepsis from urinary source and nephrolithiasis History of Present Illness This is an 86-year-old female who presented to the emergency department after being found on the floor by her neighbors.The patient was unable to provide any details regarding her current presentation. The historical information was obtained from discussion with the treating staff in the emergency department as well as review of chart and discussion with patient's family. I did discuss with the patient's daughter who is a nurse. She notes that over the past several months her mother has had periods of intermittent confusion requiring hospitalization. She notes that they have never been able to find a specific source of her mother's confusion and this usually resolves. She does note that she was unable to contact her mother so she sent some neighbors and family to the house where they are able to get into the house and found her lying on the bed covered in feces. She does note that her mom was complaining of "kidney pain" as well as abdominal pain over the past several days. She is unsure if her mother has had any nausea or vomiting or fevers, shakes, or chills. In the emergency department the patient had labs and imaging which I in dependently reviewed. CBC revealed white blood cell count was 27.0. Her hemoglobin and hematocrit were 6.8 and 21.4. Review of records show that this is a decrease in values from previously noted hemoglobin and hematocrit platelet count was 130,000. Chemistry profile showed sodium was 138. Her potassium was 5.9. BUN and creatinine were 60 and 3.7. Review of available records show that her creatinine runs anywhere from 1.7-3.1. There is no significant elevation of patient's LFTs. She was noted to have an elevated total creatinine kinase level 318. Troponin level was checked which was elevated at 1025. Urinalysis did show pyuria with greater than 30 white blood cells per high-power field. There were no nitrites noted on the study. There was 2+ leukocyte Estrace on the study as well as 4+ bacteria. Fecal occult blood was noted to be negative. A COVID test was negative. CT scan of the cervical spine did not show any evidence of fractures or subluxations. A chest x-ray did not show any evidence of pneumonia. And a head CT did not show any evidence of acute stroke. CT scan abdomen pelvis showed obstructing 5 mm stone at the left ureteropelvic junction resulting in mild hydronephrosis. An EKG did not show any signs of acute ischemia. It is nowhere the mention that on patient's cardiac monitoring she was having intermittent runs of ventricular tachycardia. In the emergency department the patient was noted to have a blood pressure of 100/56. She was tachycardic with a heart rate between 83 and 106. She was noted to be febrile with a temperature of 37.9. Pulse ox is 97% on 2 L. The patient has received broad-spectrum antibiotics in the form of ertapenem. She is also received 8 units of insulin as well as 50 mEq of sodium bicarbonate and 1000 mg of calcium gluconate for hyperkalemia. She has received intravenous fluids with a 500 cc bolus of normal saline. She did not appear to be in distress at the time of my interview. Allergies Allergy/AdvReac Type Severity Reaction Status Date / Time hydrocodone Allergy Intermediate RASH Verified 01/15/22 01:02 Iodinated Contrast Media Allergy Intermediate HIVES Verified 01/15/22 01:02 Penicillins Allergy Intermediate ANAPHLACTIC Verified 01/15/22 01:02 SHOCK phenylephrine Allergy Intermediate Rash, Verified 01/15/22 01:02 insomnia trolamine salicylate Allergy Intermediate RASH Verified 01/15/22 01:02 ketorolac Allergy Mild Unknown Verified 01/15/22 01:02 oxycodone Allergy Mild BRIGHT RED Verified 01/15/22 01:02 RASH tramadol Allergy Mild BRIGHT RED Verified 01/15/22 01:02 RASH prednisone AdvReac Unknown Became Verified 01/15/22 01:02 manic Home Medications Medication Instructions Recorded Confirmed Type atorvastatin 40 mg tablet 40 mg PO QAM 11/11/18 01/15/22 History allopurinol 100 mg tablet 200 mg PO QAM 02/24/20 01/15/22 History amlodipine 10 mg tablet 10 mg PO QAM 02/24/20 01/15/22 History ferrous sulfate 325 mg (65 mg 325 mg PO BID #60 tabs 12/31/20 01/15/22 History iron) tablet latanoprost 0.005 % eye drops 1 drp OPB HS 03/25/21 01/15/22 History bumetanide 1 mg tablet 1 mg PO DAILY PRN Weight Gain 06/24/21 01/15/22 History paroxetine HCl 10 mg tablet 10 mg PO DAILY 10/29/21 01/15/22 History spironolactone 25 1 tab PO BID #60 tabs 11/01/21 01/15/22 Rx mg-hydrochlorothiazide 25 mg tablet acetaminophen 325 mg tablet 650 mg PO HS 01/15/22 01/15/22 History (Tylenol) cholecalciferol (vitamin D3) 50 50 mcg PO BID 01/15/22 01/15/22 History mcg (2,000 unit) tablet (Vitamin D3) citalopram 10 mg tablet 10 mg PO QAM 01/15/22 01/15/22 History levothyroxine 100 mcg tablet 100 mcg PO DAILYBB 01/15/22 01/15/22 History lisinopril 40 mg tablet 40 mg PO QAM 01/15/22 01/15/22 History magnesium 200 mg tablet 200 mg PO DAILY 01/15/22 01/15/22 History metoprolol succinate 25 mg 25 mg PO DAILY 01/15/22 01/15/22 History tablet,extended release 24 hr potassium gluconate 595 mg (99 mg) 595 mg PO DAILY 01/15/22 01/15/22 History tablet sertraline 50 mg tablet 50 mg PO DAILY 01/15/22 01/15/22 History Patient History Medical History Acute on chronic diastolic CHF (congestive heart failure) Anemia Anemia in chronic renal disease Chronic diarrhea Chronic diastolic CHF (congestive heart failure) DM type 2 (diabetes mellitus, type 2) Dyslipidemia Glaucoma Gout Headache HTN (hypertension) Hyperparathyroidism, secondary renal Hypertensive nephrosclerosis Hypertensive urgency Hypomagnesemia Hypothyroidism Vitamin D deficiency Surgical History History of carpal tunnel surgery of left wrist History of surgery on lower extremity Hx of surgical amputation of finger Hx of tonsillectomy Status post hip surgery R hip nail by Dr. Rolle 04/09 Family History Mother Colorectal cancer Diabetes Heart disease Hypertension Father Non Hodgkin's lymphoma Sister End stage liver disease Brother ESRD (end stage renal disease) End stage liver disease Social History Smoking Status: Never smoker Hx Alcohol Use: No Hx Substance Use: No Preferred Language: Micronesian Communication Ability: Effective Window Sash Installer Required: No Beliefs That Will Affect Care: None marital status: Single Current Living Situation: Alone Current Living Situation Comment: alone with 2 dogs Feels Safe at Home: Yes Assistive Devices: None Review of Systems Review of Systems: Unobtainable due to cognitive status Physical Exam Constitutional: + ill appearing Eyes: no conjunctival abnormality ENMT: Ears: no external ear abnormality Neck: trachea midline Respiratory: normal respiratory effort; no respiratory distress and no labored breathing Cardiovascular: Rate/Rhythm: regular rate, regular rhythm and + tachycardic Gastrointestinal (Abdomen): Abdomen is soft, nonrigid, nondistended. There did appear to be some generalized pain response with palpation. Was unable to elicit any rebound tenderness or guarding. Musculoskeletal: No lower extremity edema. Neurologic: moves all extremities Genitourinary: no CVA tenderness Results & Data ([facility]) Vital Signs (Past 12 Hours) Vital Signs Temp Pulse Resp BP BP Pulse Ox O2 Del Method 01/14/22 23:37 103 H 28 H 100/56 L 97 01/14/22 23:00 106 H 31 H 175/75 H 98 01/14/22 23:42 37.6 C H 01/14/22 22:33 18 141/49 H 96 Nasal Cannula 01/14/22 20:57 93 Room Air 01/14/22 20:57 83 20 93 Room Air 01/14/22 20:57 37.9 C H 83 18 141/49 H 93 Room Air O2 Flow Rate 01/14/22 23:37 01/14/22 23:00 01/14/22 23:42 01/14/22 22:33 2 01/14/22 20:57 0 01/14/22 20:57 01/14/22 20:57 PG Care Time/CCT Total # of Minutes Spent Total Time Spent with Patient: Total time spent is greater than 50% in coordination of care (as documented) at patient's floor/unit and/or counseling patient: Coding Level of Care Code 18399 Inpt Consult Level 5 Diagnoses Nephrolithiasis N20.0
--- NOTE | 2022-01-15 00:21 | History & Physical Report ---
Date of Service January 15, 2022 Assessment & Plan (1) Severe sepsis: Plan: SIRS plus ARF on CKD plus lactic acidosis plus encephalopathy secondary to complicated UTI ARF on CKD secondary to illness, obstructive uropathy Rhabdomyolysis contributory Hyperkalemia secondary to illness, home medications contributory Troponin elevation secondary to sepsis, rhabdomyolysis Acute on chronic anemia, no overt source of bleeding for now chronic diastolic heart failure, equivocal volume status (patient intravascularly dry with note of pulmonary congestion on CXR) moderate MR pulmonary hypertension as per records HTN BP on the lower side hyperlipidemia on statin Rx DM2 diet-controlled, well-controlled as of recent hemoglobin A1c of 5.5 last June 2021 hypothyroidism euthyroid as of today's TSH PCU given troponin elevation and borderline BP CS, Cefepime Urology consult Re: Obstructive uropathy (Patient already seen by Dr. Galloway at the ER. Emergent procedural intervention contemplated.) Monitor creatinine, CPK, lactic acid response to IV albumin (preferred over crystalloid given some congestion and CXR) Hold statin for now given rhabdomyolysis Appropriate to hold home diuretics, spironolactone and potassium supplements given hyperkalemia Nephrology consult Re: ARF on CKD, hyperkalemia (Patient known to [facility].) Follow troponin, TTE if with progression Hold amlodipine for now given borderline BP. Continue low-dose metoprolol Anemia work-up, transfuse RBC if hemoglobin less than 7 and or for symptomatic anemia ISS BG goal 1 10-1 40, update hemoglobin A1c DVT prophylaxis. SCDs Re: Anemia Full code as per brother, Mr. Edvin Mark. He requests updates from providers through [phone]. Total critical care time was 40 minutes. Text document was generated using Active[employer] voice recognition software. It may contain grammatical or spelling errors. Kindly contact undersigned for clarification of any documentation item in question. History of Present Illness Chief Complaint: Found on the floor as per records Primary Care Provider: Tiffanie Jameson DO History obtained from patient, family, and records. Limited history from patient secondary to obtunded state. Medical history significant for chronic diastolic heart failure (EF 60 to 65%, TTE 2020), moderate MR, pulmonary hypertension as per records, HTN, hyperlipidemia, DM2 diet-controlled, hypothyroidism, CRI (baseline creatinine 3), chronic anemia (baseline hemoglobin 9), gout. Last confinement October 2021 for hypertensive urgency. Spironolactone HCTZ added to patient's blood pressure regimen. Worsening outpatient serum creatinine noted over the last 2 months. Serum creatinine noted to be 3.11 2 weeks ago from 2.44 last November 25, 2021. Patient instructed to stop lisinopril by licensed retail supervisor on outpatient visit yesterday. Patient could not be reached by family at her home yesterday. Patient found by neighbors on the floor with decreased responsiveness. Fecal soiling noted. Patient complaining of abdominal/back pain about 2 days ago as per family. Patient unable to answer questions regarding headache, chest pain, SOB, syncope, abdominal pain, hematuria, bleeding symptoms. Patient brought to the ER for evaluation. Ertapenem administered at the ER for possible UTI. IV insulin and bicarb administered for hyperkalemia. 1 unit packed RBC transfused at the ER. 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 Allergies Allergy/AdvReac Type Severity Reaction Status Date / Time hydrocodone Allergy Intermediate RASH Verified 01/15/22 01:02 Iodinated Contrast Media Allergy Intermediate HIVES Verified 01/15/22 01:02 Penicillins Allergy Intermediate ANAPHLACTIC Verified 01/15/22 01:02 SHOCK phenylephrine Allergy Intermediate Rash, Verified 01/15/22 01:02 insomnia trolamine salicylate Allergy Intermediate RASH Verified 01/15/22 01:02 ketorolac Allergy Mild Unknown Verified 01/15/22 01:02 oxycodone Allergy Mild BRIGHT RED Verified 01/15/22 01:02 RASH tramadol Allergy Mild BRIGHT RED Verified 01/15/22 01:02 RASH prednisone AdvReac Unknown Became Verified 01/15/22 01:02 manic Home Medications Medication Instructions Recorded Confirmed Type atorvastatin 40 mg tablet 40 mg PO QAM 11/11/18 01/15/22 History allopurinol 100 mg tablet 200 mg PO QAM 02/24/20 01/15/22 History amlodipine 10 mg tablet 10 mg PO QAM 02/24/20 01/15/22 History ferrous sulfate 325 mg (65 mg 325 mg PO BID #60 tabs 12/31/20 01/15/22 History iron) tablet latanoprost 0.005 % eye drops 1 drp OPB HS 03/25/21 01/15/22 History bumetanide 1 mg tablet 1 mg PO DAILY PRN Weight Gain 06/24/21 01/15/22 History paroxetine HCl 10 mg tablet 10 mg PO DAILY 10/29/21 01/15/22 History spironolactone 25 1 tab PO BID #60 tabs 11/01/21 01/15/22 Rx mg-hydrochlorothiazide 25 mg tablet acetaminophen 325 mg tablet 650 mg PO HS 01/15/22 01/15/22 History (Tylenol) cholecalciferol (vitamin D3) 50 50 mcg PO BID 01/15/22 01/15/22 History mcg (2,000 unit) tablet (Vitamin D3) citalopram 10 mg tablet 10 mg PO QAM 01/15/22 01/15/22 History levothyroxine 100 mcg tablet 100 mcg PO DAILYBB 01/15/22 01/15/22 History magnesium 200 mg tablet 200 mg PO DAILY 01/15/22 01/15/22 History metoprolol succinate 25 mg 25 mg PO DAILY 01/15/22 01/15/22 History tablet,extended release 24 hr potassium gluconate 595 mg (99 mg) 595 mg PO DAILY 01/15/22 01/15/22 History tablet sertraline 50 mg tablet 50 mg PO DAILY 01/15/22 01/15/22 History Past Med/Surg History Medical History Acute on chronic diastolic CHF (congestive heart failure) Anemia Anemia in chronic renal disease Chronic diarrhea Chronic diastolic CHF (congestive heart failure) DM type 2 (diabetes mellitus, type 2) Dyslipidemia Glaucoma Gout Headache HTN (hypertension) Hyperparathyroidism, secondary renal Hypertensive nephrosclerosis Hypertensive urgency Hypomagnesemia Hypothyroidism Vitamin D deficiency Surgical History History of carpal tunnel surgery of left wrist History of surgery on lower extremity Hx of surgical amputation of finger Hx of tonsillectomy Status post hip surgery R hip nail by Dr. Rolle 04/09 Family History Mother Colorectal cancer Diabetes Heart disease Hypertension Father Non Hodgkin's lymphoma Sister End stage liver disease Brother ESRD (end stage renal disease) End stage liver disease Social History Smoking Status: Never smoker Hx Alcohol Use: No Hx Substance Use: No Preferred Language: Mongolian Communication Ability: Effective Assurance Officer Required: No Beliefs That Will Affect Care: None marital status: Single Current Living Situation: Alone Current Living Situation Comment: alone with 2 dogs Feels Safe at Home: Yes Assistive Devices: None Review of Systems Review of Systems: Could not be reliably obtained secondary to obtunded state Physical Exam Physical Exam: GENERAL: Obtunded, no respiratory distress SKIN: Pallor, warm HEENT: Pale palpebral conjunctivae, no ptosis, dry buccal mucosa NECK : Supple, no tenderness CHEST : CTA, no tenderness HEART : Tachycardic, systolic murmur ABDOMEN: Some distention, nontender EXTREMITIES : No LE swelling/tenderness, no other conspicuous deformities noted NEUROLOGIC : Obtunded, no facial asymmetry, gait and stance not assessed Results & Data Results & Data ([facility]) Vital Signs (Past 12 Hours) Vital Signs Temp Pulse Resp BP BP Pulse Ox O2 Del Method 01/14/22 23:37 103 H 28 H 100/56 L 97 01/14/22 23:00 106 H 31 H 175/75 H 98 01/14/22 23:42 37.6 C H 01/14/22 22:33 18 141/49 H 96 Nasal Cannula 01/14/22 20:57 93 Room Air 01/14/22 20:57 83 20 93 Room Air 01/14/22 20:57 37.9 C H 83 18 141/49 H 93 Room Air O2 Flow Rate 01/14/22 23:37 01/14/22 23:00 01/14/22 23:42 01/14/22 22:33 2 01/14/22 20:57 0 01/14/22 20:57 01/14/22 20:57 Laboratory Results Laboratory Results WBC 27.08 K/ul (4.8-10.8) H 01/14/22 21:11 RBC 2.34 M/uL (3.93-5.22) L 01/14/22 21:11 Hgb 6.8 g/dl (12.0-16.0) L* 01/14/22 21:11 Hct 21.4 % (34.1-44.9) L 01/14/22 21:11 MCV 91.5 fL (80.0-100.0) 01/14/22 21:11 MCH 29.1 pg (25.0-34.0) 01/14/22 21:11 MCHC 31.8 g/dL (32.0-36.0) L 01/14/22 21:11 RDW Std Deviation 50.1 fL (36.4-46.3) H 01/14/22 21:11 RDW Coeff of Mague 15.1 % (11.5-14.5) H 01/14/22 21:11 Plt Count 130 K/uL (130-400) 01/14/22 21:11 MPV 10.1 fL (9.4-12.3) 01/14/22 21:11 Immature Gran % (Auto) 5.6 % 01/14/22 21:11 Neut % (Auto) 89.5 % 01/14/22 21:11 Lymph % (Auto) 2.0 % 01/14/22 21:11 Lamar % (Auto) 2.7 % 01/14/22 21:11 Eos % (Auto) 0.1 % 01/14/22 21:11 Baso % (Auto) 0.1 % 01/14/22 21:11 Neut # (Auto) 24.25 K/uL (1.4-6.5) H 01/14/22 21:11 Lymph # (Auto) 0.53 K/uL (1.2-3.4) L 01/14/22 21:11 Lamar # (Auto) 0.72 K/uL (0.24-0.82) 01/14/22 21:11 Eos # (Auto) 0.02 K/uL (0-0.50) 01/14/22 21:11 Baso # (Auto) 0.04 K/uL (0-0.2) 01/14/22 21:11 Immature Gran # (Auto) 1.52 K/uL (0.00-0.02) H 01/14/22 21:11 Toxic Vacuolation 1+ 01/14/22 21:11 Dohle Bodies 1+ 01/14/22 21:11 Ovalocytes 1+ 01/14/22 21:11 Sodium 138 mmol/L (136-145) 01/14/22 21:11 Potassium 5.9 mmol/L (3.5-5.1) H 01/14/22 21:11 Chloride 108 mmol/L (98-107) H 01/14/22 21:11 Carbon Dioxide 18 mmol/L (21-32) L 01/14/22 21:11 Anion Gap 12 (3-11) H 01/14/22 21:11 BUN 60 mg/dl (6-23) H 01/14/22 21:11 Creatinine 3.71 mg/dl (0.6-1.2) H 01/14/22 21:11 Est Cr Clr Drug Dosing 9.6 ml/min 01/14/22 21:11 Est GFR ( Amer) 12.2 ml/min 01/14/22 21:11 Est GFR (Non-Af Amer) 10.5 ml/min 01/14/22 21:11 BUN/Creatinine Ratio 16.2 (10-20) 01/14/22 21:11 Glucose 89 mg/dl (70-99(Fasting)) 01/14/22 21:11 POC Glucose 129 mg/dl (70-99) H 01/14/22 23:48 Calcium 9.2 mg/dl (8.5-10.1) 01/14/22 21:11 Magnesium 1.8 mg/dl (1.7-2.4) 01/14/22 21:11 Total Bilirubin 0.7 mg/dl (0.2-1.0) 01/14/22 21:11 AST 27 U/L (13-39) 01/14/22 21:11 ALT 12 U/L (7-52) 01/14/22 21:11 Alkaline Phosphatase 46 U/L (34-104) 01/14/22 21:11 Total Creatine Kinase 318 U/L (26-192) H 01/14/22 21:11 Troponin I High Sens 1025.6 pg/ml (0-14) H* D 01/14/22 21:11 Total Protein 7.0 gm/dl (6.0-8.3) 01/14/22 21:11 Albumin 3.6 gm/dl (3.4-5.0) 01/14/22 21:11 Globulin 3.4 gm/dl (2.5-4.0) 01/14/22 21:11 Albumin/Globulin Ratio 1.1 (0.9-2) 01/14/22 21:11 TSH 0.959 uIu/ml (0.300-4.500) 01/14/22 21:11 Urine Color Yellow 01/14/22 22:25 Urine Appearance Cloudy (Clear) A 01/14/22 22: Urine pH 5.0 (4.5-7.5) 01/14/22 22:25 Ur Specific Kell 1.015 (1.000-1.030) 01/14/22 22:25 Urine Protein 3+ (Negative) H 01/14/22 22:25 Urine Glucose (UA) Negative (Negative) 01/14/22 22: Urine Ketones Negative (Negative) 01/14/22 22: Urine Blood 3+ (Negative) H 01/14/22 22:25 Urine Nitrite Negative (Negative) 01/14/22 22: Urine Bilirubin Negative (Negative) 01/14/22 22:25 Urine Urobilinogen Negative (Negative) 01/14/22 22:25 Ur Leukocyte Esterase 2+ (Negative) H 01/14/22 22:25 Urine WBC (Auto) >30 /hpf (0-5) H 01/14/22 22:25 Urine RBC (Auto) 5-10 /hpf (0-4) H 01/14/22 22:25 U Hyaline Cast (Auto) 1-5 /lpf (0-5) 01/14/22 22:25 U Epithel Cells (Auto) 0-5 /lpf (0-5) 01/14/22 22:25 Urine Bacteria (Auto) 4+ (Negative) H 01/14/22 22:25 POC Stool Occult Blood Negative (Negative) 01/14/22 22:33 SARS-CoV-2, RNA, NAAT NEGATIVE (NEGATIVE) 01/14/22 21:21 Crossmatch See Detail 01/14/22 22:[address] head initial read: No acute intracranial hemorrhage. No midline shift or mass effect. The territorial ignacio-white matter differentiation is maintained throughout. Age- related cerebral volume loss. Periventricular and subcortical white matter hypoattenuation, consistent with chronic microangiopathy. CT cervical spine initial read: No acute fracture or subluxation of the cervical spine CT abdomen pelvis initial read: Obstructing 5 mmleft UPJ calculus. Mild hydronephrosis of the left kidney. Multiple left-sided renal cysts measuring up to 5.8 cm. Diverticulosis, without acute diverticulitis. No small bowel obstruction. No free intraperitoneal air. Chest x-ray as per my interpretation cardiomegaly, minimal congestion EKG as per my interpretation : Rate 80, NSR, LAD, LAFB, RBBB, no ischemia
[2022-01-15 01:14] LABS: Reticulocyte % 1.4 % (0.5-2.0); Reticulocytes # 0.03 10^6/uL (0.02-0.10)
--- NOTE | 2022-01-15 01:21 | Anesthesiology Consultation ---
Date of Service January 15, 2022 Assessment & Plan (1) Encounter for pre-operative examination: Chart Review Chart Review: Acceptable Risk for Surgery (emergency surgery) and Patient NOT seen in Pre Admission Testing Consults Requested none History Height/Weight Height: 5 ft 4 in Weight: 62.6 kg Allergies Allergy/AdvReac Type Severity Reaction Status Date / Time hydrocodone Allergy Intermediate RASH Verified 01/15/22 01:02 Iodinated Contrast Media Allergy Intermediate HIVES Verified 01/15/22 01:02 Penicillins Allergy Intermediate ANAPHLACTIC Verified 01/15/22 01:02 SHOCK phenylephrine Allergy Intermediate Rash, Verified 01/15/22 01:02 insomnia trolamine salicylate Allergy Intermediate RASH Verified 01/15/22 01:02 ketorolac Allergy Mild Unknown Verified 01/15/22 01:02 oxycodone Allergy Mild BRIGHT RED Verified 01/15/22 01:02 RASH tramadol Allergy Mild BRIGHT RED Verified 01/15/22 01:02 RASH prednisone AdvReac Unknown Became Verified 01/15/22 01:02 manic Medications Home Medications Medication Instructions Recorded Confirmed Last Taken atorvastatin 40 mg tablet 40 mg PO QAM 11/11/18 01/15/22 10/29/21 allopurinol 100 mg tablet 200 mg PO QAM 02/24/20 01/15/22 10/29/21 amlodipine 10 mg tablet 10 mg PO QAM 02/24/20 01/15/22 10/29/21 ferrous sulfate 325 mg (65 mg 325 mg PO BID #60 tabs 12/31/20 01/15/22 10/29/21 iron) tablet latanoprost 0.005 % eye drops 1 drp OPB HS 03/25/21 01/15/22 10/28/21 bumetanide 1 mg tablet 1 mg PO DAILY PRN Weight Gain 06/24/21 01/15/22 10/28/21 paroxetine HCl 10 mg tablet 10 mg PO DAILY 10/29/21 01/15/22 10/29/21 spironolactone 25 1 tab PO BID #60 tabs 11/01/21 01/15/22 Unknown mg-hydrochlorothiazide 25 mg tablet acetaminophen 325 mg tablet 650 mg PO HS 01/15/22 01/15/22 Unknown (Tylenol) cholecalciferol (vitamin D3) 50 50 mcg PO BID 01/15/22 01/15/22 Unknown mcg (2,000 unit) tablet (Vitamin D3) citalopram 10 mg tablet 10 mg PO QAM 01/15/22 01/15/22 Unknown levothyroxine 100 mcg tablet 100 mcg PO DAILYBB 01/15/22 01/15/22 Unknown lisinopril 40 mg tablet 40 mg PO QAM 01/15/22 01/15/22 Unknown magnesium 200 mg tablet 200 mg PO DAILY 01/15/22 01/15/22 Unknown metoprolol succinate 25 mg 25 mg PO DAILY 01/15/22 01/15/22 Unknown tablet,extended release 24 hr potassium gluconate 595 mg (99 mg) 595 mg PO DAILY 01/15/22 01/15/22 Unknown tablet sertraline 50 mg tablet 50 mg PO DAILY 01/15/22 01/15/22 Unknown Past Medical History Medical History Acute on chronic diastolic CHF (congestive heart failure) Anemia Anemia in chronic renal disease Chronic diarrhea Chronic diastolic CHF (congestive heart failure) DM type 2 (diabetes mellitus, type 2) Dyslipidemia Glaucoma Gout Headache HTN (hypertension) Hyperparathyroidism, secondary renal Hypertensive nephrosclerosis Hypertensive urgency Hypomagnesemia Hypothyroidism Vitamin D deficiency Past Family History Family History Mother Colorectal cancer Diabetes Heart disease Hypertension Father Non Hodgkin's lymphoma Sister End stage liver disease Brother ESRD (end stage renal disease) End stage liver disease Past Surgical History Surgical History History of carpal tunnel surgery of left wrist History of surgery on lower extremity Hx of surgical amputation of finger Hx of tonsillectomy Status post hip surgery R hip nail by Dr. Rolle 04/09 Social History Smoking Status: Never smoker Hx Alcohol Use: No Hx Substance Use: No Physical Exam Vital Signs Last Vital Signs Temp 37.6 C H 01/14/22 23:42 Pulse 103 H 01/14/22 23:37 Resp 28 H 01/14/22 23:37 BP 100/56 L 01/14/22 23:37 Pulse Ox 97 01/14/22 23:37 O2 Del Method 01/14/22 22:33 O2 Flow Rate 2 01/14/22 22:33 Testing Laboratory Results 01/14/22 21:11 01/14/22 21:11 Urine Color Yellow 01/14/22 22:25 Urine Appearance Cloudy (Clear) A 01/14/22 22:25 Urine pH 5.0 (4.5-7.5) 01/14/22 22:25 Ur Specific [place] 1.015 (1.000-1.030) 01/14/22 22:25 Urine Protein 3+ (Negative) H 01/14/22 22:25 Urine Glucose (UA) Negative (Negative) 01/14/22 22:25 Urine Ketones Negative (Negative) 01/14/22 22:25 Urine Nitrite Negative (Negative) 01/14/22 22:25 Ur Leukocyte Esterase 2+ (Negative) H 01/14/22 22:25 Urine WBC (Auto) >30 /hpf (0-5) H 01/14/22 22:25 Urine RBC (Auto) 5-10 /hpf (0-4) H 01/14/22 22:25 U Hyaline Cast (Auto) 1-5 /lpf (0-5) 01/14/22 22:25 U Epithel Cells (Auto) 0-5 /lpf (0-5) 01/14/22 22:25 Urine Bacteria (Auto) 4+ (Negative) H 01/14/22 22:25 01/14/22 23:48 POC Glucose 129 H Electrocardiogram Date: 01/14/22 Findings: + NSR @ (82), + LBBB (left anterior fascicle) and + RBBB Echocardiogram Date: 02/25/20 EF: 60-65 Other Findings: + atrial enlargement (mild left atrial), + LVH (mild concentric) and + diastolic dysfunction (grade 2) Valvular Disease: + MS (mild) and + MR (moderate) PA systolic pressure 41 mm Hg
[2022-01-15] MEDS ORDERED: ePHEDrine sulfate 50 MG/ML AMP IV PRN (01:25)
[2022-01-15] MEDS ORDERED: LABETALOL HCL IV 5 MG/ML 20ML IV PRN (01:25)
[2022-01-15] MEDS ORDERED: fentaNYL citrate 100 MCG/2 ML VIAL IV PRN (01:25)
[2022-01-15] MEDS ORDERED: PHENYLEPHRINE 100MCG/ML 5ML SYR IV PRN (01:25)
[2022-01-15] MEDS ORDERED: ONDANSETRON INJ 2 MG/ML 2 ML VIAL IV PRN (01:25)
[2022-01-15] MEDS ORDERED: ATROPINE SULFATE 0.1 MG/ML 10ML SYR IV PRN (01:25)
[2022-01-15] MEDS ORDERED: PROMETHAZINE HCL 6.25 MG in SODIUM CHLORIDE 0.9% 50 ML IV PRN (01:47)
[2022-01-15 01:52] LABS: INR 1.3 (0.9-1.1); Prothrombin Time 13.2 Seconds (9.0-12.0)
[2022-01-15] MEDS ORDERED: fentaNYL citrate 100 MCG/2 ML VIAL ONE (02:55)
[2022-01-15] MEDS ORDERED: LIDOCAINE 2% MPF LOCAL 5 ML VIAL INFIL ONE (02:57)
[2022-01-15] MEDS ORDERED: PROPOFOL IV EMULSION 10 MG/ML 20 ML VIAL IV ONE (02:57)
[2022-01-15 02:59] LABS: Troponin I High Sensitivity 2189.7 pg/ml (0-14)
[2022-01-15 03:04] LABS: Anion Gap 12 (3-11); BUN Creatinine Ratio 16.2 (10-20); Blood Urea Nitrogen 63 mg/dl (6-23); Carbon Dioxide 18 mmol/L (21-32); Chloride 108 mmol/L (98-107); Creatine Kinase 872 U/L (26-192); Creatinine Clr Calc Pharmacy 9.1 ml/min; Est GFR (African American) 11.5 ml/min; Est GFR (Non-African American) 9.9 ml/min; Ferritin 950.6 ng/ml (8-388); Glucose 70 mg/dl (70-99(Fasting)); Iron < 10 mcg/dl (35-150); Potassium 4.6 mmol/L (3.5-5.1); Sodium 138 mmol/L (136-145); Transferrin 125 mg/dl (200-360)
--- NOTE | 2022-01-15 03:14 | Operative Report ---
PG Post Operative Report Pre & Post Diagnosis Operation Date: 01/15/22 01:45 Preoperative diagnosis: Infected, obstructing left ureteral stone Postoperative diagnosis: Infected, obstructing left ureteral stone I identified the patient and participated in the time-out.: Yes Procedure Operation Date: 01/15/22 01:45 Cystoscopy, left retrograde pyelogram, left ureteral stent placement Surgeon Henri Galloway MD Manager Engine None Estimated Blood Loss 0 Findings Consistent with Post-Op Diagnosis Specimens Urine from left kidney for culture Drains 6 [place]gu[place] 24 cm double-J ureteral stent in the left ureter Anesthesia Type MAC Complications none Disposition Accompanied Patient To Recovery: Yes Disposition: Surgical ICU Indications This is an 86-year-old female who presented to the emergency department on 01/14 after being found down. Urinalysis was suspicious for infection and CT scan suggested an obstructing stone. Due to concern for sepsis and obstructing stone, she was brought to the OR for left ureteral stent placement. Description of Procedure The patient was identified in the holding area and informed consent was obtained from her daughter she was not able to provide any meaningful history or consent herself. She was marked on the left side, then was taken to the operating room where anesthesia was initiated. She was placed in the dorsal lithotomy position with all pressure points appropriately padded. She was prepped and draped in the usual sterile fashion and a preoperative timeout was performed. A well-lubricated cystoscope was inserted per urethra and panendoscopy was performed. The urethra was normal in appearance. The bladder was of normal size with ureteral orifices in orthotopic position. The left ureteral orifice was identified and cannulated with a 5 Anguillan open- ended catheter. A retrograde pyelogram was performed demonstrating some dilation of the ureter and some dilation of the kidney. A 0.038" ZIPwire was advanced to the level of the kidney under fluoroscopic guidance. Over the wire, a 6 Anguillan x 24 centimeter double-J ureteral stent was advanced. When the wire was removed, the proximal curl was visualized in the kidney with x-ray, and the distal curl visualized in the bladder with the cystoscope. There was some drainage of turbid urine through the stent. A sample of this was collected and sent for culture. A 16 Anguill[place] Del Toro catheter was placed per urethra with 10 mL in the balloon. This was attached to gravity drainage. The patient was then awakened from anesthesia and was brought to recovery in stable condition. I attest to the content of the Intraoperative Record and any orders documented therein. Any exceptions are noted below.
--- NOTE | 2022-01-15 03:32 | Anesthesiology Progress Note ---
Date of Service January 15, 2022 Anesthesia Post Procedure Vital Signs Vital Signs: Temp Pulse Resp BP BP Pulse Ox O2 Del Method 01/15/22 01:30 93 H 28 H 97 01/15/22 01:11 98 H 28 H 99/52 L 98 01/15/22 01:00 98 H 28 H 96 01/15/22 00:30 98 H 30 H 96 01/15/22 00:10 102 H 31 H 95/47 L 96 01/15/22 00:00 104 H 32 H 96 01/14/22 23:37 103 H 28 H 100/56 L 97 01/14/22 23:00 106 H 31 H 175/75 H 98 01/14/22 23:42 37.6 C H 01/14/22 22:33 18 141/49 H 96 Nasal Cannula 01/14/22 20:57 93 Room Air 01/14/22 20:57 83 20 93 Room Air 01/14/22 20:57 37.9 C H 83 18 141/49 H 93 Room Air O2 Flow Rate 01/15/22 01:30 01/15/22 01:11 01/15/22 01:00 01/15/22 00:30 01/15/22 00:10 01/15/22 00:00 01/14/22 23:37 01/14/22 23:00 01/14/22 23:42 01/14/22 22:33 2 01/14/22 20:57 0 01/14/22 20:57 01/14/22 20:57 Transfer of Care Handoff Completed per policy Notes Mental Status: alert / awake / arousable Patient Amnestic to Procedure: Yes Nausea / Vomiting: adequately controlled Pain: adequately controlled Airway Patency, RR, SpO2: stable & adequate BP & HR: stable & adequate Hydration State: stable & adequate Anesthetic Complications: no major complications apparent and Pt Satisfied with anesthetic care Notes: The patient is in the ICU where she will remain overnight. She is awake to her baseline and her vitals are at her baseline. Her BSG just prior to the OR was 78.
[2022-01-15] MEDS: ALBUMIN 25% 100 mL 25 GM/100 ML VIAL IV SCH ×3 (04:19→19:22)
[2022-01-15] MEDS ORDERED: DEXTROSE 50% 50 ML SYRINGE IV PRN (04:39)
[2022-01-15] MEDS ORDERED: CARBOHYDRATES FOR HYPOGLYCEMIA PO PRN (04:39)
[2022-01-15] MEDS ORDERED: GLUCAGON FOR INJ 1 MG VIAL SQ PRN (04:39)
[2022-01-15] MEDS ORDERED: GLUCOSE 40% GEL 15 GM TUBE PO PRN (04:39)
[2022-01-15] MEDS ORDERED: GLUCOSE 10 TAB/TUBE PO PRN (04:39)
[2022-01-15 04:41] LABS: Base Excess VBG -5.1 mEq/L; HCO3 VBG 20 mmol/L; Hematocrit (blood only) 22.4 % (34.1-44.9); Hemoglobin 7.3 g/dl (12.0-16.0); Mean Corpuscular Hemoglobin 29.7 pg (25.0-34.0); Mean Corpuscular Hgb Conc 32.6 g/dL (32.0-36.0); Mean Corpuscular Volume 91.1 fL (80.0-100.0); Mean Platelet Volume 10.5 fL (9.4-12.3); Oxygen Saturation VBG 82.5 %; PCO2 VBG 36 mmHg (38-50); PO2 VBG 47 mmHg; Platelet Count 109 K/uL (130-400); RDW Coefficient of Variation 14.9 % (11.5-14.5); RDW Standard Deviation 49.9 fL (36.4-46.3); Red Blood Count 2.46 M/uL (3.93-5.22); White Blood Count 25.69 K/ul (4.8-10.8); pH VBG 7.35 (7.36-7.41)
[2022-01-15] MEDS ORDERED: INFLUENZA VACCINE HIGH DOSE PF 65+ 0.7 ML SYR IM ONE (04:43)
[2022-01-15 05:04] LABS: Basophils # (auto) 0.06 K/uL (0-0.2); Basophils % (auto) 0.2 %; Dohle Bodies 1+; Eosinophils # (auto) 0.14 K/uL (0-0.50); Eosinophils % (auto) 0.5 %; Immature Granulocytes # (auto) 2.31 K/uL (0.00-0.02); Lymphocytes # (auto) 0.49 K/uL (1.2-3.4); Lymphocytes % (auto) 1.9 %; Monocytes # (auto) 1.53 K/uL (0.24-0.82); Neutrophils # (auto) 21.16 K/uL (1.4-6.5); Neutrophils % (auto) 82.4 %; Toxic Vacuolation 1+
[2022-01-15 05:28] LABS: Troponin I High Sensitivity 2643.6 pg/ml (0-14)
[2022-01-15] MEDS ORDERED: ALBUMIN 25% 100 mL 25 GM/100 ML VIAL IV SCH (06:00)
[2022-01-15] MEDS: LEVOTHYROXINE SODIUM 100 MCG TABLET PO SCH (06:25)
[2022-01-15 06:31] LABS: BUN Creatinine Ratio 15.9 (10-20); Calcium 8.8 mg/dl (8.5-10.1); Creatinine Clr Calc Pharmacy 8.8 ml/min; Est GFR (African American) 11.1 ml/min; Est GFR (Non-African American) 9.5 ml/min; Potassium 4.6 mmol/L (3.5-5.1)
[2022-01-15] MEDS: INSULIN ASPART PER UNIT SC SCH ×3 (07:08→16:57)
[2022-01-15 07:18] LABS: Estimated Average Glucose 126 mg/dl
--- NOTE | 2022-01-15 07:19 | CT Scan Report ---
CERVICAL SPINE CT CT DOSE: 1011.03 mGy.cm HISTORY: fall TECHNIQUE: Multiaxial CT images of the cervical spine were performed and reformatted in the sagittal and coronal plane without the use of contrast. A dose lowering technique was utilized adhering to th e principles of ALARA. COMPARISON: None. FINDINGS: No fractures. No subluxation. Prevertebral soft tissues and the C1-C2 interval are intact. No pneumothorax. Moderate to severe degenerative changes throughout the cervical spine. IMPRESSION: No fractures within the cervical spine. ACT 112: Negative or not required by law. Electronically signed by: Vick Kim M.D. 01/15/2022 7:17 AM
--- NOTE | 2022-01-15 07:23 | Fluoroscopy Report ---
FL retrograde includes kub CLINICAL HISTORY: Left ureteral stent placement. COMPARISON STUDY: Abdomen and pelvis CT 01/14/2022. FLUOROSCOPY TIME: 4 seconds. FINDINGS: 2 fluoroscopic spot images of the abdomen demonstrate retrograde opacification of the left renal collecting system followed by placement of a left ureteral stent. Only the proximal portion of the stent is identified and appears in good position. IMPRESSION: Fluoroscopic assistance is provided for left ureteral stent placement as above. ACT 112: Negative or not required by law. Electronically signed by: Vick Kim M.D. 01/15/2022 7:21 AM
--- NOTE | 2022-01-15 07:32 | CT Scan Report ---
CT SCAN OF THE ABDOMEN AND PELVIS WITHOUT IV CONTRAST CLINICAL HISTORY: Fall. Anemia. COMPARISON STUDY: Abdominal CT dated 03/25/2021. TECHNIQUE: CT scan of the abdomen and pelvis is performed from the lung bases to the proximal femora. Images are reviewed in the axial, sagittal, and coronal planes. IV contrast was not administered for this examination. Note that the examination was performed in significant central optimal fashion wit hout oral and IV contrast. The Examination is also degraded by motion artifact. A dose lowering techn ique was utilized adhering to the principles of ALARA. CT DOSE: 952.79 mGy.cm FINDINGS: Lung bases: The heart is enlarged and without pericardial effusion. There is diminished attenuation o f the cardiac blood pool as compared to the myocardium suggesting anemia. Fibrotic change in noted at the lung bases. Interlobular septal thickening is observed. No large pleural effusion is seen. A mod erate hiatal hernia is noted. Liver: The unenhanced liver is normal in size, contour, and attenuation. There is no intrahepatic opal iary ductal dilatation. Gallbladder: Unremarkable. Spleen: Normal in size and attenuation. Pancreas: The unenhanced pancreas is atrophic and grossly unremarkable. Adrenal glands: Thickening of the adrenal glands is similar to previous. Kidneys: The unenhanced kidneys demonstrate mild cortical atrophy. There is moderate to severe left h ydronephrosis secondary to an 8 mm relatively low attenuation obstructing calculus in the left proxim al ureter seen on image #[id number]. This is located at the level of L3. There is associated left-sided ryan nephric stranding and fluid. No additional renal calculi are clearly identified. There is no right-si ded hydronephrosis. Renal cysts measure up to 5.5 cm. Abdominal vasculature: The abdominal aorta is normal in course and caliber noting moderate atheroscle rotic calcification. Bowel: There is rectosigmoid fecal retention and moderate constipation. No bowel obstruction is seen. There is advanced colonic diverticulosis without CT evidence of acute diverticulitis. The appendix i s not visualized. Peritoneum: No intraperitoneal free air is seen. There is layering fluid within the paracolic gutter, as well as a small volume of perisplenic and perihepatic ascites. There is no retroperitoneal hemorr polina. Lymphadenopathy: None. Pelvic viscera: Evaluation of the pelvis is degraded by streak artifact from a right hip arthroplasty . The bladder is partially decompressed and grossly unremarkable. The uterus and adnexa are normal as visualized. Skeletal structures: The skeletal structures are osteopenic. There is moderate to advanced lumbosacra l spondylosis. There is a minimal chronic superior endplate compression deformity of T11. No lytic or blastic lesions are seen. A right hip arthroplasty is in place. Soft tissues: A 1.6 cm sebaceous cyst is noted in the left lower back on image #156. IMPRESSION: 1. Significantly suboptimal examination without oral and IV contrast. There is also significant motio n artifact. 2. An 8 mm obstructing calculus is seen in the left proximal ureter. This causes moderate to severe l eft hydroureteronephrosis. 3. No additional calculi are clearly seen in either kidney. 4. There is no evidence of solid organ injury in the abdomen or pelvis on this unenhanced examination 5. Rectosigmoid fecal retention and moderate constipation. 6. Advanced colonic diverticulosis without CT evidence of acute diverticulitis. 7. Trace abdominal ascites, with free fluid seen in the left paracolic gutter. 8. Cardiomegaly with intralobular septal thickening at the lung bases. This could represent acute ken thomas chronic congestive change and clinical correlation will be required. 9. Hiatal hernia. 10. Additional findings as above. ACT 112: Negative or not required by law. Electronically signed by: Bird Oh M.D. 01/15/2022 7:30 AM
--- NOTE | 2022-01-15 07:45 | CT Scan Report ---
CT SCAN OF THE BRAIN WITHOUT IV CONTRAST CLINICAL HISTORY: Fall. COMPARISON STUDY: CT of the brain dated 10/29/2021 TECHNIQUE: Unenhanced axial CT scan of the brain is performed from the vertex to the skull base. A do se lowering technique was utilized adhering to the principles of ALARA. FINDINGS: Brain parenchyma: There is age-related involutional change noting moderate to advanced subcortical an d periventricular microangiopathic disease. There is no hemorrhage, mass effect, or evidence of acute territorial ischemia by CT criteria. [place]-white matter differentiation is preserved. No extra-axial fluid collection is seen. Ventricles, sulci, cisterns: Prominent secondary to involutional change. Intracranial vasculature: There is atherosclerotic calcification of the cavernous carotid and vertebr al artery. Calvarium: The skeletal structures are osteopenic. No depressed calvarial fracture is seen. Sinuses and mastoids: There is trace mucosal thickening within the frontal and ethmoid sinuses. The r emaining paranasal sinuses are clear. The mastoid air cells are well pneumatized. Cerumen is seen wit hin the external auditory canals. Orbits: The bony orbits are grossly intact. There are bilateral ocular lens implants. IMPRESSION: There is no hemorrhage, mass effect, or evidence of acute territorial ischemia by CT simone lewis. ACT 112: Negative or not required by law. Electronically signed by: Bird Oh M.D. 01/15/2022 7:44 AM
[2022-01-15] MEDS: FERROUS SULFATE 325 MG TAB PO SCH ×2 (08:16→21:34)
--- NOTE | 2022-01-15 08:34 | XRay Report ---
XR chest 1V portable HISTORY: weakness, fall COMPARISON: Chest 10/29/2021. FINDINGS: No pneumothorax. No pleural effusions. The cardiac silhouette remains mildly enlarged. Ther e is an old, healed left posterior sixth rib fracture again noted. No acute fractures identified. The re is mild central pulmonary vascular congestion without overt edema. This has progressed in the inte rval. IMPRESSION: Interval development of mild central pulmonary vascular congestion without overt edema. ACT 112: Negative or not required by law. Electronically signed by: Vick Kim M.D. 01/15/2022 8:32 AM
[2022-01-15] MEDS ORDERED: METOPROLOL SUCC 25MG EXT REL TAB PO SCH (09:00)
[2022-01-15 09:58] LABS: A calco-baum cmplx NotReported Not Detected (NotDetected); Bact fragilis Not Reported Not Detected (NotDetected); C auris Not Reported Not Detected (NotDetected); CTX-M Resistant Gene Not Detected (NotDetected); Calbicans Not Reported Not Detected (NotDetected); Candida glabrata Not Reported Not Detected (NotDetected); Candida krusei Not Reported Not Detected (NotDetected); Cneoformans/gatti Not Reported Not Detected (NotDetected); Cparapsilosis Not Reported Not Detected (NotDetected); Ctropicalis Not Reported Not Detected (NotDetected); E cloacae compx Not Reported Not Detected (NotDetected); Efaecalis Not Reported Not Detected (NotDetected); Efaecium Not Reported Not Detected (NotDetected); Enterobacterales DETECTED (NotDetected); Escherichia coli Not Reported DETECTED (NotDetected); H influenzae Not Reported Not Detected (NotDetected); IMP Resistant Gene Not Detected (NotDetected); K aerogenes Not Reported Not Detected (NotDetected); KPC Resistant Gene Not Detected (NotDetected); Koxytoca Not Reported Not Detected (NotDetected); Kpneumoniae grp Not Reported Not Detected (NotDetected); Lmonocyt Not Reported Not Detected (NotDetected); N meningitidis Not Reported Not Detected (NotDetected); NDM Resistant Gene Not Detected (NotDetected); OXA 48 Like Resistant Gene Not Detected (NotDetected); P aeruginosa Not Reported Not Detected (NotDetected); Proteus spp Not Reported Not Detected (NotDetected); Salmonella spp Not Reported Not Detected (NotDetected); Smarcescens Not Reported Not Detected (NotDetected); Staph lugdunensis Not Reported Not Detected (NotDetected); Staph spp. Not Reported Not Detected (NotDetected); Staphaureus Not Reported Not Detected (NotDetected); Staphepi Not Reported Not Detected (NotDetected); Stenmaltophilia Not Reported Not Detected (NotDetected); Strep agal(GrpB) Not Reported Not Detected (NotDetected); Strep pneum Not Reported Not Detected (NotDetected); Strep pyog (GrpA) Not Reported Not Detected (NotDetected); Strep spp Not Reported Not Detected (NotDetected); VIM Resistant Gene Not Detected (NotDetected); mcr-1 Colistin Resistant Gene Not Detected (NotDetected)
[2022-01-15 10:06] LABS: Enterobacterales Not Reported DETECTED (NotDetected)
--- NOTE | 2022-01-15 10:58 | Nephrology Consultation ---
Date of Consultation January 15, 2022 Assessment & Plan (1) Acute kidney injury superimposed on CKD: Decreased urine output. Continue to challenge with positive fluid balance to expand intravascular volume. MAP goal 65+. PRBC transfusion is being provided. ELISABET in the setting of sepsis with ATN, unilateral obstruction, and complicated by elevated CK. Thankfully, hyperkalemia has improved. Electrolytes are acceptable. Volume status reasonable. There is no emergent indication for dialysis at this time. Document strict I/O's. Medications are appropriately dosed for kidney function. (2) Severe sepsis: Cefepime dosed for kidney function. Cultures pending. (3) Acute UTI: (4) Hyperkalemia: Improved with management. Repeat metabolic profile this afternoon. (5) Encephalopathy: (6) Nephrolithiasis: s/p ureteroscopy with stent placement this AM. (7) Anemia: 2 units PRBC ordered. Repeat H/H this afternoon. History of Present Illness Reason for Consultation: ELISABET/CKD Requesting Physician: Maik Monsivais MD Attending Physician: Maik Monsivais MD History of Present Illness Janel Kirby is an 86 year-old female with CKD admitted to the ICU overnight with urosepsis and an obstructing L UPJ calculus. Cystoscopy, retrograde pyelogram and stent placement performed by Dr. Galloway this AM. The patient was seen and evaluated in the ICU this AM. She was lethargic and did not participate in providing history. Janel answered basic questions but without detail. She denies pain. I discussed her hospital course with the ICU nurse and reviewed medical records in detail. The patient is followed by Dr. Merida in the outpatient nephrology clinic for CKD. Baseline creatinine had been ~2 mg/dL. Creatinine found to be 3.1 mg/dL earlier this month and lisinopril was held. Laboratory studies on admission notable for a serum creatinine of 4 mg/dL with associated hyperkalemia. Notable anemia with hemoglobin of 6.3. CK 318-->888. Troponin elevated. No obvious blood loss. UOP overnight ~150 ml. PRBC transfusion infusing. Blood and urine cultures pending. Janel presented to the ER after being found down at home. Mental status changes noted. She does not recall coming to the hospital. Intermittent confusion reported by her daughter over the past few weeks. She had reportedly also expressed kidney and abdominal pain for a couple of days. She presented to the hospital with relatively hypotension [place] [id number] demonstrating 7 mm obstructing stone at L UPJ with moderate to severe hydronephrosis. Kidneys are moderately atrophic with multiple cysts. Ertapenem provided prior to admission and converted to cefepime. Allergies Allergy/AdvReac Type Severity Reaction Status Date / Time hydrocodone Allergy Intermediate RASH Verified 01/15/22 01:02 Iodinated Contrast Media Allergy Intermediate HIVES Verified 01/15/22 01:02 Penicillins Allergy Intermediate ANAPHLACTIC Verified 01/15/22 01:02 SHOCK phenylephrine Allergy Intermediate Rash, Verified 01/15/22 01:02 insomnia trolamine salicylate Allergy Intermediate RASH Verified 01/15/22 01:02 ketorolac Allergy Mild Unknown Verified 01/15/22 01:02 oxycodone Allergy Mild BRIGHT RED Verified 01/15/22 01:02 RASH tramadol Allergy Mild BRIGHT RED Verified 01/15/22 01:02 RASH prednisone AdvReac Unknown Became Verified 01/15/22 01:02 manic Home Medications Medication Instructions Recorded Confirmed Type atorvastatin 40 mg tablet 40 mg PO QAM 11/11/18 01/15/22 History allopurinol 100 mg tablet 200 mg PO QAM 02/24/20 01/15/22 History amlodipine 10 mg tablet 10 mg PO QAM 02/24/20 01/15/22 History ferrous sulfate 325 mg (65 mg 325 mg PO BID #60 tabs 12/31/20 01/15/22 History iron) tablet latanoprost 0.005 % eye drops 1 drp OPB HS 03/25/21 01/15/22 History bumetanide 1 mg tablet 1 mg PO DAILY PRN Weight Gain 06/24/21 01/15/22 History paroxetine HCl 10 mg tablet 10 mg PO DAILY 10/29/21 01/15/22 History spironolactone 25 1 tab PO BID #60 tabs 11/01/21 01/15/22 Rx mg-hydrochlorothiazide 25 mg tablet acetaminophen 325 mg tablet 650 mg PO HS 01/15/22 01/15/22 History (Tylenol) cholecalciferol (vitamin D3) 50 50 mcg PO BID 01/15/22 01/15/22 History mcg (2,000 unit) tablet (Vitamin D3) citalopram 10 mg tablet 10 mg PO QAM 01/15/22 01/15/22 History levothyroxine 100 mcg tablet 100 mcg PO DAILYBB 01/15/22 01/15/22 History magnesium 200 mg tablet 200 mg PO DAILY 01/15/22 01/15/22 History metoprolol succinate 25 mg 25 mg PO DAILY 01/15/22 01/15/22 History tablet,extended release 24 hr potassium gluconate 595 mg (99 mg) 595 mg PO DAILY 01/15/22 01/15/22 History tablet sertraline 50 mg tablet 50 mg PO DAILY 01/15/22 01/15/22 History Patient History Medical History Acute on chronic diastolic CHF (congestive heart failure) Anemia Anemia in chronic renal disease Chronic diarrhea Chronic diastolic CHF (congestive heart failure) DM type 2 (diabetes mellitus, type 2) Dyslipidemia Glaucoma Gout Headache HTN (hypertension) Hyperparathyroidism, secondary renal Hypertensive nephrosclerosis Hypertensive urgency Hypomagnesemia Hypothyroidism Vitamin D deficiency Surgical History History of carpal tunnel surgery of left wrist History of surgery on lower extremity Hx of surgical amputation of finger Hx of tonsillectomy Status post hip surgery R hip nail by Dr. Rolle 04/09 Family History Mother Colorectal cancer Diabetes Heart disease Hypertension Father Non Hodgkin's lymphoma Sister End stage liver disease Brother ESRD (end stage renal disease) End stage liver disease Social History Smoking Status: Never smoker Hx Alcohol Use: No Hx Substance Use: No Preferred Language: Portuguese Communication Ability: Effective Forest Worker Required: No Beliefs That Will Affect Care: None marital status: Single Current Living Situation: Alone Current Living Situation Comment: alone with 2 dogs Feels Safe at Home: Yes Assistive Devices: None Review of Systems Review of Systems: All systems reviewed & are unremarkable except as noted in HPI & below and Unobtainable due to cognitive status (very limited due to patient's limited response to questioning) Physical Exam Constitutional: well developed, + thin and + frail appearing; no acute distress Eyes: + anicteric sclerae; no corneal abnormality ENMT: Mouth: + dry oral mucous membranes; no oral mucosal abnormality Neck: normal visual inspection and trachea midline Respiratory: normal respiratory effort Auscultation: + rales (basilar); no rhonchi and no wheezes Cardiovascular: Rate/Rhythm: regular rate Heart Sounds: normal S1 and normal S2 Extremities: no edema Musculoskeletal: Extremities: no cyanosis and no clubbing Skin: normal turgor; no lesions and no jaundice Neurologic: Motor/Sensory: no tremor and no asterixis Psychiatric: Orientation: alert and oriented x 3 Results & Data ([facility]) Vital Signs (Past 12 Hours) Vital Signs Temp Pulse Pulse Resp BP BP Pulse Ox 01/15/22 10:30 37.3 C 68 21 108/54 L 92 01/15/22 10:00 37.3 C 69 23 122/67 92 01/15/22 09:45 37.3 C 71 22 119/57 L 91 01/15/22 09:30 37.2 C 70 20 94 01/15/22 09:32 37.2 C 71 20 117/68 94 01/15/22 08:30 37.3 C 72 22 110/55 L 94 01/15/22 09:01 01/15/22 08:00 01/15/22 08:00 37.3 C 73 20 119/58 L 93 01/15/22 07:30 37.2 C 73 20 104/49 L 93 01/15/22 07:22 37.3 C 77 21 105/45 L 96 01/15/22 06:52 37.2 C 78 20 107/50 L 91 01/15/22 06:37 37.2 C 78 24 96/46 L 92 01/15/22 06:21 37.2 C 77 21 106/46 L 93 01/15/22 06:00 37.2 C 77 21 106/46 L 93 01/15/22 05:30 37.2 C 81 20 94/44 L 92 01/15/22 05:00 37.2 C 80 21 106/56 L 94 01/15/22 04:45 37.2 C 88 20 93 01/15/22 04:30 37.1 C 86 19 103/55 L 93 01/15/22 04:15 37.2 C 82 19 104/56 L 91 01/15/22 04:00 37.3 C 84 19 81/44 L 93 01/15/22 04:00 01/15/22 03:40 37.2 C 86 19 102/51 L 94 01/15/22 03:30 86 19 92/54 L 94 01/15/22 03:25 37.4 C 90 19 96/49 L 96 01/15/22 01:30 93 H 28 H 97 01/15/22 01:11 98 H 28 H 99/52 L 98 01/15/22 01:00 98 H 28 H 96 01/15/22 00:30 98 H 30 H 96 01/15/22 00:10 102 H 31 H 95/47 L 96 01/15/22 00:00 104 H 32 H 96 01/14/22 23:37 103 H 28 H 100/56 L 97 01/14/22 23:00 106 H 31 H 175/75 H 98 01/14/22 23:42 37.6 C H Pulse Ox O2 Del Method O2 Del Method O2 Flow Rate 01/15/22 10:30 01/15/22 10:00 01/15/22 09:45 01/15/22 09:30 01/15/22 09:32 01/15/22 08:30 01/15/22 09:01 Room Air 01/15/22 08:00 Room Air 01/15/22 08:00 01/15/22 07:30 01/15/22 07:22 01/15/22 06:52 01/15/22 06:37 01/15/22 06:21 01/15/22 06:00 Room Air 01/15/22 05:30 Room Air 01/15/22 05:00 Room Air 01/15/22 04:45 Room Air 01/15/22 04:30 Room Air 01/15/22 04:15 Room Air 01/15/22 04:00 Room Air 01/15/22 04:00 93 Room Air 01/15/22 03:40 Room Air 01/15/22 03:30 01/15/22 03:25 Oxyhood 6 01/15/22 01:30 01/15/22 01:11 01/15/22 01:00 01/15/22 00:30 01/15/22 00:10 01/15/22 00:00 01/14/22 23:37 01/14/22 23:00 01/14/22 23:42 Laboratory Results Laboratory Results - last 24 hr 01/14/22 01/14/22 01/14/22 21:11 21:11 21:11 WBC 27.08 H RBC 2.34 L Hgb 6.8 L* Hct 21.4 L MCV 91.5 MCH 29.1 MCHC 31.8 L RDW Std Deviation 50.1 H RDW Coeff of Mague 15.1 H Plt Count 130 MPV 10.1 Immature Gran % (Auto) 5.6 Neut % (Auto) 89.5 Lymph % (Auto) 2.0 [place] % (Auto) 2.7 Eos % (Auto) 0.1 Baso % (Auto) 0.1 Reticulocyte % (Auto) 1.4 Neut # (Auto) 24.25 H Lymph # (Auto) 0.53 L [place] # (Auto) 0.72 Eos # (Auto) 0.02 Baso # (Auto) 0.04 Reticulocyte # 0.03 Immature Gran # (Auto) 1.52 H Toxic Vacuolation 1+ Dohle Bodies 1+ Ovalocytes 1+ PT INR VBG pH VBG pCO2 VBG pO2 VBG HCO3 VBG O2 Saturation VBG Base Excess Sodium 138 Potassium 5.9 H Chloride 108 H Carbon Dioxide 18 L Anion Gap 12 H BUN 60 H Creatinine 3.71 H Est Cr Clr Drug Dosing 9.6 Est GFR ( Amer) 12.2 Est GFR (Non-Af Amer) 10.5 BUN/Creatinine Ratio 16.2 Glucose 89 POC Glucose Estimat Average Glucose Hemoglobin A1c Lactate Calcium 9.2 Magnesium 1.8 Iron Transferrin Ferritin Total Bilirubin 0.7 AST 27 ALT 12 Alkaline Phosphatase 46 Ammonia Total Creatine Kinase 318 H Troponin I High Sens 1025.6 H* D Total Protein 7.0 Albumin 3.6 Globulin 3.4 Albumin/Globulin Ratio 1.1 Vitamin B12 Folate TSH 0.959 Urine Color Urine Appearance Urine pH Ur Specific [place] Urine Protein Urine Glucose (UA) Urine Ketones Urine Blood Urine Nitrite Urine Bilirubin Urine Urobilinogen Ur Leukocyte Esterase Urine WBC (Auto) Urine RBC (Auto) U Hyaline Cast (Auto) U Epithel Cells (Auto) Urine Bacteria (Auto) Nasal Screen MRSA (PCR) POC Stool Occult Blood Enterobacterales (PCR) E. coli (PCR) SARS-CoV-2, RNA, NAAT mcr-1 [place] Res Gene PCR blaIMP Car res Gene PCR KPC-Carbap Res Gene PCR blaNDM Car Res Gene PCR OXA-48 Carbapenem Resis Gene (PCR) blaVIM Car Res Gene PCR CTX-M Gene Resistance (PCR) Bld Cult ID Panel PCR Blood Type Antibody Screen Antibody Identification Antibody ID Comment Crossmatch 01/14/22 01/14/22 01/14/22 21:11 21:21 22:25 WBC RBC Hgb Hct MCV MCH MCHC RDW Std Deviation RDW Coeff of Mague Plt Count MPV Immature Gran % (Auto) Neut % (Auto) Lymph % (Auto) [place] % (Auto) Eos % (Auto) Baso % (Auto) Reticulocyte % (Auto) Neut # (Auto) Lymph # (Auto) [place] # (Auto) Eos # (Auto) Baso # (Auto) Reticulocyte # Immature Gran # (Auto) Toxic Vacuolation Dohle Bodies Ovalocytes PT INR VBG pH VBG pCO2 VBG pO2 VBG HCO3 VBG O2 Saturation VBG Base Excess Sodium Potassium Chloride Carbon Dioxide Anion Gap BUN Creatinine Est Cr Clr Drug Dosing Est GFR ( Amer) Est GFR (Non-Af Amer) BUN/Creatinine Ratio Glucose POC Glucose Estimat Average Glucose Hemoglobin A1c Lactate Calcium Magnesium Iron Transferrin Ferritin Total Bilirubin AST ALT Alkaline Phosphatase Ammonia Total Creatine Kinase Troponin I High Sens Total Protein Albumin Globulin Albumin/Globulin Ratio Vitamin B12 Folate TSH Urine Color Yellow Urine Appearance Cloudy A Urine pH 5.0 Ur Specific [place] 1.015 Urine Protein 3+ H Urine Glucose (UA) Negative Urine Ketones Negative Urine Blood 3+ H Urine Nitrite Negative Urine Bilirubin Negative Urine Urobilinogen Negative Ur Leukocyte Esterase 2+ H Urine WBC (Auto) >30 H Urine RBC (Auto) 5-10 H U Hyaline Cast (Auto) 1-5 U Epithel Cells (Auto) 0-5 Urine Bacteria (Auto) 4+ H Nasal Screen MRSA (PCR) POC Stool Occult Blood Enterobacterales (PCR) DETECTED A E. coli (PCR) DETECTED A SARS-CoV-2, RNA, NAAT NEGATIVE mcr-1 [place] Res Gene PCR Not Detected blaIMP Car res Gene PCR Not Detected KPC-Carbap Res Gene PCR Not Detected blaNDM Car Res Gene PCR Not Detected OXA-48 Carbapenem Resis Gene (PCR) Not Detected blaVIM Car Res Gene PCR Not Detected CTX-M Gene Resistance (PCR) Not Detected Bld Cult ID Panel PCR See PCR Comment Blood Type Antibody Screen Antibody Identification Antibody ID Comment Crossmatch 01/14/22 01/14/22 01/14/22 22:33 22:35 23:48 WBC RBC Hgb Hct MCV MCH MCHC RDW Std Deviation RDW Coeff of Mague Plt Count MPV Immature Gran % (Auto) Neut % (Auto) Lymph % (Auto) [place] % (Auto) Eos % (Auto) Baso % (Auto) Reticulocyte % (Auto) Neut # (Auto) Lymph # (Auto) [place] # (Auto) Eos # (Auto) Baso # (Auto) Reticulocyte # Immature Gran # (Auto) Toxic Vacuolation Dohle Bodies Ovalocytes PT INR VBG pH VBG pCO2 VBG pO2 VBG HCO3 VBG O2 Saturation VBG Base Excess Sodium Potassium Chloride Carbon Dioxide Anion Gap BUN Creatinine Est Cr Clr Drug Dosing Est GFR ( Amer) Est GFR (Non-Af Amer) BUN/Creatinine Ratio Glucose POC Glucose 129 H Estimat Average Glucose Hemoglobin A1c Lactate Calcium Magnesium Iron Transferrin Ferritin Total Bilirubin AST ALT Alkaline Phosphatase Ammonia Total Creatine Kinase Troponin I High Sens Total Protein Albumin Globulin Albumin/Globulin Ratio Vitamin B12 Folate TSH Urine Color Urine Appearance Urine pH Ur Specific [place] Urine Protein Urine Glucose (UA) Urine Ketones Urine Blood Urine Nitrite Urine Bilirubin Urine Urobilinogen Ur Leukocyte Esterase Urine WBC (Auto) Urine RBC (Auto) U Hyaline Cast (Auto) U Epithel Cells (Auto) Urine Bacteria (Auto) Nasal Screen MRSA (PCR) POC Stool Occult Blood Negative Enterobacterales (PCR) E. coli (PCR) SARS-CoV-2, RNA, NAAT mcr-1 [place] Res Gene PCR blaIMP Car res Gene PCR KPC-Carbap Res Gene PCR blaNDM Car Res Gene PCR OXA-48 Carbapenem Resis Gene (PCR) blaVIM Car Res Gene PCR CTX-M Gene Resistance (PCR) Bld Cult ID Panel PCR Blood Type O Positive Antibody Screen POSITIVE A Antibody Identification Anti-M Antibody ID Comment Crossmatch See Detail 01/15/22 01/15/22 01/15/22 01:15 01:15 01:15 WBC RBC Hgb Hct MCV MCH MCHC RDW Std Deviation RDW Coeff of Mague Plt Count MPV Immature Gran % (Auto) Neut % (Auto) Lymph % (Auto) [place] % (Auto) Eos % (Auto) Baso % (Auto) Reticulocyte % (Auto) Neut # (Auto) Lymph # (Auto) [place] # (Auto) Eos # (Auto) Baso # (Auto) Reticulocyte # Immature Gran # (Auto) Toxic Vacuolation Dohle Bodies Ovalocytes PT INR VBG pH VBG pCO2 VBG pO2 VBG HCO3 VBG O2 Saturation VBG Base Excess Sodium 138 Potassium 4.6 D Chloride 108 H Carbon Dioxide 18 L Anion Gap 12 H BUN 63 H Creatinine 3.89 H Est Cr Clr Drug Dosing 9.1 Est GFR ( Amer) 11.5 Est GFR (Non-Af Amer) 9.9 BUN/Creatinine Ratio 16.2 Glucose 70 POC Glucose Estimat Average Glucose Hemoglobin A1c Lactate 3.6 H* Calcium 9.0 Magnesium Iron < 10 L Transferrin 125 L Ferritin 950.6 H Total Bilirubin AST ALT Alkaline Phosphatase Ammonia Total Creatine Kinase 872 H Troponin I High Sens 2189.7 H* D Total Protein Albumin Globulin Albumin/Globulin Ratio Vitamin B12 125 L Folate 7.16 TSH Urine Color Urine Appearance Urine pH Ur Specific [place] Urine Protein Urine Glucose (UA) Urine Ketones Urine Blood Urine Nitrite Urine Bilirubin Urine Urobilinogen Ur Leukocyte Esterase Urine WBC (Auto) Urine RBC (Auto) U Hyaline Cast (Auto) U Epithel Cells (Auto) Urine Bacteria (Auto) Nasal Screen MRSA (PCR) POC Stool Occult Blood Enterobacterales (PCR) E. coli (PCR) SARS-CoV-2, RNA, NAAT mcr-1 [place] Res Gene PCR blaIMP Car res Gene PCR KPC-Carbap Res Gene PCR blaNDM Car Res Gene PCR OXA-48 Carbapenem Resis Gene (PCR) blaVIM Car Res Gene PCR CTX-M Gene Resistance (PCR) Bld Cult ID Panel PCR Blood Type Antibody Screen Antibody Identification Antibody ID Comment Crossmatch 01/15/22 01/15/22 01/15/22 01:15 02:39 03:45 WBC RBC Hgb Hct MCV MCH MCHC RDW Std Deviation RDW Coeff of Mague Plt Count MPV Immature Gran % (Auto) Neut % (Auto) Lymph % (Auto) [place] % (Auto) Eos % (Auto) Baso % (Auto) Reticulocyte % (Auto) Neut # (Auto) Lymph # (Auto) [place] # (Auto) Eos # (Auto) Baso # (Auto) Reticulocyte # Immature Gran # (Auto) Toxic Vacuolation Dohle Bodies Ovalocytes PT 13.2 H INR 1.3 H VBG pH VBG pCO2 VBG pO2 VBG HCO3 VBG O2 Saturation VBG Base Excess Sodium Potassium Chloride Carbon Dioxide Anion Gap BUN Creatinine Est Cr Clr Drug Dosing Est GFR ( Amer) Est GFR (Non-Af Amer) BUN/Creatinine Ratio Glucose POC Glucose 78 86 Estimat Average Glucose Hemoglobin A1c Lactate Calcium Magnesium Iron Transferrin Ferritin Total Bilirubin AST ALT Alkaline Phosphatase Ammonia Total Creatine Kinase Troponin I High Sens Total Protein Albumin Globulin Albumin/Globulin Ratio Vitamin B12 Folate TSH Urine Color Urine Appearance Urine pH Ur Specific [place] Urine Protein Urine Glucose (UA) Urine Ketones Urine Blood Urine Nitrite Urine Bilirubin Urine Urobilinogen Ur Leukocyte Esterase Urine WBC (Auto) Urine RBC (Auto) U Hyaline Cast (Auto) U Epithel Cells (Auto) Urine Bacteria (Auto) Nasal Screen MRSA (PCR) POC Stool Occult Blood Enterobacterales (PCR) E. coli (PCR) SARS-CoV-2, RNA, NAAT mcr-1 [place] Res Gene PCR blaIMP Car res Gene PCR KPC-Carbap Res Gene PCR blaNDM Car Res Gene PCR OXA-48 Carbapenem Resis Gene (PCR) blaVIM Car Res Gene PCR CTX-M Gene Resistance (PCR) Bld Cult ID Panel PCR Blood Type Antibody Screen Antibody Identification Antibody ID Comment Crossmatch 01/15/22 01/15/22 01/15/22 04:07 04:07 04:07 WBC 25.69 H RBC 2.46 L Hgb 7.3 L Hct 22.4 L MCV 91.1 MCH 29.7 MCHC 32.6 RDW Std Deviation 49.9 H RDW Coeff of Mague 14.9 H Plt Count 109 L MPV 10.5 Immature Gran % (Auto) 9.0 Neut % (Auto) 82.4 Lymph % (Auto) 1.9 [place] % (Auto) 6.0 Eos % (Auto) 0.5 Baso % (Auto) 0.2 Reticulocyte % (Auto) Neut # (Auto) 21.16 H Lymph # (Auto) 0.49 L [place] # (Auto) 1.53 H Eos # (Auto) 0.14 Baso # (Auto) 0.06 Reticulocyte # Immature Gran # (Auto) 2.31 H Toxic Vacuolation 1+ Dohle Bodies 1+ Ovalocytes PT INR VBG pH 7.35 L VBG pCO2 36 L VBG pO2 47 VBG HCO3 20 VBG O2 Saturation 82.5 VBG Base Excess -5.1 Sodium Potassium Chloride Carbon Dioxide Anion Gap BUN Creatinine Est Cr Clr Drug Dosing Est GFR ( Amer) Est GFR (Non-Af Amer) BUN/Creatinine Ratio Glucose POC Glucose Estimat Average Glucose Hemoglobin A1c Lactate Calcium Magnesium Iron Transferrin Ferritin Total Bilirubin AST ALT Alkaline Phosphatase Ammonia 30.0 Total Creatine Kinase Troponin I High Sens Total Protein Albumin Globulin Albumin/Globulin Ratio Vitamin B12 Folate TSH Urine Color Urine Appearance Urine pH Ur Specific [place] Urine Protein Urine Glucose (UA) Urine Ketones Urine Blood Urine Nitrite Urine Bilirubin Urine Urobilinogen Ur Leukocyte Esterase Urine WBC (Auto) Urine RBC (Auto) U Hyaline Cast (Auto) U Epithel Cells (Auto) Urine Bacteria (Auto) Nasal Screen MRSA (PCR) POC Stool Occult Blood Enterobacterales (PCR) E. coli (PCR) SARS-CoV-2, RNA, NAAT mcr-1 [place] Res Gene PCR blaIMP Car res Gene PCR KPC-Carbap Res Gene PCR blaNDM Car Res Gene PCR OXA-48 Carbapenem Resis Gene (PCR) blaVIM Car Res Gene PCR CTX-M Gene Resistance (PCR) Bld Cult ID Panel PCR Blood Type Antibody Screen Antibody Identification Antibody ID Comment Crossmatch 01/15/22 01/15/22 01/15/22 04:07 04:07 04:07 WBC RBC Hgb Hct MCV MCH MCHC RDW Std Deviation RDW Coeff of Mague Plt Count MPV Immature Gran % (Auto) Neut % (Auto) Lymph % (Auto) [place] % (Auto) Eos % (Auto) Baso % (Auto) Reticulocyte % (Auto) Neut # (Auto) Lymph # (Auto) [place] # (Auto) Eos # (Auto) Baso # (Auto) Reticulocyte # Immature Gran # (Auto) Toxic Vacuolation Dohle Bodies Ovalocytes PT INR VBG pH VBG pCO2 VBG pO2 VBG HCO3 VBG O2 Saturation VBG Base Excess Sodium 139 Potassium 4.6 Chloride 109 H Carbon Dioxide 18 L Anion Gap 12 H BUN 64 H Creatinine 4.02 H Est Cr Clr Drug Dosing 8.8 Est GFR ( Amer) 11.1 Est GFR (Non-Af Amer) 9.5 BUN/Creatinine Ratio 15.9 Glucose 74 POC Glucose Estimat Average Glucose 126 Hemoglobin A1c 6.0 H Lactate 2.2 H* Calcium 8.8 Magnesium Iron Transferrin Ferritin Total Bilirubin AST ALT Alkaline Phosphatase Ammonia Total Creatine Kinase 888 H Troponin I High Sens 2643.6 H* D Total Protein Albumin Globulin Albumin/Globulin Ratio Vitamin B12 Folate TSH Urine Color Urine Appearance Urine pH Ur Specific [place] Urine Protein Urine Glucose (UA) Urine Ketones Urine Blood Urine Nitrite Urine Bilirubin Urine Urobilinogen Ur Leukocyte Esterase Urine WBC (Auto) Urine RBC (Auto) U Hyaline Cast (Auto) U Epithel Cells (Auto) Urine Bacteria (Auto) Nasal Screen MRSA (PCR) POC Stool Occult Blood Enterobacterales (PCR) E. coli (PCR) SARS-CoV-2, RNA, NAAT mcr-1 [place] Res Gene PCR blaIMP Car res Gene PCR KPC-Carbap Res Gene PCR blaNDM Car Res Gene PCR OXA-48 Carbapenem Resis Gene (PCR) blaVIM Car Res Gene PCR CTX-M Gene Resistance (PCR) Bld Cult ID Panel PCR Blood Type Antibody Screen Antibody Identification Antibody ID Comment Crossmatch 01/15/22 01/15/22 01/15/22 04:30 07:04 10:01 WBC RBC Hgb Hct MCV MCH MCHC RDW Std Deviation RDW Coeff of Mague Plt Count MPV Immature Gran % (Auto) Neut % (Auto) Lymph % (Auto) [place] % (Auto) Eos % (Auto) Baso % (Auto) Reticulocyte % (Auto) Neut # (Auto) Lymph # (Auto) [place] # (Auto) Eos # (Auto) Baso # (Auto) Reticulocyte # Immature Gran # (Auto) Toxic Vacuolation Dohle Bodies Ovalocytes PT INR VBG pH VBG pCO2 VBG pO2 VBG HCO3 VBG O2 Saturation VBG Base Excess Sodium Potassium Chloride Carbon Dioxide Anion Gap BUN Creatinine Est Cr Clr Drug Dosing Est GFR ( Amer) Est GFR (Non-Af Amer) BUN/Creatinine Ratio Glucose POC Glucose 87 Estimat Average Glucose Hemoglobin A1c Lactate 1.6 Calcium Magnesium Iron Transferrin Ferritin Total Bilirubin AST ALT Alkaline Phosphatase Ammonia Total Creatine Kinase Troponin I High Sens Total Protein Albumin Globulin Albumin/Globulin Ratio Vitamin B12 Folate TSH Urine Color Urine Appearance Urine pH Ur Specific [place] Urine Protein Urine Glucose (UA) Urine Ketones Urine Blood Urine Nitrite Urine Bilirubin Urine Urobilinogen Ur Leukocyte Esterase Urine WBC (Auto) Urine RBC (Auto) U Hyaline Cast (Auto) U Epithel Cells (Auto) Urine Bacteria (Auto) Nasal Screen MRSA (PCR) Negative POC Stool Occult Blood Enterobacterales (PCR) E. coli (PCR) SARS-CoV-2, RNA, NAAT mcr-1 [place] Res Gene PCR blaIMP Car res Gene PCR KPC-Carbap Res Gene PCR blaNDM Car Res Gene PCR OXA-48 Carbapenem Resis Gene (PCR) blaVIM Car Res Gene PCR CTX-M Gene Resistance (PCR) Bld Cult ID Panel PCR Blood Type Antibody Screen Antibody Identification Antibody ID Comment Crossmatch 01/15/22 10:01 WBC RBC Hgb Hct MCV MCH MCHC RDW Std Deviation RDW Coeff of Mague Plt Count MPV Immature Gran % (Auto) Neut % (Auto) Lymph % (Auto) [place] % (Auto) Eos % (Auto) Baso % (Auto) Reticulocyte % (Auto) Neut # (Auto) Lymph # (Auto) [place] # (Auto) Eos # (Auto) Baso # (Auto) Reticulocyte # Immature Gran # (Auto) Toxic Vacuolation Dohle Bodies Ovalocytes PT INR VBG pH VBG pCO2 VBG pO2 VBG HCO3 VBG O2 Saturation VBG Base Excess Sodium Potassium Chloride Carbon Dioxide Anion Gap BUN Creatinine Est Cr Clr Drug Dosing Est GFR ( Amer) Est GFR (Non-Af Amer) BUN/Creatinine Ratio Glucose POC Glucose Estimat Average Glucose Hemoglobin A1c Lactate Calcium Magnesium Iron Transferrin Ferritin Total Bilirubin AST ALT Alkaline Phosphatase Ammonia Total Creatine Kinase Troponin I High Sens 2566.8 H* Total Protein Albumin Globulin Albumin/Globulin Ratio Vitamin B12 Folate TSH Urine Color Urine Appearance Urine pH Ur Specific [place] Urine Protein Urine Glucose (UA) Urine Ketones Urine Blood Urine Nitrite Urine Bilirubin Urine Urobilinogen Ur Leukocyte Esterase Urine WBC (Auto) Urine RBC (Auto) U Hyaline Cast (Auto) U Epithel Cells (Auto) Urine Bacteria (Auto) Nasal Screen MRSA (PCR) POC Stool Occult Blood Enterobacterales (PCR) E. coli (PCR) SARS-CoV-2, RNA, NAAT mcr-1 [place] Res Gene PCR blaIMP Car res Gene PCR KPC-Carbap Res Gene PCR blaNDM Car Res Gene PCR OXA-48 Carbapenem Resis Gene (PCR) blaVIM Car Res Gene PCR CTX-M Gene Resistance (PCR) Bld Cult ID Panel PCR Blood Type Antibody Screen Antibody Identification Antibody ID Comment Crossmatch PG Care Time/CCT Total # of Minutes Spent Total Time Spent with Patient: Total time spent is greater than 50% in coordination of care (as documented) at patient's floor/unit and/or counseling patient: Coding Level of Care Code 05467 Inpt Consult Level 4 Diagnoses Acute kidney injury superimposed on CKD N17.9; N18.9 Severe sepsis A41.9; R65.20 Acute UTI N39.0 Hyperkalemia E87.5 Encephalopathy G93.40 Nephrolithiasis N20.0 Anemia D64.9 Anemia type: unspecified type (1) Anemia Anemia type: unspecified type Qualified Code(s): D64.9 - Anemia, unspecified
--- NOTE | 2022-01-15 12:06 | Cardiology Consultation ---
Date of Consultation January 15, 2022 Assessment & Plan (1) Elevated troponin: (2) Rhabdomyolysis: (3) Chronic diastolic CHF (congestive heart failure): (4) Severe sepsis: (5) Nephrolithiasis: (6) Acute kidney injury superimposed on CKD: (7) Anemia: Plan 86-year-old female present to the hospital after being found on the floor and brought to the emergency department via EMS. Currently diagnosed with urosepsis, nephrolithiasis status post ureteral stent placement. Cardiology consultation requested due to elevated troponin. There are no ischemic ECG changes or regional wall motion abnormality on echocardiogram to suggest an acute plaque rupture event. Her elevated troponin is likely secondary to rhabdomyolysis, demand ischemia in the setting of acute renal insufficiency, severe sepsis, and chronic anemia. Hold statin therapy in the setting of rhabdomyolysis. Add low-dose aspirin, 81 mg daily. I would not recommend systemic anticoagulation at this time. Continue DVT prophylaxis as per primary service. Volume status reasonable with adequate oxygenation on room air. Continue to follow fluid balance closely as well as GFR and electrolytes. Plan to restart diuretic therapy in the next 24 to 48 hours pending clinical course and discussion with nephrology. History of Present Illness Reason for Consultation: Elevated troponin Requesting Physician: Dr. Monsivais Attending Physician: Maik Monsivais MD History of Present Illness 86-year-old female present to the emergency department via ambulance due to being found on floor. Patient noted to be confused, lying in her own feces as per EMS. Unable to offer much history at this time. She was admitted with urosepsis presentation taken for an urgent ureteral stent implantation last evening by urology due to obstructive nephrolithiasis. Lab studies suggestive of rhabdomyolysis and acute renal insufficiency. Cardiology consultation requested due to elevated troponin. Patient currently resting comfortably in the ICU. She is awake however oriented to person only. Denies any chest discomfort or shortness of breath. Followed in the cardiology clinic for management of chronic diastolic heart failure and hypertension in the setting of CKD stage IV. Outpatient diuretic therapy including Bumex, spironolactone, and hydrochlorothiazide on hold since admission. Baseline creatinine typically running in the 2.4-2.6 range, however, more recent outpatient records demonstrated creatinine up to 3.11. High-sensitivity troponin elevated on admission, peaking at 2643 and currently trending downward. As noted above patient without chest discomfort or shortness of breath. ECG without ischemic changes. Preliminary review of bedside 2D transthoracic echocardiogram demonstrates preserved LV systolic function with normal wall motion. Allergies Allergy/AdvReac Type Severity Reaction Status Date / Time hydrocodone Allergy Intermediate RASH Verified 01/15/22 01:02 Iodinated Contrast Media Allergy Intermediate HIVES Verified 01/15/22 01:02 Penicillins Allergy Intermediate ANAPHLACTIC Verified 01/15/22 01:02 SHOCK phenylephrine Allergy Intermediate Rash, Verified 01/15/22 01:02 insomnia trolamine salicylate Allergy Intermediate RASH Verified 01/15/22 01:02 ketorolac Allergy Mild Unknown Verified 01/15/22 01:02 oxycodone Allergy Mild BRIGHT RED Verified 01/15/22 01:02 RASH tramadol Allergy Mild BRIGHT RED Verified 01/15/22 01:02 RASH prednisone AdvReac Unknown Became Verified 01/15/22 01:02 manic Home Medications Medication Instructions Recorded Confirmed Type atorvastatin 40 mg tablet 40 mg PO QAM 11/11/18 01/15/22 History allopurinol 100 mg tablet 200 mg PO QAM 02/24/20 01/15/22 History amlodipine 10 mg tablet 10 mg PO QAM 02/24/20 01/15/22 History ferrous sulfate 325 mg (65 mg 325 mg PO BID #60 tabs 12/31/20 01/15/22 History iron) tablet latanoprost 0.005 % eye drops 1 drp OPB HS 03/25/21 01/15/22 History bumetanide 1 mg tablet 1 mg PO DAILY PRN Weight Gain 06/24/21 01/15/22 History paroxetine HCl 10 mg tablet 10 mg PO DAILY 10/29/21 01/15/22 History spironolactone 25 1 tab PO BID #60 tabs 11/01/21 01/15/22 Rx mg-hydrochlorothiazide 25 mg tablet acetaminophen 325 mg tablet 650 mg PO HS 01/15/22 01/15/22 History (Tylenol) cholecalciferol (vitamin D3) 50 50 mcg PO BID 01/15/22 01/15/22 History mcg (2,000 unit) tablet (Vitamin D3) citalopram 10 mg tablet 10 mg PO QAM 01/15/22 01/15/22 History levothyroxine 100 mcg tablet 100 mcg PO DAILYBB 01/15/22 01/15/22 History magnesium 200 mg tablet 200 mg PO DAILY 01/15/22 01/15/22 History metoprolol succinate 25 mg 25 mg PO DAILY 01/15/22 01/15/22 History tablet,extended release 24 hr potassium gluconate 595 mg (99 mg) 595 mg PO DAILY 01/15/22 01/15/22 History tablet sertraline 50 mg tablet 50 mg PO DAILY 01/15/22 01/15/22 History Patient History Medical History Acute on chronic diastolic CHF (congestive heart failure) Anemia Anemia in chronic renal disease Chronic diarrhea Chronic diastolic CHF (congestive heart failure) DM type 2 (diabetes mellitus, type 2) Dyslipidemia Glaucoma Gout Headache HTN (hypertension) Hyperparathyroidism, secondary renal Hypertensive nephrosclerosis Hypertensive urgency Hypomagnesemia Hypothyroidism Vitamin D deficiency Surgical History History of carpal tunnel surgery of left wrist History of surgery on lower extremity Hx of surgical amputation of finger Hx of tonsillectomy Status post hip surgery R hip nail by Dr. 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 Beliefs That Will Affect Care: None marital status: Single Current Living Situation: Alone Current Living Situation Comment: alone with 2 dogs Feels Safe at Home: Yes Assistive Devices: None Review of Systems Review of Systems: Unobtainable due to cognitive status Physical Exam Constitutional: well developed, well nourished and + ill appearing; no acute distress Respiratory: normal respiratory effort; no respiratory distress and no labored breathing Auscultation: + rales (Bases bilateral); no rhonchi and no wheezes Cardiovascular: Rate/Rhythm: regular rate and regular rhythm Heart Sounds: normal S1 and normal S2; no murmur Vessels: radial pulses present; no JVD and no carotid bruit Gastrointestinal (Abdomen): Inspection/Auscultation: abdomen normal to inspection and normal bowel sounds; abdomen not distended Percussion/Palpation: abdomen soft; abdomen nontender, no guarding and abdomen not rigid Neurologic: CN's II-XI intact bilaterally and moves all extremities Results & Data ([facility]) Vital Signs (Past 12 Hours) Vital Signs Temp Pulse Pulse Resp BP BP Pulse Ox 01/15/22 11:00 37.2 C 70 24 108/58 L 93 01/15/22 10:30 37.3 C 68 21 108/54 L 92 01/15/22 10:00 37.3 C 69 23 122/67 92 01/15/22 09:45 37.3 C 71 22 119/57 L 91 01/15/22 09:30 37.2 C 70 20 94 01/15/22 09:32 37.2 C 71 20 117/68 94 01/15/22 08:30 37.3 C 72 22 110/55 L 94 01/15/22 09:01 01/15/22 08:00 01/15/22 08:00 37.3 C 73 20 119/58 L 93 01/15/22 07:30 37.2 C 73 20 104/49 L 93 01/15/22 07:22 37.3 C 77 21 105/45 L 96 01/15/22 06:52 37.2 C 78 20 107/50 L 91 01/15/22 06:37 37.2 C 78 24 96/46 L 92 01/15/22 06:21 37.2 C 77 21 106/46 L 93 01/15/22 06:00 37.2 C 77 21 106/46 L 93 01/15/22 05:30 37.2 C 81 20 94/44 L 92 01/15/22 05:00 37.2 C 80 21 106/56 L 94 01/15/22 04:45 37.2 C 88 20 93 01/15/22 04:30 37.1 C 86 19 103/55 L 93 01/15/22 04:15 37.2 C 82 19 104/56 L 91 01/15/22 04:00 37.3 C 84 19 81/44 L 93 01/15/22 04:00 01/15/22 03:40 37.2 C 86 19 102/51 L 94 01/15/22 03:30 86 19 92/54 L 94 01/15/22 03:25 37.4 C 90 19 96/49 L 96 01/15/22 01:30 93 H 28 H 97 01/15/22 01:11 98 H 28 H 99/52 L 98 01/15/22 01:00 98 H 28 H 96 01/15/22 00:30 98 H 30 H 96 01/15/22 00:10 102 H 31 H 95/47 L 96 01/15/22 00:00 104 H 32 H 96 Pulse Ox O2 Del Method O2 Del Method O2 Flow Rate 01/15/22 11:00 01/15/22 10:30 01/15/22 10:00 01/15/22 09:45 01/15/22 09:30 01/15/22 09:32 01/15/22 08:30 01/15/22 09:01 Room Air 01/15/22 08:00 Room Air 01/15/22 08:00 01/15/22 07:30 01/15/22 07:22 01/15/22 06:52 01/15/22 06:37 01/15/22 06:21 01/15/22 06:00 Room Air 01/15/22 05:30 Room Air 01/15/22 05:00 Room Air 01/15/22 04:45 Room Air 01/15/22 04:30 Room Air 01/15/22 04:15 Room Air 01/15/22 04:00 Room Air 01/15/22 04:00 93 Room Air 01/15/22 03:40 Room Air 01/15/22 03:30 01/15/22 03:25 Oxyhood 6 01/15/22 01:30 01/15/22 01:11 01/15/22 01:00 01/15/22 00:30 01/15/22 00:10 01/15/22 00:00 Laboratory Results Cardiac Enzymes 01/14/22 01/15/22 01/15/22 Range/Units 21:11 01:15 04:07 AST 27 (13-39) U/L Troponin I High Sens 1025.6 H* D 2189.7 H* D 2643.6 H* D (0-14) pg/ml 01/15/22 Range/Units 10:01 AST (13-39) U/L Troponin I High Sens 2566.8 H* (0-14) pg/ml Coagulation 01/15/22 Range/Units 01:15 PT 13.2 H (9.0-12.0) Seconds CBC 01/14/22 01/15/22 Range/Units 21:11 04:07 WBC 27.08 H 25.69 H (4.8-10.8) K/ul RBC 2.34 L 2.46 L (3.93-5.22) M/uL Hgb 6.8 L* 7.3 L (12.0-16.0) g/dl Hct 21.4 L 22.4 L (34.1-44.9) % Plt Count 130 109 L (130-400) K/uL Neut # (Auto) 24.25 H 21.16 H (1.4-6.5) K/uL Lymph # (Auto) 0.53 L 0.49 L (1.2-3.4) K/uL [place] # (Auto) 0.72 1.53 H (0.24-0.82) K/uL Eos # (Auto) 0.02 0.14 (0-0.50) K/uL Baso # (Auto) 0.04 0.06 (0-0.2) K/uL Comprehensive Metabolic Panel 01/14/22 01/15/22 01/15/22 Range/Units 21:11 01:15 04:07 Sodium 138 138 139 (136-145) mmol/L Potassium 5.9 H 4.6 D 4.6 (3.5-5.1) mmol/L Chloride 108 H 108 H 109 H (98-107) mmol/L Carbon Dioxide 18 L 18 L 18 L (21-32) mmol/L BUN 60 H 63 H 64 H (6-23) mg/dl Creatinine 3.71 H 3.89 H 4.02 H (0.6-1.2) mg/dl Glucose 89 70 74 (70-99(Fasting)) mg/dl Calcium 9.2 9.0 8.8 (8.5-10.1) mg/dl AST 27 (13-39) U/L ALT 12 (7-52) U/L Alkaline Phosphatase 46 (34-104) U/L Total Protein 7.0 (6.0-8.3) gm/dl Albumin 3.6 (3.4-5.0) gm/dl Intake and Output 01/14/22 01/15/22 01/15/22 22:59 06:59 14:59 Intake Total 960 / 960 310 / 310 Output Total 145 / 145 Balance 815 / 815 310 / 310 Intake: IV 360 / 360 ALBUMIN 25% 100 mL 25 gm In 100 200 / 200 ml @ 50 mls/hr IV Q8H MICHAEL Rx#: [id number] Acetaminophen 1,000 mg In 100 100 / 100 ml @ 400 mls/hr IV NOW STA Rx#: [id number] Calcium Gluconate 1,000 mg In 60 / 60 60 ml @ 240 mls/hr IV NOW STA Rx#:[id number] IV Perioperative 600 / 600 Oral 0 / 0 Intake (Blood Product) Amt 0 / 0 310 / 310 Packed Cells, Leukoreduced 0 / 0 310 / 310 Unit [id number] Packed Cells, Leukoreduced 0 / 0 Unit [id number] Output: Urine Amount (Catheter) 145 / 145 [place]/Indwelling 145 / 145 # Bowel Movements 0 / 0 Other: Weight 62.6 kg 63.7 kg 63.7 kg Weight Measurement Method Built in [facility] in [facility] Patient Weight 01/16/22 06:59 Weight 63.7 kg (1) Anemia Anemia type: unspecified type Qualified Code(s): D64.9 - Anemia, unspecified
[2022-01-15] MEDS: ASPIRIN 81 MG CHEW PO SCH ×2 (12:20→12:26)
--- NOTE | 2022-01-15 13:13 | Electrocardiogram Report ---
Test Reason : Blood Pressure : / mmHG Vent. Rate : 082 BPM Atrial Rate : 082 BPM P-R Int : 164 ms QRS Dur : 142 ms QT Int : 424 ms P-R-T Axes : 050 -83 024 degrees QTc Int : 495 ms Poor data quality, interpretation may be adversely affected Normal sinus rhythm Right bundle branch block Left anterior fascicular block Bifascicular block Abnormal ECG When compared with ECG of 31-OCT-2021 05:40, T wave inversion no longer evident in Anterior leads Confirmed by Patrick Enrique ([id number]) on 01/15/2022 1:13:30 PM Referred By: REFERRED SELF Confirmed By:Ozzie Enrique
[2022-01-15 15:58] LABS: Hematocrit (blood only) 25.6 % (34.1-44.9); Mean Corpuscular Hemoglobin 29.4 pg (25.0-34.0); Mean Corpuscular Hgb Conc 31.3 g/dL (32.0-36.0); Mean Corpuscular Volume 94.1 fL (80.0-100.0); Mean Platelet Volume 11.3 fL (9.4-12.3); Platelet Count 128 K/uL (130-400); RDW Coefficient of Variation 15.5 % (11.5-14.5); RDW Standard Deviation 52.8 fL (36.4-46.3); Red Blood Count 2.72 M/uL (3.93-5.22); White Blood Count 19.66 K/ul (4.8-10.8)
[2022-01-15 16:16] LABS: Albumin Level 3.7 gm/dl (3.4-5.0); BUN Creatinine Ratio 17.1 (10-20); Calcium 8.9 mg/dl (8.5-10.1); Creatinine Clr Calc Pharmacy 8.4 ml/min; Est GFR (African American) 10.5 ml/min; Phosphorus 3.7 mg/dl (2.5-4.9); Potassium 5.7 mmol/L (3.5-5.1)
[2022-01-15 17:25] LABS: Hematocrit (blood only) 28.4 % (34.1-44.9); Hemoglobin 9.6 g/dl (12.0-16.0)
--- NOTE | 2022-01-15 17:26 | Communication Note ---
Date of Service: January 15, 2022 Patient seen and examined at bedside Sleeping but easily awakened, drowsy Patient mostly confused, but tries to answer questions Denies abdominal pain or any pain in her body, nausea or vomiting, chest pain, shortness of breath Just feels tired All labs noted and reviewed Severe sepsis secondary to bacteremia UTI, in the setting of left ureteral stone Status post left ureteral stent placement Follow-up urine and blood cultures Continue IV cefepime Acute renal failure on CKD stage IV Creatinine 4.2 from 3.8 Nephrology service on board Anemia 2 units of packed RBC ordered Anemia panel ordered Other diagnoses and plan of care per Dr. Wells's notes Maik Monsivais MD
[2022-01-15 17:46] LABS: BUN Creatinine Ratio 19.1 (10-20); Calcium 9.2 mg/dl (8.5-10.1); Creatinine Clr Calc Pharmacy 8.5 ml/min; Est GFR (African American) 10.5 ml/min; Est GFR (Non-African American) 9.1 ml/min; Potassium 5.8 mmol/L (3.5-5.1)
[2022-01-15] MEDS ORDERED: PATIROMER CALCIUM SORBITEX 8.4 GM PACK PO STA (18:10)
[2022-01-15] MEDS ORDERED: SODIUM BICARBONATE 8.4% 75 MEQ in SODIUM CHLORIDE 0.45 % 1,000 ML IV SCH (18:30)
[2022-01-15] MEDS ORDERED: SODIUM BICARBONATE IV SCH (19:00)
[2022-01-15] MEDS ORDERED: DEXTROSE 5% IV SCH (19:00)
[2022-01-15] MEDS: LATANOPROST 0.005% OP SOLN 2.5 ML BTL OPB SCH (19:46)
[2022-01-15] MEDS ORDERED: BUMETANIDE 1 MG in SYRINGE 0 ML IV ONE (23:00)
[2022-01-16] MEDS ORDERED: BUMETANIDE 1 MG TAB PO ONE
[2022-01-16] MEDS ORDERED: CEFEPIME 1,000 MG in SYRINGE 0 ML IV SCH (02:00)
[2022-01-16] MEDS: ALBUMIN 25% 100 mL 25 GM/100 ML VIAL IV SCH ×3 (05:39→20:46)
[2022-01-16] MEDS: LEVOTHYROXINE SODIUM 100 MCG TABLET PO SCH (05:41)
[2022-01-16 06:24] LABS: Albumin Globulin Ratio 1.3 (0.9-2); Albumin Level 3.8 gm/dl (3.4-5.0); BUN Creatinine Ratio 20.7 (10-20); Bilirubin,Total 0.9 mg/dl (0.2-1.0); Calcium 9.1 mg/dl (8.5-10.1); Creatinine Clr Calc Pharmacy 8.9 ml/min; Est GFR (African American) 10.1 ml/min; Est GFR (Non-African American) 8.7 ml/min; Globulin 2.9 gm/dl (2.5-4.0); Potassium 4.8 mmol/L (3.5-5.1); Total Protein 6.7 gm/dl (6.0-8.3)
[2022-01-16 06:52] LABS: Hematocrit (blood only) 28.5 % (34.1-44.9); Hemoglobin 9.8 g/dl (12.0-16.0); Mean Corpuscular Hemoglobin 28.9 pg (25.0-34.0); Mean Corpuscular Hgb Conc 34.4 g/dL (32.0-36.0); Mean Corpuscular Volume 84.1 fL (80.0-100.0); Mean Platelet Volume 12.3 fL (9.4-12.3); Platelet Count 79 K/uL (130-400); RDW Coefficient of Variation 14.9 % (11.5-14.5); RDW Standard Deviation 45.6 fL (36.4-46.3); Red Blood Count 3.39 M/uL (3.93-5.22); White Blood Count 33.73 K/ul (4.8-10.8)
[2022-01-16 07:07] LABS: Basophils # (auto) 0.01 K/uL (0-0.2); Echinocytes 2+; Eosinophils # (auto) 0.04 K/uL (0-0.50); Eosinophils % (auto) 0.1 %; Immature Granulocytes % (auto) 5.9 %; Lymphocytes # (auto) 0.73 K/uL (1.2-3.4); Lymphocytes % (auto) 2.2 %; Monocytes # (auto) 1.21 K/uL (0.24-0.82); Monocytes % (auto) 3.6 %; Neutrophils # (auto) 29.74 K/uL (1.4-6.5); Neutrophils % (auto) 88.2 %
[2022-01-16] MEDS ORDERED: DEXTROSE 50% 50 ML SYRINGE IV ONE (07:35)
[2022-01-16] MEDS ORDERED: Nursing to Pharmacy Communication SCH (07:45)
[2022-01-16] MEDS ORDERED: SODIUM BICARBONATE 8.4% 75 MEQ in DEXTROSE 5% 1,000 ML IV SCH (08:30)
[2022-01-16] MEDS ORDERED: METOPROLOL TARTRATE 1 MG/ML VIAL IV STA (09:48)
[2022-01-16] MEDS: FERROUS SULFATE 325 MG TAB PO SCH ×2 (10:23→20:47)
--- NOTE | 2022-01-16 10:24 | Nephrology Progress Note ---
Date of Service January 16, 2022 Assessment & Plan (1) Acute kidney injury superimposed on CKD: Plan: Non-oliguric. Creatinine relatively stable. Electrolytes acceptable. No emergent indication for dialysis. Additional IVF are being gently provided this AM. 1/2 NS + 75 mEq NaHCO3. Goal is to expand intravascular volume. Cardiology assistance with management of atrial fibrillation appreciated. I would consider small fluid boluses to assist with heart rate. Document strict I/O's. Repeat metabolic profile this afternoon. Medications are appropriately dosed for kidney function. (2) Severe sepsis: Plan: Cefepime dosed for kidney function. Cultures demonstrating GNR in urine. Blood NGTD. (3) Acute UTI: Plan: WBC increasing. Afebrile. May require additional intervention to decompress and alleviate obstruction. Appreciate urology consultation in this regard. (4) Hyperkalemia: Plan: Improved with management. Repeat metabolic profile this afternoon. Continue NaHCO3 replacement. (5) Encephalopathy: (6) Nephrolithiasis: Plan: s/p ureteroscopy with stent placement POD#1. (7) Anemia: Plan: 2 units PRBC provided yesterday. Repeat H/H this afternoon. Stool occult blood testing pending. No signs of active bleeding Admission and Anticipated Discharge Date Admission Date: January 15, 2022 Subjective Urine output did increase overnight following IV Bumex 1 mg. No fevers or chill monique Islas denies pain. She remains very weak. She was more awake this morning. She answered questions appropriately. PO intake is poor and the patient's nurse continues to report concerns regarding ability to tolerate PO. Hypoglycemic this AM. She did go into atrial fibrillation this AM. She denies chest pain or palpitations. I discussed the plan of care with cardiology. Review of Systems Review of Systems: All systems reviewed & are unremarkable except as noted in HPI & below Physical Exam Constitutional: well developed, + thin and + frail appearing; no acute distress Eyes: + anicteric sclerae; no corneal abnormality ENMT: Mouth: + dry oral mucous membranes; no oral mucosal abnormality Neck: normal visual inspection and trachea midline Respiratory: normal respiratory effort Auscultation: + rales (basilar); no rhonchi and no wheezes Cardiovascular: Rate/Rhythm: + irregularly irregular Heart Sounds: normal S1 and normal S2 Extremities: no edema Musculoskeletal: Extremities: no cyanosis and no clubbing Skin: normal turgor; no lesions and no jaundice Neurologic: Motor/Sensory: no tremor and no asterixis Psychiatric: Orientation: alert and oriented x 3 Results & Data ([facility]) Vital Signs (Past 12 Hours) Vital Signs Temp Pulse Resp BP Pulse Ox O2 Del Method 01/16/22 07:45 37.3 C 69 20 145/70 H 93 Room Air 01/16/22 02:42 36.8 C 78 20 147/74 H 93 Room Air 01/15/22 22:32 36.7 C 69 18 163/77 H 92 Room Air Laboratory Results Laboratory Results - last 24 hr 01/14/22 01/14/22 01/15/22 21:11 22:35 01:15 WBC 19.66 H RBC 2.72 L Hgb 8.0 L Hct 25.6 L MCV 94.1 MCH 29.4 MCHC 31.3 L RDW Std Deviation 52.8 H RDW Coeff of Mague 15.5 H Plt Count 128 L MPV 11.3 Immature Gran % (Auto) Neut % (Auto) Lymph % (Auto) Wallace % (Auto) Eos % (Auto) Baso % (Auto) Neut # (Auto) Lymph # (Auto) Wallace # (Auto) Eos # (Auto) Baso # (Auto) Immature Gran # (Auto) Echinocytes Sodium Potassium Chloride Carbon Dioxide Anion Gap BUN Creatinine Est Cr Clr Drug Dosing Est GFR ( Amer) Est GFR (Non-Af Amer) BUN/Creatinine Ratio Glucose POC Glucose Lactate Calcium Phosphorus Total Bilirubin AST ALT Alkaline Phosphatase Total Creatine Kinase Troponin I High Sens Total Protein Albumin Globulin Albumin/Globulin Ratio Stool Occult Bld Scrn Enterobacterales (PCR) DETECTED A E. coli (PCR) DETECTED A mcr-1 Colistin Res Gene PCR Not Detected blaIMP Car res Gene PCR Not Detected KPC-Carbap Res Gene PCR Not Detected blaNDM Car Res Gene PCR Not Detected OXA-48 Carbapenem Resis Gene (PCR) Not Detected blaVIM Car Res Gene PCR Not Detected CTX-M Gene Resistance (PCR) Not Detected Bld Cult ID Panel PCR See PCR Comment Crossmatch See Detail 01/15/22 01/15/22 01/15/22 04:07 10:01 10:01 WBC 25.69 H RBC Hgb 7.3 L Hct MCV 91.1 MCH MCHC 32.6 RDW Std Deviation RDW Coeff of Mague Plt Count 109 L MPV 10.5 Immature Gran % (Auto) Neut % (Auto) Lymph % (Auto) Wallace % (Auto) Eos % (Auto) Baso % (Auto) Neut # (Auto) Lymph # (Auto) Wallace # (Auto) Eos # (Auto) Baso # (Auto) Immature Gran # (Auto) Echinocytes Sodium Potassium Chloride Carbon Dioxide Anion Gap BUN Creatinine Est Cr Clr Drug Dosing Est GFR ( Amer) Est GFR (Non-Af Amer) BUN/Creatinine Ratio Glucose POC Glucose Lactate 1.6 Calcium Phosphorus Total Bilirubin AST ALT Alkaline Phosphatase Total Creatine Kinase Troponin I High Sens 2566.8 H* Total Protein Albumin Globulin Albumin/Globulin Ratio Stool Occult Bld Scrn Enterobacterales (PCR) E. coli (PCR) mcr-1 Colistin Res Gene PCR blaIMP Car res Gene PCR KPC-Carbap Res Gene PCR blaNDM Car Res Gene PCR OXA-48 Carbapenem Resis Gene (PCR) blaVIM Car Res Gene PCR CTX-M Gene Resistance (PCR) Bld Cult ID Panel PCR Crossmatch 01/15/22 01/15/22 01/15/22 10:01 12:11 16:41 WBC RBC Hgb Hct MCV MCH MCHC RDW Std Deviation RDW Coeff of Mague Plt Count MPV Immature Gran % (Auto) Neut % (Auto) Lymph % (Auto) Wallace % (Auto) Eos % (Auto) Baso % (Auto) Neut # (Auto) Lymph # (Auto) [place] # (Auto) Eos # (Auto) Baso # (Auto) Immature Gran # (Auto) Echinocytes Sodium 138 Potassium 5.7 H D Chloride 108 H Carbon Dioxide 18 L Anion Gap 12 H BUN 72 H Creatinine 4.21 H Est Cr Clr Drug Dosing 8.4 Est GFR ( Amer) 10.5 Est GFR (Non-Af Amer) 9.0 BUN/Creatinine Ratio 17.1 Glucose 78 POC Glucose 90 72 Lactate Calcium 8.9 Phosphorus 3.7 Total Bilirubin AST ALT Alkaline Phosphatase Total Creatine Kinase Troponin I High Sens Total Protein Albumin 3.7 Globulin Albumin/Globulin Ratio Stool Occult Bld Scrn Enterobacterales (PCR) E. coli (PCR) mcr-1 Colistin Res Gene PCR blaIMP Car res Gene PCR KPC-Carbap Res Gene PCR blaNDM Car Res Gene PCR OXA-48 Carbapenem Resis Gene (PCR) blaVIM Car Res Gene PCR CTX-M Gene Resistance (PCR) Bld Cult ID Panel PCR Crossmatch 01/15/22 01/15/22 01/15/22 17:07 17:07 20:02 WBC RBC Hgb 9.6 L Hct 28.4 L MCV MCH MCHC RDW Std Deviation RDW Coeff of Mague Plt Count MPV Immature Gran % (Auto) Neut % (Auto) Lymph % (Auto) Wallace % (Auto) Eos % (Auto) Baso % (Auto) Neut # (Auto) Lymph # (Auto) [place] # (Auto) Eos # (Auto) Baso # (Auto) Immature Gran # (Auto) Echinocytes Sodium 139 Potassium 5.8 H Chloride 109 H Carbon Dioxide 18 L Anion Gap 12 H BUN 80 H Creatinine 4.19 H Est Cr Clr Drug Dosing 8.5 Est GFR ( Amer) 10.5 Est GFR (Non-Af Amer) 9.1 BUN/Creatinine Ratio 19.1 Glucose 74 POC Glucose 87 Lactate Calcium 9.2 Phosphorus Total Bilirubin AST ALT Alkaline Phosphatase Total Creatine Kinase Troponin I High Sens Total Protein Albumin Globulin Albumin/Globulin Ratio Stool Occult Bld Scrn Enterobacterales (PCR) E. coli (PCR) mcr-1 Colistin Res Gene PCR blaIMP Car res Gene PCR KPC-Carbap Res Gene PCR blaNDM Car Res Gene PCR OXA-48 Carbapenem Resis Gene (PCR) blaVIM Car Res Gene PCR CTX-M Gene Resistance (PCR) Bld Cult ID Panel PCR Crossmatch 01/15/22 01/16/22 01/16/22 23:22 05:30 05:30 WBC 33.73 H* RBC 3.39 L Hgb 9.8 L Hct 28.5 L MCV 84.1 D MCH 28.9 MCHC 34.4 RDW Std Deviation 45.6 RDW Coeff of Mague 14.9 H Plt Count 79 L MPV 12.3 Immature Gran % (Auto) 5.9 Neut % (Auto) 88.2 Lymph % (Auto) 2.2 Wallace % (Auto) 3.6 Eos % (Auto) 0.1 Baso % (Auto) 0.0 Neut # (Auto) 29.74 H Lymph # (Auto) 0.73 L [place] # (Auto) 1.21 H Eos # (Auto) 0.04 Baso # (Auto) 0.01 Immature Gran # (Auto) 2.00 H Echinocytes 2+ Sodium 142 Potassium 4.8 Chloride 108 H Carbon Dioxide 20 L Anion Gap 14 H BUN 90 H Creatinine 4.34 H Est Cr Clr Drug Dosing 8.9 Est GFR ( Amer) 10.1 Est GFR (Non-Af Amer) 8.7 BUN/Creatinine Ratio 20.7 H Glucose 68 L POC Glucose Lactate Calcium 9.1 Phosphorus Total Bilirubin 0.9 AST 30 ALT 16 Alkaline Phosphatase 51 Total Creatine Kinase 448 H Troponin I High Sens Total Protein 6.7 Albumin 3.8 Globulin 2.9 Albumin/Globulin Ratio 1.3 Stool Occult Bld Scrn Negative Enterobacterales (PCR) E. coli (PCR) mcr-1 Colistin Res Gene PCR blaIMP Car res Gene PCR KPC-Carbap Res Gene PCR blaNDM Car Res Gene PCR OXA-48 Carbapenem Resis Gene (PCR) blaVIM Car Res Gene PCR CTX-M Gene Resistance (PCR) Bld Cult ID Panel PCR Crossmatch 01/16/22 01/16/22 06:35 09:36 WBC RBC Hgb Hct MCV MCH MCHC RDW Std Deviation RDW Coeff of Mague Plt Count MPV Immature Gran % (Auto) Neut % (Auto) Lymph % (Auto) Wallace % (Auto) Eos % (Auto) Baso % (Auto) Neut # (Auto) Lymph # (Auto) [place] # (Auto) Eos # (Auto) Baso # (Auto) Immature Gran # (Auto) Echinocytes Sodium Potassium Chloride Carbon Dioxide Anion Gap BUN Creatinine Est Cr Clr Drug Dosing Est GFR ( Amer) Est GFR (Non-Af Amer) BUN/Creatinine Ratio Glucose POC Glucose 70 156 H Lactate Calcium Phosphorus Total Bilirubin AST ALT Alkaline Phosphatase Total Creatine Kinase Troponin I High Sens Total Protein Albumin Globulin Albumin/Globulin Ratio Stool Occult Bld Scrn Enterobacterales (PCR) E. coli (PCR) mcr-1 Colistin Res Gene PCR blaIMP Car res Gene PCR KPC-Carbap Res Gene PCR blaNDM Car Res Gene PCR OXA-48 Carbapenem Resis Gene (PCR) blaVIM Car Res Gene PCR CTX-M Gene Resistance (PCR) Bld Cult ID Panel PCR Crossmatch PG Care Time/CCT Total # of Minutes Spent Total Time Spent with Patient: Total time spent is greater than 50% in coordination of care (as documented) at patient's floor/unit and/or counseling patient: Coding Level of Care Code 50530 Subseq Hosp Care Lvl 3 Diagnoses Acute kidney injury superimposed on CKD N17.9; N18.9 Severe sepsis A41.9; R65.20 Acute UTI N39.0 Hyperkalemia E87.5 Encephalopathy G93.40 Nephrolithiasis N20.0 Anemia D64.9 Anemia type: unspecified type (1) Anemia Anemia type: unspecified type Qualified Code(s): D64.9 - Anemia, unspecified
[2022-01-16] MEDS: ERTAPENEM SODIUM 500 MG in SYRINGE 0 ML IV SCH (10:56)
--- NOTE | 2022-01-16 11:41 | Cardiology Progress Note ---
Date of Service January 16, 2022 Assessment & Plan (1) Elevated troponin: (2) Rhabdomyolysis: (3) Chronic diastolic CHF (congestive heart failure): (4) Severe sepsis: (5) Nephrolithiasis: (6) Acute kidney injury superimposed on CKD: (7) Anemia: (8) Paroxysmal atrial fibrillation: Plan 86-year-old female present to the hospital after being found on the floor and brought to the emergency department via EMS. Currently diagnosed with urosepsis, nephrolithiasis status post ureteral stent placement. Cardiology consultation requested due to elevated troponin. There are no ischemic ECG changes or regional wall motion abnormality on echocardiogram to suggest an acute plaque rupture event. Her elevated troponin is likely secondary to rhabdomyolysis, demand ischemia in the setting of acute renal insufficiency, severe sepsis, and chronic anemia. Hold statin therapy in the setting of rhabdomyolysis. Low dose ASA added. Patient developed afib RVR this morning, episode lasting about 1 hour and 30 minutes. Converted spontaneously back to NSR. Her metoprolol was on hold on admission due to hypotension. Resume metoprolol succinate 25 mg daily Start oral amiodarone at 200 mg TID to remain in NSR. She is not an anticoagulation candidate at this time given severe anemia on admission. Appreciate nephrology assistance given ELISABET. Agree with gentle hydration at this time in hopes she will avoid dialysis. case discussed with Dr. Ambrosio. Will follow. Admission and Anticipated Discharge Date Admission Date: January 15, 2022 Supervising Physician Co-Signing Physician Notes Patient seen examined the bedside. Remains confused. Paroxysmal atrial fibrillation with heart rate in the 120s noted this morning. No associated symptoms. Patient is a poor historian does not recall any palpitations or chest discomfort. Spontaneously converted to sinus rhythm. PE: VSS. Gen: NAD, oriented to person only. Heart: Regular rhythm, normal S1- S2. No murmur. Lungs: Positive crackles at the bases bilaterally. Poor inspiratory effort. Extremities: No edema. A/P: Agree with above PA-C history, physical exam, assessment and plan. Agree with addition of amiodarone to maintain sinus rhythm as patient is not a strong candidate for oral anticoagulation due to significant anemia on admission. Continue low-dose beta-morales therapy in addition to amiodarone. She was not given aspirin yesterday due to potential allergy. She is unable to offer meaningful history regarding to reaction to aspirin in the past. Will attempt to define specific reaction to determine whether she is a candidate for low-dose aspirin therapy. Continue gentle hydration as per nephrology, however, close attention to oxygenation and volume status given history of chronic diastolic heart failure. She currently appears comfortable without hypoxia or orthopnea. Subjective Patient resting in bed comfortably. Denies SOB or CP. went into afib this morning and at time of evaluation. No symptoms. Denies palpitations, dizziness. No fever, cough, chills. No orthopnea. Review of Systems Review of Systems: All systems reviewed & are unremarkable except as noted in HPI & below Physical Exam Constitutional: well developed, well nourished and + ill appearing; no acute distress Respiratory: normal respiratory effort; no respiratory distress and no labored breathing Auscultation: + rales (Bases bilateral); no rhonchi and no wheezes Cardiovascular: Rate/Rhythm: + tachycardic and + irregularly irregular Heart Sounds: normal S1 and normal S2; no murmur Vessels: radial pulses present; no JVD and no carotid bruit Gastrointestinal (Abdomen): Inspection/Auscultation: abdomen normal to inspection and normal bowel sounds; abdomen not distended Percussion/Palpation: abdomen soft; abdomen nontender, no guarding and abdomen not rigid Neurologic: CN's II-XI intact bilaterally and moves all extremities Results & Data ([facility]) Vital Signs (Past 12 Hours) Vital Signs Temp Pulse Pulse Resp BP Pulse Ox O2 Del Method 01/16/22 10:27 75 01/16/22 07:45 37.3 C 69 20 145/70 H 93 Room Air 01/16/22 02:42 36.8 C 78 20 147/74 H 93 Room Air Laboratory Results Cardiac Enzymes 01/16/22 Range/Units 05:30 AST 30 (13-39) U/L CBC 01/15/22 01/15/22 01/15/22 Range/Units 01:15 04:07 17:07 WBC 19.66 H 25.69 H (4.8-10.8) K/ul RBC 2.72 L (3.93-5.22) M/uL Hgb 8.0 L 7.3 L 9.6 L (12.0-16.0) g/dl Hct 25.6 L 28.4 L (34.1-44.9) % Plt Count 128 L 109 L (130-400) K/uL Neut # (Auto) (1.4-6.5) K/uL Lymph # (Auto) (1.2-3.4) K/uL [place] # (Auto) (0.24-0.82) K/uL Eos # (Auto) (0-0.50) K/uL Baso # (Auto) (0-0.2) K/uL 01/16/22 Range/Units 05:30 WBC 33.73 H* (4.8-10.8) K/ul RBC 3.39 L (3.93-5.22) M/uL Hgb 9.8 L (12.0-16.0) g/dl Hct 28.5 L (34.1-44.9) % Plt Count 79 L (130-400) K/uL Neut # (Auto) 29.74 H (1.4-6.5) K/uL Lymph # (Auto) 0.73 L (1.2-3.4) K/uL [place] # (Auto) 1.21 H (0.24-0.82) K/uL Eos # (Auto) 0.04 (0-0.50) K/uL Baso # (Auto) 0.01 (0-0.2) K/uL Comprehensive Metabolic Panel 01/15/22 01/15/22 01/16/22 Range/Units 10:01 17:07 05:30 Sodium 138 139 142 (136-145) mmol/L Potassium 5.7 H D 5.8 H 4.8 (3.5-5.1) mmol/L Chloride 108 H 109 H 108 H (98-107) mmol/L Carbon Dioxide 18 L 18 L 20 L (21-32) mmol/L BUN 72 H 80 H 90 H (6-23) mg/dl Creatinine 4.21 H 4.19 H 4.34 H (0.6-1.2) mg/dl Glucose 78 74 68 L (70-99(Fasting)) mg/dl Calcium 8.9 9.2 9.1 (8.5-10.1) mg/dl AST 30 (13-39) U/L ALT 16 (7-52) U/L Alkaline Phosphatase 51 (34-104) U/L Total Protein 6.7 (6.0-8.3) gm/dl Albumin 3.7 3.8 (3.4-5.0) gm/dl Intake and Output 01/15/22 01/16/22 01/16/22 22:59 06:59 14:59 Intake Total 100 / 1470 650 / 1470 100 / 100 Output Total 650 / 1260 550 / 1260 Balance -550 / 210 100 / 210 100 / 100 Intake: IV 100 / 850 650 / 850 100 / 100 ALBUMIN 25% 100 mL 25 gm In 100 100 / 200 100 / 100 ml @ 50 mls/hr IV Q8H [facility] Rx#: [id number] Sodium Bicarbonate 8.4% 150 meq 650 / 650 In Dextrose 5% 500 ml @ 125 mls/hr IV .[id number] [facility] Rx#: [id number] Oral 0 / 0 Output: Urine Amount (Catheter) 650 / 1260 550 / 1260 Del Toro/Indwelling 650 / 1260 550 / 1260 Other: Other Intake Source sips NPO Weight 67.3 kg Weight Measurement Method Built in [facility] Diagnostic Findings telemetry reviewed: Patient went into atrial fibrillation with RVR at 8:48 AM this morning and converted back to NSR around 10:05 AM EKG during this time revealed atrial fibrillation with RVR. No acute changes Echo report reviewed - LVEF 55-60% Mild concentric LVH aortic valve sclerosis mild, without significant aortic valvular stenosis Mild TR Estimated pulm pressure is 44 mmHg Grade I diastolic dysfunction. Medications Administered Current Inpatient Medications Acetaminophen (Acetaminophen 325 Mg Tab) 650 mg PO Q4H PRN PRN Reason: Pain or Fever Stop: 02/14/22 01:46 Amiodarone HCl (Amiodarone 200 Mg Tab) 200 mg PO TIDM MICHAEL Stop: 02/15/22 11:59 Aspirin (Aspirin 81 Mg Chew) 81 mg PO DAILY MICHAEL Stop: 02/14/22 12:14 Last Admin: 01/15/22 12:26 Dose: Not Given Dextrose (Dextrose 50% 50 Ml Syringe) 25 - 50 ml IV UD PRN; Protocol PRN Reason: Hypoglycemia Protocol Stop: 02/14/22 04:38 Ferrous Sulfate (Ferrous Sulfate 325 Mg Tab) 325 mg PO BID MICHAEL Stop: 02/14/22 08:59 Last Admin: 01/16/22 10:23 Dose: 325 mg Glucagon (Glucagon For Inj 1 Mg Vial) 1 mg SQ UD PRN; Protocol PRN Reason: Hypoglycemia Protocol Stop: 02/14/22 04:38 Glucose (Glucose 40% Gel 15 Gm Tube) 15 - 30 gm PO UD PRN; Protocol PRN Reason: Hypoglycemia Protocol Stop: 02/14/22 04:38 Glucose (Glucose 10 Tab/Tube) 4 - 8 tab PO UD PRN; Protocol PRN Reason: Hypoglycemia Treatment Stop: 02/14/22 04:38 Promethazine HCl 6.25 mg/ (Sodium Chloride) 50.25 mls @ 201 mls/hr IV Q6H PRN PRN Reason: Nausea And Vomiting Stop: 02/14/22 01:46 Albumin Human (Albumin 25% 100 Ml) 25 gm in 100 mls @ 50 mls/hr IV Q8H MICHAEL Stop: 01/18/22 04:09 Last Infusion: 01/16/22 07:41 Dose: Infused Sodium Bicarbonate 75 meq/ (Dextrose) 1,075 mls @ 100 mls/hr IV .[id number] [facility] Stop: 02/15/22 08:29 Last Admin: 01/16/22 10:22 Dose: 100 mls/hr Ertapenem 500 mg/ Syringe 5 mls @ 2 mls/min IV Q24H MICHAEL; Protocol Stop: 01/26/22 10:29 Last Admin: 01/16/22 10:56 Dose: 2 mls/min Latanoprost (Latanoprost 0.005% Op Soln 2.5 Ml Btl) 1 drops OPB HS [facility] Stop: 02/14/22 20:59 Last Admin: 01/15/22 19:46 Dose: 1 drops Levothyroxine Sodium (Levothyroxine Sodium 100 Mcg Tablet) 100 mcg PO DAILYBB MICHAEL Stop: 02/14/22 06:29 Last Admin: 01/16/22 05:41 Dose: Not Given Metoprolol Succinate (Metoprolol Succ 25mg Ext Rel Tab) 25 mg PO QAM [facility] Stop: 02/15/22 10:39 Miscellaneous (Carbohydrates For Hypoglycemia ) 15 - 30 gm PO UD PRN PRN Reason: Hypoglycemia Protocol Stop: 02/14/22 04:38 (1) Anemia Anemia type: unspecified type Qualified Code(s): D64.9 - Anemia, unspecified
[2022-01-16] MEDS: METOPROLOL SUCC 25MG EXT REL TAB PO SCH (12:25)
--- NOTE | 2022-01-16 12:38 | Urology Progress Note ---
Date of Service January 16, 2022 Assessment & Plan (1) Severe sepsis: (2) Kidney stone on left side: (3) Acute kidney injury superimposed on CKD: Plan 86yo F admitted with sepsis and an obstructing left ureteral calculus. - POD #1 s/p cystoscopy and left ureteral stent placement. - She remains afebrile. - Labs reviewed - WBC increasing, Creatinine 4.34 today (4.19 previously). Nephrology following. Continue to trend. - UCx and Intraop UCx both prelim gram negative bacilli; Blood culture prelim gram negative bacilli. - IV antibiotics changed from Cefepime to Ertapenem today, continue and tailor as culture data becomes available. - No plan for additional urological intervention/stone treatment with active infection. - Will consider reimaging with CTAP tomorrow if she shows no signs of improvement. - Maintain Del Toro catheter, continue to monitor output. - Continue supportive care and antibiotic therapy. - Discussed plan with hospital team. - Urology will follow. Case discussed with Dr. Hollis, on-call urologist. Admission and Anticipated Discharge Date Admission Date: January 15, 2022 Supervising Physician Co-Signing Physician Notes Discussed patient with MARIO. Agree with plan. Patient HD stable. Not necessarily that labs judy after stenting as this can happen with acute infection. If numbers not improving tomorrow, consider repeat CT scan of abdomen pelvis to ensure sent in appropriate position and no abscess is forming. Subjective Patient examined at bedside this AM. Awake, resting in bed on arrival. No acute distress. Answered some questions appropriately. Nursing at bedside, reports poor oral intake and pt to have PATIENT RESOURCE COORDINATOR eval this morning. Pt denied any significant pain. No fevers. Del Toro intact, draining clear yellow urine. Documented urine output overnight -550ml. Review of Systems Constitutional: as per Subjective / HPI Genitourinary: as per Subjective / HPI Neurologic: as per Subjective / HPI Physical Exam Constitutional: no acute distress Respiratory: no respiratory distress and no labored breathing Neurologic: awake Psychiatric: Orientation: alert and oriented to person Genitourinary: Del Toro catheter intact Results & Data ([facility]) Vital Signs (Past 12 Hours) Vital Signs Temp Pulse Resp BP Pulse Ox O2 Del Method 01/16/22 07:45 37.3 C 69 20 145/70 H 93 Room Air 01/16/22 02:42 36.8 C 78 20 147/74 H 93 Room Air 11/30/22 22:32 36.7 C 69 18 163/77 H 92 Room Air PG Care Time/CCT Total # of Minutes Spent Total Time Spent with Patient: Total time spent is greater than 50% in coordination of care (as documented) at patient's floor/unit and/or counseling patient: Coding Level of Care Code 89891 Subseq Hosp Care Lvl 2 Diagnoses Severe sepsis A41.9; R65.20 Kidney stone on left side N20.0 Acute kidney injury superimposed on CKD N17.9; N18.9
[2022-01-16] MEDS: AMIODARONE 200 MG TAB PO SCH ×2 (13:03→18:30)
[2022-01-16 15:47] LABS: Calcium 9.3 mg/dl (8.5-10.1); Creatinine Clr Calc Pharmacy 9.5 ml/min; Est GFR (African American) 10.8 ml/min; Est GFR (Non-African American) 9.3 ml/min; Potassium 4.5 mmol/L (3.5-5.1)
--- NOTE | 2022-01-16 17:43 | Hospitalist Progress Note ---
Date of Service January 16, 2022 Assessment & Plan (1) Severe sepsis: Plan: SIRS plus ARF on CKD plus lactic acidosis plus encephalopathy secondary to complicated UTI -- Patient more awake but still confused --Leukocytosis increasing, now 30 5K --Blood cultures: Gram-negative bacilli Urine cultures: Gram-negative bacilli --Change cefepime to ertapenem until sensitivities are back --Discussed with urology service, will continue close monitoring for now, if without improvement, will repeat CAT scan of the abdomen ARF on CKD secondary to sepsis, obstructive uropathy Rhabdomyolysis contributory -- Creatinine still elevated 4.1 -- Nephrology on board Bicarb drip pending Hyperkalemia secondary to illness, home medications contributory -- Resolved Troponin elevation secondary to sepsis, rhabdomyolysis -- Cardiology service on board ACS ruled out Atrial fibrillation, new onset -- Amiodarone drip ordered Not a candidate for anticoagulation secondary to anemia Acute on chronic anemia --Secondary to iron deficiency, vitamin B12 deficiency -- No signs of overt bleed for now --Status post 2 units of packed RBCs -- Hemoglobin stable around 9 --Add Protonix Will replace iron and vitamin B12 chronic diastolic heart failure -- Patient on the dry side Bicarb drip ordered moderate MR pulmonary hypertension as per records HTN hyperlipidemia on statin Rx DM2 diet-controlled, well-controlled as of recent hemoglobin A1c of 5.5 last June 2021 hypothyroidism euthyroid DVT prophylaxis. SCDs Re: Anemia Disposition Pending Will need PT OT evaluation Might need senior care Admission and Anticipated Discharge Date Admission Date: January 15, 2022 Subjective Follow-up for metabolic encephalopathy, sepsis secondary to UTI, bacteremia, acute renal failure, etc. Atrial fibrillation noted on telemetry, heart rate 110s to 120 Patient seen resting in bed, awake, alert Answering more questions, but seems to be still confused Denies chest pain, shortness of breath, palpitations, dizziness Denies abdominal pain, nausea or vomiting Denies any pain in her body Review of Systems Review of Systems: all noted and negative except for above Physical Exam Physical Exam: General- oriented x 1, not in distress, speaks in sentences with no effort or accessory muscle use Eyes- anicteric Neck- no JVD Lungs- clear BS bilaterally, no rales/wheezes Heart- normal rate, regular rhythm; no murmurs Abdomen- normal bowel sounds, nondistended, soft, nontender Extremities- no pretibial edema, no calf tenderness Neuro- alert, oriented x 1; no gross focal neurologic deficits Skin- warm & dry Results & Data Results & Data ([facility]) Vital Signs (Past 12 Hours) Vital Signs Temp Pulse Pulse Resp BP Pulse Ox O2 Del Method 01/16/22 16:00 66 01/16/22 16:22 37.3 C 68 18 147/78 H 92 Room Air 01/16/22 08:00 84 01/16/22 11:36 36.9 C 67 20 144/73 H 94 Room Air 01/16/22 10:27 75 01/16/22 07:45 37.3 C 69 20 145/70 H 93 Room Air all noted and reviewed including below
[2022-01-16] MEDS ORDERED: LACTATED RINGER'S 1,000 ML IV SCH (17:45)
[2022-01-16] MEDS: LATANOPROST 0.005% OP SOLN 2.5 ML BTL OPB SCH (20:46)
[2022-01-16] MEDS: PANTOprazole 40 MG in SYRINGE 0 ML IV SCH (20:46)
--- NOTE | 2022-01-16 20:53 | Electrocardiogram Report ---
Test Reason : Blood Pressure : / mmHG Vent. Rate : 125 BPM Atrial Rate : 076 BPM P-R Int : 000 ms QRS Dur : 140 ms QT Int : 376 ms P-R-T Axes : 000 -79 045 degrees QTc Int : 542 ms Poor data quality, interpretation may be adversely affected Atrial fibrillation with rapid ventricular response Left axis deviation Right bundle branch block Abnormal ECG When compared with ECG of 14-JAN-2022 20:50, Atrial fibrillation has replaced Sinus rhythm Vent. rate has increased BY 43 BPM Confirmed by Patrick Enrique ([id number]) on 01/16/2022 8:52:43 PM Referred By: REFERRED SELF Confirmed By:Ozzie Enrique
--- NOTE | 2022-01-16 20:56 | Electrocardiogram Report ---
Test Reason : Blood Pressure : / mmHG Vent. Rate : 071 BPM Atrial Rate : 071 BPM P-R Int : 158 ms QRS Dur : 154 ms QT Int : 434 ms P-R-T Axes : 000 -76 019 degrees QTc Int : 471 ms Normal sinus rhythm Right bundle branch block Left anterior fascicular block Bifascicular block Abnormal ECG When compared with ECG of 16-JAN-2022 08:59, (unconfirmed) Sinus rhythm has replaced Atrial fibrillation Vent. rate has decreased BY 54 BPM Confirmed by Patrick Enrique ([id number]) on 01/16/2022 8:55:36 PM Referred By: REFERRED SELF Confirmed By:Ozzie Enrique
--- NOTE | 2022-01-17 00:59 | Communication Note ---
Date of Service: January 17, 2022 Patient O2 sats 89-90 on room air as per RN. Patient denies SOB. Faint bibasilar crackles noted on auscultation as per RN. Chest x-ray as per my interpretation : Atelectasis, elevated right hemidiaphragm, cardiomegaly, congestion AP Hypoxemic respiratory failure Pulmonary congestion Hold LRS IV fluid for now
[2022-01-17] MEDS: ALBUMIN 25% 100 mL 25 GM/100 ML VIAL IV SCH (04:47)
[2022-01-17] MEDS: LEVOTHYROXINE SODIUM 100 MCG TABLET PO SCH (05:35)
[2022-01-17 06:37] LABS: Albumin Level 4.2 gm/dl (3.4-5.0); Calcium 9.2 mg/dl (8.5-10.1); Creatinine Clr Calc Pharmacy 9.2 ml/min; Est GFR (African American) 10.6 ml/min; Est GFR (Non-African American) 9.1 ml/min; Phosphorus 2.9 mg/dl (2.5-4.9)
--- NOTE | 2022-01-17 06:39 | XRay Report ---
XR chest 1V portable HISTORY: 86 years-old Female crackles acute shortness of breath COMPARISON: Chest radiograph 01/14/2022 TECHNIQUE: AP view of the chest FINDINGS: Cardiac silhouette is enlarged. Pulmonary vascular congestion with chronic interstitial coarsening. N o pneumothorax, large pleural effusion or lobar airspace consolidation. Healed chronic left-sided rib fractures. Degenerative changes of the shoulders and spine. IMPRESSION: Cardiomegaly with pulmonary vascular congestion. ACT 112: Negative or not required by law. The above report was generated using voice recognition software. It may contain grammatical, syntax o r spelling errors. Electronically signed by: Jarett Perez M.D. 01/17/2022 6:37 AM
[2022-01-17 06:56] LABS: Hematocrit (blood only) 26.6 % (34.1-44.9); Hemoglobin 9.3 g/dl (12.0-16.0); Mean Corpuscular Hemoglobin 29.6 pg (25.0-34.0); Mean Corpuscular Volume 84.7 fL (80.0-100.0); Mean Platelet Volume 13.1 fL (9.4-12.3); Platelet Count 82 K/uL (130-400); RDW Standard Deviation 46.1 fL (36.4-46.3); Red Blood Count 3.14 M/uL (3.93-5.22); White Blood Count 36.36 K/ul (4.8-10.8)
[2022-01-17 07:18] LABS: Basophils # (auto) 0.19 K/uL (0-0.2); Basophils % (auto) 0.5 %; Eosinophils # (auto) 0.13 K/uL (0-0.50); Eosinophils % (auto) 0.4 %; Immature Granulocytes # (auto) 0.39 K/uL (0.00-0.02); Immature Granulocytes % (auto) 1.1 %; Lymphocytes # (auto) 0.89 K/uL (1.2-3.4); Lymphocytes % (auto) 2.4 %; Monocytes # (auto) 1.33 K/uL (0.24-0.82); Monocytes % (auto) 3.7 %; Neutrophils # (auto) 33.43 K/uL (1.4-6.5); Neutrophils % (auto) 91.9 %
[2022-01-17] MEDS: AMIODARONE 200 MG TAB PO SCH ×3 (08:35→20:11)
--- NOTE | 2022-01-17 09:03 | Urology Progress Note ---
Date of Service January 17, 2022 Assessment & Plan (1) Severe sepsis: (2) Kidney stone on left side: (3) Acute kidney injury superimposed on CKD: Plan 86yo F admitted with sepsis and an obstructing left ureteral calculus. - POD #2 s/p cystoscopy and left ureteral stent placement. - She remains afebrile and hemodynamically stable. - Labs reviewed - WBC continues to increase 33-36K today., Creatinine 4.17. Nephrology following. Continue to trend. - Urine and blood cultures growing E.coli, sensitive to Ertapenem. Repeat blood culture pending. - No plan for additional urological intervention/stone treatment with active infection. - Can consider repeat CT abdomen pelvis to ensure stent is in appropriate position. - Maintain Del Toro catheter, continue to monitor output. - Continue supportive care and antibiotic therapy. - Urology will follow. Case discussed with Dr. Galloway, on-call urologist. Admission and Anticipated Discharge Date Admission Date: January 15, 2022 Supervising Physician Co-Signing Physician Notes I have discussed Ms. Kirby's case with DANY Montoya and agree with the above documentation. Ureteral stent appears to be in good position. CT scan does not demonstrate persistence of the previously seen low-density stone. For now would recommend supportive care and continuing broad-spectrum antibiotics and tailoring as culture data becomes available. Subjective Patient examined at bedside this AM. Awake, resting in bed on arrival. No acut e distress. Denies any pain or discomfort at present. Del Toro catheter intact, draining clear urine with small amount of sediment noted in tubing. Review of Systems Constitutional: as per Subjective / HPI Genitourinary: as per Subjective / HPI Physical Exam Constitutional: no acute distress Respiratory: no respiratory distress and no labored breathing Neurologic: awake Psychiatric: Orientation: alert and oriented to person Genitourinary: Del Toro catheter intact Results & Data ([facility]) Vital Signs (Past 12 Hours) Vital Signs Temp Pulse Pulse Resp BP BP Pulse Ox 01/17/22 08:31 37.1 C 94 H 18 138/73 91 01/17/22 04:06 36.9 C 60 18 135/65 95 01/17/22 00:00 72 01/16/22 23:36 36.9 C 65 20 142/67 H 95 O2 Del Method O2 Flow Rate 01/17/22 08:31 Nasal Cannula 2.0 01/17/22 04:06 Nasal Cannula 2.0 01/17/22 00:00 01/16/22 23:36 Nasal Cannula 2.0 PG Care Time/CCT Total # of Minutes Spent Total Time Spent with Patient: Total time spent is greater than 50% in coordination of care (as documented) at patient's floor/unit and/or counseling patient: Coding Level of Care Code 28218 Subseq Hosp Care Lvl 2 Diagnoses Severe sepsis A41.9; R65.20 Kidney stone on left side N20.0 Acute kidney injury superimposed on CKD N17.9; N18.9
--- NOTE | 2022-01-17 11:02 | CT Scan Report ---
CT OF THE CHEST WITHOUT IV CONTRAST CLINICAL HISTORY: Persistent leukocytosis. Evaluate for pneumonia. COMPARISON STUDY: Chest radiograph January 14, 2022 and January 17, 2022. CT DOSE: 433.56 mGy.cm TECHNIQUE: Axial images of the chest were obtained without IV contrast. Images were reviewed in the axial, sagittal, and coronal planes. IV contrast was not administered for this examination. Automat ed exposure control was utilized for the study. A dose lowering technique was utilized adhering to t he principles of ALARA. FINDINGS: No enlarged axillary, mediastinal or hilar lymph nodes are present. Central pulmonary barb mona are dilated. Main pulmonary artery measures 3.7 cm in caliber. There is moderate cardiomegaly. N o pericardial effusion is present. Small left and trace right pleural effusions are present. Subpleur al opacities favor atelectasis. Mild interlobular septal thickening is noted. There is no consolidati on to suggest pneumonia. Mild bronchiectasis within the lingula and right middle lobe is present. Kaylee tral airways are patent. No central obstructing mass is present. No acute fractures within the bony t horax are noted. Several old left rib fractures are present. Abdomen and pelvis CT will be reported s eparately. IMPRESSION: 1. Mild interstitial pulmonary edema with small left and trace right pleural effusions. 2. No consolidation to suggest pneumonia. 3. Moderate cardiomegaly. Dilatation of the central pulmonary arteries which may indicate pulmonary a rterial hypertension. ACT 112: Negative or not required by law. Electronically signed by: Bradley Loera M.D. 01/17/2022 11:01 AM
--- NOTE | 2022-01-17 11:25 | CT Scan Report ---
ABDOMEN AND PELVIS CT WITHOUT CONTRAST HISTORY: Acute urinary tract infection persistent leukocytosis, UTI, ureteral stone TECHNIQUE: Multiaxial CT images of the abdomen and pelvis were performed without contrast. A dose lo wering technique was utilized adhering to the principles of ALARA. COMPARISON STUDY: CT chest of same day, CT abdomen and pelvis 01/14/2022 FINDINGS: Interstitial pulmonary edema with small left and trace right pleural effusions. Decreased a ttenuation of the cardiac blood pool suggestive of anemia. Cardiomegaly with trace pericardial effusi on. No pneumatosis or pneumoperitoneum. The study is degraded by respiratory motion artifact. The unenhanced spleen, atrophic pancreas and adrenal glands are unremarkable. Contracted gallbladder. Unremarkable liver. Bilateral renal cysts are redemonstrated. Mild left-sided hydroureteronephrosis has improved from the prior study status post placement of a left ureteral stent which appears to be in satisfactory positioning. The previous noted 8 mm left ureteral calculus is no longer identified. No renal calculi are seen. Bilateral perinephric and periureteral stranding with questioned urothelia l thickening of the renal collecting systems. Decompressed urinary bladder with Del Toro catheter in oanh ce. Air in the bladder lumen is likely secondary to instrumentation. The visualized uterus is unremar kable. Atherosclerosis of the aorta. Small hiatal hernia with mild distal esophageal wall thickening. Trace abdominal pelvic ascites with mesenteric and body wall edema. Colonic diverticulosis without acute diverticulitis. Scattered large and small bowel air-fluid levels. The appendix is not definitively seen. No CT evidence of acute appe ndicitis. Degenerative changes of the spine, pelvis and hips. ORIF changes of the proximal right femu r. Lumbar levoscoliosis. Chronic right-sided L5 pars defect. IMPRESSION: 1. Cardiomegaly with pulmonary edema, small left and trace right pleural effusions. 2. Mild left-sided hydroureteronephrosis has improved from the prior study status post placement of a left ureteral stent which appears to be in satisfactory positioning. 3. The previously noted left ureteral calculus is no longer present. 4. Mild urothelial thickening of the renal collecting systems suggestive of an ascending infection. 5. Additional findings as above. ACT 112: Negative or not required by law. The above report was generated using voice recognition software. It may contain grammatical, syntax o r spelling errors. Electronically signed by: Jarett Perez M.D. 01/17/2022 11:24 AM
[2022-01-17] MEDS: METOPROLOL SUCC 25MG EXT REL TAB PO SCH (11:36)
[2022-01-17] MEDS: FERROUS SULFATE 325 MG TAB PO SCH ×2 (11:37→21:17)
[2022-01-17] MEDS: ERTAPENEM SODIUM 500 MG in SYRINGE 0 ML IV SCH (11:37)
--- NOTE | 2022-01-17 13:17 | Cardiology Progress Note ---
Date of Service January 17, 2022 Assessment & Plan (1) Elevated troponin: (2) Rhabdomyolysis: (3) Chronic diastolic CHF (congestive heart failure): (4) Severe sepsis: (5) Nephrolithiasis: (6) Acute kidney injury superimposed on CKD: (7) Anemia: (8) Paroxysmal atrial fibrillation: Plan 86-year-old female present to the hospital after being found on the floor and brought to the emergency department via EMS. Currently diagnosed with urosepsis, nephrolithiasis status post ureteral stent placement. Cardiology consultation requested due to elevated troponin. There are no ischemic ECG changes or regional wall motion abnormality on echocardiogram to suggest an acute plaque rupture event. Her elevated troponin is likely secondary to rhabdomyolysis, demand ischemia in the setting of acute renal insufficiency, severe sepsis, and chronic anemia. Hold statin therapy in the setting of rhabdomyolysis. Low dose ASA added. Patient developed afib RVR yesterday, likely due to acute illness. Converted spontaneously back to NSR. started on amiodarone 200 TID and home dose metoprolol 25 mg daily Currently sinus bradycardia. Reduce amio to 200 mg BID. Continue metoprolol She is not an anticoagulation candidate at this time given severe anemia on admission. Appreciate nephrology assistance given ELISABET. Agree with gentle hydration at this time in hopes she will avoid dialysis. case discussed with Dr. Ambrosio. Will follow. Admission and Anticipated Discharge Date Admission Date: January 15, 2022 Supervising Physician Co-Signing Physician Notes Patient seen examined the bedside. Remains confused. No recurrent atrial fibrillation overnight. Remains in sinus rhythm on oral amiodarone. Offers no complaints. Receiving IV fluid per direction of nephrology. Fluid balance +1.3 L. Requiring 2 L of supplemental oxygen. Denies any shortness of breath or chest discomfort. PE: VSS. Gen: NAD, oriented to person only. Heart: Regular rhythm, normal S1- S2. No murmur. Lungs: Positive crackles at the bases bilaterally. Poor inspiratory effort. Extremities: No edema. A/P: Agree with above PA-C history, physical exam, assessment and plan. Continue amiodarone and metoprolol to maintain sinus rhythm. Unable to recall reaction to aspirin. Will remain on hold at this time until potential allergy can be defined. Continue gentle hydration as per nephrology, however, close attention to oxygenation and volume status given history of chronic diastolic heart failure. Consider addition of low-dose diuretic therapy today pending evaluation by nephrology. She currently appears comfortable without orthopnea. Subjective patient more awake and alert today. Resting comfortably. Denies acute cardiac complaints. No recurrent afib. No chest pain or dyspnea. No edema. No dizziness or lightheadedness. Review of Systems Review of Systems: All systems reviewed & are unremarkable except as noted in HPI & below Physical Exam Constitutional: well developed, well nourished and + ill appearing; no acute distress Respiratory: normal respiratory effort; no respiratory distress and no labored breathing Auscultation: + rales (Bases bilateral); no rhonchi and no wheezes Cardiovascular: Rate/Rhythm: regular rate and regular rhythm Heart Sounds: normal S1 and normal S2; no murmur Vessels: radial pulses present; no JVD and no carotid bruit Gastrointestinal (Abdomen): Inspection/Auscultation: abdomen normal to inspection and normal bowel sounds; abdomen not distended Pe rcussion/Palpation: abdomen soft; abdomen nontender, no guarding and abdomen not rigid Neurologic: CN's II-XI intact bilaterally and moves all extremities Results & Data ([facility]) Vital Signs (Past 12 Hours) Vital Signs Temp Pulse Resp BP BP Pulse Ox O2 Del Method 01/17/22 12:29 36.7 C 55 L 17 153/69 H 96 Nasal Cannula 01/17/22 08:31 37.1 C 94 H 18 138/73 91 Nasal Cannula 01/17/22 04:06 36.9 C 60 18 135/65 95 Nasal Cannula O2 Flow Rate 01/17/22 12:29 2 01/17/22 08:31 2.0 01/17/22 04:06 2.0 Laboratory Results CBC 01/17/22 Range/Units 05:57 WBC 36.36 H* (4.8-10.8) K/ul RBC 3.14 L (3.93-5.22) M/uL Hgb 9.3 L (12.0-16.0) g/dl Hct 26.6 L (34.1-44.9) % Plt Count 82 L (130-400) K/uL Neut # (Auto) 33.43 H (1.4-6.5) K/uL Lymph # (Auto) 0.89 L (1.2-3.4) K/uL [place] # (Auto) 1.33 H (0.24-0.82) K/uL Eos # (Auto) 0.13 (0-0.50) K/uL Baso # (Auto) 0.19 (0-0.2) K/uL Comprehensive Metabolic Panel 01/16/22 01/17/22 Range/Units 15:07 05:57 Sodium 142 139 (136-145) mmol/L Potassium 4.5 4.0 (3.5-5.1) mmol/L Chloride 107 103 (98-107) mmol/L Carbon Dioxide 23 23 (21-32) mmol/L BUN 90 H 100 H (6-23) mg/dl Creatinine 4.10 H 4.17 H (0.6-1.2) mg/dl Glucose 94 84 (70-99(Fasting)) mg/dl Calcium 9.3 9.2 (8.5-10.1) mg/dl Albumin 4.2 (3.4-5.0) gm/dl Intake and Output 01/16/22 01/17/22 01/17/22 22:59 06:59 14:59 Intake Total 560 / 1974 1215 / 1974 0 / 0 Output Total 325 / 575 250 / 575 Balance 235 / 1400 965 / 1400 0 / 0 Intake: IV 100 / 1515 1215 / 1515 0 / 0 ALBUMIN 25% 100 mL 25 gm In 100 100 / 400 100 / 400 ml @ 50 mls/hr IV Q8H MICHAEL Rx#: [id number] Lactated Ringer's 1,000 ml @ 80 40 / 40 0 / 0 mls/hr IV .[id number] MICHAEL Rx#: [id number] Sodium Bicarbonate 8.4% 75 meq 1075 / 1075 In Dextrose 5% 1,000 ml @ 100 mls/hr IV .[id number] MICHAEL Rx#: [id number] Oral 460 / 460 Output: Urine Amount (Catheter) 325 / 575 250 / 575 Del Toro/Indwelling 325 / 575 250 / 575 Other: Other Intake Source SIPS Weight 66.4 kg Weight Measurement Method Built in [facility] Diagnostic Findings Telemetry reviewed: NSR, sinus bradycardia with HR ranging 55-65 bpm. No recurrent atrial fibrillation since yesterday morning Medications Administered Current Inpatient Medications Acetaminophen (Acetaminophen 325 Mg Tab) 650 mg PO Q4H PRN PRN Reason: Pain or Fever Stop: 02/14/22 01:46 Amiodarone HCl (Amiodarone 200 Mg Tab) 200 mg PO TIDM MICHAEL Stop: 02/15/22 11:59 Last Admin: 01/17/22 08:35 Dose: 200 mg Aspirin (Aspirin 81 Mg Chew) 81 mg PO DAILY MICHAEL Stop: 02/14/22 12:14 Last Admin: 01/15/22 12:26 Dose: Not Given Dextrose (Dextrose 50% 50 Ml Syringe) 25 - 50 ml IV UD PRN; Protocol PRN Reason: Hypoglycemia Protocol Stop: 02/14/22 04:38 Ferrous Sulfate (Ferrous Sulfate 325 Mg Tab) 325 mg PO BID MICHAEL Stop: 02/14/22 08:59 Last Admin: 01/17/22 11:37 Dose: 325 mg Glucagon (Glucagon For Inj 1 Mg Vial) 1 mg SQ UD PRN; Protocol PRN Reason: Hypoglycemia Protocol Stop: 02/14/22 04:38 Glucose (Glucose 40% Gel 15 Gm Tube) 15 - 30 gm PO UD PRN; Protocol PRN Reason: Hypoglycemia Protocol Stop: 02/14/22 04:38 Glucose (Glucose 10 Tab/Tube) 4 - 8 tab PO UD PRN; Protocol PRN Reason: Hypoglycemia Treatment Stop: 02/14/22 04:38 Promethazine HCl 6.25 mg/ (Sodium Chloride) 50.25 mls @ 201 mls/hr IV Q6H PRN PRN Reason: Nausea And Vomiting Stop: 02/14/22 01:46 Ertapenem 500 mg/ Syringe 5 mls @ 2 mls/min IV Q24H MICHAEL; Protocol Stop: 01/26/22 10:29 Last Admin: 01/17/22 11:37 Dose: 2 mls/min Lactated Ringer's (Lr) 1,000 mls @ 80 mls/hr IV .[id number] MICHAEL Stop: 02/15/22 17:44 Last Infusion: 01/17/22 07:18 Dose: Infused Pantoprazole Sodium 40 mg/ (Syringe) 10 mls @ 5 mls/min IV BID MICHAEL Stop: 02/15/22 20:59 Last Admin: 01/16/22 20:46 Dose: 5 mls/min Latanoprost (Latanoprost 0.005% Op Soln 2.5 Ml Btl) 1 drops OPB HS [facility] Stop: 02/14/22 20:59 Last Admin: 01/16/22 20:46 Dose: 1 drops Levothyroxine Sodium (Levothyroxine Sodium 100 Mcg Tablet) 100 mcg PO DAILYBB [facility] Stop: 02/14/22 06:29 Last Admin: 01/17/22 05:35 Dose: 100 mcg Metoprolol Succinate (Metoprolol Succ 25mg Ext Rel Tab) 25 mg PO QAM [facility] Stop: 02/15/22 10:39 Last Admin: 01/17/22 11:36 Dose: 25 mg Miscellaneous (Carbohydrates For Hypoglycemia ) 15 - 30 gm PO UD PRN PRN Reason: Hypoglycemia Protocol Stop: 02/14/22 04:38 (1) Anemia Anemia type: unspecified type Qualified Code(s): D64.9 - Anemia, unspecified
--- NOTE | 2022-01-17 14:07 | Nephrology Progress Note ---
Date of Service January 17, 2022 Assessment & Plan (1) Acute kidney injury superimposed on CKD: Plan: Non-oliguric. Creatinine relatively stable. Electrolytes acceptable. No emergent indication for dialysis. IVF stopped. Evidence of pulmonary vascular congestion and interstitial pulmonary edema increasing. Goal is to encourage even to slightly negative fluid balance. Diuretics held pending additional monitoring. Document strict I/O's. Repeat metabolic profile tomorrow AM. Medications are appropriately dosed for kidney function. CT chest/ab/plv reviewed this AM. Stent in satisfactory position and hydronephrosis improving. Continue renal diet. (2) Severe sepsis: Plan: Pansensitive E coli in blood and urine. Blood culture + 01/14. [place]BC remains 52524. Thankfully hydro improving and no evidence of persistent obstructing stone. Urology following. Cefepime converted to Ertapenem yesterday. Antibiotic therapy per hospitalist team. Medications appropriately dosed for kidney function. (3) Nephrolithiasis: Plan: s/p ureteroscopy with stent placement POD#2. (4) Anemia: Plan: 2 units PRBC provided yesterday. Repeat H/H this afternoon. Stool occult blood testing pending. No signs of active bleeding (5) Paroxysmal atrial fibrillation: Plan: Cardiology following. Converted back to SR with amiodarone. HR slightly low. BP acceptable. Amio dose adjusted. Remains on metoprolol. Admission and Anticipated Discharge Date Admission Date: January 15, 2022 Subjective No acute events overnight. IVF stopped due to increased work of breathing and evidence of pulmonary congestion overnight. CXR reviewed this AM. Janel was seen and evaluated in her hospital room this morning. She denied any acute complaints or concerns. No fevers or chills. Appetite remains poor. No chest pain or palpitations. Review of Systems Review of Systems: All systems reviewed & are unremarkable except as noted in HPI & below Physical Exam Constitutional: well developed, + thin and + frail appearing; no acute distress Eyes: + anicteric sclerae; no corneal abnormality ENMT: Mouth: + dry oral mucous membranes; no oral mucosal abnormality Neck: normal visual inspection and trachea midline Respiratory: normal respiratory effort Auscultation: + rales (basilar); no rhonchi and no wheezes Cardiovascular: Rate/Rhythm: regular rate and + irregularly irregular Heart Sounds: normal S1 and normal S2 Extremities: no edema Musculoskeletal: Extremities: no cyanosis and no clubbing Skin: normal turgor; no lesions and no jaundice Neurologic: Motor/Sensory: no tremor and no asterixis Psychiatric: Orientation: alert and oriented x 3 Results & Data ([facility]) Vital Signs (Past 12 Hours) Vital Signs Temp Pulse Resp BP BP Pulse Ox O2 Del Method 01/17/22 12:29 36.7 C 55 L 17 153/69 H 96 Nasal Cannula 01/17/22 08:31 37.1 C 94 H 18 138/73 91 Nasal Cannula 01/17/22 04:06 36.9 C 60 18 135/65 95 Nasal Cannula O2 Flow Rate 01/17/22 12:29 2 01/17/22 08:31 2.0 01/17/22 04:06 2.0 Laboratory Results Laboratory Results - last 24 hr 01/16/22 01/16/22 01/16/22 15:07 17:04 20:48 WBC RBC Hgb Hct MCV MCH MCHC RDW Std Deviation RDW Coeff of Mague Plt Count MPV Immature Gran % (Auto) Neut % (Auto) Lymph % (Auto) [place] % (Auto) Eos % (Auto) Baso % (Auto) Neut # (Auto) Lymph # (Auto) [place] # (Auto) Eos # (Auto) Baso # (Auto) Immature Gran # (Auto) Peripher Smr Path Cons Sodium 142 Potassium 4.5 Chloride 107 Carbon Dioxide 23 Anion Gap 12 H BUN 90 H Creatinine 4.10 H Est Cr Clr Drug Dosing 9.5 Est GFR ( Amer) 10.8 Est GFR (Non-Af Amer) 9.3 BUN/Creatinine Ratio 22.0 H Glucose 94 POC Glucose 113 H 103 H Calcium 9.3 Phosphorus Albumin EBV Capsid Ag IgG Ab EBV Capsid Ag IgM Ab EBV EA Restrict+Diffuse EBV Nuclear Antigen Ab EBV Antibody Interp Monoscreen 01/17/22 01/17/22 01/17/22 05:57 05:57 08:13 WBC 36.36 H* RBC 3.14 L Hgb 9.3 L Hct 26.6 L MCV 84.7 MCH 29.6 MCHC 35.0 RDW Std Deviation 46.1 RDW Coeff of Mague 15.0 H Plt Count 82 L MPV 13.1 H Immature Gran % (Auto) 1.1 Neut % (Auto) 91.9 Lymph % (Auto) 2.4 [place] % (Auto) 3.7 Eos % (Auto) 0.4 Baso % (Auto) 0.5 Neut # (Auto) 33.43 H Lymph # (Auto) 0.89 L [place] # (Auto) 1.33 H Eos # (Auto) 0.13 Baso # (Auto) 0.19 Immature Gran # (Auto) 0.39 H Peripher Smr Path Cons Sodium 139 Potassium 4.0 Chloride 103 Carbon Dioxide 23 Anion Gap 13 H BUN 100 H Creatinine 4.17 H Est Cr Clr Drug Dosing 9.2 Est GFR ( Amer) 10.6 Est GFR (Non-Af Amer) 9.1 BUN/Creatinine Ratio 24.0 H Glucose 84 POC Glucose 98 Calcium 9.2 Phosphorus 2.9 Albumin 4.2 EBV Capsid Ag IgG Ab EBV Capsid Ag IgM Ab EBV EA Restrict+Diffuse EBV Nuclear Antigen Ab EBV Antibody Interp Monoscreen 01/17/22 01/17/22 01/17/22 10:16 10:16 10:16 WBC RBC Hgb Hct MCV MCH MCHC RDW Std Deviation RDW Coeff of Mague Plt Count MPV Immature Gran % (Auto) Neut % (Auto) Lymph % (Auto) [place] % (Auto) Eos % (Auto) Baso % (Auto) Neut # (Auto) Lymph # (Auto) [place] # (Auto) Eos # (Auto) Baso # (Auto) Immature Gran # (Auto) Peripher Smr Path Cons Sodium Potassium Chloride Carbon Dioxide Anion Gap BUN Creatinine Est Cr Clr Drug Dosing Est GFR ( Amer) Est GFR (Non-Af Amer) BUN/Creatinine Ratio Glucose POC Glucose Calcium Phosphorus Albumin EBV Capsid Ag IgG Ab Pending EBV Capsid Ag IgM Ab Pending EBV EA Restrict+Diffuse Pending EBV Nuclear Antigen Ab Pending EBV Antibody Interp Pending Monoscreen Negative 01/17/22 12:07 WBC RBC Hgb Hct MCV MCH MCHC RDW Std Deviation RDW Coeff of [place]ague Plt Count MPV Immature Gran % (Auto) Neut % (Auto) Lymph % (Auto) [place] % (Auto) Eos % (Auto) Baso % (Auto) Neut # (Auto) Lymph # (Auto) [place] # (Auto) Eos # (Auto) Baso # (Auto) Immature Gran # (Auto) Peripher Smr Path Cons Sodium Potassium Chloride Carbon Dioxide Anion Gap BUN Creatinine Est Cr Clr Drug Dosing Est GFR ( Amer) Est GFR (Non-Af Amer) BUN/Creatinine Ratio Glucose POC Glucose 111 H Calcium Phosphorus Albumin EBV Capsid Ag IgG Ab EBV Capsid Ag IgM Ab EBV EA Restrict+Diffuse EBV Nuclear Antigen Ab EBV Antibody Interp Monoscreen PG Care Time/CCT Total # of Minutes Spent Total Time Spent with Patient: Total time spent is greater than 50% in coordination of care (as documented) at patient's floor/unit and/or counseling patient: Coding Level of Care Code 33306 Subseq Hosp Care Lvl 3 Diagnoses Acute kidney injury superimposed on CKD N17.9; N18.9 Severe sepsis A41.9; R65.20 Nephrolithiasis N20.0 Anemia D64.9 Anemia type: unspecified type Paroxysmal atrial fibrillation I48.0 (1) Anemia Anemia type: unspecified type Qualified Code(s): D64.9 - Anemia, unspecified
[2022-01-17] MEDS: PANTOprazole 40 MG in SYRINGE 0 ML IV SCH ×2 (15:41→20:11)
--- NOTE | 2022-01-17 16:51 | Hospitalist Progress Note ---
Date of Service January 17, 2022 Assessment & Plan (1) Severe sepsis: Plan: SIRS plus ARF on CKD plus lactic acidosis plus encephalopathy secondary to complicated UTI -- Confusion resolved, oriented x3, answering all questions appropriately --Leukocytosis still trending up, 36K --Blood cultures: E. coli, pansensitive Urine cultures: " " --CT abdomen pelvis: Hydronephrosis improving, no fluid collection noted CT chest: No pneumonia -- Continue ertapenem day #2 Monitor closely ARF on CKD secondary to sepsis, obstructive uropathy Rhabdomyolysis contributory -- Creatinine still elevated 4.1 Nonoliguric acute renal failure -- Nephrology on board IV fluids discontinued secondary to pulmonary congestion -- Continue to monitor closely Hyperkalemia secondary to illness, home medications contributory -- Resolved Troponin elevation secondary to sepsis, rhabdomyolysis -- Cardiology service on board ACS ruled out Atrial fibrillation, new onset --Back to sinus rhythm -- Amiodarone p.o., metoprolol ordered Not a candidate for anticoagulation secondary to anemia Acute on chronic anemia --Secondary to iron deficiency, vitamin B12 deficiency -- No signs of overt bleed for now --Status post 2 units of packed RBCs -- Hemoglobin stable around 9 --Added Protonix IV 40 mg twice daily Will replace iron and vitamin B12 chronic diastolic heart failure -- Currently with pulmonary congestion IV fluids held moderate MR pulmonary hypertension as per records HTN hyperlipidemia on statin Rx DM2 diet-controlled, well-controlled as of recent hemoglobin A1c of 5.5 last June 2021 hypothyroidism euthyroid DVT prophylaxis. SCDs Re: Anemia Disposition Pending Will need PT OT evaluation Might need retirement Admission and Anticipated Discharge Date Admission Date: January 15, 2022 Subjective Follow-up for metabolic encephalopathy, acute renal failure, severe sepsis secondary to UTI, obstructive ureteral stone, etc. Seen resting in bed, sleeping but easily awakened Patient oriented x3, answers all questions appropriately Poor recollection of events leading up to hospitalization States she feels fine overall, just tired Denies abdominal/flank/back pain Denies problems with urination No shortness of breath, cough, chest pain No headache, dizziness, nausea or vomiting, diarrhea Patient is hungry No other symptoms Review of Systems Review of Systems: all noted and negative except for above Physical Exam Physical Exam: General- oriented x 3, not in distress, speaks in sentences with no effort or accessory muscle use Eyes- anicteric Neck- no JVD Lungs- clear BS bilaterally, no rales/wheezes Heart- normal rate, regular rhythm; no murmurs Abdomen- normal bowel sounds, nondistended, soft, no tenderness Extremities- no pretibial edema, no calf tenderness Neuro- alert, oriented x 3; no gross focal neurologic deficits Skin- warm & dry Results & Data Results & Data ([facility]) Vital Signs (Past 12 Hours) Vital Signs Temp Pulse Resp BP Pulse Ox O2 Del Method O2 Flow Rate 01/17/22 15:28 36.7 C 59 L 16 154/69 H 96 Room Air 01/17/22 14:51 Nasal Cannula 2 01/17/22 12:29 36.7 C 55 L 17 153/69 H 96 Nasal Cannula 2 01/17/22 08:31 37.1 C 94 H 18 138/73 91 Nasal Cannula 2.0 all noted and reviewed including below
[2022-01-17] MEDS: LATANOPROST 0.005% OP SOLN 2.5 ML BTL OPB SCH (20:12)
[2022-01-18] MEDS: LEVOTHYROXINE SODIUM 100 MCG TABLET PO SCH (05:59)
[2022-01-18] MEDS: AMIODARONE 200 MG TAB PO SCH ×2 (07:54→20:50)
[2022-01-18] MEDS: PANTOprazole 40 MG in SYRINGE 0 ML IV SCH ×2 (07:55→20:52)
[2022-01-18] MEDS: METOPROLOL SUCC 25MG EXT REL TAB PO SCH (08:35)
[2022-01-18] MEDS: FERROUS SULFATE 325 MG TAB PO SCH ×2 (08:35→20:53)
--- NOTE | 2022-01-18 08:38 | Urology Progress Note ---
Date of Service January 18, 2022 Assessment & Plan (1) Nephrolithiasis: (2) Acute UTI: Plan Overall she appears to have good source control at this point with the stent in place. Cultures have been showing pansensitive E. coli, can likely start to narrow antibiotic coverage at this point. Would hold off on any further intervention for her possible stone until infection is definitively cleared. This will likely be done as an outpatient. For now would recommend continuing antibiotics and supportive care and addressing her other comorbidities. At this point there is no plan for further urologic intervention while she is hospitalized. We will arrange outpatient follow-up. Urology will sign off for now, please call with any questions or concerns. Admission and Anticipated Discharge Date Admission Date: January 15, 2022 Subjective 86-year-old female s/p Left ureteral stent on 01/15/2022. Denies any fevers or chills Denies any pain from the stent CT abdomen pelvis from 01/17 indicated stent in good position, improved hydronephrosis on the left. The previous stone was not definitively seen on repeat imaging. Urine culture growing pansensitive E. coli. Blood culture from 01/14 also with pansensitive E. coli. Repeat blood cultures pending. Review of Systems Review of Systems: Denies fevers or chills Gastrointestinal: No nausea or vomiting Genitourinary: Denies dysuria Physical Exam Physical Exam: Frail-appearing, NAD Alert and interacting appropriately. Respiratory: Breathing comfortably on room air, no audible wheezing Results & Data ([facility]) Vital Signs (Past 12 Hours) Vital Signs Temp Pulse Pulse Resp BP BP Pulse Ox 01/18/22 08:19 37.0 C 54 L 18 159/72 H 90 01/17/22 22:12 60 01/18/22 03:38 36.4 C L 57 L 16 157/77 H 95 01/17/22 23:27 36.9 C 58 L 17 150/73 H 92 O2 Del Method 01/18/22 08:19 Room Air 01/17/22 22:12 01/18/22 03:38 Room Air 01/17/22 23:27 Room Air PG Care Time/CCT Total # of Minutes Spent Total Time Spent with Patient: Total time spent is greater than 50% in coordination of care (as documented) at patient's floor/unit and/or counseling patient: Coding Level of Care Code 43559 Subseq Hosp Care Lvl 2 Diagnoses Nephrolithiasis N20.0 Acute UTI N39.0
--- NOTE | 2022-01-18 08:52 | Nephrology Progress Note ---
Date of Service January 18, 2022 Assessment & Plan (1) Acute kidney injury superimposed on CKD: Plan: * Non-oliguric. Creatinine trending down. Electrolytes acceptable. Patient remains azotemic but not uremic. No emergent indication for dialysis * Keep Del Toro in place. Document I/O's * Repeat metabolic profile tomorrow AM (2) Severe sepsis: Plan: * Pansensitive E coli in blood and urine * WBC# improving * s/p cystoscopy. L ureteral stent is in place * Definitive stone therapy once infection has fully been cleared * Remains on Ertapenem (3) Nephrolithiasis: Plan: * s/p ureteroscopy with stent placement POD#3 (4) Anemia: Plan: * 2 units PRBC provided this hospitalization * Hgb acceptable at 11.0 this am * FOBT negative x3 this hospitalization (5) Paroxysmal atrial fibrillation: Plan: * Cardiology following. Converted back to SR with amiodarone * Remains on metoprolol * Anticoagulation held due to recent fall, anemia and recent Urologic intervention Admission and Anticipated Discharge Date Admission Date: January 15, 2022 Subjective Ms. Kirby was evaluated in her hospital room this morning. She was alert & oriented x3. She denied fever, flank pain, dyspnea or uremic symptoms. Del Toro catheter remains in place Review of Systems Constitutional: no fever Eyes: no problem reported Ear, Nose, Mouth, Throat: no problem reported Respiratory: no dyspnea Cardiovascular: no chest pain Gastrointestinal: no abdominal pain, no vomiting and no diarrhea/loose stools Neurologic: no confusion Physical Exam Constitutional: no acute distress Eyes: PERRL, conjunctivae normal, anicteric sclerae ENMT: external ear and nose normal, oropharynx normal Neck: trachea midline, no thyromegaly Respiratory: normal respiratory effort, lungs clear to auscultation Cardiovascular: RRR, no murmur, no edema Gastrointestinal (Abdomen): normal bowel sounds, soft, nontender, no hepatosplenomegaly Skin: no rashes, warm and dry Neurologic: awake; not confused Results & Data ([facility]) Vital Signs (Past 12 Hours) Vital Signs Temp Pulse Pulse Resp BP BP Pulse Ox 01/18/22 08:19 37.0 C 54 L 18 159/72 H 90 01/18/22 08:35 63 01/17/22 22:12 60 01/18/22 03:38 36.4 C L 57 L 16 157/77 H 95 01/17/22 23:27 36.9 C 58 L 17 150/73 H 92 O2 Del Method 01/18/22 08:19 Room Air 01/18/22 08:35 01/17/22 22:12 01/18/22 03:38 Room Air 01/17/22 23:27 Room Air Laboratory Results Laboratory Tests 01/18/22 01/18/22 09:05 09:05 WBC 30.06 H* Hgb 11.0 L Hct 31.8 L Plt Count 90 L Sodium 135 L Potassium 4.0 Chloride 101 Carbon Dioxide 22 BUN 106 H Creatinine 4.06 H Glucose 90 Calcium 9.6 PG Care Time/CCT Total # of Minutes Spent Total Time Spent with Patient: Total time spent is greater than 50% in coordination of care (as documented) at patient's floor/unit and/or counseling patient: Coding Level of Care Code 97857 Subseq Hosp Care Lvl 3 Diagnoses Acute kidney injury superimposed on CKD N17.9; N18.9 Severe sepsis A41.9; R65.20 Nephrolithiasis N20.0 Anemia D64.9 Anemia type: unspecified type Paroxysmal atrial fibrillation I48.0 (1) Anemia Anemia type: unspecified type Qualified Code(s): D64.9 - Anemia, unspecified
[2022-01-18 09:44] LABS: Hematocrit (blood only) 31.8 % (34.1-44.9); Mean Corpuscular Hemoglobin 29.2 pg (25.0-34.0); Mean Corpuscular Hgb Conc 34.6 g/dL (32.0-36.0); Mean Corpuscular Volume 84.4 fL (80.0-100.0); Mean Platelet Volume 12.4 fL (9.4-12.3); Platelet Count 90 K/uL (130-400); RDW Coefficient of Variation 15.1 % (11.5-14.5); RDW Standard Deviation 46.4 fL (36.4-46.3); Red Blood Count 3.77 M/uL (3.93-5.22); White Blood Count 30.06 K/ul (4.8-10.8)
[2022-01-18 10:01] LABS: Basophils # (auto) 0.11 K/uL (0-0.2); Basophils % (auto) 0.4 %; Eosinophils # (auto) 0.48 K/uL (0-0.50); Eosinophils % (auto) 1.6 %; Immature Granulocytes # (auto) 1.28 K/uL (0.00-0.02); Immature Granulocytes % (auto) 4.3 %; Lymphocytes # (auto) 1.12 K/uL (1.2-3.4); Lymphocytes % (auto) 3.7 %; Monocytes # (auto) 2.22 K/uL (0.24-0.82); Monocytes % (auto) 7.4 %; Neutrophils # (auto) 24.85 K/uL (1.4-6.5); Neutrophils % (auto) 82.6 %
[2022-01-18 10:28] LABS: BUN Creatinine Ratio 26.1 (10-20); Calcium 9.6 mg/dl (8.5-10.1); Creatinine Clr Calc Pharmacy 9.5 ml/min; Est GFR (African American) 10.9 ml/min; Est GFR (Non-African American) 9.4 ml/min
[2022-01-18] MEDS: ERTAPENEM SODIUM 500 MG in SYRINGE 0 ML IV SCH (10:43)
[2022-01-18] MEDS: NYSTATIN SUSP 500,000 U/5 ML UDC PO SCH ×2 (16:40→20:52)
--- NOTE | 2022-01-18 18:40 | Hospitalist Progress Note ---
Date of Service January 18, 2022 Assessment & Plan (1) Severe sepsis: Plan: SIRS plus ARF on CKD plus lactic acidosis plus encephalopathy secondary to complicated UTI -- Confusion resolved, oriented x3, answering all questions appropriately --Leukocytosis still trending up, 36K --Blood cultures: E. coli, pansensitive Urine cultures: " " --CT abdomen pelvis: Hydronephrosis improving, no fluid collection noted CT chest: No pneumonia -- Afebrile, hemodynamically stable WBC improving to 30 K -- Continue ertapenem day #3 Monitor closely ARF on CKD secondary to sepsis, obstructive uropathy Rhabdomyolysis contributory -- Creatinine still elevated 4.0 Nonoliguric acute renal failure -- Nephrology on board IV fluids discontinued secondary to pulmonary congestion -- Continue to monitor closely Hyperkalemia secondary to illness, home medications contributory -- Resolved Troponin elevation secondary to sepsis, rhabdomyolysis -- Cardiology service on board ACS ruled out Atrial fibrillation, new onset --Back to sinus rhythm -- Amiodarone p.o., metoprolol ordered Not a candidate for anticoagulation secondary to anemia Acute on chronic anemia --Secondary to iron deficiency, vitamin B12 deficiency -- No signs of overt bleed for now --Status post 2 units of packed RBCs -- Hemoglobin stable around 9 --Added Protonix IV 40 mg twice daily Will replace iron and vitamin B12 chronic diastolic heart failure -- Currently with pulmonary congestion IV fluids held moderate MR pulmonary hypertension as per records HTN hyperlipidemia on statin Rx DM2 diet-controlled, well-controlled as of recent hemoglobin A1c of 5.5 last June 2021 hypothyroidism euthyroid DVT prophylaxis. SCDs Re: Anemia Disposition Pending Will need PT OT evaluation Might need residential Admission and Anticipated Discharge Date Admission Date: January 15, 2022 Subjective Follow-up for severe sepsis, metabolic cephalopathy, UTI, acute renal failure, ureteral stone, etc. Seen resting in bed, comfortable, not distressed Oriented x2-3 Answers questions appropriately States she feels fine overall Denies cough, shortness of breath, chest pain Denies abdominal/back pains, fevers or chills Appetite is okay No other symptoms Review of Systems Review of Systems: all noted and negative except for above Physical Exam Physical Exam: General- oriented x 2-3, not in distress, speaks in sentences with no effort or accessory muscle use Mouth-positive oral thrush Eyes- anicteric Neck- no JVD Lungs- clear breath sounds bilaterally, no wheezing no crackles Heart- normal rate, regular rhythm; no murmurs Abdomen- normal bowel sounds, nondistended, soft, nontender Extremities- no pretibial edema, no calf tenderness Neuro- alert, oriented x 2-3; no gross focal neurologic deficits Skin- warm & dry Results & Data Results & Data ([facility]) Vital Signs (Past 12 Hours) Vital Signs Temp Pulse Pulse Resp BP Pulse Ox O2 Del Method 01/18/22 16:09 37.0 C 55 L 17 145/74 H 91 Room Air 01/18/22 16:00 54 L 01/18/22 12:20 37.1 C 59 L 20 138/75 95 Room Air 01/18/22 08:00 Room Air 01/18/22 08:00 57 L 01/18/22 08:19 37.0 C 54 L 18 159/72 H 90 Room Air 01/18/22 08:35 63 all noted and reviewed including below
[2022-01-18] MEDS: LATANOPROST 0.005% OP SOLN 2.5 ML BTL OPB SCH (20:51)
[2022-01-19] MEDS: LEVOTHYROXINE SODIUM 100 MCG TABLET PO SCH (05:41)
[2022-01-19 06:09] LABS: Hemoglobin 10.3 g/dl (12.0-16.0); Mean Corpuscular Hemoglobin 29.3 pg (25.0-34.0); Mean Corpuscular Hgb Conc 34.3 g/dL (32.0-36.0); Mean Corpuscular Volume 85.2 fL (80.0-100.0); Mean Platelet Volume 12.9 fL (9.4-12.3); Platelet Count 104 K/uL (130-400); RDW Coefficient of Variation 14.6 % (11.5-14.5); Red Blood Count 3.52 M/uL (3.93-5.22); White Blood Count 25.84 K/ul (4.8-10.8)
[2022-01-19 06:25] LABS: BUN Creatinine Ratio 27.8 (10-20); Calcium 9.1 mg/dl (8.5-10.1); Creatinine Clr Calc Pharmacy 9.4 ml/min; Est GFR (African American) 10.8 ml/min; Est GFR (Non-African American) 9.3 ml/min; Potassium 3.7 mmol/L (3.5-5.1)
[2022-01-19 06:45] LABS: Basophils # (auto) 0.09 K/uL (0-0.2); Basophils % (auto) 0.3 %; Dohle Bodies 1+; Eosinophils # (auto) 0.55 K/uL (0-0.50); Eosinophils % (auto) 2.1 %; Immature Granulocytes # (auto) 1.41 K/uL (0.00-0.02); Immature Granulocytes % (auto) 5.5 %; Lymphocytes # (auto) 1.19 K/uL (1.2-3.4); Lymphocytes % (auto) 4.6 %; Monocytes # (auto) 2.24 K/uL (0.24-0.82); Monocytes % (auto) 8.7 %; Neutrophils # (auto) 20.36 K/uL (1.4-6.5); Neutrophils % (auto) 78.8 %; Toxic Granulation 1+
[2022-01-19] MEDS: AMIODARONE 200 MG TAB PO SCH ×2 (07:52→20:13)
[2022-01-19] MEDS: FERROUS SULFATE 325 MG TAB PO SCH ×2 (07:53→20:14)
[2022-01-19] MEDS: NYSTATIN SUSP 500,000 U/5 ML UDC PO SCH ×4 (07:53→20:14)
[2022-01-19] MEDS: METOPROLOL SUCC 25MG EXT REL TAB PO SCH (07:53)
[2022-01-19] MEDS: PANTOprazole 40 MG in SYRINGE 0 ML IV SCH ×2 (07:54→20:14)
--- NOTE | 2022-01-19 09:18 | Nephrology Progress Note ---
Date of Service January 19, 2022 Assessment & Plan (1) Acute kidney injury superimposed on CKD: Plan: * Non-oliguric. Creatinine trending down. Electrolytes acceptable. Patient remains azotemic but not uremic. No emergent indication for dialysis * Keep Del Toro in place. Document I/O's * Repeat metabolic profile tomorrow AM (2) Severe sepsis: Plan: * Pansensitive E coli in blood and urine * WBC# improving * s/p cystoscopy. L ureteral stent is in place * Definitive stone therapy once infection has fully been cleared * Remains on Ertapenem (3) Nephrolithiasis: Plan: * s/p ureteroscopy with stent placement 01/15/22 (4) Anemia: Plan: * 2 units PRBC provided this hospitalization * Hgb acceptable at 11.0 this am * FOBT negative x3 this hospitalization (5) Paroxysmal atrial fibrillation: Plan: * Cardiology following. Converted back to SR with amiodarone * Remains on metoprolol * Anticoagulation held due to recent fall, anemia and recent Urologic intervention Admission and Anticipated Discharge Date Admission Date: January 15, 2022 Subjective Ms. Kirby was evaluated in her hospital room this morning. She was alert & oriented x3. She denied fever, flank pain, dyspnea or uremic symptoms. Del Toro catheter remains in place Review of Systems Constitutional: no fever Eyes: no problem reported Ear, Nose, Mouth, Throat: no problem reported Respiratory: no dyspnea Cardiovascular: no chest pain Gastrointestinal: no abdominal pain, no vomiting and no diarrhea/loose stools Neurologic: no confusion Physical Exam Constitutional: no acute distress Eyes: PERRL, conjunctivae normal, anicteric sclerae ENMT: external ear and nose normal, oropharynx normal Neck: trachea midline, no thyromegaly Respiratory: normal respiratory effort, lungs clear to auscultation Cardiovascular: RRR, no murmur, no edema Gastrointestinal (Abdomen): normal bowel sounds, soft, nontender, no hepatosplenomegaly Skin: no rashes, warm and dry Neurologic: awake; not confused Results & Data ([facility]) Vital Signs (Past 12 Hours) Vital Signs Temp Pulse Pulse Resp BP Pulse Ox O2 Del Method 01/19/22 08:14 36.7 C 56 L 17 145/72 H 95 Room Air 01/19/22 03:42 36.5 C 55 L 18 136/70 93 Room Air 01/18/22 23:12 53 L 01/18/22 22:50 36.8 C 54 L 18 150/67 H 94 Room Air Laboratory Results Laboratory Tests 01/19/22 01/19/22 05:36 05:36 WBC 25.84 H Hgb 10.3 L Hct 30.0 L Plt Count 104 L Sodium 134 L Potassium 3.7 Chloride 101 Carbon Dioxide 21 BUN 114 H Creatinine 4.10 H Glucose 96 Calcium 9.1 PG Care Time/CCT Total # of Minutes Spent Total Time Spent with Patient: Total time spent is greater than 50% in coordination of care (as documented) at patient's floor/unit and/or counseling patient: Coding Level of Care Code 26764 Subseq Hosp Care Lvl 3 Diagnoses Acute kidney injury superimposed on CKD N17.9; N18.9 Severe sepsis A41.9; R65.20 Nephrolithiasis N20.0 Anemia D64.9 Anemia type: unspecified type Paroxysmal atrial fibrillation I48.0 (1) Anemia Anemia type: unspecified type Qualified Code(s): D64.9 - Anemia, unspecified
[2022-01-19] MEDS: ERTAPENEM SODIUM 500 MG in SYRINGE 0 ML IV SCH (10:16)
--- NOTE | 2022-01-19 15:58 | Hospitalist Progress Note ---
Date of Service January 19, 2022 Assessment & Plan (1) Severe sepsis: Plan: SIRS plus ARF on CKD plus lactic acidosis plus encephalopathy secondary to complicated UTI -- Confusion resolved, oriented x3, answering all questions appropriately --Leukocytosis trending down --Blood cultures: E. coli, pansensitive Urine cultures: " " --CT abdomen pelvis: Hydronephrosis improving, no fluid collection noted CT chest: No pneumonia -- Afebrile, hemodynamically stable WBC improving to 25k -- Continue ertapenem day #4 Monitor closely ARF on CKD secondary to sepsis, obstructive uropathy Rhabdomyolysis contributory -- Creatinine still elevated 4.0 Nonoliguric acute renal failure -- Nephrology on board IV fluids discontinued secondary to pulmonary congestion -- Continue to monitor closely Hyperkalemia secondary to illness, home medications contributory -- Resolved Troponin elevation secondary to sepsis, rhabdomyolysis -- Cardiology service on board ACS ruled out Atrial fibrillation, new onset --Back to sinus rhythm -- Amiodarone p.o., metoprolol ordered Not a candidate for anticoagulation secondary to anemia Acute on chronic anemia --Secondary to iron deficiency, vitamin B12 deficiency -- No signs of overt bleed for now --Status post 2 units of packed RBCs -- Hemoglobin stable around 9 --Added Protonix IV 40 mg twice daily Will replace iron and vitamin B12 chronic diastolic heart failure -- Currently with pulmonary congestion IV fluids held moderate MR pulmonary hypertension as per records HTN hyperlipidemia on statin Rx DM2 diet-controlled, well-controlled as of recent hemoglobin A1c of 5.5 last June 2021 hypothyroidism euthyroid DVT prophylaxis. SCDs Re: Anemia Disposition Pending Will need PT OT evaluation Might need shelter Admission and Anticipated Discharge Date Admission Date: January 15, 2022 Subjective ff up for acute renal failure etc seen resting in bed, comfortable states she feels ok overall no chest pain, dyspnea, palpitations, dizziness no fever/chills appetite ok no other symptoms Review of Systems Review of Systems: all noted and negative except for above Physical Exam Physical Exam: General- oriented x 3, not in distress, speaks in sentences with no effort or accessory muscle use Eyes- anicteric Neck- no JVD Lungs- clear breath sounds bilaterally Heart- normal rate, regular rhythm; no murmurs Abdomen- normal bowel sounds, nondistended, soft, nontender Extremities- no pretibial edema, no calf tenderness Neuro- alert, oriented x 3; no gross focal neurologic deficits Skin- warm & dry Results & Data Results & Data ([facility]) Vital Signs (Past 12 Hours) Vital Signs Temp Pulse Pulse Resp BP Pulse Ox O2 Del Method 01/19/22 12:20 36.6 C 55 L 17 137/67 94 Room Air 01/19/22 09:00 Room Air 01/19/22 09:00 55 L 01/19/22 08:14 36.7 C 56 L 17 145/72 H 95 Room Air all noted and reviewed including below
[2022-01-19] MEDS: LATANOPROST 0.005% OP SOLN 2.5 ML BTL OPB SCH (20:14)
[2022-01-20] MEDS: ACETAMINOPHEN 325 MG TAB PO PRN ×2 (02:28→23:59)
[2022-01-20] MEDS: LEVOTHYROXINE SODIUM 100 MCG TABLET PO SCH (05:57)
[2022-01-20 07:45] LABS: Hematocrit (blood only) 30.3 % (34.1-44.9); Hemoglobin 10.3 g/dl (12.0-16.0); Mean Corpuscular Hemoglobin 29.3 pg (25.0-34.0); Mean Corpuscular Volume 86.1 fL (80.0-100.0); Mean Platelet Volume 11.7 fL (9.4-12.3); Platelet Count 155 K/uL (130-400); RDW Coefficient of Variation 14.6 % (11.5-14.5); RDW Standard Deviation 46.1 fL (36.4-46.3); Red Blood Count 3.52 M/uL (3.93-5.22); White Blood Count 26.38 K/ul (4.8-10.8)
[2022-01-20 08:08] LABS: Basophils # (auto) 0.14 K/uL (0-0.2); Basophils % (auto) 0.5 %; Eosinophils # (auto) 0.54 K/uL (0-0.50); Immature Granulocytes # (auto) 2.06 K/uL (0.00-0.02); Immature Granulocytes % (auto) 7.8 %; Lymphocytes # (auto) 1.34 K/uL (1.2-3.4); Lymphocytes % (auto) 5.1 %; Monocytes % (auto) 8.7 %; Neutrophils % (auto) 75.9 %
[2022-01-20 08:11] LABS: BUN Creatinine Ratio 30.9 (10-20); Calcium 8.8 mg/dl (8.5-10.1); Creatinine Clr Calc Pharmacy 9.7 ml/min; Est GFR (African American) 12.4 ml/min; Est GFR (Non-African American) 10.7 ml/min; Potassium 3.5 mmol/L (3.5-5.1)
--- NOTE | 2022-01-20 08:58 | Nephrology Progress Note ---
Date of Service January 20, 2022 Assessment & Plan (1) Acute kidney injury superimposed on CKD: Plan: * Non-oliguric, UO 1100 cc. Cr has improved from 4.1 to 3.6 last 24 hours. Electrolytes acceptable. Patient remains azotemic but not uremic. No emergent indication for dialysis * Keep Del Toro in place. Document I/O's * Repeat metabolic profile tomorrow AM (2) Severe sepsis: Plan: * Pansensitive E coli in blood and urine * WBC# improving * s/p cystoscopy. L ureteral stent is in place * Definitive stone therapy once infection has fully been cleared * On Ceftriaxone therapy (3) Nephrolithiasis: Plan: * s/p ureteroscopy with stent placement 01/15/22 (4) Anemia: Plan: * 2 units PRBC provided this hospitalization * Hgb acceptable at 11.0 this am * FOBT negative x3 this hospitalization (5) Paroxysmal atrial fibrillation: Plan: * Cardiology following. Converted back to SR with amiodarone * Remains on metoprolol * Anticoagulation held due to recent fall, anemia and recent Urologic intervention Admission and Anticipated Discharge Date Admission Date: January 15, 2022 Subjective Ms. Kirby was evaluated in her hospital room this morning. She was alert & oriented x3. She denied fever, flank pain, dyspnea or uremic symptoms. Del Toro catheter remains in place Review of Systems Constitutional: no fever Eyes: no problem reported Ear, Nose, Mouth, Throat: no problem reported Respiratory: no dyspnea Cardiovascular: no chest pain Gastrointestinal: no abdominal pain, no vomiting and no diarrhea/loose stools Neurologic: no confusion Physical Exam Constitutional: no acute distress Eyes: PERRL, conjunctivae normal, anicteric sclerae ENMT: external ear and nose normal, oropharynx normal Neck: trachea midline, no thyromegaly Respiratory: normal respiratory effort, lungs clear to auscultation Cardiovascular: RRR, no murmur, no edema Gastrointestinal (Abdomen): normal bowel sounds, soft, nontender, no hepatosplenomegaly Skin: no rashes, warm and dry Neurologic: awake; not confused Results & Data ([facility]) Vital Signs (Past 12 Hours) Vital Signs Temp Pulse Pulse Resp BP Pulse Ox O2 Del Method 01/20/22 08:15 36.6 C 55 L 17 147/77 H 94 Room Air 01/20/22 02:58 36.7 C 58 L 16 159/78 H 94 Room Air 01/20/22 00:00 55 L 01/19/22 22:55 36.8 C 58 L 16 158/69 H 93 Room Air Laboratory Results Laboratory Tests 01/18/22 01/19/22 01/19/22 09:05 05:36 05:36 WBC 30.06 H* 25.84 H Sodium Potassium Chloride Carbon Dioxide BUN 114 H Creatinine 4.10 H 01/20/22 01/20/22 06:55 06:55 WBC 26.38 H Sodium 132 L Potassium 3.5 Chloride 100 Carbon Dioxide 22 BUN 113 H Creatinine 3.66 H D PG Care Time/CCT Total # of Minutes Spent Total Time Spent with Patient: Total time spent is greater than 50% in coordination of care (as documented) at patient's floor/unit and/or counseling patient: Coding Level of Care Code 40265 Subseq Hosp Care Lvl 3 Diagnoses Acute kidney injury superimposed on CKD N17.9; N18.9 Severe sepsis A41.9; R65.20 Nephrolithiasis N20.0 Anemia D64.9 Anemia type: unspecified type Paroxysmal atrial fibrillation I48.0 (1) Anemia Anemia type: unspecified type Qualified Code(s): D64.9 - Anemia, unspecified
[2022-01-20] MEDS: NYSTATIN SUSP 500,000 U/5 ML UDC PO SCH ×4 (09:07→19:50)
[2022-01-20] MEDS: FERROUS SULFATE 325 MG TAB PO SCH ×2 (09:07→19:50)
[2022-01-20] MEDS: PANTOprazole 40 MG in SYRINGE 0 ML IV SCH ×2 (09:07→19:52)
[2022-01-20] MEDS: METOPROLOL SUCC 25MG EXT REL TAB PO SCH ×3 (09:07→10:27)
[2022-01-20] MEDS: AMIODARONE 200 MG TAB PO SCH ×3 (09:07→10:27)
--- NOTE | 2022-01-20 09:15 | Ultrasound Report ---
US venous doppler LE RT CLINICAL HISTORY: RLE pain TECHNIQUE: Right lower extremity real-time compression venous ultrasound with Color Doppler imaging. Utilizing real-time ultrasonic imaging multiple real time high-resolution ultrasonic images with comp ression and noncompression maneuvers of the deep venous system in addition to color doppler imaging w ere performed from the common femoral vein through the proximal calf veins. COMPARISON: None available at the time of this dictation. FINDINGS: Currently there is normal compressibility of the deep venous system from the common femoral vein thro ugh the proximal calf veins. No superficial venous thrombosis is identified. Impression: No evidence of deep venous thrombus. ACT 112: Negative or not required by law. Electronically signed by: Torsten Gonzales M.D. 01/20/2022 9:13 AM
[2022-01-20] MEDS: cefTRIAXone SODIUM 2,000 MG in DEXTROSE 5% 50 ML IV SCH (10:25)
--- NOTE | 2022-01-20 10:50 | Cardiology Progress Note ---
Date of Service January 20, 2022 Assessment & Plan (1) Elevated troponin: (2) Rhabdomyolysis: (3) Chronic diastolic CHF (congestive heart failure): (4) Severe sepsis: (5) Nephrolithiasis: (6) Acute kidney injury superimposed on CKD: (7) Anemia: (8) Paroxysmal atrial fibrillation: Plan 86-year-old female present to the hospital after being found on the floor and brought to the emergency department via EMS. Currently diagnosed with urosepsis, nephrolithiasis status post ureteral stent placement. Cardiology consultation requested due to elevated troponin. There are no ischemic ECG changes or regional wall motion abnormality on echocardiogram to suggest an acute plaque rupture event. Her elevated troponin is likely secondary to rhabdomyolysis, demand ischemia in the setting of acute renal insufficiency, severe sepsis, and chronic anemia. Hold statin therapy in the setting of rhabdomyolysis. resume on discharge Low dose ASA added. Patient developed afib RVR during admission, likely due to acute illness. Converted spontaneously back to NSR. started on amiodarone 200 TID and home dose metoprolol 25 mg daily Given sinus bradycardia, reduce amio to 200 mg - 1 tab daily and metoprolol 12.5 mg daily Likely continue amio for 3 months She is not an anticoagulation candidate at this time given severe anemia on admission. Appreciate nephrology assistance given ELISABET. Agree with gentle hydration at this time in hopes she will avoid dialysis. case discussed with Dr. Box. Will sign off. Notify esl teacher roll on man with additional questions or concerns Admission and Anticipated Discharge Date Admission Date: January 15, 2022 Supervising Physician Co-Signing Physician Notes Chart and telemetry reviewed and agree with assessment as above. Mild bradycardia on telemetry but no pauses. No further tachyarrhythmias Adjustments in medical therapies as noted above. We will reduce amiodarone to 200 mg once daily to be continued at least 3 months High risk for further anticoagulation Subjective Patient resting in bed comfortably. Notes ongoing right leg pain. Venous duplex negative for DVT today. No erythema or swelling. no chest pain or dyspnea. no orthopnea, PND or edema. No recurrent afib on telemetry. Review of Systems Review of Systems: All systems reviewed & are unremarkable except as noted in HPI & below Physical Exam Constitutional: well developed, well nourished and + ill appearing; no acute distress Respiratory: normal respiratory effort; no respiratory distress and no labored breathing Auscultation: + rales (Bases bilateral); no rhonchi and no wheezes Cardiovascular: Rate/Rhythm: regular rate and regular rhythm Heart Sounds: normal S1 and normal S2; no murmur Vessels: radial pulses present; no JVD and no carotid bruit Gastrointestinal (Abdomen): Inspection/Auscultation: abdomen normal to inspection and normal bowel sounds; abdomen not distended Percussion/Palpation: abdomen soft; abdomen nontender, no guarding and abdomen not rigid Neurologic: CN's II-XI intact bilaterally and moves all extremities Results & Data ([facility]) Vital Signs (Past 12 Hours) Vital Signs Temp Pulse Pulse Resp BP BP Pulse Ox 01/20/22 09:06 72 149/75 H 01/20/22 08:15 36.6 C 55 L 17 147/77 H 94 01/20/22 02:58 36.7 C 58 L 16 159/78 H 94 01/20/22 00:00 55 L 01/19/22 22:55 36.8 C 58 L 16 158/69 H 93 O2 Del Method 01/20/22 09:06 01/20/22 08:15 Room Air 01/20/22 02:58 Room Air 01/20/22 00:00 01/19/22 22:55 Room Air Laboratory Results CBC 01/20/22 Range/Units 06:55 WBC 26.38 H (4.8-10.8) K/ul RBC 3.52 L (3.93-5.22) M/uL Hgb 10.3 L (12.0-16.0) g/dl Hct 30.3 L (34.1-44.9) % Plt Count 155 (130-400) K/uL Neut # (Auto) 20.00 H (1.4-6.5) K/uL Lymph # (Auto) 1.34 (1.2-3.4) K/uL Gulf # (Auto) 2.30 H (0.24-0.82) K/uL Eos # (Auto) 0.54 H (0-0.50) K/uL Baso # (Auto) 0.14 (0-0.2) K/uL Comprehensive Metabolic Panel 01/20/22 Range/Units 06:55 Sodium 132 L (136-145) mmol/L Potassium 3.5 (3.5-5.1) mmol/L Chloride 100 (98-107) mmol/L Carbon Dioxide 22 (21-32) mmol/L BUN 113 H (6-23) mg/dl Creatinine 3.66 H D (0.6-1.2) mg/dl Glucose 96 (70-99(Fasting)) mg/dl Calcium 8.8 (8.5-10.1) mg/dl Intake and Output 01/19/22 01/20/22 01/20/22 22:59 06:59 14:59 Intake Total 430 / 430 Output Total 700 / 1100 400 / 1100 Balance -270 / -670 -400 / -670 - -1 Intake: Oral 430 / 430 Output: Urine Amount (Catheter) 700 / 1100 400 / 1100 Del Toro/Indwelling 700 / 1100 400 / 1100 # Bowel Movements 0 / 0 Other: Weight 64.3 kg Weight Measurement Method Built in [facility] Diagnostic Findings Telemetry reviewed: sinus bradycardia in the 50's and NSR in the 60's. No recurrent afib Venous duplex: Negative for DVT Medications Administered CBC 01/20/22 Range/Units 06:55 WBC 26.38 H (4.8-10.8) K/ul RBC 3.52 L (3.93-5.22) M/uL Hgb 10.3 L (12.0-16.0) g/dl Hct 30.3 L (34.1-44.9) % Plt Count 155 (130-400) K/uL Neut # (Auto) 20.00 H (1.4-6.5) K/uL Lymph # (Auto) 1.34 (1.2-3.4) K/uL Gulf # (Auto) 2.30 H (0.24-0.82) K/uL Eos # (Auto) 0.54 H (0-0.50) K/uL Baso # (Auto) 0.14 (0-0.2) K/uL Comprehensive Metabolic Panel 01/20/22 Range/Units 06:55 Sodium 132 L (136-145) mmol/L Potassium 3.5 (3.5-5.1) mmol/L Chloride 100 (98-107) mmol/L Carbon Dioxide 22 (21-32) mmol/L BUN 113 H (6-23) mg/dl Creatinine 3.66 H D (0.6-1.2) mg/dl Glucose 96 (70-99(Fasting)) mg/dl Calcium 8.8 (8.5-10.1) mg/dl Intake and Output 01/19/22 01/20/22 01/20/22 22:59 06:59 14:59 Intake Total 430 / 430 Output Total 700 / 1100 400 / 1100 Balance -270 / -670 -400 / -670 -1 Intake: Oral 430 / 430 Output: Urine Amount (Catheter) 700 / 1100 400 / 1100 Del Toro/Indwelling 700 / 1100 400 / 1100 # Bowel Movements 0 / 0 Other: Weight 64.3 kg Weight Measurement Method Built in [facility] (1) Anemia Anemia type: unspecified type Qualified Code(s): D64.9 - Anemia, unspecified
--- NOTE | 2022-01-20 12:21 | XRay Report ---
XR knee RT 1 or 2V routine, XR tibia fibula RT 2V, XR ankle RT 2V, XR foot RT 2V CLINICAL HISTORY: pain, fall, r/o fracture COMPARISON STUDY: Right tibia/fibula 11/16/2014. FINDINGS: No acute fracture or dislocation. No significant knee effusion. The bones are osteopenic. T here are old, healed right tibial and fibular fractures. 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 There is a plantar heel spur noted. Small densities overlying the foot are likely due to the pat ient's sock. No significant soft tissue swelling. IMPRESSION: 1. No acute fractures within the right knee, right lower leg, right ankle, right foot. 2. Old, healed right tibial and fibular fractures are noted ACT 112: Negative or not required by law. Electronically signed by: Vick Kim M.D. 01/20/2022 12:20 PM
[2022-01-20] MEDS: LATANOPROST 0.005% OP SOLN 2.5 ML BTL OPB SCH (19:51)
--- NOTE | 2022-01-20 20:10 | Hospitalist Progress Note ---
Date of Service January 20, 2022 delayed entry date of service noted above Assessment & Plan (1) Severe sepsis: Plan: SIRS plus ARF on CKD plus lactic acidosis plus encephalopathy secondary to complicated UTI -- Confusion resolved, oriented x3, answering all questions appropriately --Leukocytosis trending down --Blood cultures: E. coli, pansensitive Urine cultures: " " --CT abdomen pelvis: Hydronephrosis improving, no fluid collection noted CT chest: No pneumonia -- Afebrile, hemodynamically stable WBC improving to 25k -- Continue ceftriaxone IV Monitor closely ARF on CKD secondary to sepsis, obstructive uropathy Rhabdomyolysis contributory -- Creatinine trending down, now 3.6 Nonoliguric acute renal failure -- Nephrology on board IV fluids discontinued secondary to pulmonary congestion -- Continue to monitor closely Hyperkalemia secondary to illness, home medications contributory -- Resolved Troponin elevation secondary to sepsis, rhabdomyolysis -- Cardiology service on board ACS ruled out Atrial fibrillation, new onset --Back to sinus rhythm -- Amiodarone p.o., metoprolol ordered Not a candidate for anticoagulation secondary to anemia Acute on chronic anemia --Secondary to iron deficiency, vitamin B12 deficiency -- No signs of overt bleed for now --Status post 2 units of packed RBCs -- Hemoglobin stable around 9 --Added Protonix IV 40 mg twice daily Will replace iron and vitamin B12 chronic diastolic heart failure -- Currently with pulmonary congestion IV fluids held moderate MR pulmonary hypertension as per records HTN hyperlipidemia on statin Rx DM2 diet-controlled, well-controlled as of recent hemoglobin A1c of 5.5 last June 2021 hypothyroidism euthyroid DVT prophylaxis. SCDs Re: Anemia Disposition Pending Will need PT OT evaluation Might need group home Admission and Anticipated Discharge Date Admission Date: January 15, 2022 Subjective Follow-up for acute renal failure, E. coli bacteremia and UTI, etc. Seen resting in bed, comfortable, not in distress States she feels fine overall Denies back pain, abdominal pain, nausea vomiting Denies shortness of breath, chest pain, palpitations, dizziness Appetite is good No other symptoms Review of Systems Review of Systems: all noted and negative except for above Physical Exam Physical Exam: General- oriented x 3, not in distress, speaks in sentences with no effort or accessory muscle use Eyes- anicteric Neck- no JVD Lungs- clear BS bilaterally, no rales/wheezes Heart- normal rate, regular rhythm; no murmurs Abdomen- normal bowel sounds, nondistended, soft, nontender Extremities- no pretibial edema, no calf tenderness Neuro- alert, oriented x 3; no gross focal neurologic deficits Skin- warm & dry Results & Data Results & Data ([facility]) Vital Signs (Past 12 Hours) Vital Signs Temp Pulse Pulse Resp BP BP Pulse Ox 01/20/22 19:39 37.4 C 62 16 145/70 H 95 01/20/22 16:00 55 L 01/20/22 16:16 36.8 C 57 L 19 131/66 95 01/20/22 11:34 36.5 C 61 16 138/75 97 01/20/22 09:06 72 149/75 H 01/20/22 08:15 36.6 C 55 L 17 147/77 H 94 O2 Del Method 01/20/22 19:39 Room Air 01/20/22 16:00 01/20/22 16:16 Room Air 01/20/22 11:34 Room Air 01/20/22 09:06 01/20/22 08:15 Room Air all noted and reviewed including below
[2022-01-21] MEDS: LEVOTHYROXINE SODIUM 100 MCG TABLET PO SCH (05:51)
[2022-01-21 06:38] LABS: Hematocrit (blood only) 29.3 % (34.1-44.9); Hemoglobin 9.9 g/dl (12.0-16.0); Mean Corpuscular Hemoglobin 28.8 pg (25.0-34.0); Mean Corpuscular Hgb Conc 33.8 g/dL (32.0-36.0); Mean Corpuscular Volume 85.2 fL (80.0-100.0); Mean Platelet Volume 11.3 fL (9.4-12.3); Platelet Count 203 K/uL (130-400); RDW Coefficient of Variation 14.9 % (11.5-14.5); Red Blood Count 3.44 M/uL (3.93-5.22)
[2022-01-21 07:03] LABS: BUN Creatinine Ratio 27.8 (10-20); Calcium 8.6 mg/dl (8.5-10.1); Creatinine Clr Calc Pharmacy 9.7 ml/min; Est GFR (African American) 11.3 ml/min; Est GFR (Non-African American) 9.7 ml/min; Potassium 3.4 mmol/L (3.5-5.1)
[2022-01-21 07:08] LABS: Basophils # (auto) 0.13 K/uL (0-0.2); Basophils % (auto) 0.5 %; Echinocytes 1+; Eosinophils # (auto) 0.44 K/uL (0-0.50); Eosinophils % (auto) 1.7 %; Immature Granulocytes # (auto) 2.24 K/uL (0.00-0.02); Immature Granulocytes % (auto) 8.7 %; Lymphocytes # (auto) 1.38 K/uL (1.2-3.4); Lymphocytes % (auto) 5.4 %; Monocytes # (auto) 1.84 K/uL (0.24-0.82); Monocytes % (auto) 7.2 %; Neutrophils # (auto) 19.67 K/uL (1.4-6.5); Neutrophils % (auto) 76.5 %
[2022-01-21] MEDS: PANTOprazole 40 MG in SYRINGE 0 ML IV SCH (08:20)
[2022-01-21] MEDS: AMIODARONE 200 MG TAB PO SCH (08:21)
[2022-01-21] MEDS: FERROUS SULFATE 325 MG TAB PO SCH ×2 (08:21→20:09)
[2022-01-21] MEDS: NYSTATIN SUSP 500,000 U/5 ML UDC PO SCH ×4 (08:21→20:10)
[2022-01-21] MEDS: METOPROLOL SUCC 25MG EXT REL TAB PO SCH (08:21)
[2022-01-21] MEDS: cefTRIAXone SODIUM 2,000 MG in DEXTROSE 5% 50 ML IV SCH (10:20)
--- NOTE | 2022-01-21 11:32 | Nephrology Progress Note ---
Date of Service January 21, 2022 Assessment & Plan (1) Acute kidney injury superimposed on CKD: Plan: * Non-oliguric, UO 1151 cc. Cr remains stable at ~ 4.0. Electrolytes acceptable. Patient remains azotemic but not uremic * Discussed KDIGO CKD staging and [employer] in detail w/ patient this morning. She is familiar w/ dialysis. She has a brother on dialysis and notes that it would not provide her w/ quality of life. Ms. Kirby requests conservative medical management and does not want dialysis if her kidneys fail to improve or if function declines * Keep Del Toro in place. Document I/O's * Repeat metabolic profile tomorrow AM (2) Severe sepsis: Plan: * Pansensitive E coli in blood and urine * WBC# slowly improving * s/p cystoscopy. L ureteral stent is in place * Definitive stone therapy once infection has fully been cleared * On Ceftriaxone therapy (3) Nephrolithiasis: Plan: * s/p ureteroscopy with stent placement 01/15/22 (4) Anemia: Plan: * 2 units PRBC provided this hospitalization * Hgb acceptable at 11.0 this am * FOBT negative x3 this hospitalization (5) Paroxysmal atrial fibrillation: Plan: * Cardiology has started amiodarone * Remains on metoprolol * Anticoagulation held due to recent fall, anemia and recent Urologic intervention Admission and Anticipated Discharge Date Admission Date: January 15, 2022 Subjective Ms. Kirby was evaluated in her hospital room this morning. She was alert & oriented x3. She denied fever, flank pain, dyspnea or uremic symptoms. Del Toro catheter remains in place Review of Systems Constitutional: no fever Eyes: no problem reported Ear, Nose, Mouth, Throat: no problem reported Respiratory: no dyspnea Cardiovascular: no chest pain Gastrointestinal: no abdominal pain, no vomiting and no diarrhea/loose stools Neurologic: no confusion Physical Exam Constitutional: no acute distress Eyes: PERRL, conjunctivae normal, anicteric sclerae ENMT: external ear and nose normal, oropharynx normal Neck: trachea midline, no thyromegaly Respiratory: normal respiratory effort, lungs clear to auscultation Cardiovascular: RRR, no murmur, no edema Gastrointestinal (Abdomen): normal bowel sounds, soft, nontender, no hepatosplenomegaly Skin: no rashes, warm and dry Neurologic: awake; not confused Results & Data ([facility]) Vital Signs (Past 12 Hours) Vital Signs Temp Pulse Resp BP Pulse Ox O2 Del Method 01/21/22 07:53 36.5 C 54 L 20 155/80 H 97 Room Air 01/21/22 03:09 37 C 67 20 149/72 H 95 Room Air 01/20/22 23:41 37 C 59 L 18 163/75 H 93 Room Air Laboratory Results Laboratory Tests 01/21/22 01/21/22 05:49 05:49 WBC 25.70 H Hgb 9.9 L Hct 29.3 L Plt Count 203 Sodium 134 L Potassium 3.4 L Chloride 102 Carbon Dioxide 18 L BUN 110 H Creatinine 3.96 H D Glucose 105 H Calcium 8.6 PG Care Time/CCT Total # of Minutes Spent Total Time Spent with Patient: Total time spent is greater than 50% in coordination of care (as documented) at patient's floor/unit and/or counseling patient: Coding Level of Care Code 72516 Subseq Hosp Care Lvl 3 Diagnoses Acute kidney injury superimposed on CKD N17.9; N18.9 Severe sepsis A41.9; R65.20 Nephrolithiasis N20.0 Anemia D64.9 Anemia type: unspecified type Paroxysmal atrial fibrillation I48.0 (1) Anemia Anemia type: unspecified type Qualified Code(s): D64.9 - Anemia, unspecified
[2022-01-21 13:13] LABS: EBV Nuclear Ag Antibody <18.00 U/mL; EBV Virus Capsid Ag IgG Ab <18.00 U/mL; Epstein Barr Virus Early Ag Ab <9.00 U/mL
--- NOTE | 2022-01-21 17:39 | Hospitalist Progress Note ---
Date of Service January 21, 2022 Assessment & Plan (1) Severe sepsis: Plan: SIRS plus ARF on CKD plus lactic acidosis plus encephalopathy secondary to complicated UTI -- Confusion resolved, oriented x3, answering all questions appropriately --Blood cultures: E. coli, pansensitive Urine cultures: " " -- Repeat CT abdomen pelvis: Hydronephrosis improving, no fluid collection noted CT chest: No pneumonia -- Afebrile, hemodynamically stable --Leukocytosis trending down from 35, now 25,000 --ID consulted, patient given ertapenem and ceftriaxone x6 days Transition to Cipro 500 mg daily (given creatinine clearance less than 30) x4 more days to complete 10 days of antibiotic course ARF on CKD secondary to sepsis, obstructive uropathy Rhabdomyolysis contributory -- Creatinine not improving much since admission, still around 3.6-4 Urine output seems to be improving -- Nephrology on board Given IV fluids --Discussed with Dr. Merida, would like to see patient's creatinine 3.5 and below before discharge Patient declines hemodialysis if required Hyperkalemia secondary to illness, home medications contributory -- Resolved Troponin elevation secondary to sepsis, rhabdomyolysis -- Cardiology service on board ACS ruled out Atrial fibrillation, new onset --Back to sinus rhythm -- Amiodarone p.o., metoprolol ordered Not a candidate for anticoagulation secondary to anemia Acute on chronic anemia --Secondary to iron deficiency, vitamin B12 deficiency -- No signs of overt bleed for now --Status post 2 units of packed RBCs -- Hemoglobin stable around 9 --Added Protonix IV 40 mg twice daily Will replace iron and vitamin B12 chronic diastolic heart failure -- IV fluids held moderate MR pulmonary hypertension as per records HTN hyperlipidemia on statin Rx DM2 diet-controlled, well-controlled as of recent hemoglobin A1c of 5.5 last June 2021 hypothyroidism euthyroid DVT prophylaxis. SCDs Re: Anemia Disposition Pending PT and OT evaluation pending Patient's daughter Priscilla who lives at [place], would like to have her mother live upon discharge from the hospital Admission and Anticipated Discharge Date Admission Date: January 15, 2022 Subjective Follow-up for acute renal failure, obstructive uropathy, status post stent placement, E. coli UTI and bacteremia, etc. Seen sitting up in bedside chair, comfortable, in good spirits Oriented x3, answers all questions appropriately States she feels fine overall Denies abdominal pain, nausea vomiting, chest pain, shortness of breath No other symptoms Review of Systems Review of Systems: all noted and negative except for above Physical Exam Physical Exam: General- oriented x 3, not in distress, speaks in sentences with no effort or accessory muscle use Eyes- anicteric Neck- no JVD Lungs- clear BS bilaterally, no crackles, no wheezing Heart- normal rate, regular rhythm; no murmurs Abdomen- normal bowel sounds, nondistended, soft, no tenderness Extremities- no pretibial edema, no calf tenderness Neuro- alert, oriented x 3; no gross focal neurologic deficits Skin- warm & dry Results & Data Results & Data ([facility]) Vital Signs (Past 12 Hours) Vital Signs Temp Pulse Pulse Resp BP Pulse Ox O2 Del Method 01/21/22 16:00 58 L 01/21/22 16:06 36.4 C L 58 L 20 138/76 95 Room Air 01/21/22 12:05 36.3 C L 53 L 18 155/71 H 98 Room Air 01/21/22 08:00 52 L 01/21/22 07:53 36.5 C 54 L 20 155/80 H 97 Room Air all noted and reviewed including below
[2022-01-21] MEDS: LATANOPROST 0.005% OP SOLN 2.5 ML BTL OPB SCH (20:09)
[2022-01-22] MEDS: ACETAMINOPHEN 325 MG TAB PO PRN ×2 (01:10→20:14)
[2022-01-22] MEDS: LEVOTHYROXINE SODIUM 100 MCG TABLET PO SCH (05:35)
[2022-01-22 06:03] LABS: Hematocrit (blood only) 29.5 % (34.1-44.9); Hemoglobin 9.9 g/dl (12.0-16.0); Mean Corpuscular Hemoglobin 28.4 pg (25.0-34.0); Mean Corpuscular Hgb Conc 33.6 g/dL (32.0-36.0); Mean Corpuscular Volume 84.5 fL (80.0-100.0); Mean Platelet Volume 10.4 fL (9.4-12.3); Platelet Count 264 K/uL (130-400); RDW Coefficient of Variation 14.7 % (11.5-14.5); RDW Standard Deviation 44.9 fL (36.4-46.3); Red Blood Count 3.49 M/uL (3.93-5.22); White Blood Count 21.97 K/ul (4.8-10.8)
[2022-01-22 06:20] LABS: BUN Creatinine Ratio 29.3 (10-20); Calcium 8.5 mg/dl (8.5-10.1); Creatinine Clr Calc Pharmacy 11.3 ml/min; Est GFR (African American) 13.3 ml/min; Est GFR (Non-African American) 11.5 ml/min; Potassium 3.5 mmol/L (3.5-5.1)
[2022-01-22 07:26] LABS: Basophils # (auto) 0.11 K/uL (0-0.2); Basophils % (auto) 0.5 %; Eosinophils % (auto) 1.4 %; Immature Granulocytes # (auto) 1.97 K/uL (0.00-0.02); Lymphocytes # (auto) 1.27 K/uL (1.2-3.4); Lymphocytes % (auto) 5.8 %; Monocytes % (auto) 6.4 %; Neutrophils # (auto) 16.92 K/uL (1.4-6.5); Neutrophils % (auto) 76.9 %
[2022-01-22] MEDS: CYANOCOBALAMIN (B-12) 500 MCG TABLET PO SCH (08:18)
[2022-01-22] MEDS: PANTOprazole 40 MG TAB PO SCH (08:18)
[2022-01-22] MEDS: METOPROLOL SUCC 25MG EXT REL TAB PO SCH (08:18)
[2022-01-22] MEDS: FERROUS SULFATE 325 MG TAB PO SCH ×2 (08:18→20:15)
[2022-01-22] MEDS: NYSTATIN SUSP 500,000 U/5 ML UDC PO SCH ×5 (08:18→20:18)
[2022-01-22] MEDS: AMIODARONE 200 MG TAB PO SCH (08:18)
--- NOTE | 2022-01-22 09:09 | Nephrology Progress Note ---
Date of Service January 22, 2022 Assessment & Plan (1) Acute kidney injury superimposed on CKD: Plan: * Non-oliguric, UO 1350 cc. Cr improved to 3.45. Electrolytes acceptable. Patient remains azotemic but not uremic * Discussed KDIGO CKD staging and SAMPLE PASTER in detail w/ patient this morning. She is familiar w/ dialysis. She has a brother on dialysis and notes that it would not provide her w/ quality of life. Ms. Kirby requests conservative medical management and does not want dialysis if her kidneys fail to improve or if function declines * OK to remove Del Toro catheter. Continue to monitor I&O's * Repeat metabolic profile tomorrow AM (2) Severe sepsis: Plan: * Pansensitive E coli in blood and urine * WBC# slowly improving * s/p cystoscopy. L ureteral stent is in place * Definitive stone therapy once infection has fully been cleared * On Ceftriaxone therapy (3) Nephrolithiasis: Plan: * s/p ureteroscopy with stent placement 01/15/22 (4) Anemia: Plan: * 2 units PRBC provided this hospitalization * Hgb acceptable at 11.0 this am * FOBT negative x3 this hospitalization (5) Paroxysmal atrial fibrillation: Plan: * Cardiology has started amiodarone * Remains on metoprolol * Anticoagulation held due to recent fall, anemia and recent Urologic intervention Admission and Anticipated Discharge Date Admission Date: January 15, 2022 Subjective Ms. Kibry was evaluated in her hospital room this morning. She was alert & oriented x3. She denied fever, flank pain, dyspnea or uremic symptoms. Del Toro catheter remains in place Review of Systems Constitutional: no fever Eyes: no problem reported Ear, Nose, Mouth, Throat: no problem reported Respiratory: no dyspnea Cardiovascular: no chest pain Gastrointestinal: no abdominal pain, no vomiting and no diarrhea/loose stools Neurologic: no confusion Physical Exam Constitutional: no acute distress Eyes: PERRL, conjunctivae normal, anicteric sclerae ENMT: external ear and nose normal, oropharynx normal Neck: trachea midline, no thyromegaly Respiratory: normal respiratory effort, lungs clear to auscultation Cardiovascular: RRR, no murmur, no edema Gastrointestinal (Abdomen): normal bowel sounds, soft, nontender, no hepatosplenomegaly Skin: no rashes, warm and dry Neurologic: awake; not confused Results & Data ([facility]) Vital Signs (Past 12 Hours) Vital Signs Temp Pulse Pulse Resp BP Pulse Ox O2 Del Method 01/22/22 07:19 36.9 C 55 L 17 148/78 H 94 Room Air 01/22/22 03:25 36.9 C 58 L 18 134/62 95 Room Air 01/22/22 00:00 55 L 01/21/22 23:22 36.7 C 56 L 18 159/78 H 96 Room Air Laboratory Results Laboratory Tests 01/16/22 01/22/22 01/22/22 05:30 05:42 05:42 WBC 21.97 H Hgb 9.9 L Hct 29.5 L Plt Count 264 Sodium 134 L Potassium 3.5 Chloride 103 Carbon Dioxide 18 L BUN 101 H Creatinine 4.34 H 3.45 H D Est GFR (Non-Af Amer) 11.5 PG Care Time/CCT Total # of Minutes Spent Total Time Spent with Patient: Total time spent is greater than 50% in coordination of care (as documented) at patient's floor/unit and/or counseling patient: Coding Level of Care Code 44401 Subseq Hosp Care Lvl 3 Diagnoses Acute kidney injury superimposed on CKD N17.9; N18.9 Severe sepsis A41.9; R65.20 Nephrolithiasis N20.0 Anemia D64.9 Anemia type: unspecified type Paroxysmal atrial fibrillation I48.0 (1) Anemia Anemia type: unspecified type Qualified Code(s): D64.9 - Anemia, unspecified
[2022-01-22] MEDS: cefTRIAXone SODIUM 2,000 MG in DEXTROSE 5% 50 ML IV SCH (11:27)
--- NOTE | 2022-01-22 15:09 | Hospitalist Progress Note ---
Date of Service January 22, 2022 Assessment & Plan (1) Severe sepsis: Plan: SIRS plus ARF on CKD plus lactic acidosis plus encephalopathy secondary to complicated UTI Blood culture was positive with E. coli and urine culture is positive with E. coli which were pansensitive CT chest: No pneumonia ID consulted, patient given ertapenem and ceftriaxone x6 days Transition to Cipro 500 mg daily (given creatinine clearance less than 30) x4 more days to complete 10 days of antibiotic course Confusion resolved, oriented x3 Denies any more symptoms Leukocytosis improved to 21.97 Antibiotic changed to IV ceftriaxone as of 01/20/2022 Repeat blood culture is negative Likely discharge in a day or 2 ARF on CKD secondary to sepsis, obstructive uropathy Repeat CT abdomen pelvis:Hydronephrosis improving, no fluid collection noted Rhabdomyolysis contributory Creatinine not improving much since admission, still around 3.6-[address] Merida, would like to see patient's creatinine 3.5 and below before discharge Patient declines hemodialysis if required Creatinine is below 3.5 today Advised to continue drinking more fluid Troponin elevation secondary to sepsis, rhabdomyolysis Cardiology service on board ACS ruled out Atrial fibrillation, new onset Back to sinus rhythm Amiodarone p.o., metoprolol ordered Not a candidate for anticoagulation secondary to anemia Acute on chronic anemia Secondary to iron deficiency, vitamin B12 deficiency No signs of overt bleed for now Status post 2 units of packed RBCs Added Protonix IV 40 mg twice daily Will replace iron and vitamin B12 Chronic diastolic heart failure No signs of fluid overload moderate MR pulmonary hypertension as per records HTN Hyperlipidemia on statin Rx DM2 diet-controlled, well-controlled as of recent hemoglobin A1c of 5.5 last June 2021 Hypothyroidism euthyroid DVT prophylaxis. SCDs Re: Anemia Disposition Pending PT and OT evaluation pending Patient's daughter Priscilla who lives at [place], would like to have her mother live upon discharge from the hospital Admission and Anticipated Discharge Date Admission Date: January 15, 2022 Subjective 01/22/2022 The patient was seen and examined in telemetry unit She has been feeling much better and denies any significant symptoms She says that she has been improving We will DC her Del Toro catheter today Review of Systems Review of Systems: All systems reviewed and are unremarkable except as noted below Physical Exam Physical Exam: Sitting on a chair without any acute distress Constitutional: well developed, well nourished and average body habitus; not ill appearing Eyes: PERRL, conjunctivae normal, anicteric sclerae ENMT: external ear and nose normal, oropharynx normal Neck: trachea midline, no thyromegaly Respiratory: no respiratory distress Auscultation: lungs clear to auscultation bilaterally Cardiovascular: Rate/Rhythm: regular rate and regular rhythm; not tachycardic Heart Sounds: normal S1 and normal S2; no murmur Extremities: no edema Gastrointestinal (Abdomen): Inspection/Auscultation: normal bowel sounds; abdomen not distended Percussion/Palpation: abdomen soft; abdomen nontender Musculoskeletal: No acute arthritis involving any joint Neurologic: Alert, awake and oriented x3. No focal sensory and/or motor deficit appreciated Lymphatic: no cervical or axillary lymphadenopathy Results & Data Results & Data ([facility]) Vital Signs (Past 12 Hours) Vital Signs Temp Pulse Resp BP Pulse Ox O2 Del Method 01/22/22 11:08 36.7 C 61 17 119/62 95 Room Air 01/22/22 07:19 36.9 C 55 L 17 148/78 H 94 Room Air 01/22/22 03:25 36.9 C 58 L 18 134/62 95 Room Air Laboratory Results Short CBC 01/22/22 Range/Units 05:42 WBC 21.97 H (4.8-10.8) K/ul Hgb 9.9 L (12.0-16.0) g/dl Hct 29.5 L (34.1-44.9) % Plt Count 264 (130-400) K/uL BMP 01/22/22 05:42 Sodium 134 L Potassium 3.5 Chloride 103 Carbon Dioxide 18 L BUN 101 H Creatinine 3.45 H D Glucose 92 Calcium 8.5 Medications Administered Current Inpatient Medications Acetaminophen (Acetaminophen 325 Mg Tab) 650 mg PO Q4H PRN PRN Reason: Pain or Fever Stop: 02/14/22 01:46 Last Admin: 01/22/22 01:10 Dose: 650 mg Amiodarone HCl (Amiodarone 200 Mg Tab) [facility] [place]: 02/19/22 09:44 Last Admin: 01/22/22 08:18 Dose: 200 mg Aspirin (Aspirin 81 Mg Chew) 81 mg PO DAILY [facility] Stop: 02/14/22 12:14 Last Admin: 01/15/22 12:26 Dose: Not Given Cyanocobalamin (Cyanocobalamin (B-12) 500 Mcg Tablet) 1,000 mcg PO QAM [facility] Stop: 02/21/22 08:59 Last Admin: 01/22/22 08:18 Dose: 1,000 mcg Dextrose (Dextrose 50% 50 Ml Syringe) 25 - 50 ml IV UD PRN; Protocol PRN Reason: Hypoglycemia Protocol Stop: 02/14/22 04:38 Ferrous Sulfate (Ferrous Sulfate 325 Mg Tab) 325 mg PO BID [facility] Stop: 02/14/22 08:59 Last Admin: 01/22/22 08:18 Dose: 325 mg Glucagon (Glucagon For Inj 1 Mg Vial) 1 mg SQ UD PRN; Protocol PRN Reason: Hypoglycemia Protocol Stop: 02/14/22 04:38 Glucose (Glucose 40% Gel 15 Gm Tube) 15 - 30 gm PO UD PRN; Protocol PRN Reason: Hypoglycemia Protocol Stop: 02/14/22 04:38 Glucose (Glucose 10 Tab/Tube) 4 - 8 tab PO UD PRN; Protocol PRN Reason: Hypoglycemia Treatment Stop: 02/14/22 04:38 Promethazine HCl 6.25 mg/ (Sodium Chloride) 50.25 mls @ 201 mls/hr IV Q6H PRN PRN Reason: Nausea And Vomiting Stop: 02/14/22 01:46 Ceftriaxone Sodium 2,000 mg/ (Dextrose) 70 mls @ 100 mls/hr IV Q24H MICHAEL; Protocol Stop: 02/03/22 09:59 Last Infusion: 01/22/22 12:33 Dose: Infused Latanoprost (Latanoprost 0.005% Op Soln 2.5 Ml Btl) 1 drops OPB HS [facility] Stop: 02/14/22 20:59 Last Admin: 01/21/22 20:09 Dose: 1 drops Levothyroxine Sodium (Levothyroxine Sodium 100 Mcg Tablet) 100 mcg PO DAILYBB [facility] Stop: 02/14/22 06:29 Last Admin: 01/22/22 05:35 Dose: 100 mcg Metoprolol Succinate (Metoprolol Succ 25mg Ext Rel Tab) 12.5 mg PO QAM [facility] Stop: 02/19/22 09:44 Last Admin: 01/22/22 08:18 Dose: 12.5 mg Miscellaneous (Carbohydrates For Hypoglycemia ) 15 - 30 gm PO UD PRN PRN Reason: Hypoglycemia Protocol Stop: 02/14/22 04:38 Nystatin (Nystatin Susp 500,000 U/5 Ml Udc) 5 ml PO QID [facility] Stop: 01/28/22 16:59 Last Admin: 01/22/22 11:27 Dose: 5 ml Pantoprazole Sodium (Pantoprazole 40 Mg Tab) 40 mg PO QAM [facility] Stop: 02/21/22 08:59 Last Admin: 01/22/22 08:18 Dose: 40 mg
[2022-01-22] MEDS: LATANOPROST 0.005% OP SOLN 2.5 ML BTL OPB SCH (20:16)
[2022-01-23] MEDS: LEVOTHYROXINE SODIUM 100 MCG TABLET PO SCH (05:39)
[2022-01-23 06:58] LABS: Hematocrit (blood only) 28.3 % (34.1-44.9); Hemoglobin 9.6 g/dl (12.0-16.0); Mean Corpuscular Hemoglobin 29.3 pg (25.0-34.0); Mean Corpuscular Hgb Conc 33.9 g/dL (32.0-36.0); Mean Corpuscular Volume 86.3 fL (80.0-100.0); Mean Platelet Volume 10.6 fL (9.4-12.3); Platelet Count 332 K/uL (130-400); RDW Coefficient of Variation 14.7 % (11.5-14.5); RDW Standard Deviation 46.2 fL (36.4-46.3); Red Blood Count 3.28 M/uL (3.93-5.22); White Blood Count 18.59 K/ul (4.8-10.8)
[2022-01-23 07:24] LABS: Basophils # (auto) 0.08 K/uL (0-0.2); Basophils % (auto) 0.4 %; Eosinophils # (auto) 0.25 K/uL (0-0.50); Eosinophils % (auto) 1.3 %; Immature Granulocytes # (auto) 1.63 K/uL (0.00-0.02); Immature Granulocytes % (auto) 8.8 %; Lymphocytes # (auto) 1.06 K/uL (1.2-3.4); Lymphocytes % (auto) 5.7 %; Monocytes # (auto) 1.03 K/uL (0.24-0.82); Monocytes % (auto) 5.5 %; Neutrophils # (auto) 14.54 K/uL (1.4-6.5); Neutrophils % (auto) 78.3 %
[2022-01-23 07:32] LABS: BUN Creatinine Ratio 29.8 (10-20); Calcium 8.5 mg/dl (8.5-10.1); Creatinine Clr Calc Pharmacy 12.5 ml/min; Potassium 3.4 mmol/L (3.5-5.1)
[2022-01-23] MEDS: CYANOCOBALAMIN (B-12) 500 MCG TABLET PO SCH (08:08)
[2022-01-23] MEDS: AMIODARONE 200 MG TAB PO SCH (08:09)
[2022-01-23] MEDS: PANTOprazole 40 MG TAB PO SCH (08:09)
[2022-01-23] MEDS: METOPROLOL SUCC 25MG EXT REL TAB PO SCH (08:09)
[2022-01-23] MEDS: NYSTATIN SUSP 500,000 U/5 ML UDC PO SCH ×4 (08:09→20:32)
[2022-01-23] MEDS: FERROUS SULFATE 325 MG TAB PO SCH ×2 (08:09→20:31)
[2022-01-23] MEDS: ASPIRIN 81 MG CHEW PO SCH (08:11)
--- NOTE | 2022-01-23 08:45 | Nephrology Progress Note ---
Date of Service January 23, 2022 Assessment & Plan (1) Acute kidney injury superimposed on CKD: Plan: * Non-oliguric, UO 650 cc. Cr improved to 3.1. Electrolytes acceptable. Patient remains azotemic but not uremic * Discussed KDIGO CKD staging and FLOAT REMOVER in detail w/ patient. She is familiar w/ dialysis. She has a brother on dialysis and notes that it would not provide her w/ quality of life. Ms. Kirby requests conservative medical management and does not want dialysis if her kidneys fail to improve or if function declines * If discharge is anticipated, patient will require outpatient follow up within 7 - 10 days for ongoing monitoring. Her daughter plans to have her relocate w/ her to [place] (2) Chronic kidney disease, stage 4 (severe): Plan: * CKD stage G4/A3 (advanced impairment). Baseline Cr 2.0. Urine sediment - benign. UPCR 0.8. Renal US revealed mild renal asymmetry. Mag-3 flow scan revealed symmetric perfusion. Renal impairment is due to diabetic nephropathy, hypertensive nephrosclerosis and age (3) Severe sepsis: Plan: * Pansensitive E coli in blood and urine * WBC# slowly improving * s/p cystoscopy. L ureteral stent is in place * Definitive stone therapy once infection has fully been cleared * On Ceftriaxone therapy (4) Nephrolithiasis: Plan: * s/p ureteroscopy with stent placement 01/15/22 (5) Anemia: Plan: * 2 units PRBC provided this hospitalization * FOBT negative x3 this hospitalization (6) Paroxysmal atrial fibrillation: Plan: * Cardiology has started amiodarone * Remains on metoprolol * Anticoagulation held due to recent fall, anemia and recent Urologic intervention Admission and Anticipated Discharge Date Admission Date: January 15, 2022 Subjective Ms. Kirby was evaluated in her hospital room this morning. She was alert & oriented x3. She denied fever, flank pain, dyspnea or uremic symptoms. Del Toro catheter has been removed and patient is voiding regularly Review of Systems Constitutional: no fever Eyes: no problem reported Ear, Nose, Mouth, Throat: no problem reported Respiratory: no dyspnea Cardiovascular: no chest pain Gastrointestinal: no abdominal pain, no vomiting and no diarrhea/loose stools Neurologic: no confusion Physical Exam Constitutional: no acute distress Eyes: PERRL, conjunctivae normal, anicteric sclerae ENMT: external ear and nose normal, oropharynx normal Neck: trachea midline, no thyromegaly Respiratory: normal respiratory effort, lungs clear to auscultation Cardiovascular: RRR, no murmur, no edema Gastrointestinal (Abdomen): normal bowel sounds, soft, nontender, no hepatosplenomegaly Skin: no rashes, warm and dry Neurologic: awake; not confused Results & Data ([facility]) Vital Signs (Past 12 Hours) Vital Signs Temp Pulse Pulse Resp BP BP Pulse Ox 01/23/22 07:26 36.5 C 51 L 17 165/77 H 99 01/23/22 07:09 53 L 01/23/22 00:00 55 L 01/22/22 23:54 36.6 C 53 L 20 149/72 H 97 O2 Del Method 01/23/22 07:26 Room Air 01/23/22 07:09 01/23/22 00:00 01/22/22 23:54 Room Air Laboratory Results Laboratory Tests 01/23/22 01/23/22 06:28 06:28 WBC 18.59 H Hgb 9.6 L Hct 28.3 L Plt Count 332 Sodium 136 Potassium 3.4 L Chloride 104 Carbon Dioxide 20 L Anion Gap 12 H BUN 93 H Creatinine 3.12 H D Glucose 102 H PG Care Time/CCT Total # of Minutes Spent Total Time Spent with Patient: Total time spent is greater than 50% in coordination of care (as documented) at patient's floor/unit and/or counseling patient: Coding Level of Care Code 14197 Subseq Hosp Care Lvl 3 Diagnoses Acute kidney injury superimposed on CKD N17.9; N18.9 Chronic kidney disease, stage 4 (severe) N18.4 Severe sepsis A41.9; R65.20 Nephrolithiasis N20.0 Anemia D64.9 Anemia type: unspecified type Paroxysmal atrial fibrillation I48.0 (1) Anemia Anemia type: unspecified type Qualified Code(s): D64.9 - Anemia, unspecified
[2022-01-23] MEDS: cefTRIAXone SODIUM 2,000 MG in DEXTROSE 5% 50 ML IV SCH (09:15)
[2022-01-23] MEDS: SODIUM CHLORIDE 0.9% 1000ML 1,000 ML IV SCH (12:45)
[2022-01-23] MEDS: LATANOPROST 0.005% OP SOLN 2.5 ML BTL OPB SCH (20:31)
[2022-01-23] MEDS: ACETAMINOPHEN 325 MG TAB PO PRN (20:35)
[2022-01-24] MEDS: SODIUM CHLORIDE 0.9% 1000ML 1,000 ML IV SCH (00:26)
[2022-01-24] MEDS: LEVOTHYROXINE SODIUM 100 MCG TABLET PO SCH (05:33)
[2022-01-24 06:12] LABS: BUN Creatinine Ratio 28.6 (10-20); Calcium 8.4 mg/dl (8.5-10.1); Creatinine Clr Calc Pharmacy 14.6 ml/min; Est GFR (African American) 18.2 ml/min; Est GFR (Non-African American) 15.7 ml/min; Potassium 3.7 mmol/L (3.5-5.1)
[2022-01-24] MEDS: METOPROLOL SUCC 25MG EXT REL TAB PO SCH (08:30)
[2022-01-24] MEDS: PANTOprazole 40 MG TAB PO SCH (08:30)
[2022-01-24] MEDS: CYANOCOBALAMIN (B-12) 500 MCG TABLET PO SCH (08:31)
[2022-01-24] MEDS: AMIODARONE 200 MG TAB PO SCH (08:31)
[2022-01-24] MEDS: NYSTATIN SUSP 500,000 U/5 ML UDC PO SCH ×3 (08:31→13:35)
[2022-01-24] MEDS: FERROUS SULFATE 325 MG TAB PO SCH (08:31)
[2022-01-24] MEDS: ASPIRIN 81 MG CHEW PO SCH (08:33)
--- NOTE | 2022-01-24 08:59 | Nephrology Progress Note ---
Date of Service January 24, 2022 Assessment & Plan (1) Acute kidney injury superimposed on CKD: Plan: * Non-oliguric, UO 650 cc. Cr improved to 2.6. Electrolytes acceptable. Patient remains azotemic but not uremic * Discussed KDIGO CKD staging and [employer] in detail w/ patient. She is familiar w/ dialysis. She has a brother on dialysis and notes that it would not provide her w/ quality of life. Ms. Kirby requests conservative medical management and does not want dialysis if her kidneys fail to improve or if function declines * If discharge is anticipated, patient will require outpatient follow up within 7 - 10 days for ongoing monitoring. Her daughter plans to have her relocate w/ her to [place] (2) Chronic kidney disease, stage 4 (severe): Plan: * CKD stage G4/A3 (advanced impairment). Baseline Cr 2.0. Urine sediment - benign. UPCR 0.8. Renal US revealed mild renal asymmetry. Mag-3 flow scan revealed symmetric perfusion. Renal impairment is due to diabetic nephropathy, hypertensive nephrosclerosis and age (3) Severe sepsis: Plan: * Pansensitive E coli in blood and urine * WBC# slowly improving * s/p cystoscopy. L ureteral stent is in place * Definitive stone therapy once infection has fully been cleared * On Ceftriaxone therapy (4) Nephrolithiasis: Plan: * s/p ureteroscopy with stent placement 01/15/22 (5) Anemia: Plan: * 2 units PRBC provided this hospitalization * FOBT negative x3 this hospitalization (6) Paroxysmal atrial fibrillation: Plan: * Cardiology has started amiodarone * Remains on metoprolol * Anticoagulation held due to recent fall, anemia and recent Urologic intervention Admission and Anticipated Discharge Date Admission Date: January 15, 2022 Subjective Ms. Kirby was evaluated in her hospital room this morning. She was alert & oriented x3. She denied fever, flank pain, dyspnea or uremic symptoms. She voiced no new medical concerns Review of Systems Constitutional: no fever Eyes: no problem reported Ear, Nose, Mouth, Throat: no problem reported Respiratory: no dyspnea Cardiovascular: no chest pain Gastrointestinal: no abdominal pain, no vomiting and no diarrhea/loose stools Neurologic: no confusion Physical Exam Constitutional: no acute distress Eyes: PERRL, conjunctivae normal, anicteric sclerae ENMT: external ear and nose normal, oropharynx normal Neck: trachea midline, no thyromegaly Respiratory: normal respiratory effort, lungs clear to auscultation Cardiovascular: RRR, no murmur, no edema Gastrointestinal (Abdomen): normal bowel sounds, soft, nontender, no hepatosplenomegaly Skin: no rashes, warm and dry Neurologic: awake; not confused Results & Data ([place]) Vital Signs (Past 12 Hours) Vital Signs Temp Pulse Pulse Resp BP Pulse Ox O2 Del Method 01/24/22 08:24 36.6 C 51 L 19 176/64 H 97 Room Air 01/24/22 03:10 36.5 C 51 L 17 174/75 H 96 Room Air 01/24/22 00:51 52 L 01/23/22 22:51 36.9 C 51 L 18 169/76 H 96 Room Air Laboratory Results Laboratory Tests 01/23/22 01/24/22 06:28 05:41 WBC 18.59 H Hgb 9.6 L Hct 28.3 L Plt Count 332 Sodium 138 Potassium 3.7 Chloride 109 H Carbon Dioxide 20 L BUN 76 H Creatinine 2.66 H D Glucose 87 Calcium 8.4 L PG Care Time/CCT Total # of Minutes Spent Total Time Spent with Patient: Total time spent is greater than 50% in coordination of care (as documented) at patient's floor/unit and/or counseling patient: Coding Level of Care Code 18155 Subseq Hosp Care Lvl 3 Diagnoses Acute kidney injury superimposed on CKD N17.9; N18.9 Chronic kidney disease, stage 4 (severe) N18.4 Severe sepsis A41.9; R65.20 Nephrolithiasis N20.0 Anemia D64.9 Anemia type: unspecified type Paroxysmal atrial fibrillation I48.0 (1) Anemia Anemia type: unspecified type Qualified Code(s): D64.9 - Anemia, unspecified
[2022-01-24] MEDS: cefTRIAXone SODIUM 2,000 MG in DEXTROSE 5% 50 ML IV SCH (10:57)
[2022-01-24 11:02] LABS: Hematocrit (blood only) 29.4 % (34.1-44.9); Hemoglobin 9.8 g/dl (12.0-16.0); Mean Corpuscular Hemoglobin 28.6 pg (25.0-34.0); Mean Corpuscular Hgb Conc 33.3 g/dL (32.0-36.0); Mean Corpuscular Volume 85.7 fL (80.0-100.0); Mean Platelet Volume 10.5 fL (9.4-12.3); Platelet Count 434 K/uL (130-400); RDW Coefficient of Variation 15.3 % (11.5-14.5); RDW Standard Deviation 46.9 fL (36.4-46.3); Red Blood Count 3.43 M/uL (3.93-5.22); White Blood Count 14.82 K/ul (4.8-10.8)
[2022-01-24 11:24] LABS: Basophils # (auto) 0.08 K/uL (0-0.2); Basophils % (auto) 0.5 %; Eosinophils # (auto) 0.28 K/uL (0-0.50); Eosinophils % (auto) 1.9 %; Immature Granulocytes # (auto) 1.01 K/uL (0.00-0.02); Immature Granulocytes % (auto) 6.8 %; Lymphocytes # (auto) 0.75 K/uL (1.2-3.4); Lymphocytes % (auto) 5.1 %; Monocytes # (auto) 0.66 K/uL (0.24-0.82); Monocytes % (auto) 4.5 %; Neutrophils # (auto) 12.04 K/uL (1.4-6.5); Neutrophils % (auto) 81.2 %; Polychromasia 1+; Schistocytes 1+
--- NOTE | 2022-01-24 12:35 | Hospitalist Progress Note ---
Date of Service January 22, 2022 Assessment & Plan (1) Severe sepsis: Plan: SIRS plus ARF on CKD plus lactic acidosis plus encephalopathy secondary to complicated UTI Blood culture was positive with E. coli and urine culture is positive with E. coli which were pansensitive CT chest: No pneumonia ID consulted, patient given ertapenem and ceftriaxone x6 days Transition to Cipro 500 mg daily (given creatinine clearance less than 30) x4 more days to complete 10 days of antibiotic course Confusion resolved, oriented x3 Denies any more symptoms Leukocytosis improved to 21.97 Antibiotic changed to IV ceftriaxone as of 01/20/2022 Repeat blood culture is negative Likely discharge in a day or 2 ARF on CKD secondary to sepsis, obstructive uropathy Repeat CT abdomen pelvis:Hydronephrosis improving, no fluid collection noted Rhabdomyolysis contributory Creatinine not improving much since admission, still around 3.6-[address] Merida, would like to see patient's creatinine 3.5 and below before discharge Patient declines hemodialysis if required Creatinine is below 3.5 today Advised to continue drinking more fluid Troponin elevation secondary to sepsis, rhabdomyolysis Cardiology service on board ACS ruled out Atrial fibrillation, new onset Back to sinus rhythm Amiodarone p.o., metoprolol ordered Not a candidate for anticoagulation secondary to anemia Acute on chronic anemia Secondary to iron deficiency, vitamin B12 deficiency No signs of overt bleed for now Status post 2 units of packed RBCs Added Protonix IV 40 mg twice daily Will replace iron and vitamin B12 Chronic diastolic heart failure No signs of fluid overload moderate MR pulmonary hypertension as per records HTN Hyperlipidemia on statin Rx DM2 diet-controlled, well-controlled as of recent hemoglobin A1c of 5.5 last June 2021 Hypothyroidism euthyroid DVT prophylaxis. SCDs Re: Anemia Disposition Pending PT and OT evaluation pending Patient's daughter Priscilla who lives at [place], would like to have her mother live upon discharge from the hospital Admission and Anticipated Discharge Date Admission Date: January 15, 2022 Subjective 01/22/2022 The patient was seen and examined in telemetry unit She has been feeling much better and denies any significant symptoms She says that she has been improving We will DC her Del Toro catheter today Review of Systems Review of Systems: All systems reviewed and are unremarkable except as noted below Physical Exam Physical Exam: Sitting on a chair without any acute distress Constitutional: well developed, well nourished and average body habitus; not ill appearing Eyes: PERRL, conjunctivae normal, anicteric sclerae ENMT: external ear and nose normal, oropharynx normal Neck: trachea midline, no thyromegaly Respiratory: no respiratory distress Auscultation: lungs clear to auscultation bilaterally Cardiovascular: Rate/Rhythm: regular rate and regular rhythm; not tachycardic Heart Sounds: normal S1 and normal S2; no murmur Extremities: no edema Gastrointestinal (Abdomen): Inspection/Auscultation: normal bowel sounds; abdomen not distended Percussion/Palpation: abdomen soft; abdomen nontender Lymphatic: no cervical or axillary lymphadenopathy Results & Data Results & Data ([facility]) Vital Signs (Past 12 Hours) Vital Signs Temp Pulse Resp BP Pulse Ox O2 Del Method 01/22/22 11:08 36.7 C 61 17 119/62 95 Room Air 01/22/22 07:19 36.9 C 55 L 17 148/78 H 94 Room Air 01/22/22 03:25 36.9 C 58 L 18 134/62 95 Room Air
--- NOTE | 2022-01-24 12:36 | Hospitalist Progress Note ---
Date of Service January 23, 2022 Assessment & Plan (1) Severe sepsis: Plan: SIRS plus ARF on CKD plus lactic acidosis plus encephalopathy secondary to complicated UTI Blood culture was positive with E. coli and urine culture is positive with E. coli which were pansensitive CT chest: No pneumonia ID consulted, patient given ertapenem and ceftriaxone x6 days Transition to Cipro 500 mg daily (given creatinine clearance less than 30) x4 more days to complete 10 days of antibiotic course Confusion resolved, oriented x3 Denies any more symptoms Leukocytosis improved to 21.97 Antibiotic changed to IV ceftriaxone as of 01/20/2022 Repeat blood culture is negative Likely discharge in a day or 2 Remains stable ARF on CKD secondary to sepsis, obstructive uropathy Repeat CT abdomen pelvis:Hydronephrosis improving, no fluid collection noted Rhabdomyolysis contributory Creatinine not improving much since admission, still around 3.6-[address] Merida, would like to see patient's creatinine 3.5 and below before discharge Patient declines hemodialysis if required Creatinine is below 3.5 today Advised to continue drinking more fluid Kidney function is improving Troponin elevation secondary to sepsis, rhabdomyolysis Cardiology service on board ACS ruled out Atrial fibrillation, new onset Back to sinus rhythm Amiodarone p.o., metoprolol ordered Not a candidate for anticoagulation secondary to anemia Acute on chronic anemia Secondary to iron deficiency, vitamin B12 deficiency No signs of overt bleed for now Status post 2 units of packed RBCs Added Protonix IV 40 mg twice daily Will replace iron and vitamin B12 Chronic diastolic heart failure No signs of fluid overload moderate MR pulmonary hypertension as per records HTN Hyperlipidemia on statin Rx DM2 diet-controlled, well-controlled as of recent hemoglobin A1c of 5.5 last June 2021 Hypothyroidism euthyroid DVT prophylaxis. SCDs Re: Anemia Disposition Pending PT and OT evaluation pending Patient's daughter Priscilla who lives at [place], would like to have her mother hector eric upon discharge from the hospital Likely to be discharged in a day or 2 Admission and Anticipated Discharge Date Admission Date: January 15, 2022 Subjective 01/22/2022 The patient was seen and examined in telemetry unit She has been feeling much better and denies any significant symptoms She says that she has been improving We will DC her Del Toro catheter today 01/23/2022 The patient was seen and examined in telemetry unit She has been feeling better but her white count remains elevated She was advised to drink more fluid and likely to be discharged tomorrow Review of Systems Review of Systems: All systems reviewed and are unremarkable except as noted below Physical Exam Physical Exam: Sitting on a chair without any acute distress Constitutional: well developed, well nourished and average body habitus; not ill appearing Eyes: PERRL, conjunctivae normal, anicteric sclerae ENMT: external ear and nose normal, oropharynx normal Neck: trachea midline, no thyromegaly Respiratory: no respiratory distress Auscultation: lungs clear to auscultation bilaterally Cardiovascular: Rate/Rhythm: regular rate and regular rhythm; not tachycardic Heart Sounds: normal S1 and normal S2; no murmur Extremities: no edema Gastrointestinal (Abdomen): Inspection/Auscultation: normal bowel sounds; abdomen not distended Percussion/Palpation: abdomen soft; abdomen nontender Lymphatic: no cervical or axillary lymphadenopathy Results & Data Results & Data ([facility]) Vital Signs (Past 12 Hours) Vital Signs Temp Pulse Pulse Resp BP Pulse Ox O2 Del Method 01/24/22 11:42 36.6 C 58 L 18 165/77 H 97 Room Air 01/24/22 08:00 49 L 01/24/22 08:24 36.6 C 51 L 19 176/64 H 97 Room Air 01/24/22 03:10 36.5 C 51 L 17 174/75 H 96 Room Air 01/24/22 00:51 52 L
--- NOTE | 2022-01-24 12:41 | Hospitalist Progress Note ---
Date of Service January 24, 2022 Assessment & Plan (1) Severe sepsis: Plan: SIRS plus ARF on CKD plus lactic acidosis plus encephalopathy secondary to complicated UTI Blood culture was positive with E. coli and urine culture is positive with E. coli which were pansensitive CT chest: No pneumonia ID consulted, patient given ertapenem and ceftriaxone x6 days Transition to Cipro 500 mg daily (given creatinine clearance less than 30) x4 more days to complete 10 days of antibiotic course Confusion resolved, oriented x3 Denies any more symptoms Leukocytosis improved to 21.97 Antibiotic changed to IV ceftriaxone as of 01/20/2022 Repeat blood culture is negative Likely discharge in a day or 2 White count is improved to 14.82 from 18.59 Patient remains afebrile and repeat cultures come back negative We will discontinue antibiotic and she will be discharged home this afternoon ARF on CKD secondary to sepsis, obstructive uropathy Repeat CT abdomen pelvis:Hydronephrosis improving, no fluid collection noted Rhabdomyolysis contributory Creatinine not improving much since admission, still around 3.6-[address] Merida, would like to see patient's creatinine 3.5 and below before discharge Patient declines hemodialysis if required Creatinine is below 3.5 today Advised to continue drinking more fluid Kidney function is improving Kidney function is improved with creatinine of 2.66 as of 01/24/2022 Troponin elevation secondary to sepsis, rhabdomyolysis Cardiology service on board ACS ruled out Atrial fibrillation, new onset Back to sinus rhythm Amiodarone p.o., metoprolol ordered Not a candidate for anticoagulation secondary to anemia Acute on chronic anemia Secondary to iron deficiency, vitamin B12 deficiency No signs of overt bleed for now Status post 2 units of packed RBCs Added Protonix IV 40 mg twice daily Will replace iron and vitamin B12 Hemoglobin remained stable at 9.8 Chronic diastolic heart failure No signs of fluid overload moderate MR pulmonary hypertension as per records HTN Remains at upper limit at Hyperlipidemia on statin Rx DM2 diet-controlled, well-controlled as of recent hemoglobin A1c of 5.5 last June 2021 Hypothyroidism euthyroid DVT prophylaxis. SCDs Re: Anemia Disposition Pending PT and OT evaluation pending Patient's daughter Priscilla who lives at [place], would like to have her mother live upon discharge from the hospital Discussed with the daughter and she will be discharged home this afternoon Admission and Anticipated Discharge Date Admission Date: January 15, 2022 Subjective 01/22/2022 The patient was seen and examined in telemetry unit She has been feeling much better and denies any significant symptoms She says that she has been improving We will DC her Del Toro catheter today 01/23/2022 The patient was seen and examined in telemetry unit She has been feeling better but her white count remains elevated She was advised to drink more fluid and likely to be discharged tomorrow 01/24/2022 The patient was seen and examined in telemetry unit She does not have any symptoms and wants to go home No fever and or chills and her white count has been coming down Kidney function is improved and she was discharged home this afternoon Review of Systems Review of Systems: All systems reviewed and are unremarkable except as noted below Physical Exam Physical Exam: Sitting on a chair without any acute distress Constitutional: well developed, well nourished and average body habitus; not ill appearing Eyes: PERRL, conjunctivae normal, anicteric sclerae ENMT: external ear and nose normal, oropharynx normal Neck: trachea midline, no thyromegaly Respiratory: no respiratory distress Auscultation: lungs clear to auscultation bilaterally Cardiovascular: Rate/Rhythm: regular rate and regular rhythm; not tachycardic Heart Sounds: normal S1 and normal S2; no murmur Extremities: no edema Gastrointestinal (Abdomen): Inspection/Auscultation: normal bowel sounds; abdomen not distended Percussion/Palpation: abdomen soft; abdomen nontender Musculoskeletal: No acute arthritis involving any joint Neurologic: Alert, awake and oriented x3. No focal sensory and motor deficit appreciated Lymphatic: no cervical or axillary lymphadenopathy Results & Data Results & Data ([facility]) Vital Signs (Past 12 Hours) Vital Signs Temp Pulse Pulse Resp BP Pulse Ox O2 Del Method 01/24/22 11:42 36.6 C 58 L 18 165/77 H 97 Room Air 01/24/22 08:00 49 L 01/24/22 08:24 36.6 C 51 L 19 176/64 H 97 Room Air 01/24/22 03:10 36.5 C 51 L 17 174/75 H 96 Room Air 01/24/22 00:51 52 L Laboratory Results Short CBC 01/24/22 Range/Units 10:15 WBC 14.82 H (4.8-10.8) K/ul Hgb 9.8 L (12.0-16.0) g/dl Hct 29.4 L (34.1-44.9) % Plt Count 434 H (130-400) K/uL BMP 01/24/22 05:41 Sodium 138 Potassium 3.7 Chloride 109 H Carbon Dioxide 20 L BUN 76 H Creatinine 2.66 H D Glucose 87 Calcium 8.4 L Medications Administered Current Inpatient Medications Acetaminophen (Acetaminophen 325 Mg Tab) 650 mg PO Q4H PRN PRN Reason: Pain or Fever Stop: 02/14/22 01:46 Last Admin: 01/23/22 20:35 Dose: 650 mg Amiodarone HCl ([facility]arone 200 Mg Tab) [facility] Stop: 02/19/22 09:44 Last Admin: 01/24/22 08:31 Dose: 200 mg Aspirin (Aspirin 81 Mg Chew) 81 mg PO DAILY [facility] Stop: 02/14/22 12:14 Last Admin: 01/24/22 08:33 Dose: 81 mg Cyanocobalamin (Cyanocobalamin (B-12) 500 Mcg Tablet) [facility],000 [facility] [place] Stop: 02/21/22 08:59 Last Admin: 01/24/22 08:31 Dose: 1,000 mcg Dextrose (Dextrose 50% 50 Ml Syringe) 25 - 50 ml IV UD PRN; Protocol PRN Reason: Hypoglycemia Protocol Stop: 02/14/22 04:38 Ferrous Sulfate (Ferrous Sulfate 325 Mg Tab) 325 mg PO BID [facility] Stop: 02/14/22 08:59 Last Admin: 01/24/22 08:31 Dose: 325 mg Glucagon (Glucagon For Inj 1 Mg Vial) 1 mg SQ UD PRN; Protocol PRN Reason: Hypoglycemia Protocol Stop: 02/14/22 04:38 Glucose (Glucose 40% Gel 15 Gm Tube) 15 - 30 gm PO UD PRN; Protocol PRN Reason: Hypoglycemia Protocol Stop: 02/14/22 04:38 Glucose (Glucose 10 Tab/Tube) 4 - 8 tab PO UD PRN; Protocol PRN Reason: Hypoglycemia Treatment Stop: 02/14/22 04:38 Promethazine HCl 6.25 mg/ (Sodium Chloride) 50.25 mls @ 201 mls/hr IV Q6H PRN PRN Reason: Nausea And Vomiting Stop: 02/14/22 01:46 Ceftriaxone Sodium 2,000 mg/ (Dextrose) 70 mls @ 100 mls/hr IV Q24H MICHAEL; Protocol Stop: 02/03/22 09:59 Last Infusion: 01/24/22 11:39 Dose: Infused Sodium Chloride (Nss 1000ml) 1,000 mls @ 80 mls/hr IV .[id number] [facility] Stop: 01/24/22 13:29 Last Admin: 01/24/22 00:26 Dose: 80 mls/hr Latanoprost (Latanoprost 0.005% Op Soln 2.5 Ml Btl) 1 drops OPB HS [facility] Stop: 02/14/22 20:59 Last Admin: 01/23/22 20:31 Dose: 1 drops Levothyroxine Sodium (Levothyroxine Sodium 100 Mcg Tablet) 100 mcg PO DAILYBB [facility] Stop: 02/14/22 06:29 Last Admin: 01/24/22 05:33 Dose: 100 mcg Metoprolol Succinate (Metoprolol Succ 25mg Ext Rel Tab) 12.5 mg PO QAM [facility] Stop: 02/19/22 09:44 Last Admin: 01/24/22 08:30 Dose: 12.5 mg Miscellaneous (Carbohydrates For Hypoglycemia ) 15 - 30 gm PO UD PRN PRN Reason: Hypoglycemia Protocol Stop: 02/14/22 04:38 Nystatin (Nystatin Susp 500,000 U/5 Ml Udc) 5 ml PO QID [facility] Stop: 01/28/22 16:59 Last Admin: 01/24/22 08:31 Dose: 5 ml Pantoprazole Sodium (Pantoprazole 40 Mg Tab) 40 mg PO QAM [facility] Stop: 02/21/22 08:59 Last Admin: 01/24/22 08:30 Dose: 40 mg
--- NOTE | 2022-01-25 08:40 | Discharge Summary ---
Date of Service January 25, 2022 Admission HPI Per Admitting Provider History obtained from patient, family, and records. Limited history from patient secondary to obtunded state. Medical history significant for chronic diastolic heart failure (EF 60 to 65%, TTE 2020), moderate MR, pulmonary hypertension as per records, HTN, hyperlipidemia, DM2 diet-controlled, hypothyroidism, CRI (baseline creatinine 3), chronic anemia (baseline hemoglobin 9), gout. Last confinement October 2021 for hypertensive urgency. Spironolactone HCTZ added to patient's blood pressure regimen. Worsening outpatient serum creatinine noted over the last 2 months. Serum creatinine noted to be 3.11 2 weeks ago from 2.44 last November 25, 2021. 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 Patient could not be reached by family at her home yesterday. Patient found by neighbors on the floor with decreased responsiveness. Fecal soiling noted. Patient complaining of abdominal/back pain about 2 days ago as per family. Patient unable to answer questions regarding headache, chest pain, SOB, syncope, abdominal pain, hematuria, bleeding symptoms. Patient brought to the ER for evaluation. Ertapenem administered at the ER for possible UTI. IV insulin and bicarb administered for hyperkalemia. 1 unit packed RBC transfused at the ER. 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 Admission Exam Per Admitting Provider Physical Exam: GENERAL: Obtunded, no respiratory distress SKIN: Pallor, warm HEENT: Pale palpebral conjunctivae, no ptosis, dry buccal mucosa NECK : Supple, no tenderness CHEST : CTA, no tenderness HEART : Tachycardic, systolic murmur ABDOMEN: Some distention, nontender EXTREMITIES : No LE swelling/tenderness, no other conspicuous deformities noted NEUROLOGIC : Obtunded, no facial asymmetry, gait and stance not assessed Principal Diagnosis Sepsis secondary to complicated UTI, ELISABET on CKD, atrial fibrillation without any anticoagulation, hypertension, diet-controlled diabetes, chronic anemia Discharge Exam Sitting on a chair without any acute distress Constitutional well developed, well nourished and average body habitus; not ill appearing Eyes PERRL, conjunctivae normal, anicteric sclerae ENMT external ear and nose normal, oropharynx normal Neck trachea midline, no thyromegaly Respiratory no respiratory distress Auscultation: lungs clear to auscultation bilaterally Cardiovascular Rate/Rhythm: regular rate and regular rhythm; not tachycardic Heart Sounds: normal S1 and normal S2; no murmur Extremities: no edema Gastrointestinal (Abdomen) Inspection/Auscultation: normal bowel sounds; abdomen not distended Percussion/Palpation: abdomen soft; abdomen nontender Lymphatic no cervical or axillary lymphadenopathy Discharge Data Allergies Allergy/AdvReac Type Severity Reaction Status Date / Time Penicillins Allergy Severe ANAPHLACTIC Verified 01/20/22 08:59 SHOCK hydrocodone Allergy Intermediate RASH Verified 01/15/22 01:02 Iodinated Contrast Media Allergy Intermediate HIVES Verified 01/15/22 01:02 phenylephrine Allergy Intermediate Rash, Verified 01/15/22 01:02 insomnia trolamine salicylate Allergy Intermediate RASH Verified 01/15/22 01:02 ketorolac Allergy Mild Unknown Verified 01/15/22 01:02 oxycodone Allergy Mild BRIGHT RED Verified 01/15/22 01:02 RASH tramadol Allergy Mild BRIGHT RED Verified 01/15/22 01:02 RASH prednisone AdvReac Unknown Became Verified 01/15/22 01:02 manic Consultations 01/15/22 00:05 Consult Urology Routine ED Decision to Admit Stat 01/15/22 01:47 Consult Nephrology Routine 01/15/22 08:29 Consult Cardiology Routine 01/17/22 09:26 Consult Infectious Diseases Routine Procedures Performed Operation Date: 01/15/22 01:45 Actual Procedures p Cystoscopy, left retrograde pyelogram, left ureteral stent placement(Left) - Henri Galloway MD Ordered Studies 01/14/22 20:46 CT cervical spine wo con Urgent CT head/brain wo con Urgent 01/14/22 22:07 CT abd pelvis wo con Urgent 01/15/22 FL retrograde includes kub Routine 01/17/22 09:27 CT abd pelvis wo con Stat 01/17/22 09:28 CT chest diagnostic wo con Stat 01/20/22 US venous doppler LE RT Urgent Hospital Course (1) Severe sepsis: SIRS plus ARF on CKD plus lactic acidosis plus encephalopathy secondary to complicated UTI Blood culture was positive with E. coli and urine culture is positive with E. coli which were pansensitive CT chest: No pneumonia ID consulted, patient given ertapenem and ceftriaxone x6 days Transition to Cipro 500 mg daily (given creatinine clearance less than 30) x4 more days to complete 10 days of antibiotic course Confusion resolved, oriented x3 Denies any more symptoms Leukocytosis improved to 21.97 Antibiotic changed to IV ceftriaxone as of 01/20/2022 Repeat blood culture is negative Likely discharge in a day or 2 White count is improved to 14.82 from 18.59 Patient remains afebrile and repeat cultures come back negative We will discontinue antibiotic and she will be discharged home this afternoon ARF on CKD secondary to sepsis, obstructive uropathy Repeat CT abdomen pelvis:Hydronephrosis improving, no fluid collection noted Rhabdomyolysis contributory Creatinine not improving much since admission, still around 3.6-[address] Merida, would like to see patient's creatinine 3.5 and below before discharge Patient declines hemodialysis if required Creatinine is below 3.5 today Advised to continue drinking more fluid Kidney function is improving Kidney function is improved with creatinine of 2.66 as of 01/24/2022 Troponin elevation secondary to sepsis, rhabdomyolysis Cardiology service on board ACS ruled out Atrial fibrillation, new onset Back to sinus rhythm Amiodarone p.o., metoprolol ordered Not a candidate for anticoagulation secondary to anemia Acute on chronic anemia Secondary to iron deficiency, vitamin B12 deficiency No signs of overt bleed for now Status post 2 units of packed RBCs Added Protonix IV 40 mg twice daily Will replace iron and vitamin B12 Hemoglobin remained stable at 9.8 Chronic diastolic heart failure No signs of fluid overload moderate MR pulmonary hypertension as per records HTN Remains at upper limit at Hyperlipidemia on statin Rx DM2 diet-controlled, well-controlled as of recent hemoglobin A1c of 5.5 last June 2021 Hypothyroidism euthyroid DVT prophylaxis. SCDs Re: Anemia Disposition Pending PT and OT evaluation pending Patient's daughter Priscilla who lives at [place], would like to have her mother live upon discharge from the hospital Discussed with the daughter and she will be discharged home this afternoon Total Time Total Time Spent Total Time Spent (In Minutes): 35 minutes Discharge Plan Discharge Items Patient Disposition: Home - Self-Care Reason For Visit: SEPSIS, TROP ELEV Discharge Diagnosis: Sepsis secondary to complicated UTI, ELISABET on CKD, atrial fibrillation without any anticoagulation, hypertension, diet-controlled diabetes, chronic anemia Condition on Discharge: Fair Activity: Resume your previous activity Non-emergency contact: Primary Care Provider Call non-emergency contact if: you have any medication questions and your symptoms worsen Follow-up/Referrals: Tiffanie Jameson DO [Primary Care Provider] - Diet: Carb Consistent or DM2 and Low Sodium (2gm) Ambulatory Orders: Basic Metabolic Panel (Routine) Timeframe: 1 Week Location: Determined by Patient Ordered By: Jia Owens Addedgar Attending Provider Instructions: Please take precautions to avoid falls Take your medications as advised Please keep/make an appointment with your PCP within 1 week and have a BMP done during that visit or even prior Pending Studies at Discharge: No Stand-Alone Forms: [employer], Smoking Cessation Medications and DC Order Prescriptions: New amiodarone 200 mg Tablet 200 mg PO QAM Qty: 30 0RF metoprolol succinate 25 mg Tablet Extended Release 24 Hr 12.5 mg PO QAM Qty: 30 0RF cyanocobalamin (vitamin B-12) 500 mcg Tablet 1,000 mcg PO QAM Qty: 60 0RF Continued atorvastatin 40 mg tablet 40 mg PO QAM ferrous sulfate 325 mg (65 mg iron) tablet 325 mg PO BID Qty: 60 Rx Instructions: TAKE THIS MEDICATION WITH FOOD amlodipine 10 mg tablet 10 mg PO QAM allopurinol 100 mg tablet 200 mg PO QAM latanoprost 0.005 % drops 1 drp OPB HS paroxetine HCl 10 mg tablet 10 mg PO DAILY levothyroxine 100 mcg tablet 100 mcg PO DAILYBB acetaminophen [Tylenol] 325 mg Tablet 650 mg PO HS citalopram 10 mg tablet 10 mg PO QAM potassium gluconate 595 mg (99 mg) Tablet 595 mg PO DAILY magnesium 200 mg Tablet 200 mg PO DAILY cholecalciferol (vitamin D3) [Vitamin D3] 50 mcg (2,000 unit) Tablet 50 mcg PO BID sertraline 50 mg tablet 50 mg PO DAILY Discontinued bumetanide 1 mg tablet 1 mg PO DAILY PRN (Reason: Weight Gain) spironolacton-hydrochlorothiaz 25-25 mg Tablet 1 tab PO BID Qty: 60 1RF metoprolol succinate 25 mg tablet extended release 24 hr 25 mg PO DAILY Discharge Orders: Discharge Order (Routine); Ordered 01/24/22 Ordered By: Jia Owens Admission Data Admit Date/Time: 11/30/22 01:20 Attending Provider: Jia Owens Admit Provider: Dash Wells Primary Care Provider: Tiffanie Jameson Other Providers: Dash Wells ; Henri Galloway ; Cooper Merida ; Rolando Lai ; Sylvia Lea ; Jason Sanches ; Lara Rhoades ; Mauricio Ambrosio ; Orville Michel ; Bandar Lloyd ; Sj Nunez I. ; Bryan Mcneil II ; Thelma Fowler ; Bharath Valdes ; Kavin Matt ; Rosa Hernandez ; Maik Monsivais Other Interventions: Discharge Summary Assessment (RN) Last Done: 01/24/22 13:28
== END 2022-01-24 15:56 | disposition home or self-care (01) | DRG 853 ==
LOC: ED 20:37 → 1E 01-15 01:20 → SUATTDRO 01-15 01:20 → 1E 01-15 01:57 → 4W 01-15 12:35